=== PATIENT | female | born 1970 | race Two or more races ===

== ENCOUNTER 2016-08-30 02:12 | Emergency (ER) | payer OTHER ==
[2016-08-30 02:29] VITALS: BP 162/87; PULSE 104; TEMP 97.7; BMI 31.1
--- NOTE | 2016-08-30 03:00 | PDOC ---
*Physical Exam - Vital Signs Last Vital Signs Temp Pulse Resp BP Pulse Ox 97.7 F 104 H 18 162/87 98 08/30/16 02:23 08/30/16 02:23 08/30/16 02:23 08/30/16 02:23 08/30/16 02:23 Medical Decision Making - Medical Decision Making 08/30/16 03:00 agree with care from [facility] *DC/Admit/Observation/Transfer Diagnosis at time of Disposition: Heart palpitations - Discharge Dispostion Disposition: HOME Condition at time of disposition: Good - Prescriptions Prescriptions: Azithromycin [Zithromax -] 250 mg PO DAILY #4 tablet - Referrals Referrals: Jose Santos MD [Primary Care Provider] - - Patient Instructions Printed Discharge Instructions: DI for Palpitations Additional Instructions: TAKE MEDICATIONS PRESCRIBED. RETURN IF SYMPTOMS WORSEN OR ANY CONCERNS FOR FURTHER EVALUATION. FOLLOW UP WITH YOUR PRIMARY CARE PROVIDER NEEDED. Print Language: BRAZILIAN
[2016-08-30 03:30] LABS: PH,URINE 6.5 (5.0-8.0); URINE APPEARANCE CLOUDY; URINE BILIRUBIN 1+ (NEGATIVE); URINE GLUCOSE (UA) NEGATIVE (NEGATIVE); URINE KETONE TRACE (NEGATIVE); URINE LEUK ESTERASE NEGATIVE (NEGATIVE); URINE NITRITE NEGATIVE (NEGATIVE); URINE UROBILINOGEN 0.2 E.U/dl E.U./dl (0.2-1.0)
[2016-08-30 03:33] LABS: URINE BLOOD 3+ (NEGATIVE); URINE COLOR DK YELLOW; URINE PROTEIN 2+ (NEGATIVE)
[2016-08-30 03:35] LABS: URINE HYALINE CAST 3 /lpf; URINE MUCUS MODERATE; URINE RBC 1265 /hpf (0-3); URINE WBC 7 /hpf (3-5)
[2016-08-30] MEDS ORDERED: AZITHROMYCIN 250 MG TABLET (FP) PO ONE (04:47)
--- NOTE | 2016-08-30 04:50 | PDOC ---
History of Present Illness - General Chief Complaint: Respiratory Stated Complaint: RESPIRATORY Time Seen by Provider: 08/30/16 02:51 History Source: Patient Exam Limitations: No Limitations - History of Present Illness Initial Comments: 08/30/16 04:48 46yo Female patient presents to ED c/o chest discomfort when coughing. Patient states Sunday she experienced sore throat, fever, cough with chest pain. Sunday she saw her PCP and was given solumedrol and Rocephin IM. Patient states fever broke at 1pm, she then took a bath. At 330pm pain with breathing began, she called her PCP and was instructed to take a nebulizer tx. Patient states neb tx relieved symptoms, but at 9pm she began experiencing palpitations so she came to ER for evaluation because she was scared. Timing/Duration: getting worse Severity: mild Modifying Factors: improves with: medication Associated Symptoms: reports: other (Heart Palpitations) Aspirin Received prior to arrival: No: no aspirin today, unknown, 81 mg x 1, 81 mg x 2, 81 mg x 3, 81 mg x 4, 325 mg x 1, provided at home, provided by EMS, provided by ED [facility] Contraindications(Core Measure): No: Allergy, Other, Active Blding w/i 24 hrs., Plavix, Receiving Warfarin Beta Hernan Contraindications(Core Measure): No: Not Prescribed, Allergy, Bradycardia (HR <60bpm), Advanced Heart Block, Pacemaker, Other Past History - Travel Traveled outside of the country in the last 30 days: No Close contact w/someone who was outside of country & ill: No - Past Medical History Allergies/Adverse Reactions: Allergies Allergy/AdvReac Type Severity Reaction Status Date / Time No Known Allergies Allergy Verified 08/30/16 04:24 Home Medications: Ambulatory Orders Azithromycin [Zithromax -] 250 mg PO DAILY #4 tablet 08/30/16 Kidney Stones: Yes - Immunization History Immunization Up to Date: Yes - Psycho/Social/Smoking Cessation Hx Anxiety: No Suicidal Ideation: No Smoking History: Current every day smoker Have you smoked in the past 12 months: Yes Number of Cigarettes Smoked Daily: 4 Information on smoking cessation initiated: No 'Breaking Loose' booklet given: 08/30/16 Hx Alcohol Use: No Drug/Substance Use Hx: No Substance Use Type: None Review of Systems - Review of Systems Able to Perform ROS?: Yes Is the patient limited Japanese proficient: No Constitutional: No: Chills, Fever HEENTM: Yes: Other (Post Nasal Drip). No: Throat Pain, Difficulty Swallowing Respiratory: Yes: Cough. No: Shortness of Breath, Stridor, Wheezing Cardiac (ROS): Yes: Palpitations, Other (Chest Pain when breathing.). No: Chest Pain ABD/GI: No: Diarrhea, Nausea, Poor Appetite, Vomiting : No: Burning, Dysuria, Flank Pain Musculoskeletal: No: Back Pain, Muscle Pain, Muscle Weakness Integumentary: No: Bruising, Erythema, Rash Neurological: No: Headache, Numbness, Seizure, Tingling, Tremors, Ataxia, Dizziness Psychiatric: No: Anxiety, Depression, Stressors, Emotional Problems All Other Systems: Reviewed and Negative *Physical Exam - Vital Signs Last Vital Signs Temp Pulse Resp BP Pulse Ox 97.7 F 104 H 18 162/87 98 08/30/16 02:23 08/30/16 02:23 08/30/16 02:23 08/30/16 02:23 08/30/16 02:23 - Physical Exam General Appearance: Yes: Nourished, Appropriately Dressed. No: Apparent Distress, Mild Distress, Moderate Distress, Severe Distress HEENT: positive: EOMI, YENNI, Normal ENT Inspection, Normal Voice, Symmetrical, TMs Normal, Pharynx Normal, Other (Moderate amounts of thick yellowish mucus noted to posterior pharynx. ) Neck: positive: Trachea midline, Supple Respiratory/Chest: positive: Lungs Clear, Normal Breath Sounds Cardiovascular: positive: Regular Rhythm, Regular Rate Gastrointestinal/Abdominal: positive: Normal Bowel Sounds, Soft Lymphatic: negative: Adenopathy Musculoskeletal: positive: Normal Inspection. negative: CVA Tenderness Extremity: positive: Normal Capillary Refill, Normal Inspection, Normal Range of Motion Integumentary: positive: Normal Color, Dry, Warm, Swelling Neurologic: positive: Fully Oriented, Alert, Normal Mood/Affect, Normal Response , Motor Strength 5/5 ED Treatment Course - ADDITIONAL ORDERS Additional order review: Laboratory Results 08/30/16 03:10 Urine Color Dk yellow Urine Appearance Cloudy Urine pH 6.5 Ur Specific Majestic 1.025 Urine Protein 2+ H Urine Glucose (UA) Negative Urine Ketones Trace H Urine Blood 3+ H Urine Nitrite Negative Urine Bilirubin 1+ H Urine Urobilinogen 0.2 e.u/dl Ur Leukocyte Esterase Negative Urine RBC 1265 Urine WBC 7 Ur Epithelial Cells Rare Hyaline Casts 3 Urine Mucus Moderate Urine HCG, Qual Negative - RADIOLOGY Radiology Studies Ordered: Category Date Time Status CHEST PA & LAT [RAD] Stat Radiology 08/30/16 03:03 Taken *DC/Admit/Observation/Transfer Diagnosis at time of Disposition: Heart palpitations - Discharge Dispostion Disposition: HOME Condition at time of disposition: Good Admit: No - Prescriptions Prescriptions: Azithromycin [Zithromax -] 250 mg PO DAILY #4 tablet - Referrals Referrals: Jose Santos MD [Primary Care Provider] - - Patient Instructions Printed Discharge Instructions: DI for Palpitations Additional Instructions: TAKE MEDICATIONS PRESCRIBED. RETURN IF SYMPTOMS WORSEN OR ANY CONCERNS FOR FURTHER EVALUATION. FOLLOW UP WITH YOUR PRIMARY CARE PROVIDER NEEDED. Print Language: TURKISH
[2016-08-30] MEDS ORDERED: AZITHROMYCIN 250 MG TABLET (FP) ONE (05:07)
--- NOTE | 2016-08-30 23:46 | EKG ---
Test Reason : Blood Pressure : / mmHG Vent. Rate : 079 BPM Atrial Rate : 079 BPM P-R Int : 138 ms QRS Dur : 084 ms QT Int : 392 ms P-R-T Axes : 062 -08 020 degrees QTc Int : 449 ms NORMAL SINUS RHYTHM NORMAL ECG WHEN COMPARED WITH ECG OF 07-MAR-2010 16:34, NONSPECIFIC T WAVE ABNORMALITY NOW EVIDENT IN ANTERIOR LEADS Confirmed by GILMAR REBOLLAR MD ([id number]) on 08/30/2016 11:46:06 PM Referred By: Confirmed By:GILMAR REBOLLAR MD
== END 2016-08-30 05:39 | disposition home or self-care (01) ==
LOC: JER 02:12
DX: R00.2 Palpitations (principal); F17.210 Nicotine dependence, cigarettes, uncomplicated
CPT/HCPCS: 71020-TC; 81003; 81015; 84703; 93005; 93010; 99281-25

== ENCOUNTER 2017-02-02 07:04 | Emergency (ER) | payer OTHER ==
[2017-02-02 07:13] VITALS: TEMP 98.6; BMI 32.4
[2017-02-02] MEDS ORDERED: ONDANSETRON 4 MG/2 ML VIAL IVPUSH ONE (07:49)
[2017-02-02] MEDS ORDERED: morphine CARPU-JECT 4 MG/1 ML DISP.SYRIN IVPUSH ONE (07:49)
--- NOTE | 2017-02-02 07:55 | PDOC ---
History of Present Illness - General Chief Complaint: Pain, Acute Stated Complaint: SEVERE PELVIC PAIN Time Seen by Provider: 02/02/17 07:31 History Source: Patient Exam Limitations: No Limitations - History of Present Illness Travel History: No Initial Comments: 02/02/17 07:50 46 yr female with c/o abd pain on and off for 1 month. Pt states pain is now to lower abdomen, pelvic area with "cramping, contraction like pain". Pt has urgency and urinary frequency. Pt has nausea no fever or chills no vomiting. Pt c/o constipation with mucousy stool. Pt has apt today with at 915. Timing/Duration: reports: intermittent Quality: reports: fullness Abdominal Pain Onset Location: reports: generalized abdomen Pain Radiation: reports: other (lower pelvic area) Past History - Past Medical History Allergies/Adverse Reactions: Allergies Allergy/AdvReac Type Severity Reaction Status Date / Time No Known Allergies Allergy Verified 02/02/17 07:13 Home Medications: Ambulatory Orders Losartan Potassium [Cozaar] 100 mg PO DAILY 02/02/17 Oxycodone HCl/Acetaminophen [Percocet 5-325 mg Tablet] 1 tab PO Q6H PRN #12 tablet MDD 4 tabs 02/02/17 HTN: Yes Kidney Stones: Yes - Surgical History Abdominal Surgery: Yes (csection x1 ) - Immunization History Immunization Up to Date: Yes - Psycho/Social/Smoking Cessation Hx Anxiety: No Suicidal Ideation: No Smoking History: Current every day smoker Have you smoked in the past 12 months: Yes Number of Cigarettes Smoked Daily: 2 Information on smoking cessation initiated: No 'Breaking Loose' booklet given: 08/30/16 Hx Alcohol Use: Yes (OCCASIONALLY) Drug/Substance Use Hx: No Substance Use Type: None Abd/GI Specific PMHX - Complaint Specific PMHX Colitis: No Diverticulitis: Yes (possible) Gall Bladder Disease: No GERD: No Hepatitis: No Irritable Bowel Synd (IBS): No Pancreatitis: No GI Ulcer Disease: No Review of Systems - Review of Systems Able to Perform ROS?: Yes Is the patient limited Comoran proficient: No Constitutional: No: Symptoms Reported HEENTM: No: Symptoms Reported Respiratory: No: Symptoms reported Cardiac (ROS): No: Symptoms Reported ABD/GI: Yes: See HPI : Yes: See HPI *Physical Exam - Vital Signs Last Vital Signs Temp Pulse Resp BP Pulse Ox 98.6 F 88 18 156/94 97 02/02/17 07:08 02/02/17 07:08 02/02/17 07:08 02/02/17 07:08 02/02/17 07:08 - Physical Exam General Appearance: Yes: Nourished, Appropriately Dressed HEENT: positive: EOMI, YENNI, Normal ENT Inspection, TMs Normal, Pharynx Normal Neck: positive: Supple. negative: Tender Respiratory/Chest: positive: Lungs Clear, Normal Breath Sounds Cardiovascular: positive: Regular Rhythm, Regular Rate Female Pelvic Exam: positive: normal external exam, normal adnexa, other. negative: CMT, discharge, adnexal tenderness Gastrointestinal/Abdominal: positive: Normal Bowel Sounds, Distended. negative : Tender Musculoskeletal: positive: Normal Inspection Extremity: positive: Normal Capillary Refill, Normal Inspection, Normal Range of Motion Integumentary: positive: Normal Color, Dry, Warm Neurologic: positive: Fully Oriented, Alert, Normal Mood/Affect, Normal Response , Motor Strength 12/22 ED Treatment Course - LABORATORY CBC & Chemistry Diagram: 02/02/17 08:00 02/02/17 08:00 - RADIOLOGY Radiology Studies Ordered: Category Date Time Status PELVIC / BLADDER US [US] Stat Ultrasound 02/02/17 07:49 Ordered Medical Decision Making - Medical Decision Making 02/02/17 07:53 cc: abd pain for one month on and off, more recently to lower abd with urinary urgency and frequency, denies vaginal discharge, pt also with constipation and mucousy stools had abd ct 01/05/17 which was reviewed in EMR (negative, fatty liver) pt has no fever or chills will check labs, pelvic sono pain control 02/02/17 08:31 pt states pain is not improved after 4mg morphine. pt has 2+blood in urine will r/o renal colic 02/02/17 09:13 will give toradol 02/02/17 09:58 02/02/17 10:13 us reported. no significant findings. pt wants to leave and go to 's office. will send prescription for percocet for pain . dc inst discussed verbally with the patient and all questions asked and answered. pt feels better after toradol.. pt states the pain has improved. 02/02/17 10:26 02/02/17 12:37 *DC/Admit/Observation/Transfer Diagnosis at time of Disposition: Abdominal pain Qualifiers: Abdominal location: lower abdomen, unspecified Qualified Code(s): R10.30 - Lower abdominal pain, unspecified - Discharge Dispostion Disposition: HOME Condition at time of disposition: Improved - Prescriptions Prescriptions: Oxycodone HCl/Acetaminophen [Percocet 5-325 mg Tablet] 1 tab PO Q6H PRN #12 tablet MDD 4 tabs PRN Reason: Severe Pain - Referrals Referrals: Jose Santos MD [Primary Care Provider] - - Patient Instructions Additional Instructions: follow with as scheduled take the percocet for severe pain drink pleanty of fluids to stay hydrated high fiber diet to avoid constipation , bland diet
[2017-02-02 08:07] LABS: BASOPHIL 0.6 % (0-2.0); MCHC 33.6 g/dl (32.0-36.0); MEAN CELL VOLUME 83.2 fl (80-96); MEAN PLT VOLUME 9.4 fl (7.5-11.1); NEUTROPHILS 82.2 % (42.8-82.8); PLATELET COUNT 239 K/MM3 (134-434); RDW 14.6 % (11.6-15.6); WHITE BLOOD COUNT 14.1 K/mm3 (4.0-10.0)
[2017-02-02] MEDS ORDERED: morphine CARPU-JECT 2 MG/1 ML DISP.SYRIN ONE (08:10)
[2017-02-02] MEDS ORDERED: ONDANSETRON 4 MG/2 ML VIAL ONE (08:10)
[2017-02-02 08:24] LABS: URINE APPEARANCE CLEAR; URINE BILIRUBIN NEGATIVE (NEGATIVE); URINE COLOR YELLOW; URINE GLUCOSE (UA) NEGATIVE (NEGATIVE); URINE KETONE NEGATIVE (NEGATIVE); URINE LEUK ESTERASE NEGATIVE (NEGATIVE); URINE NITRITE NEGATIVE (NEGATIVE); URINE PROTEIN NEGATIVE (NEGATIVE); URINE UROBILINOGEN NEGATIVE E.U./dl (0.2-1.0)
[2017-02-02 08:26] LABS: URINE BLOOD 2+ (NEGATIVE)
[2017-02-02 08:27] LABS: URINE BACTERIA RARE /hpf (NONE SEEN); URINE MUCUS RARE; URINE RBC 9 /hpf (0-3); URINE WBC 4 /hpf (3-5)
[2017-02-02] MEDS ORDERED: KETOROLAC TROMETHAMINE 30 MG/1 ML VIAL IVPUSH ONE (08:28)
[2017-02-02 08:32] LABS: ALBUMIN 3.7 g/dl (3.4-5.0); AMYLASE 33 U/L (25-115); ANION GAP 8 (8-16); BILIRUBIN,TOTAL 0.6 mg/dL (0.2-1.0); CALCIUM 8.5 mg/dL (8.5-10.1); CO2 26 mmol/L (21-32); CREATININE 0.8 mg/dL (0.55-1.02); GLUCOSE,RANDOM 103 mg/dL (74-106); SGOT/AST 13 U/L (15-37); SGPT/ALT 23 U/L (12-78); TOT PROT 7.2 g/dl (6.4-8.2)
[2017-02-02 08:33] LABS: ALK PHOS 102 U/L (45-117)
[2017-02-02] MEDS ORDERED: KETOROLAC TROMETHAMINE 30 MG/1 ML VIAL ONE (10:01)
[2017-02-02 10:26] VITALS: BP 122/80; PULSE 85
== END 2017-02-02 10:26 | disposition home or self-care (01) ==
LOC: JER 07:04
PROC: 3E033NZ Introduction of Analgesics, Hypnotics, Sedatives into Peripheral Vein, Percutaneous Approach (ICD-10-PCS; principal; 2017-02-02)
PROC: 3E033GC Introduction of Other Therapeutic Substance into Peripheral Vein, Percutaneous Approach (ICD-10-PCS; 2017-02-02)
PROC: 3E0333Z Introduction of Anti-inflammatory into Peripheral Vein, Percutaneous Approach (ICD-10-PCS; 2017-02-02)
DX: R10.30 Lower abdominal pain, unspecified (principal)
CPT/HCPCS: 36415; 76775-TC; 76856-TC; 80053; 81003; 81015; 82150; 83690; 84703; 85025; 96374; 96375; 99283-25

== ENCOUNTER 2017-02-02 19:47 | Inpatient (IN) | payer OTHER ==
[2017-02-02 19:57] VITALS: BMI 32.4
[2017-02-02] MEDS ORDERED: ONDANSETRON 4 MG/2 ML VIAL IVPB ONE (20:29)
[2017-02-02] MEDS ORDERED: morphine CARPU-JECT 4 MG/1 ML DISP.SYRIN IVPUSH ONE ×2 (20:29→23:23)
[2017-02-02] MEDS ORDERED: ACETAMINOPHEN 325 MG TABLET (FP) PO ONE (20:29)
[2017-02-02] MEDS ORDERED: SODIUM CHLORIDE 1,000 ML IV STA (20:29)
[2017-02-02] MEDS ORDERED: ONDANSETRON 4 MG/2 ML VIAL ONE (20:46)
[2017-02-02] MEDS ORDERED: ACETAMINOPHEN 325 MG TABLET (FP) ONE (20:46)
[2017-02-02] MEDS ORDERED: morphine CARPU-JECT 4 MG/1 ML DISP.SYRIN ONE ×2 (20:46→23:37)
[2017-02-02 21:29] LABS: BASOPHIL 0.2 % (0-2.0); EOSINOPHIL 0.1 % (0-4.5); MCH 27.2 pg (25.7-33.7); MCHC 32.7 g/dl (32.0-36.0); MEAN CELL VOLUME 83.3 fl (80-96); MEAN PLT VOLUME 9.7 fl (7.5-11.1); NEUTROPHILS 88.8 % (42.8-82.8); PLATELET COUNT 234 K/MM3 (134-434); RDW 14.6 % (11.6-15.6); WHITE BLOOD COUNT 12.8 K/mm3 (4.0-10.0)
[2017-02-02 21:36] LABS: URINE APPEARANCE SLCLOUDY; URINE BILIRUBIN NEGATIVE (NEGATIVE); URINE COLOR DKYELLOW; URINE GLUCOSE (UA) NEGATIVE (NEGATIVE); URINE KETONE NEGATIVE (NEGATIVE); URINE NITRITE NEGATIVE (NEGATIVE); URINE UROBILINOGEN NEGATIVE E.U./dl (0.2-1.0)
[2017-02-02 22:02] LABS: ALBUMIN 3.8 g/dl (3.4-5.0); ANION GAP 11 (8-16); CALCIUM 8.7 mg/dL (8.5-10.1); CO2 26 mmol/L (21-32); CREATININE 0.9 mg/dL (0.55-1.02); GLUCOSE,RANDOM 106 mg/dL (74-106); SGOT/AST 12 U/L (15-37); SGPT/ALT 21 U/L (12-78)
[2017-02-02 22:05] LABS: ALK PHOS 102 U/L (45-117); BILIRUBIN,TOTAL 0.8 mg/dL (0.2-1.0); TOT PROT 7.5 g/dl (6.4-8.2)
[2017-02-02 22:11] LABS: URINE BLOOD 2+ (NEGATIVE); URINE LEUK ESTERASE 1+ (NEGATIVE); URINE PROTEIN 1+ (NEGATIVE)
--- NOTE | 2017-02-02 22:45 | PDOC ---
History of Present Illness - General History Source: Patient Exam Limitations: No Limitations - History of Present Illness Initial Comments: 02/02/17 23:04 The patient is a 46 year old female with a significant past medical history of hypertension and recent diagnosis of diverticulosis (3 weeks ago) who presents to the ED with complaints of fever and lightheadedness since earlier today. The patient was recently seen in the ED this morning for intermittent abdominal pain , nausea and urinary frequency and urgency for a month. She was discharged with percocets and followed-up with her Senior Instrumentation Engineer later in the day. Senior Instrumentation Engineer told the patient her symptoms are similar to that of diverticulitis but states she also has an infection. Gastroenterology prescribed the patient with Xifaxan. Patient reports taking Percocet and Xifaxan at 2 pm earlier today and has since developed a fever of 101 F, lightheadedness and generalized body aches. Patient was told to come into the ED by Senior Instrumentation Engineer. Patient has a history of kidney stones but states her present symptoms are not similar to stones. Denies dysuria. Denies chest pain or shortness of breath. Denies any other symptoms. <Cely Black - Last Filed: 02/03/17 01:03> - General History Source: Patient Exam Limitations: No Limitations <Pancho Cha - Last Filed: 02/03/17 01:06> - General Chief Complaint: Pain Stated Complaint: PELVIC PAIN Time Seen by Provider: 02/02/17 20:17 Past History <Cely Black - Last Filed: 02/03/17 01:03> - Past Medical History HTN: Yes Kidney Stones: Yes - Surgical History Abdominal Surgery: Yes (csection x1 ) - Immunization History Immunization Up to Date: Yes - Psycho/Social/Smoking Cessation Hx Anxiety: No Suicidal Ideation: No Smoking History: Current every day smoker Have you smoked in the past 12 months: Yes Number of Cigarettes Smoked Daily: 2 Information on smoking cessation initiated: No 'Breaking Loose' booklet given: 08/30/16 Hx Alcohol Use: Yes (OCCASIONALLY) Drug/Substance Use Hx: No Substance Use Type: None <Pancho Cha - Last Filed: 02/03/17 01:06> - Past Medical History Allergies/Adverse Reactions: Allergies Allergy/AdvReac Type Severity Reaction Status Date / Time No Known Allergies Allergy Verified 02/02/17 19:50 Home Medications: Ambulatory Orders Linaclotide [Linzess] 72 mcg PO DAILY 02/02/17 Lipase/Protease/Amylase [Lucia Lacey 24,000 Units Capsule] 1 each PO ASDIR Losartan Potassium [Cozaar] 100 mg PO DAILY 02/02/17 Oxycodone HCl/Acetaminophen [Percocet 5-325 mg Tablet] 1 tab PO Q6H PRN #12 tablet MDD 4 tabs 02/02/17 Rifaximin [Xifaxan] 550 mg PO TID 02/02/17 Review of Systems - Review of Systems Able to Perform ROS?: Yes Comments:: 02/02/17 23:05 GENERAL/CONSTITUTIONAL: + fever, chills, generalized body aches. HEAD, EYES, EARS, NOSE AND THROAT: No change in vision. No ear pain or discharge. No sore throat. CARDIOVASCULAR: No chest pain or shortness of breath. RESPIRATORY: No cough, wheezing, or hemoptysis. GASTROINTESTINAL: + abdominal pain, nausea. No n vomiting, diarrhea or constipation. GENITOURINARY: + frequency, urgency No dysuria, MUSCULOSKELETAL: No joint or muscle swelling or pain. No neck or back pain. SKIN: No rash NEUROLOGIC: + lightheadedness. No headache, vertigo, loss of consciousness, or change in strength/sensation. ENDOCRINE: No increased thirst. No abnormal weight change. HEMATOLOGIC/LYMPHATIC: No anemia, easy bleeding, or history of blood clots. ALLERGIC/IMMUNOLOGIC: No hives or skin allergy. All Other Systems: Reviewed and Negative <Cely Black - Last Filed: 02/03/17 01:03> *Physical Exam - Vital Signs Last Vital Signs Temp Pulse Resp BP Pulse Ox 102.3 F H 123 H 20 136/82 97 02/02/17 19:51 02/02/17 19:51 02/02/17 19:51 02/02/17 19:51 02/02/17 19:51 - Physical Exam Comments: 02/02/17 23:05 GENERAL: Awake, alert, and fully oriented, in no acute distress HEAD: No signs of trauma EYES: PERRLA, EOMI, sclera anicteric, conjunctiva clear ENT: Auricles normal inspection, hearing grossly normal, nares patent, oropharynx clear without exudates. Moist mucosa NECK: Normal ROM, supple, no lymphadenopathy, JVD, or masses LUNGS: Breath sounds equal, clear to auscultation bilaterally. No wheezes, and no crackles HEART: Regular rate and rhythm, normal S1 and S2, no murmurs, rubs or gallops ABDOMEN: + diffuse abdominal tenderness, right lower quadrant tenderness on palpation. Soft,, normoactive bowel sounds. No guarding, no rebound. No masses EXTREMITIES: Normal range of motion, no edema. No clubbing or cyanosis. No cords, erythema, or tenderness NEUROLOGICAL: Normal speech SKIN: Warm, Dry, normal turgor, no rashes or lesions noted. <Cely Black - Last Filed: 02/03/17 01:03> - Vital Signs Last Vital Signs Temp Pulse Resp BP Pulse Ox 102.3 F H 123 H 20 136/82 97 02/02/17 19:51 02/02/17 19:51 02/02/17 19:51 02/02/17 19:51 02/02/17 19:51 <Pancho Cha - Last Filed: 02/03/17 01:06> ED Treatment Course - LABORATORY CBC & Chemistry Diagram: 02/02/17 21:20 02/02/17 21:20 - ADDITIONAL ORDERS Additional order review: Laboratory Results 02/02/17 02/02/17 21:20 21:20 Sodium 137 Potassium 3.6 Chloride 100 Carbon Dioxide 26 Anion Gap 11 BUN 7 D Creatinine 0.9 Creat Clearance w eGFR > 60 Random Glucose 106 Calcium 8.7 Total Bilirubin 0.8 D AST 12 L ALT 21 Alkaline Phosphatase 102 Total Protein 7.5 Albumin 3.8 Lipase 63 L Urine Color Dkyellow Urine Appearance Slcloudy Urine pH 6.0 Urine Protein 1+ H Urine Glucose (UA) Negative Urine Ketones Negative Urine Blood 2+ H Urine Nitrite Negative Urine Bilirubin Negative Urine Urobilinogen Negative Ur Leukocyte Esterase 1+ H 02/02/17 21:20 RBC 4.45 MCV 83.3 MCHC 32.7 RDW 14.6 MPV 9.7 Neutrophils % 88.8 H Lymphocytes % 7.6 L D Monocytes % 3.3 L Eosinophils % 0.1 D Basophils % 0.2 - RADIOLOGY Radiograph Interpretation: 02/03/17 01:02 Exam: Noncontrast CT abdomen and pelvis Impression: Segmental thickening of the mid sigmoid colon with infiltration of the mesocolon consistent with mild acute or possibly subacute diverticulitis. Hepatic steatosis noted. Reported by: Imaging pipe fitter ammonia - Medications Given in the ED: ED Medications Discontinued Medications Generic Name Dose Route Start Last Admin Trade Name Lyssa PRN Reason Stop Dose Admin Acetaminophen 650 mg 02/02/17 20:29 02/02/17 21:00 Tylenol - PO 02/02/17 20:30 650 mg ONCE ONE Administration Sodium Chloride 1,000 mls @ 1,000 mls/hr 02/02/17 20:29 02/02/17 21:00 Normal Saline - IV 02/02/17 21:28 1,000 mls/hr ASDIR STA Administration Morphine Sulfate 4 mg 02/02/17 20:29 02/02/17 21:00 Morphine Injection - IVPUSH 02/02/17 20:30 4 mg ONCE ONE Administration Ondansetron HCl 4 mg 02/02/17 20:29 02/02/17 21:00 Zofran Injection IVPB 02/02/17 20:30 4 mg ONCE ONE Administration <Cely Black - Last Filed: 02/03/17 01:03> - LABORATORY CBC & Chemistry Diagram: 02/02/17 21:20 02/02/17 21:20 - ADDITIONAL ORDERS Additional order review: Laboratory Results 02/02/17 02/02/17 21:20 21:20 Sodium 137 Potassium 3.6 Chloride 100 Carbon Dioxide 26 Anion Gap 11 BUN 7 D Creatinine 0.9 Creat Clearance w eGFR > 60 Random Glucose 106 Calcium 8.7 Total Bilirubin 0.8 D AST 12 L ALT 21 Alkaline Phosphatase 102 Total Protein 7.5 Albumin 3.8 Lipase 63 L Urine Color Dkyellow Urine Appearance Slcloudy Urine pH 6.0 Urine Protein 1+ H Urine Glucose (UA) Negative Urine Ketones Negative Urine Blood 2+ H Urine Nitrite Negative Urine Bilirubin Negative Urine Urobilinogen Negative Ur Leukocyte Esterase 1+ H 02/02/17 21:20 RBC 4.45 MCV 83.3 MCHC 32.7 RDW 14.6 MPV 9.7 Neutrophils % 88.8 H Lymphocytes % 7.6 L D Monocytes % 3.3 L Eosinophils % 0.1 D Basophils % 0.2 - RADIOLOGY Radiology Studies Ordered: Category Date Time Status SPIRAL- RENAL-STONE CT [CT] Stat CT Scan 02/02/17 20:29 Ordered - Medications Given in the ED: ED Medications Discontinued Medications Generic Name Dose Route Start Last Admin Trade Name Lyssa PRN Reason Stop Dose Admin Acetaminophen 650 mg 02/02/17 20:29 02/02/17 21:00 Tylenol - PO 02/02/17 20:30 650 mg ONCE ONE Administration Sodium Chloride 1,000 mls @ 1,000 mls/hr 02/02/17 20:29 02/02/17 21:00 Normal Saline - IV 02/02/17 21:28 1,000 mls/hr ASDIR STA Administration Morphine Sulfate 4 mg 02/02/17 20:29 02/02/17 21:00 Morphine Injection - IVPUSH 02/02/17 20:30 4 mg ONCE ONE Administration Ondansetron HCl 4 mg 02/02/17 20:29 02/02/17 21:00 Zofran Injection IVPB 02/02/17 20:30 4 mg ONCE ONE Administration <Pancho Cha - Last Filed: 02/03/17 01:06> Medical Decision Making - Medical Decision Making 02/02/17 22:43 A portion of this note was documented by scribe services under my direction. I have reviewed the details of the note, within reason, and agree with the documentation with the following case summary and management plan written by me. Patient treated in the ED. Nursing notes are reviewed and incorporated into the medical decision-making. Vital signs reviewed. Peripheral IV access obtained by the nurse, laboratory studies are drawn and sent, reviewed and interpreted by myself. Vital Signs Temp Pulse Resp BP Pulse Ox 102.3 F H 123 H 20 136/82 97 02/02/17 19:51 02/02/17 19:51 02/02/17 19:51 02/02/17 19:51 02/02/17 19:51 46 old female with history of hypertension, diverticulosis presents with diffuse abdominal pain particularly in the right lower quadrant. Patient was here initially earlier today for lower abdominal pain which she's been having intermittently on and off for one month.. She noted that she had workup performed which did show white count of 14 and a normal renal pelvic ultrasound. However, the patient was trying to make an appointment with her GI doctor. She went to Dr. Hernandez's office who advised patient go to the ER again given that she is developing fevers. Patient had a fever 102.3 here. She has right lower quadrant pain. She is also going by urinary frequency. Differential includes urinary tract infection, pyelonephritis, obstructing kidney stone, appendicitis, diverticular' s. We'll obtain labs, urinalysis and a CAT scan abdomen pelvis and reassess. 02/03/17 01:05 CBC, BMP 02/02/17 21:20 02/02/17 21:20 CMP Sodium 137 mmol/L (136-145) 02/02/17 21:20 Potassium 3.6 mmol/L (3.5-5.1) 02/02/17 21:20 Chloride 100 mmol/L (98-107) 02/02/17 21:20 Carbon Dioxide 26 mmol/L (21-32) 02/02/17 21:20 Anion Gap 11 (8-16) 02/02/17 21:20 BUN 7 mg/dL (7-18) D 02/02/17 21:20 Creatinine 0.9 mg/dL (0.55-1.02) 02/02/17 21:20 Creat Clearance w eGFR > 60 (>60) 02/02/17 21:20 Random Glucose 106 mg/dL (74-106) 02/02/17 21:20 Calcium 8.7 mg/dL (8.5-10.1) 02/02/17 21:20 Total Bilirubin 0.8 mg/dL (0.2-1.0) D 02/02/17 21:20 AST 12 U/L (15-37) L 02/02/17 21:20 ALT 21 U/L (12-78) 02/02/17 21:20 Alkaline Phosphatase 102 U/L (45-117) 02/02/17 21:20 Total Protein 7.5 g/dl (6.4-8.2) 02/02/17 21:20 Albumin 3.8 g/dl (3.4-5.0) 02/02/17 21:20 Lipase 63 U/L (73-393) L 02/02/17 21:20 Serum , Qual Negative 02/02/17 21:20 Urine Test Results Urine Color Dkyellow 02/02/17 21:20 Urine Appearance Slcloudy 02/02/17 21:20 Urine pH 6.0 (5.0-8.0) 02/02/17 21:20 Ur Specific [place] 1.015 (1.005-1.025) 02/02/17 21:20 Urine Protein 1+ (NEGATIVE) H 02/02/17 21:20 Urine Glucose (UA) Negative (NEGATIVE) 02/02/17 21:20 Urine Ketones Negative (NEGATIVE) 02/02/17 21:20 Urine Blood 2+ (NEGATIVE) H 02/02/17 21:20 Urine Nitrite Negative (NEGATIVE) 02/02/17 21:20 Urine Bilirubin Negative (NEGATIVE) 02/02/17 21:20 Ur Leukocyte Esterase 1+ (NEGATIVE) H 02/02/17 21:20 Ceftriaxone initially given for concerns for UTI. However, CT results demonstrates acute diverticulitis. Case discussed with Dr. Jose Santos. He requests IV levaquin and flagyl. Will admit under Dr. Grady for admission. Case discussed in detail with admitting physician including history, physical exam and ancillary studies. Admitting physician has assumed care for the patient, will follow all pending diagnostics and will complete the evaluation and treatment. <Pancho Cha - Last Filed: 02/03/17 01:06> *DC/Admit/Observation/Transfer - Attestations Scribe Attestion: 02/02/17 23:05 Documentation prepared by Cely Black, acting as medical doctor nuclear medicine for Pancho Cha MD <Cely Black - Last Filed: 02/03/17 01:03> - Discharge Dispostion Admit: Yes <Pancho Cha - Last Filed: 02/03/17 01:06> Diagnosis at time of Disposition: Diverticulitis of intestine Qualifiers: Diverticulitis site: unspecified part of intestinal tract Diverticulitis bleeding: without bleeding Diverticulitis complication: unspecified complication status Qualified Code(s): K57.92 - Diverticulitis of intestine, part unspecified, without perforation or abscess without bleeding - Discharge Dispostion Condition at time of disposition: Stable - Referrals Referrals: Jose Santos MD [Primary Care Provider] -
[2017-02-03] MEDS ORDERED: CEFTRIAXONE 1 GM in DEXTROSE 5%-WATER - 50 ML IVPB ONE (00:14)
[2017-02-03] MEDS ORDERED: morphine CARPU-JECT 4 MG/1 ML DISP.SYRIN IVPUSH ONE (00:36)
[2017-02-03] MEDS ORDERED: morphine CARPU-JECT 4 MG/1 ML DISP.SYRIN ONE ×2 (00:47→09:15)
[2017-02-03] MEDS ORDERED: CEFTRIAXONE 50 ML ONE (00:47)
[2017-02-03] MEDS ORDERED: METRONIDAZOLE 500 MG PREMIXED 100 ML IVPB ONE ×3 (01:04→09:15)
[2017-02-03] MEDS ORDERED: LEVOFLOXACIN 500 MG IVPB 100 ML IVPB ONE (01:04)
[2017-02-03] MEDS ORDERED: METRONIDAZOLE 500 MG PREMIXED 100 ML IVPB SCH (02:00)
[2017-02-03] MEDS: DEXTROSE 5%-0.45% SALINE 1,000 ML IV SCH ×2 (02:27→14:47)
[2017-02-03] MEDS: PATIENT'S OWN MEDICATION (NON-FORMULARY) (Lipase/Protease/Amylase [Creon Dr 24,000 Units C PO SCH (02:45)
[2017-02-03] MEDS ORDERED: KETOROLAC TROMETHAMINE 30 MG/1 ML VIAL IVPUSH ONE (04:26)
[2017-02-03] MEDS ORDERED: KETOROLAC TROMETHAMINE 30 MG/1 ML VIAL ONE (04:27)
[2017-02-03 06:47] LABS: BASOPHIL 0.2 % (0-2.0); EOSINOPHIL 0.7 % (0-4.5); MCH 27.9 pg (25.7-33.7); MCHC 33.3 g/dl (32.0-36.0); MEAN CELL VOLUME 83.8 fl (80-96); NEUTROPHILS 84.5 % (42.8-82.8); PLATELET COUNT 205 K/MM3 (134-434); RDW 14.5 % (11.6-15.6); WHITE BLOOD COUNT 10.2 K/mm3 (4.0-10.0)
[2017-02-03 07:14] LABS: ALBUMIN 2.8 g/dl (3.4-5.0); ANION GAP 8 (8-16); CALCIUM 7.9 mg/dL (8.5-10.1); CO2 28 mmol/L (21-32); CREATININE 0.9 mg/dL (0.55-1.02); GLUCOSE,RANDOM 145 mg/dL (74-106); SGOT/AST 7 U/L (15-37); SGPT/ALT 16 U/L (12-78)
[2017-02-03 07:16] LABS: ALK PHOS 77 U/L (45-117); BILIRUBIN,TOTAL 0.7 mg/dL (0.2-1.0)
[2017-02-03] MEDS: METRONIDAZOLE 500 MG PREMIXED 100 ML IVPB SCH ×2 (09:13→17:19)
[2017-02-03] MEDS: morphine CARPU-JECT 4 MG/1 ML DISP.SYRIN IM PRN ×2 (09:13→14:52)
[2017-02-03] MEDS ORDERED: ONDANSETRON 4 MG/2 ML VIAL ONE (09:15)
[2017-02-03] MEDS ORDERED: PATIENT'S OWN MEDICATION (NON-FORMULARY) (Linaclotide [Linzess] 72 MCG) PO SCH (10:00)
[2017-02-03] MEDS: ONDANSETRON 4 MG/2 ML VIAL IVPUSH PRN (10:03)
[2017-02-03] MEDS: LOSARTAN POTASSIUM 50 MG TABLET (FP) PO SCH (10:03)
[2017-02-03] MEDS ORDERED: morphine CARPU-JECT 4 MG/1 ML DISP.SYRIN IVPB PRN (15:23)
--- NOTE | 2017-02-03 17:52 | CON.GI ---
Consult Consult Specialty:: GI Referred by:: Dr Grady Reason for Consultation:: Abdominal pain - History of Present Illness Chief Complaint: Abdominal pain History of Present Illness: 46 year old female with a significant past medical history of hypertension, s/p colonoscopy 3 weeks ago for evaluation of rectal bleeding. She was told she had diverticulosis. 3 weeks later she presents to ER with diffuse abdominal pain. CT revealed diverticulitis in the sigmoid. In this patient, the sigmoid was noted to be folded over and on the right. She was admitted and started on IV AbRx. She was also given a full liquid diet. On arrival at the bedside she is still in a good deal of pain. Her exam is notable for diffuse abdominal pain and rebound diffusely. She had a fever of 102.3 which is now 100.3. She also had leukocytosis. - History Source History Provided By: Patient Limitations to Obtaining History: No Limitations - Past Medical History Cardio/Vascular: Yes: HTN ...LMP: 01/18/17 ...: No - Alcohol/Substance Use Hx Alcohol Use: Yes (OCCASIONALLY) - Smoking History Smoking history: Current every day smoker Have you smoked in the past 12 months: Yes Aproximately how many cigarettes per day: 2 Home Medications - Allergies Allergies/Adverse Reactions: Allergies Allergy/AdvReac Type Severity Reaction Status Date / Time No Known Allergies Allergy Verified 02/02/17 19:50 - Home Medications Home Medications: Ambulatory Orders Linaclotide [Linzess] 72 mcg PO DAILY 02/02/17 Lipase/Protease/Amylase [Lucia Lacey 24,000 Units Capsule] 1 each PO ASDIR Losartan Potassium [Cozaar] 100 mg PO DAILY 02/02/17 Oxycodone HCl/Acetaminophen [Percocet 5-325 mg Tablet] 1 tab PO Q6H PRN #12 tablet MDD 4 tabs 02/02/17 Rifaximin [Xifaxan] 550 mg PO TID 02/02/17 Physical Exam-GI Vital Signs: Vital Signs Temperature 98.9 F 02/03/17 14:22 Pulse Rate 94 H 02/03/17 14:22 Respiratory Rate 18 02/03/17 14:22 Blood Pressure 138/77 02/03/17 14:22 O2 Sat by Pulse Oximetry (%) 96 02/03/17 14:36 Constitutional: Yes: Well Nourished HENT: Yes: Normocephalic Cardiovascular: Yes: Tachycardia Respiratory: Yes: Regular, CTA Bilaterally Gastrointestinal Inspection: Yes: Distention ...Auscultate: Yes: Normoactive Bowel Sounds ...Palpate: Yes: Firm/Rigid, Tenderness, Rebound (diffusely) ...Percussion: Yes: Tympanitic (pain with percussion) Labs: CBC, BMP 02/03/17 06:35 02/03/17 06:35 Hepatic Panel Total Bilirubin 0.7 mg/dL (0.2-1.0) 02/03/17 06:35 AST 7 U/L (15-37) L D 02/03/17 06:35 ALT 16 U/L (12-78) D 02/03/17 06:35 Alkaline Phosphatase 77 U/L (45-117) D 02/03/17 06:35 Albumin 2.8 g/dl (3.4-5.0) L D 02/03/17 06:35 Imaging - Results Cat Scan: Report Reviewed (sigmoid diverticulitis) Assessment/Plan 46 F with above history now with acute abdomen. Stat CT NPO IVF Surgical consult now ID evaluation Case d/w Dr Grady
[2017-02-03] MEDS ORDERED: DEXTROSE 5%-0.45% SALINE 1,000 ML IV SCH (18:15)
[2017-02-03] MEDS ORDERED: PIPERACILLIN/TAZOB 3.375 GM 50 ML IVPB ONE (18:47)
[2017-02-03] MEDS: PIPERACILLIN/TAZOB 4.5 GM 100 ML IVPB SCH (19:45)
[2017-02-03] MEDS ORDERED: LEVOFLOXACIN 500 MG IVPB 100 ML IVPB SCH (20:00)
[2017-02-03 21:40] LABS: MCHC 33.1 g/dl (32.0-36.0); MEAN CELL VOLUME 84.4 fl (80-96); MEAN PLT VOLUME 9.4 fl (7.5-11.1); PLATELET COUNT 210 K/MM3 (134-434); RDW 14.7 % (11.6-15.6); WHITE BLOOD COUNT 10.5 K/mm3 (4.0-10.0)
[2017-02-03] MEDS ORDERED: LACTATED RINGERS SOLUTION 1,000 ML IV SCH (21:45)
[2017-02-03] MEDS: LACTATED RINGERS SOLUTION 1,000 ML IV SCH (21:51)
--- NOTE | 2017-02-03 21:51 | CONSULT ---
Consult Consult Specialty:: Surgery Referred by:: Dr. Grady - History of Present Illness Chief Complaint: Abdominal pain History of Present Illness: The patient is a 46 year old female with a significant past medical history of hypertension and recent diagnosis of diverticulosis (3 weeks ago) who presents to the ED on 02/03/17 with complaints of suprapubic pain, fever and n & v. The patient was recently seen in the ED in the morning for intermittent abdominal pain, nausea and urinary frequency and urgency for a month. She was discharged with percocets and followed-up with her Assistant Press Operator later in the day. Assistant Press Operator told the patient her symptoms are similar to that of diverticulitis but states she also has an infection. Gastroenterology prescribed the patient with Xifaxan. Patient reports taking Percocet and Xifaxan at 2 pm earlier today and has since developed a fever of 101 F, lightheadedness and generalized body aches. Patient was told to come into the ED by Assistant Press Operator. Patient has a history of kidney stones but states her present symptoms are not similar to stones. Denies dysuria. Denies chest pain or shortness of breath. Denies any other symptoms. Patient currently c/o lower abdominal pain and was noted to have rebound tenderness by GI. Repeat CT scan ordered. Placed on Ceftriaxone, changed to LEVQUIN and Flagyl and eventually switched to Zosyn by ID. - History Source History Provided By: Patient Limitations to Obtaining History: No Limitations - Past Medical History Cardio/Vascular: Yes: HTN Gastrointestinal: Yes: Diverticulosis ...LMP: 01/18/17 ...: No - Alcohol/Substance Use Hx Alcohol Use: Yes (OCCASIONALLY) - Smoking History Smoking history: Current every day smoker Have you smoked in the past 12 months: Yes Aproximately how many cigarettes per day: 2 Home Medications - Allergies Allergies/Adverse Reactions: Allergies Allergy/AdvReac Type Severity Reaction Status Date / Time No Known Allergies Allergy Verified 02/02/17 19:50 - Home Medications Home Medications: Ambulatory Orders Linaclotide [Linzess] 72 mcg PO DAILY 02/02/17 Lipase/Protease/Amylase [Lucia Lacey 24,000 Units Capsule] 1 each PO ASDIR Losartan Potassium [Cozaar] 100 mg PO DAILY 02/02/17 Oxycodone HCl/Acetaminophen [Percocet 5-325 mg Tablet] 1 tab PO Q6H PRN #12 tablet MDD 4 tabs 02/02/17 Rifaximin [Xifaxan] 550 mg PO TID 02/02/17 Review of Systems - Review of Systems Constitutional: reports: Fever HENT: reports: No Symptoms Neck: reports: No Symptoms Cardiovascular: reports: No Symptoms Respiratory: reports: No Symptoms Gastrointestinal: reports: Abdominal Pain Genitourinary: reports: No Symptoms Pain Intensity: 8 Physical Exam Vital Signs: Vital Signs Temperature 98.6 F 02/03/17 18:37 Pulse Rate 74 02/03/17 18:37 Respiratory Rate 19 02/03/17 18:37 Blood Pressure 131/62 02/03/17 18:37 O2 Sat by Pulse Oximetry (%) 98 02/03/17 20:56 Constitutional: Yes: Obese Eyes: Yes: WNL HENT: Yes: Normocephalic Neck: Yes: Supple Cardiovascular: Yes: Regular Rate and Rhythm Respiratory: Yes: CTA Bilaterally Gastrointestinal: Yes: Abdomen, Obese, Distention, Tenderness, Rebound (lower quadrants) ...Rectal Exam: Yes: Deferred Labs: CBC, BMP 02/03/17 21:15 02/03/17 06:35 Imaging - Results Cat Scan: Report Reviewed (d/w Dr. [place] - slightly worse sigmoid diverticulitis with contained small perforation and possible involvement of the distal appendix with the inflammatory process. No free fluid or massive pneumoperitoneum), Image Reviewed Problem List - Problems (1) Diverticulitis Assessment/Plan: Possible [place] 1 perforated diverticulitis Trial of non-operative management with bowel rest, broad spectrum antibiotics, and IVF since the perforation is contained and the appendix is likely only passively involved. Initial non-operative management will also avoid laparotomy and colostomy, and multiple staged procedures. Will monitor closely over the next 12-24 hours. Code(s): K57.92 - DVTRCLI OF INTEST, PART UNSP, W/O PERF OR ABSCESS W/O BLEED Qualifiers: Diverticulitis site: large intestine Diverticulitis bleeding: without bleeding Diverticulitis complication: with perforation Qualified Code (s): K57.20 - Diverticulitis of large intestine with perforation and abscess without bleeding
--- NOTE | 2017-02-04 01:54 | HP ---
Admitting History and Physical - Admission History of Present Illness: Pt is a 46 y/o female with PMH significant for HTN s/p colonoscopy 3 weeks ago for evaluation of rectal bleeding. She was told she had diverticulosis. Pt now presented to the ER w/ diffuse abdominal pain and nausea. Pt was noted to have a temp of 102 and wbc was 12,[address] scan showed sigmoid diverticulitis. Pt was started on IV antibxs. - Past Medical History Cardiovascular: Yes: HTN Gastrointestinal: Yes: Diverticulosis ...LMP: 01/18/17 ...: No - Smoking History Smoking history: Current every day smoker Have you smoked in the past 12 months: Yes Aproximately how many cigarettes per day: 2 - Alcohol/Substance Use Hx Alcohol Use: Yes (OCCASIONALLY) Home Medications - Allergies Allergies/Adverse Reactions: Allergies Allergy/AdvReac Type Severity Reaction Status Date / Time No Known Allergies Allergy Verified 02/02/17 19:50 - Home Medications Home Medications: Ambulatory Orders Linaclotide [Linzess] 72 mcg PO DAILY 02/02/17 Lipase/Protease/Amylase [Creon Dr 24,000 Units Capsule] 1 each PO ASDIR Losartan Potassium [Cozaar] 100 mg PO DAILY 02/02/17 Oxycodone HCl/Acetaminophen [Percocet 5-325 mg Tablet] 1 tab PO Q6H PRN #12 tablet MDD 4 tabs 02/02/17 Rifaximin [Xifaxan] 550 mg PO TID 02/02/17 Family Disease History - Family Disease History Family History: Unremarkable Review of Systems - Review of Systems Constitutional: reports: Loss of Appetite Eyes: reports: No Symptoms HENT: reports: No Symptoms Neck: reports: No Symptoms Cardiovascular: reports: No Symptoms Respiratory: reports: No Symptoms Gastrointestinal: reports: Abdominal Pain, Nausea Genitourinary: reports: No Symptoms Physical Examination Vital Signs: Vital Signs Temperature 98.6 F 02/03/17 18:37 Pulse Rate 74 02/03/17 18:37 Respiratory Rate 19 02/03/17 18:37 Blood Pressure 131/62 02/03/17 18:37 O2 Sat by Pulse Oximetry (%) 98 02/03/17 20:56 Constitutional: Yes: No Distress Eyes: Yes: WNL HENT: Yes: WNL Neck: Yes: WNL, Supple Cardiovascular: Yes: WNL, Regular Rate and Rhythm Respiratory: Yes: WNL, Regular, CTA Bilaterally Gastrointestinal: Yes: Normal Bowel Sounds, Soft, Other (RLQ tenderness) Breast(s): Yes: WNL Musculoskeletal: Yes: WNL Extremities: Yes: WNL Neurological: Yes: WNL, Alert, Oriented ...Motor Strength: WNL Labs: CBC, BMP 02/03/17 21:15 02/03/17 06:35 Problem List - Problems (1) Diverticulitis Assessment/Plan: Cont IV antibxs Advance diet as tolerated Follow wbc GI consult Code(s): K57.92 - DVTRCLI OF INTEST, PART UNSP, W/O PERF OR ABSCESS W/O BLEED Qualifiers: Diverticulitis site: large intestine Diverticulitis bleeding: without bleeding Diverticulitis complication: with perforation Qualified Code (s): K57.20 - Diverticulitis of large intestine with perforation and abscess without bleeding (2) HTN (hypertension) Assessment/Plan: Cont losartan Code(s): I10 - ESSENTIAL (PRIMARY) HYPERTENSION
[2017-02-04] MEDS: morphine CARPU-JECT 4 MG/1 ML DISP.SYRIN IVPB PRN ×3 (02:33→13:20)
[2017-02-04] MEDS: PIPERACILLIN/TAZOB 4.5 GM 100 ML IVPB SCH ×3 (02:33→17:06)
[2017-02-04] MEDS: LACTATED RINGERS SOLUTION 1,000 ML IV SCH ×2 (06:20→17:04)
[2017-02-04 07:52] LABS: BASOPHIL 0.2 % (0-2.0); EOSINOPHIL 1.8 % (0-4.5); MCH 28.2 pg (25.7-33.7); MCHC 33.6 g/dl (32.0-36.0); MEAN PLT VOLUME 9.1 fl (7.5-11.1); NEUTROPHILS 76.9 % (42.8-82.8); PLATELET COUNT 179 K/MM3 (134-434); RDW 14.5 % (11.6-15.6); WHITE BLOOD COUNT 9.4 K/mm3 (4.0-10.0)
[2017-02-04 08:20] LABS: ANION GAP 8 (8-16); CO2 27 mmol/L (21-32); GLUCOSE,RANDOM 81 mg/dL (74-106); MAGNESIUM 1.9 mg/dL (1.8-2.4)
[2017-02-04 08:21] LABS: CREATININE 0.8 mg/dL (0.55-1.02); PHOSPHOROUS 3.3 mg/dL (2.5-4.9)
[2017-02-04] MEDS: LOSARTAN POTASSIUM 50 MG TABLET (FP) PO SCH (10:22)
--- NOTE | 2017-02-04 13:03 | CONSULT ---
Consult Consult Specialty:: infectious diseases Referred by:: Reason for Consultation:: pain abd,colitis - History of Present Illness Chief Complaint: abd pain History of Present Illness: 46 year old female with a past medical history of hypertension and was recently diagnosed with diverticulosis (3 weeks ago) came yesterday to ER with diffuse abd pain associated fever,n and vw,she also mentions thst she had suprapubic pain patient has had been seen in the er previously from abd pain.she has a known history of renal stones her main c/o is now sever abd pain rt side more than left side patient was worked up and ct scan was done which showed sigmoid diverticulitis with micro perf - History Source History Provided By: Patient Limitations to Obtaining History: No Limitations - Past Medical History Cardio/Vascular: Yes: HTN Gastrointestinal: Yes: Diverticulosis ...LMP: 01/18/17 ...: No - Alcohol/Substance Use Hx Alcohol Use: Yes (OCCASIONALLY) - Smoking History Smoking history: Current every day smoker Have you smoked in the past 12 months: Yes Aproximately how many cigarettes per day: 2 Home Medications - Allergies Allergies/Adverse Reactions: Allergies Allergy/AdvReac Type Severity Reaction Status Date / Time No Known Allergies Allergy Verified 02/02/17 19:50 - Home Medications Home Medications: Ambulatory Orders Linaclotide [Linzess] 72 mcg PO DAILY 02/02/17 Lipase/Protease/Amylase [Creon Dr 24,000 Units Capsule] 1 each PO ASDIR Losartan Potassium [Cozaar] 100 mg PO DAILY 02/02/17 Oxycodone HCl/Acetaminophen [Percocet 5-325 mg Tablet] 1 tab PO Q6H PRN #12 tablet MDD 4 tabs 02/02/17 Rifaximin [Xifaxan] 550 mg PO TID 02/02/17 Review of Systems - Review of Systems Constitutional: reports: Fever, Other Eyes: reports: No Symptoms HENT: reports: No Symptoms Neck: reports: No Symptoms Cardiovascular: reports: No Symptoms Respiratory: reports: No Symptoms Gastrointestinal: reports: Abdominal Pain, Other Genitourinary: reports: No Symptoms Musculoskeletal: reports: No Symptoms Integumentary: reports: No Symptoms Neurological: reports: No Symptoms Endocrine: reports: No Symptoms Hematology/Lymphatic: reports: No Symptoms Psychiatric: reports: No Symptoms Physical Exam Vital Signs: Vital Signs Temperature 98.4 F 02/04/17 08:00 Pulse Rate 87 02/04/17 08:00 Respiratory Rate 18 02/04/17 08:00 Blood Pressure 156/85 02/04/17 08:00 O2 Sat by Pulse Oximetry (%) 98 02/03/17 20:56 Constitutional: Yes: Well Nourished, Calm, Moderate Distress Eyes: Yes: Conjunctiva Clear HENT: Yes: Atraumatic Neck: Yes: Supple, Trachea Midline Cardiovascular: Yes: Regular Rate and Rhythm Respiratory: Yes: Regular, CTA Bilaterally Gastrointestinal: Yes: Tenderness, Other (absent bowel sounds). No: Tenderness , Rebound Musculoskeletal: Yes: WNL Extremities: Yes: WNL Neurological: Yes: Alert, Oriented Psychiatric: Yes: Alert, Oriented Labs: CBC, BMP 02/04/17 06:45 02/04/17 06:45 Imaging - Results Cat Scan: Report Reviewed, Image Reviewed Assessment/Plan i have looked at the patient and both the ct scan and there findings which slightly worrisome as the second one shows slight worsening patient also is mentioning that her pain which had improved last night has increased again which is a worrisome acute diverticulitis fever abd pain plan continue zosyn if patiens pain becomes worse or if the wbc starts going up please repeat a ct scan again npo iv fluids rest as per gi and surgery and primary team very close monitoring
--- NOTE | 2017-02-04 14:21 | PN ---
GI Progress Note Subjective: Patient with a lot of pain-8/10 after MSO4 - Objective Vital Signs: Vital Signs Temperature 98.4 F 02/04/17 08:00 Pulse Rate 87 02/04/17 08:00 Respiratory Rate 18 02/04/17 08:00 Blood Pressure 156/85 02/04/17 08:00 O2 Sat by Pulse Oximetry (%) 97 02/04/17 09:00 Constitutional: Well Nourished, Anxious, Moderate Distress HENT: Yes: Atraumatic Neck: Yes: Supple Cardiovascular: Yes: Regular Rate and Rhythm Respiratory: Yes: CTA Bilaterally Gastrointestinal Inspection: Yes: Distention ...Auscultate: Yes: Hypoactive Bowel Sounds ...Palpate: Yes: Soft, Tenderness, Tenderness, Rebound (mostly lower abdomen today.) Labs: CBC, BMP 02/04/17 06:45 02/04/17 06:45 Hepatic Panel Total Bilirubin 0.7 mg/dL (0.2-1.0) 02/03/17 06:35 AST 7 U/L (15-37) L D 02/03/17 06:35 ALT 16 U/L (12-78) D 02/03/17 06:35 Alkaline Phosphatase 77 U/L (45-117) D 02/03/17 06:35 Albumin 2.8 g/dl (3.4-5.0) L D 02/03/17 06:35 Assessment/Plan CT shows small perf which appears to be contained Dr Ferrer's note read and appreciated. Agree with observation for 24 hours barring complications. Should condition deteriorate, may need emergent surgery. Appreciate Dr Uribe's input Close observation advised.
[2017-02-04] MEDS ORDERED: FLUCONAZOLE PO ONE (15:15)
[2017-02-04] MEDS: HYDROmorphone HCL CARPU-JECT 2 MG/1 ML DISP.SYRIN IVPB PRN ×2 (15:24→19:09)
--- NOTE | 2017-02-04 17:09 | PN ---
Progress Note, Physician Chief Complaint: Hinchey 1 perforated diverticulitis History of Present Illness: c/o abdominal pain earlier today unrelieved by Morpine 4 mg. Switched to Dilaudid 2 mg with significant relief. Abdominal pain more at the RLQ Had 2 LBM's States she is hungry - Current Medication List Current Medications: Active Medications Acetaminophen (Tylenol -) 650 mg PO Q6H PRN PRN Reason: FEVER OR PAIN Hydromorphone HCl (Dilaudid Injection -) 2 mg IVPB Q4H PRN Last Admin: 02/04/17 15:24 Dose: 2 mg Piperacillin Sod/Tazobactam Sod (Zosyn 4.5gm Ivpb (Pre-Docked)) 100 mls @ 200 mls/hr IVPB Q8H-IV NONA PRN Reason: Protocol Last Admin: 02/04/17 10:22 Dose: 200 mls/hr Lactated Ringer's (Lactated Ringers Solution) 1,000 mls @ 100 mls/hr IV ASDIR NONA Losartan Potassium (Cozaar -) 100 mg PO DAILY NONA Last Admin: 02/04/17 10:22 Dose: 100 mg Morphine Sulfate (Morphine Injection -) 4 mg IVPB Q4H PRN PRN Reason: PAIN Last Admin: 02/04/17 13:20 Dose: 4 mg Non-Formulary Medication (Lipase/Protease/Amylase [Lucia Dr 24,000 Units Capsule ]) 1 each PO ASDIR NONA Last Admin: 02/03/17 02:45 Dose: Not Given Ondansetron HCl (Zofran Injection) 4 mg IVPUSH Q6H PRN PRN Reason: NAUSEA AND/OR VOMITING Last Admin: 02/03/17 10:03 Dose: 4 mg - Objective Vital Signs: Vital Signs Temperature 98.4 F 02/04/17 14:00 Pulse Rate 84 02/04/17 14:00 Respiratory Rate 20 02/04/17 14:00 Blood Pressure 142/89 02/04/17 14:00 O2 Sat by Pulse Oximetry (%) 97 02/04/17 09:00 Constitutional: Yes: Calm Cardiovascular: Yes: Regular Rate and Rhythm Respiratory: Yes: CTA Bilaterally Gastrointestinal: Yes: Soft, Tenderness, Rebound (at RLQ > LLQ, No tenderness at upper quadrants) Labs: CBC, BMP 02/04/17 06:45 02/04/17 06:45 Problem List - Problems (1) Diverticulitis Code(s): K57.92 - DVTRCLI OF INTEST, PART UNSP, W/O PERF OR ABSCESS W/O BLEED Qualifiers: Diverticulitis site: large intestine Diverticulitis bleeding: without bleeding Diverticulitis complication: with perforation Qualified Code (s): K57.20 - Diverticulitis of large intestine with perforation and abscess without bleeding Assessment/Plan Hinchey 1 perforated diverticulitis, questionable spread of peritonitis Patient is afebrile, no tachycardia, and leukocytosis normalized Will continue close monitoring, and if tenderness becomes diffuse, will do emergent laparoscopy, possible washout vs. resection and colostomy.
[2017-02-04 19:38] LABS: BASOPHIL 0.3 % (0-2.0); EOSINOPHIL 1.7 % (0-4.5); MCH 27.3 pg (25.7-33.7); MCHC 32.5 g/dl (32.0-36.0); MEAN CELL VOLUME 83.8 fl (80-96); MEAN PLT VOLUME 9.5 fl (7.5-11.1); NEUTROPHILS 81.5 % (42.8-82.8); PLATELET COUNT 204 K/MM3 (134-434); RDW 14.4 % (11.6-15.6); WHITE BLOOD COUNT 9.8 K/mm3 (4.0-10.0)
[2017-02-05] MEDS: PIPERACILLIN/TAZOB 4.5 GM 100 ML IVPB SCH ×2 (01:31→09:21)
[2017-02-05] MEDS: LACTATED RINGERS SOLUTION 1,000 ML IV SCH (05:28)
[2017-02-05] MEDS: HYDROmorphone HCL CARPU-JECT 2 MG/1 ML DISP.SYRIN IVPB PRN ×4 (05:28→22:35)
[2017-02-05 08:10] LABS: BASOPHIL 0.3 % (0-2.0); EOSINOPHIL 1.9 % (0-4.5); MCH 28.2 pg (25.7-33.7); MCHC 33.4 g/dl (32.0-36.0); MEAN CELL VOLUME 84.3 fl (80-96); MEAN PLT VOLUME 9.1 fl (7.5-11.1); NEUTROPHILS 78.2 % (42.8-82.8); PLATELET COUNT 242 K/MM3 (134-434); RDW 14.4 % (11.6-15.6); WHITE BLOOD COUNT 8.9 K/mm3 (4.0-10.0)
[2017-02-05 08:32] LABS: ANION GAP 10 (8-16); CALCIUM 8.2 mg/dL (8.5-10.1); CO2 27 mmol/L (21-32); GLUCOSE,RANDOM 72 mg/dL (74-106)
[2017-02-05 08:34] LABS: CREATININE 0.7 mg/dL (0.55-1.02)
[2017-02-05] MEDS: LOSARTAN POTASSIUM 50 MG TABLET (FP) PO SCH (09:21)
--- NOTE | 2017-02-05 14:10 | PN ---
Progress Note, Physician Chief Complaint: Hinchey 1 perforated diverticulitis History of Present Illness: Abdominal pain is decreased and more localized to the RLQ requiring less IV narcotics Had soft BM today Afebrile, VSS Abd: soft, minimal LLQ tenderness, RLQ tenderness slightly decreased WBC = 8.9 UC/S - ESBL E. Coli - Current Medication List Current Medications: Active Medications Acetaminophen (Tylenol -) 650 mg PO Q6H PRN PRN Reason: FEVER OR PAIN Hydromorphone HCl (Dilaudid Injection -) 2 mg IVPB Q4H PRN Last Admin: 02/05/17 11:38 Dose: 2 mg Piperacillin Sod/Tazobactam Sod (Zosyn 4.5gm Ivpb (Pre-Docked)) 100 mls @ 200 mls/hr IVPB Q8H-IV NONA PRN Reason: Protocol Last Admin: 02/05/17 09:21 Dose: 200 mls/hr Potassium Chloride/Dextrose/Sod Cl (D5-1/2ns+20 Meq Kcl -) 1,000 mls @ 100 mls/ hr IV ASDIR NONA Losartan Potassium (Cozaar -) 100 mg PO DAILY NONA Last Admin: 02/05/17 09:21 Dose: 100 mg Morphine Sulfate (Morphine Injection -) 4 mg IVPB Q4H PRN PRN Reason: PAIN Last Admin: 02/04/17 13:20 Dose: 4 mg Non-Formulary Medication (Lipase/Protease/Amylase [Creon Dr 24,000 Units Capsule ]) 1 each PO ASDIR NONA Last Admin: 02/03/17 02:45 Dose: Not Given Ondansetron HCl (Zofran Injection) 4 mg IVPUSH Q6H PRN PRN Reason: NAUSEA AND/OR VOMITING Last Admin: 02/03/17 10:03 Dose: 4 mg - Objective Vital Signs: Vital Signs Temperature 98.2 F 02/05/17 08:14 Pulse Rate 80 02/05/17 08:14 Respiratory Rate 20 02/05/17 08:14 Blood Pressure 136/86 02/05/17 08:14 O2 Sat by Pulse Oximetry (%) 97 02/05/17 09:00 Labs: CBC, BMP 02/05/17 07:20 02/05/17 07:20 Problem List - Problems (1) Diverticulitis Code(s): K57.92 - DVTRCLI OF INTEST, PART UNSP, W/O PERF OR ABSCESS W/O BLEED Qualifiers: Diverticulitis site: large intestine Diverticulitis bleeding: without bleeding Diverticulitis complication: with perforation Qualified Code (s): K57.20 - Diverticulitis of large intestine with perforation and abscess without bleeding Assessment/Plan A: resolving Hinchey 1 perforated diverticulitis, r/o evolving intra-abdominal abscess UTI -ESBL E. coli P: repeat CT Scan of abdomen and pelvis with oral and IV contrast to better delineate structures and r/o abscess formation may have ice chips OOB, DVT, GI prophylaxis ID f/[id number] for ESBL organism continue abx
[2017-02-05] MEDS: D5-1/2NS+20 MEQ KCL - 1,000 ML IV SCH (14:24)
--- NOTE | 2017-02-05 17:54 | PN ---
Progress Note, Physician History of Present Illness: patients abd pain slightly better still with lot of pain - Current Medication List Current Medications: Active Medications Acetaminophen (Tylenol -) 650 mg PO Q6H PRN PRN Reason: FEVER OR PAIN Hydromorphone HCl (Dilaudid Injection -) 2 mg IVPB Q4H PRN Last Admin: 02/05/17 11:38 Dose: 2 mg Potassium Chloride/Dextrose/Sod Cl (D5-1/2ns+20 Meq Kcl -) 1,000 mls @ 100 mls/ hr IV ASDIR NONA Last Admin: 02/05/17 14:24 Dose: 100 mls/hr Meropenem 1 gm/ Dextrose 100 mls @ 100 mls/hr IVPB Q8H-IV NONA PRN Reason: Protocol Losartan Potassium (Cozaar -) 100 mg PO DAILY NONA Last Admin: 02/05/17 09:21 Dose: 100 mg Morphine Sulfate (Morphine Injection -) 4 mg IVPB Q4H PRN PRN Reason: PAIN Last Admin: 02/04/17 13:20 Dose: 4 mg Non-Formulary Medication (Lipase/Protease/Amylase [Creon Dr 24,000 Units Capsule ]) 1 each PO ASDIR NONA Last Admin: 02/03/17 02:45 Dose: Not Given Ondansetron HCl (Zofran Injection) 4 mg IVPUSH Q6H PRN PRN Reason: NAUSEA AND/OR VOMITING Last Admin: 02/03/17 10:03 Dose: 4 mg - Objective Vital Signs: Vital Signs Temperature 98.3 F 02/05/17 14:48 Pulse Rate 78 02/05/17 14:48 Respiratory Rate 20 02/05/17 08:14 Blood Pressure 128/88 02/05/17 14:48 O2 Sat by Pulse Oximetry (%) 97 02/05/17 09:00 Constitutional: Yes: No Distress, Calm Eyes: Yes: Conjunctiva Clear Cardiovascular: Yes: Regular Rate and Rhythm Respiratory: Yes: Regular, CTA Bilaterally Gastrointestinal: Yes: Normal Bowel Sounds, Soft Musculoskeletal: Yes: WNL Extremities: Yes: WNL Neurological: Yes: Alert, Oriented Psychiatric: Yes: Alert, Oriented Labs: CBC, BMP 02/05/17 07:20 02/05/17 07:20 Assessment/Plan acute diverticulitis fever abd pain esbl uti plan changed abx to meropenam npo iv fluids rest as per primary ct scan to be repeated tomorrow
[2017-02-05] MEDS: MEROPENEM 1 GM in DEXTROSE 5%-WATER - 100 ML IVPB SCH (18:37)
--- NOTE | 2017-02-05 22:38 | PN ---
GI Progress Note Subjective: Feeling better. Less pain. - Objective Vital Signs: Vital Signs Temperature 98.3 F 02/05/17 14:48 Pulse Rate 78 02/05/17 14:48 Respiratory Rate 20 02/05/17 08:14 Blood Pressure 128/88 02/05/17 14:48 O2 Sat by Pulse Oximetry (%) 97 02/05/17 09:00 Constitutional: Well Nourished, No Distress HENT: Yes: Normocephalic Neck: Yes: Supple Cardiovascular: Yes: Regular Rate and Rhythm Respiratory: Yes: CTA Bilaterally Gastrointestinal Inspection: Yes: WNL ...Auscultate: Yes: Hypoactive Bowel Sounds ...Palpate: Yes: Soft, Tenderness (Much less tender than last night) Labs: CBC, BMP 02/05/17 07:20 02/05/17 07:20 Assessment/Plan Feeling better No rebound at this time and tenderness reduced Leukocytosis resolved and afebrile Continue present management po as per surgery
--- NOTE | 2017-02-06 00:02 | PN ---
Progress Note, Physician History of Present Illness: Pt still w/ pain - Current Medication List Current Medications: Active Medications Acetaminophen (Tylenol -) 650 mg PO Q6H PRN PRN Reason: FEVER OR PAIN Hydromorphone HCl (Dilaudid Injection -) 2 mg IVPB Q4H PRN Last Admin: 02/05/17 22:35 Dose: 2 mg Potassium Chloride/Dextrose/Sod Cl (D5-1/2ns+20 Meq Kcl -) 1,000 mls @ 100 mls/ hr IV ASDIR NONA Last Admin: 02/05/17 14:24 Dose: 100 mls/hr Meropenem 1 gm/ Dextrose 100 mls @ 100 mls/hr IVPB Q8H-IV NONA PRN Reason: Protocol Last Admin: 02/05/17 18:37 Dose: 100 mls/hr Losartan Potassium (Cozaar -) 100 mg PO DAILY NONA Last Admin: 02/05/17 09:21 Dose: 100 mg Morphine Sulfate (Morphine Injection -) 4 mg IVPB Q4H PRN PRN Reason: PAIN Last Admin: 02/04/17 13:20 Dose: 4 mg Non-Formulary Medication (Lipase/Protease/Amylase [[place] Dr 24,000 Units Capsule ]) 1 each PO ASDIR NONA Last Admin: 02/03/17 02:45 Dose: Not Given Ondansetron HCl (Zofran Injection) 4 mg IVPUSH Q6H PRN PRN Reason: NAUSEA AND/OR VOMITING Last Admin: 02/03/17 10:03 Dose: 4 mg - Objective Vital Signs: Vital Signs Temperature 98.4 F 02/05/17 23:31 Pulse Rate 76 02/05/17 23:31 Respiratory Rate 20 02/05/17 23:31 Blood Pressure 144/90 02/05/17 23:31 O2 Sat by Pulse Oximetry (%) 97 02/05/17 21:00 Constitutional: Yes: No Distress Eyes: Yes: WNL HENT: Yes: WNL Neck: Yes: Supple Cardiovascular: Yes: WNL, Regular Rate and Rhythm Respiratory: Yes: WNL, Regular, CTA Bilaterally Gastrointestinal: Yes: Normal Bowel Sounds, Other ((+) tenderness RLQ) Labs: CBC, BMP 02/05/17 07:20 02/05/17 07:20 Problem List - Problems (1) Diverticulitis Assessment/Plan: Cont IV antibxs Repeat ct scan in am Code(s): K57.92 - DVTRCLI OF INTEST, PART UNSP, W/O PERF OR ABSCESS W/O BLEED Qualifiers: Diverticulitis site: large intestine Diverticulitis bleeding: without bleeding Diverticulitis complication: with perforation Qualified Code (s): K57.20 - Diverticulitis of large intestine with perforation and abscess without bleeding (2) HTN (hypertension) Assessment/Plan: Cont losartan Code(s): I10 - ESSENTIAL (PRIMARY) HYPERTENSION (3) Elevated LFTs Assessment/Plan: LFT's returned to maikol; HIDA scan unremarkable Code(s): R79.89 - OTHER SPECIFIED ABNORMAL FINDINGS OF BLOOD CHEMISTRY
[2017-02-06] MEDS ORDERED: PT OWN MED DRAWER 7, Y5N ONE ×2 (00:55→10:51)
[2017-02-06] MEDS: MEROPENEM 1 GM in DEXTROSE 5%-WATER - 100 ML IVPB SCH ×3 (01:03→17:12)
[2017-02-06] MEDS: D5-1/2NS+20 MEQ KCL - 1,000 ML IV SCH ×2 (04:30→20:03)
[2017-02-06] MEDS: ONDANSETRON 4 MG/2 ML VIAL IVPUSH PRN (06:17)
[2017-02-06 07:13] LABS: BASOPHIL 0.4 % (0-2.0); EOSINOPHIL 2.8 % (0-4.5); MCH 27.9 pg (25.7-33.7); MCHC 33.5 g/dl (32.0-36.0); MEAN CELL VOLUME 83.3 fl (80-96); MEAN PLT VOLUME 8.2 fl (7.5-11.1); NEUTROPHILS 75.1 % (42.8-82.8); PLATELET COUNT 265 K/MM3 (134-434); RDW 14.2 % (11.6-15.6); WHITE BLOOD COUNT 5.5 K/mm3 (4.0-10.0)
[2017-02-06 07:37] LABS: ALBUMIN 2.8 g/dl (3.4-5.0); ANION GAP 8 (8-16); BILIRUBIN,TOTAL 0.3 mg/dL (0.2-1.0); CALCIUM 8.3 mg/dL (8.5-10.1); CO2 28 mmol/L (21-32); CREATININE 0.5 mg/dL (0.55-1.02); GLUCOSE,RANDOM 99 mg/dL (74-106); SGOT/AST 13 U/L (15-37); SGPT/ALT 16 U/L (12-78); TOT PROT 6.4 g/dl (6.4-8.2)
[2017-02-06 07:38] LABS: ALK PHOS 97 U/L (45-117)
[2017-02-06] MEDS: LOSARTAN POTASSIUM 50 MG TABLET (FP) PO SCH (12:14)
--- NOTE | 2017-02-06 16:37 | PN ---
Progress Note, Physician History of Present Illness: stable pain still present but better and improving - Current Medication List Current Medications: Active Medications Acetaminophen (Tylenol -) 650 mg PO Q6H PRN PRN Reason: FEVER OR PAIN Hydromorphone HCl (Dilaudid Injection -) 2 mg IVPB Q4H PRN Last Admin: 02/05/17 22:35 Dose: 2 mg Potassium Chloride/Dextrose/Sod Cl (D5-1/2ns+20 Meq Kcl -) 1,000 mls @ 100 mls/ hr IV ASDIR NONA Last Admin: 02/06/17 04:30 Dose: 100 mls/hr Meropenem 1 gm/ Dextrose 100 mls @ 100 mls/hr IVPB Q8H-IV NONA PRN Reason: Protocol Last Admin: 02/06/17 12:14 Dose: 100 mls/hr Losartan Potassium (Cozaar -) 100 mg PO DAILY NONA Last Admin: 02/06/17 12:14 Dose: 100 mg Morphine Sulfate (Morphine Injection -) 4 mg IVPB Q4H PRN PRN Reason: PAIN Last Admin: 02/04/17 13:20 Dose: 4 mg Non-Formulary Medication (Lipase/Protease/Amylase [Creon Dr 24,000 Units Capsule ]) 1 each PO ASDIR NONA Last Admin: 02/03/17 02:45 Dose: Not Given Ondansetron HCl (Zofran Injection) 4 mg IVPUSH Q6H PRN PRN Reason: NAUSEA AND/OR VOMITING Last Admin: 02/06/17 06:17 Dose: 4 mg - Objective Vital Signs: Vital Signs Temperature 99.2 F 02/06/17 14:08 Pulse Rate 90 02/06/17 14:08 Respiratory Rate 18 02/06/17 08:00 Blood Pressure 153/85 02/06/17 14:08 O2 Sat by Pulse Oximetry (%) 98 02/06/17 09:00 Constitutional: Yes: Calm, Mild Distress Neck: Yes: Supple, Trachea Midline Cardiovascular: Yes: Regular Rate and Rhythm Respiratory: Yes: Regular, CTA Bilaterally Gastrointestinal: Yes: Soft, Hypoactive Bowel Sounds, Tenderness (resolving) Musculoskeletal: Yes: WNL Extremities: Yes: WNL Neurological: Yes: Alert, Oriented Psychiatric: Yes: Alert Labs: CBC, BMP 02/06/17 06:35 02/06/17 06:35 - ....Imaging Cat Scan: Report Reviewed, Image Reviewed Assessment/Plan acute diverticulitis fever abd pain esbl uti plan continue abx npo iv fluids rest as per primary ct scan seen
--- NOTE | 2017-02-06 23:45 | PN ---
Progress Note, Physician History of Present Illness: No new complaints - Current Medication List Current Medications: Active Medications Acetaminophen (Tylenol -) 650 mg PO Q6H PRN PRN Reason: FEVER OR PAIN Hydromorphone HCl (Dilaudid Injection -) 2 mg IVPB Q4H PRN Last Admin: 02/05/17 22:35 Dose: 2 mg Potassium Chloride/Dextrose/Sod Cl (D5-1/2ns+20 Meq Kcl -) 1,000 mls @ 100 mls/ hr IV ASDIR NONA Last Admin: 02/06/17 20:03 Dose: 100 mls/hr Meropenem 1 gm/ Dextrose 100 mls @ 100 mls/hr IVPB Q8H-IV NONA PRN Reason: Protocol Last Admin: 02/06/17 17:12 Dose: 100 mls/hr Losartan Potassium (Cozaar -) 100 mg PO DAILY [facility] Last Admin: 02/06/17 12:14 Dose: 100 mg Non-Formulary Medication (Lipase/Protease/Amylase [Creon Dr 24,000 Units Capsule ]) 1 each PO ASDIR NONA Last Admin: 02/03/17 02:45 Dose: Not Given Ondansetron HCl (Zofran Injection) 4 mg IVPUSH Q6H PRN PRN Reason: NAUSEA AND/OR VOMITING Last Admin: 02/06/17 06:17 Dose: 4 mg - Objective Vital Signs: Vital Signs Temperature 99.2 F 02/06/17 14:08 Pulse Rate 90 02/06/17 14:08 Respiratory Rate 18 02/06/17 08:00 Blood Pressure 153/85 02/06/17 14:08 O2 Sat by Pulse Oximetry (%) 96 02/06/17 21:00 Eyes: Yes: WNL HENT: Yes: WNL Neck: Yes: WNL, Supple Cardiovascular: Yes: WNL, Regular Rate and Rhythm Respiratory: Yes: WNL, Regular, CTA Bilaterally Gastrointestinal: Yes: WNL, Normal Bowel Sounds, Soft Labs: CBC, BMP 02/06/17 06:35 02/06/17 06:35 Problem List - Problems (1) Diverticulitis Code(s): K57.92 - DVTRCLI OF INTEST, PART UNSP, W/O PERF OR ABSCESS W/O BLEED Qualifiers: Diverticulitis site: large intestine Diverticulitis bleeding: without bleeding Diverticulitis complication: with perforation Qualified Code (s): K57.20 - Diverticulitis of large intestine with perforation and abscess without bleeding (2) HTN (hypertension) Code(s): I10 - ESSENTIAL (PRIMARY) HYPERTENSION (3) Elevated LFTs Code(s): R79.89 - OTHER SPECIFIED ABNORMAL FINDINGS OF BLOOD CHEMISTRY
[2017-02-07] MEDS: MEROPENEM 1 GM in DEXTROSE 5%-WATER - 100 ML IVPB SCH ×3 (02:36→17:00)
[2017-02-07] MEDS ORDERED: PT OWN MED DRAWER 7, Y5N ONE ×2 (09:07→16:35)
[2017-02-07] MEDS: LOSARTAN POTASSIUM 50 MG TABLET (FP) PO SCH (09:09)
--- NOTE | 2017-02-07 10:25 | PN ---
Progress Note (short form) - Note Progress Note: No longer in pain and complains only of discomfort Afebrile, VSS Abd: soft, minimal RLQ tenderness f/u CT - extensive diverticulitis without abscess WBC = 5.5 A: MODERATE TO SEVERE FORM OF DIVERTICULITIS WITH CLINICAL IMPROVEMENT REC: RESUME CLEAR LIQUID DIET ADVISED PATIENT ELECTIVE PARTIAL COLECTOMY IF SHE CONTINUES TO IMPROVE Problem List - Problems (1) Diverticulitis Code(s): K57.92 - DVTRCLI OF INTEST, PART UNSP, W/O PERF OR ABSCESS W/O BLEED Qualifiers: Diverticulitis site: large intestine Diverticulitis bleeding: without bleeding Diverticulitis complication: with perforation Qualified Code (s): K57.20 - Diverticulitis of large intestine with perforation and abscess without bleeding
--- NOTE | 2017-02-07 15:14 | PN ---
Progress Note, Physician History of Present Illness: patient feels much better liquids started - Current Medication List Current Medications: Active Medications Acetaminophen (Tylenol -) 650 mg PO Q6H PRN PRN Reason: FEVER OR PAIN Hydromorphone HCl (Dilaudid Injection -) 2 mg IVPB Q4H PRN Last Admin: 02/05/17 22:35 Dose: 2 mg Potassium Chloride/Dextrose/Sod Cl (D5-1/2ns+20 Meq Kcl -) 1,000 mls @ 100 mls/ hr IV ASDIR NONA Last Admin: 02/06/17 20:03 Dose: 100 mls/hr Meropenem 1 gm/ Dextrose 100 mls @ 100 mls/hr IVPB Q8H-IV NONA PRN Reason: Protocol Last Admin: 02/07/17 09:10 Dose: 100 mls/hr Losartan Potassium (Cozaar -) 100 mg PO DAILY [facility] Last Admin: 02/07/17 09:09 Dose: 100 mg Pt's Own Med (Non- Form) (Lipase/Protease/Amylase [ Creon Dr 24,000 Units C 1 each PO TIDCM [facility] Ondansetron HCl (Zofran Injection) 4 mg IVPUSH Q6H PRN PRN Reason: NAUSEA AND/OR VOMITING Last Admin: 02/06/17 06:17 Dose: 4 mg - Objective Vital Signs: Vital Signs Temperature 98.7 F 02/07/17 14:31 Pulse Rate 72 02/07/17 14:31 Respiratory Rate 18 02/07/17 08:00 Blood Pressure 145/89 02/07/17 14:31 O2 Sat by Pulse Oximetry (%) 97 02/07/17 09:00 Constitutional: Yes: No Distress, Calm Cardiovascular: Yes: Regular Rate and Rhythm Respiratory: Yes: Regular, CTA Bilaterally Gastrointestinal: Yes: Normal Bowel Sounds, Soft Musculoskeletal: Yes: WNL Extremities: Yes: WNL Neurological: Yes: Alert, Oriented Psychiatric: Yes: Alert, Oriented Labs: CBC, BMP 02/06/17 06:35 02/06/17 06:35 Assessment/Plan acute diverticulitis fever abd pain esbl uti plan continue abx advancement as per surgery rest as per primary patient improving
[2017-02-07] MEDS: [UNRECOGNIZED DRUG - REMARK] PO SCH (16:31)
[2017-02-07] MEDS: D5-1/2NS+20 MEQ KCL - 1,000 ML IV SCH (22:55)
--- NOTE | 2017-02-07 23:21 | PN ---
Progress Note, Physician History of Present Illness: Pt tolerating clears Pt has not required any pain meds - Current Medication List Current Medications: Active Medications Acetaminophen (Tylenol -) 650 mg PO Q6H PRN PRN Reason: FEVER OR PAIN Meropenem 1 gm/ Dextrose 100 mls @ 100 mls/hr IVPB Q8H-IV NONA PRN Reason: Protocol Last Admin: 02/07/17 17:00 Dose: 100 mls/hr Potassium Chloride/Dextrose/Sod Cl (D5-1/2ns+20 Meq Kcl -) 1,000 mls @ 50 mls/ hr IV ASDIR NONA Losartan Potassium (Cozaar -) 100 mg PO DAILY NONA Last Admin: 02/07/17 09:09 Dose: 100 mg Pt's Own Med (Non- Form) (Lipase/Protease/Amylase [ Creon Dr 24,000 Units C 1 each PO TIDCM NONA Last Admin: 02/07/17 16:31 Dose: 1 each Ondansetron HCl (Zofran Injection) 4 mg IVPUSH Q6H PRN PRN Reason: NAUSEA AND/OR VOMITING Last Admin: 02/06/17 06:17 Dose: 4 mg - Objective Vital Signs: Vital Signs Temperature 98.7 F 02/07/17 21:31 Pulse Rate 68 02/07/17 21:31 Respiratory Rate 20 02/07/17 21:31 Blood Pressure 147/97 02/07/17 21:31 O2 Sat by Pulse Oximetry (%) 98 02/07/17 20:34 Constitutional: Yes: No Distress Eyes: Yes: WNL HENT: Yes: WNL Neck: Yes: WNL, Supple Cardiovascular: Yes: WNL, Regular Rate and Rhythm Respiratory: Yes: WNL, Regular, CTA Bilaterally Gastrointestinal: Yes: WNL, Normal Bowel Sounds, Soft Labs: CBC, BMP 02/06/17 06:35 02/06/17 06:35 Problem List - Problems (1) Diverticulitis Assessment/Plan: Cont IV antibxs Repeat ct scan showed diverticulitis but no abscess Advance diet to full liquids in am Decrease IVF rate Code(s): K57.92 - DVTRCLI OF INTEST, PART UNSP, W/O PERF OR ABSCESS W/O BLEED Qualifiers: Qualified Code(s): K57.20 - Diverticulitis of large intestine with perforation and abscess without bleeding (2) HTN (hypertension) Assessment/Plan: Cont losartan Code(s): I10 - ESSENTIAL (PRIMARY) HYPERTENSION (3) Elevated LFTs Assessment/Plan: LFT's returned to maikol; HIDA scan unremarkable Code(s): R79.89 - OTHER SPECIFIED ABNORMAL FINDINGS OF BLOOD CHEMISTRY
[2017-02-08] MEDS: MEROPENEM 1 GM in DEXTROSE 5%-WATER - 100 ML IVPB SCH ×3 (02:34→17:05)
[2017-02-08] MEDS: ACETAMINOPHEN 325 MG TABLET (FP) PO PRN (06:43)
[2017-02-08 08:16] LABS: BASOPHIL 0.6 % (0-2.0); EOSINOPHIL 2.2 % (0-4.5); MCHC 33.7 g/dl (32.0-36.0); MEAN PLT VOLUME 8.2 fl (7.5-11.1); NEUTROPHILS 57.8 % (42.8-82.8); PLATELET COUNT 391 K/MM3 (134-434); RDW 14.7 % (11.6-15.6); WHITE BLOOD COUNT 7.3 K/mm3 (4.0-10.0)
[2017-02-08] MEDS: [UNRECOGNIZED DRUG - REMARK] PO SCH ×3 (08:17→17:05)
[2017-02-08 08:44] LABS: ALBUMIN 3.1 g/dl (3.4-5.0); ALK PHOS 99 U/L (45-117); BILIRUBIN,TOTAL 0.4 mg/dL (0.2-1.0); CALCIUM 9.1 mg/dL (8.5-10.1); CO2 23 mmol/L (21-32); CREATININE 0.6 mg/dL (0.55-1.02); GLUCOSE,RANDOM 98 mg/dL (74-106); SGOT/AST 13 U/L (15-37); SGPT/ALT 20 U/L (12-78); TOT PROT 6.9 g/dl (6.4-8.2)
[2017-02-08] MEDS ORDERED: PT OWN MED DRAWER 7, Y5N ONE ×2 (09:30→17:29)
[2017-02-08] MEDS: LOSARTAN POTASSIUM 50 MG TABLET (FP) PO SCH (09:35)
--- NOTE | 2017-02-08 14:31 | PN ---
Progress Note, Physician History of Present Illness: patient continue to improve some pain while on toilet much better - Current Medication List Current Medications: Active Medications Acetaminophen (Tylenol -) 650 mg PO Q6H PRN PRN Reason: FEVER OR PAIN Last Admin: 02/08/17 06:43 Dose: 650 mg Meropenem 1 gm/ Dextrose 100 mls @ 100 mls/hr IVPB Q8H-IV NONA PRN Reason: Protocol Last Admin: 02/08/17 09:35 Dose: 100 mls/hr Potassium Chloride/Dextrose/Sod Cl (D5-1/2ns+20 Meq Kcl -) 1,000 mls @ 50 mls/ hr IV ASDIR NONA Last Admin: 02/07/17 22:55 Dose: 50 mls/hr Losartan Potassium (Cozaar -) 100 mg PO DAILY [facility] Last Admin: 02/08/17 09:35 Dose: 100 mg Pt's Own Med (Non- Form) (Lipase/Protease/Amylase [ Creon Dr 24,000 Units C 1 each PO TIDCM [facility] Last Admin: 02/08/17 12:00 Dose: 1 each Ondansetron HCl (Zofran Injection) 4 mg IVPUSH Q6H PRN PRN Reason: NAUSEA AND/OR VOMITING Last Admin: 02/06/17 06:17 Dose: 4 mg - Objective Vital Signs: Vital Signs Temperature 98.3 F 02/08/17 14:20 Pulse Rate 66 02/08/17 14:20 Respiratory Rate 14 02/08/17 14:20 Blood Pressure 126/86 02/08/17 14:20 O2 Sat by Pulse Oximetry (%) 99 02/08/17 09:00 Constitutional: Yes: No Distress, Calm Cardiovascular: Yes: Regular Rate and Rhythm Respiratory: Yes: Regular, CTA Bilaterally Gastrointestinal: Yes: Normal Bowel Sounds, Soft Musculoskeletal: Yes: WNL Extremities: Yes: WNL Neurological: Yes: Alert, Oriented Psychiatric: Yes: Alert, Oriented Labs: CBC, BMP 02/08/17 07:00 02/08/17 07:00 Assessment/Plan acute diverticulitis fever abd pain esbl uti plan continue abx advancement as per surgery rest as per primary patient improving
--- NOTE | 2017-02-09 00:34 | PN ---
Progress Note, Physician History of Present Illness: Pt tolerating full liquids Pt has not required any pain meds Pt seen and examined 02/08/17 however note is being entered now - Current Medication List Current Medications: Active Medications Acetaminophen (Tylenol -) 650 mg PO Q6H PRN PRN Reason: FEVER OR PAIN Last Admin: 02/08/17 06:43 Dose: 650 mg Meropenem 1 gm/ Dextrose 100 mls @ 100 mls/hr IVPB Q8H-IV NONA PRN Reason: Protocol Last Admin: 02/08/17 17:05 Dose: 100 mls/hr Potassium Chloride/Dextrose/Sod Cl (D5-1/2ns+20 Meq Kcl -) 1,000 mls @ 50 mls/ hr IV ASDIR NONA Last Admin: 02/07/17 22:55 Dose: 50 mls/hr Losartan Potassium (Cozaar -) 100 mg PO DAILY [facility] Last Admin: 02/08/17 09:35 Dose: 100 mg Pt's Own Med (Non- Form) (Lipase/Protease/Amylase [ Creon Dr 24,000 Units C 1 each PO TIDCM NONA Last Admin: 02/08/17 17:05 Dose: 1 each Ondansetron HCl (Zofran Injection) 4 mg IVPUSH Q6H PRN PRN Reason: NAUSEA AND/OR VOMITING Last Admin: 02/06/17 06:17 Dose: 4 mg - Objective Vital Signs: Vital Signs Temperature 98.2 F 02/08/17 23:15 Pulse Rate 74 02/08/17 23:15 Respiratory Rate 20 02/08/17 23:15 Blood Pressure 145/91 02/08/17 23:15 O2 Sat by Pulse Oximetry (%) 99 02/08/17 09:00 Constitutional: Yes: No Distress HENT: Yes: WNL Neck: Yes: WNL, Supple Cardiovascular: Yes: WNL, Regular Rate and Rhythm Respiratory: Yes: WNL, Regular, CTA Bilaterally Gastrointestinal: Yes: WNL, Normal Bowel Sounds, Soft Labs: CBC, BMP 02/08/17 07:00 02/08/17 07:00 Problem List - Problems (1) Diverticulitis Code(s): K57.92 - DVTRCLI OF INTEST, PART UNSP, W/O PERF OR ABSCESS W/O BLEED Qualifiers: Diverticulitis site: large intestine Diverticulitis bleeding: without bleeding Diverticulitis complication: with perforation Qualified Code (s): K57.20 - Diverticulitis of large intestine with perforation and abscess without bleeding (2) HTN (hypertension) Code(s): I10 - ESSENTIAL (PRIMARY) HYPERTENSION (3) Elevated LFTs Code(s): R79.89 - OTHER SPECIFIED ABNORMAL FINDINGS OF BLOOD CHEMISTRY
[2017-02-09] MEDS: MEROPENEM 1 GM in DEXTROSE 5%-WATER - 100 ML IVPB SCH ×3 (02:32→17:50)
[2017-02-09] MEDS: ACETAMINOPHEN 325 MG TABLET (FP) PO PRN (02:44)
[2017-02-09] MEDS: D5-1/2NS+20 MEQ KCL - 1,000 ML IV SCH ×2 (02:44→22:50)
[2017-02-09] MEDS ORDERED: PT OWN MED DRAWER 7, Y5N ONE ×2 (07:46→17:49)
[2017-02-09] MEDS: [UNRECOGNIZED DRUG - REMARK] PO SCH ×3 (08:00→17:51)
--- NOTE | 2017-02-09 09:19 | PN ---
Progress Note (short form) - Note Progress Note: Surgery Tolerated full liquids Denies abdominal pain Afebrile, VSS Abd: soft, no tenderness WBC = 7 A: resolving acute diverticulitis P: may advance diet to regular D/C planning if no pain recurrence on regular diet antibiotic Rx for ESBL E.coli per ID F/U at the office in 2 weeks Problem List - Problems (1) Diverticulitis Code(s): K57.92 - DVTRCLI OF INTEST, PART UNSP, W/O PERF OR ABSCESS W/O BLEED Qualifiers: Diverticulitis site: large intestine Diverticulitis bleeding: without bleeding Diverticulitis complication: with perforation Qualified Code (s): K57.20 - Diverticulitis of large intestine with perforation and abscess without bleeding
[2017-02-09] MEDS: LOSARTAN POTASSIUM 50 MG TABLET (FP) PO SCH (10:08)
--- NOTE | 2017-02-09 10:38 | EKG ---
Test Reason : Blood Pressure : / mmHG Vent. Rate : 106 BPM Atrial Rate : 106 BPM P-R Int : 126 ms QRS Dur : 088 ms QT Int : 346 ms P-R-T Axes : 046 -10 014 degrees QTc Int : 459 ms SINUS TACHYCARDIA WHEN COMPARED WITH ECG OF 30-AUG-2016 05:30, NO SIGNIFICANT CHANGE WAS FOUND Confirmed by JAYLEN WONG MD ([id number]) on 02/09/2017 10:38:29 AM Referred By: Confirmed By:JAYLEN WONG MD
--- NOTE | 2017-02-09 15:06 | PN ---
Progress Note, Physician History of Present Illness: patient stable abd pain resolved patient was able to take solid food no issues yet - Current Medication List Current Medications: Active Medications Acetaminophen (Tylenol -) 650 mg PO Q6H PRN PRN Reason: FEVER OR PAIN Last Admin: 02/09/17 02:44 Dose: 650 mg Meropenem 1 gm/ Dextrose 100 mls @ 100 mls/hr IVPB Q8H-IV NONA PRN Reason: Protocol Last Admin: 02/09/17 10:08 Dose: 100 mls/hr Potassium Chloride/Dextrose/Sod Cl (D5-1/2ns+20 Meq Kcl -) 1,000 mls @ 50 mls/ hr IV ASDIR NONA Last Admin: 02/09/17 02:44 Dose: 50 mls/hr Losartan Potassium (Cozaar -) 100 mg PO DAILY [facility] Last Admin: 02/09/17 10:08 Dose: 100 mg Pt's Own Med (Non- Form) (Lipase/Protease/Amylase [ Creon Dr 24,000 Units C 1 each PO TIDCM [facility] Last Admin: 02/09/17 11:51 Dose: 1 each Ondansetron HCl (Zofran Injection) 4 mg IVPUSH Q6H PRN PRN Reason: NAUSEA AND/OR VOMITING Last Admin: 02/06/17 06:17 Dose: 4 mg - Objective Vital Signs: Vital Signs Temperature 98.0 F 02/09/17 13:37 Pulse Rate 74 02/09/17 13:37 Respiratory Rate 20 02/09/17 13:37 Blood Pressure 114/88 02/09/17 13:37 O2 Sat by Pulse Oximetry (%) 98 02/09/17 09:00 Constitutional: Yes: No Distress, Calm Cardiovascular: Yes: Regular Rate and Rhythm Respiratory: Yes: Regular, CTA Bilaterally Gastrointestinal: Yes: Normal Bowel Sounds, Soft Musculoskeletal: Yes: WNL Extremities: Yes: WNL Neurological: Yes: Alert, Oriented Psychiatric: Yes: Alert, Oriented Labs: CBC, BMP 02/08/17 07:00 02/08/17 07:00 Assessment/Plan acute diverticulitis fever abd pain esbl uti plan continue abx patient will need abx for 14 days iv we can switch from meropenam to ertapenam tomorrow which she will need for one more week
--- NOTE | 2017-02-09 23:46 | PN ---
Progress Note, Physician History of Present Illness: No new complaints - Current Medication List Current Medications: Active Medications Acetaminophen (Tylenol -) 650 mg PO Q6H PRN PRN Reason: FEVER OR PAIN Last Admin: 02/09/17 02:44 Dose: 650 mg Meropenem 1 gm/ Dextrose 100 mls @ 100 mls/hr IVPB Q8H-IV NONA PRN Reason: Protocol Last Admin: 02/09/17 17:50 Dose: 100 mls/hr Potassium Chloride/Dextrose/Sod Cl (D5-1/2ns+20 Meq Kcl -) 1,000 mls @ 50 mls/ hr IV ASDIR NONA Last Admin: 02/09/17 02:44 Dose: 50 mls/hr Losartan Potassium (Cozaar -) 100 mg PO DAILY [facility] Last Admin: 02/09/17 10:08 Dose: 100 mg Pt's Own Med (Non- Form) (Lipase/Protease/Amylase [ Creon Dr 24,000 Units C 1 each PO TIDCM NONA Last Admin: 02/09/17 17:51 Dose: 1 each Ondansetron HCl (Zofran Injection) 4 mg IVPUSH Q6H PRN PRN Reason: NAUSEA AND/OR VOMITING Last Admin: 02/06/17 06:17 Dose: 4 mg - Objective Vital Signs: Vital Signs Temperature 98.0 F 02/09/17 19:36 Pulse Rate 83 02/09/17 19:36 Respiratory Rate 20 02/09/17 20:21 Blood Pressure 126/93 02/09/17 19:36 O2 Sat by Pulse Oximetry (%) 98 02/09/17 20:21 Constitutional: Yes: No Distress Eyes: Yes: WNL HENT: Yes: WNL Neck: Yes: WNL, Supple Cardiovascular: Yes: WNL, Regular Rate and Rhythm Respiratory: Yes: WNL, Regular, CTA Bilaterally Gastrointestinal: Yes: WNL, Normal Bowel Sounds, Soft Labs: CBC, BMP 02/08/17 07:00 02/08/17 07:00 Problem List - Problems (1) Diverticulitis Code(s): K57.92 - DVTRCLI OF INTEST, PART UNSP, W/O PERF OR ABSCESS W/O BLEED Qualifiers: Diverticulitis site: large intestine Diverticulitis bleeding: without bleeding Diverticulitis complication: with perforation Qualified Code (s): K57.20 - Diverticulitis of large intestine with perforation and abscess without bleeding (2) HTN (hypertension) Code(s): I10 - ESSENTIAL (PRIMARY) HYPERTENSION (3) Elevated LFTs Code(s): R79.89 - OTHER SPECIFIED ABNORMAL FINDINGS OF BLOOD CHEMISTRY
[2017-02-10] MEDS ORDERED: PT OWN MED DRAWER 7, Y5N ONE ×4 (00:48→17:57)
[2017-02-10] MEDS: MEROPENEM 1 GM in DEXTROSE 5%-WATER - 100 ML IVPB SCH ×3 (02:35→17:50)
[2017-02-10] MEDS: D5-1/2NS+20 MEQ KCL - 1,000 ML IV SCH (02:39)
[2017-02-10] MEDS: [UNRECOGNIZED DRUG - REMARK] PO SCH ×3 (08:00→17:51)
[2017-02-10] MEDS: LOSARTAN POTASSIUM 50 MG TABLET (FP) PO SCH (09:58)
--- NOTE | 2017-02-10 13:52 | PN ---
Progress Note, Physician History of Present Illness: patient stable abd pain resolved no new issues - Current Medication List Current Medications: Active Medications Acetaminophen (Tylenol -) 650 mg PO Q6H PRN PRN Reason: FEVER OR PAIN Last Admin: 02/09/17 02:44 Dose: 650 mg Meropenem 1 gm/ Dextrose 100 mls @ 100 mls/hr IVPB Q8H-IV NONA PRN Reason: Protocol Last Admin: 02/10/17 09:58 Dose: 100 mls/hr Potassium Chloride/Dextrose/Sod Cl (D5-1/2ns+20 Meq Kcl -) 1,000 mls @ 50 mls/ hr IV ASDIR [facility] Last Admin: 02/10/17 02:39 Dose: 50 mls/hr Losartan Potassium (Cozaar -) 100 mg PO DAILY [facility] Last Admin: 02/10/17 09:58 Dose: 100 mg Pt's Own Med (Non- Form) (Lipase/Protease/Amylase [ Creon Dr 24,000 Units C 1 each PO TIDCM [facility] Last Admin: 02/10/17 11:47 Dose: 1 each Ondansetron HCl (Zofran Injection) 4 mg IVPUSH Q6H PRN PRN Reason: NAUSEA AND/OR VOMITING Last Admin: 02/06/17 06:17 Dose: 4 mg - Objective Vital Signs: Vital Signs Temperature 98.5 F 02/10/17 13:45 Pulse Rate 68 02/10/17 13:45 Respiratory Rate 18 02/10/17 09:40 Blood Pressure 121/68 02/10/17 13:45 O2 Sat by Pulse Oximetry (%) 98 02/09/17 20:21 Constitutional: Yes: No Distress, Calm Cardiovascular: Yes: Regular Rate and Rhythm Respiratory: Yes: Regular, CTA Bilaterally Gastrointestinal: Yes: Normal Bowel Sounds, Soft Musculoskeletal: Yes: WNL Extremities: Yes: WNL Neurological: Yes: Alert, Oriented Psychiatric: Yes: Alert, Oriented Labs: CBC, BMP 02/08/17 07:00 02/08/17 07:00 Assessment/Plan acute diverticulitis fever abd pain esbl uti plan continue abx as planned rest as per primary
[2017-02-10] MEDS: PATIENT'S OWN MEDICATION (NON-FORMULARY) (Lipase/Protease/Amylase [Creon Dr 24,000 Units C PO SCH ×2 (19:58→19:59)
--- NOTE | 2017-02-11 01:35 | PN ---
Progress Note, Physician History of Present Illness: Pt seen and examined 02/10/17 however note is being entered late - Current Medication List Current Medications: Active Medications Acetaminophen (Tylenol -) 650 mg PO Q6H PRN PRN Reason: FEVER OR PAIN Last Admin: 02/09/17 02:44 Dose: 650 mg Meropenem 1 gm/ Dextrose 100 mls @ 100 mls/hr IVPB Q8H-IV NONA PRN Reason: Protocol Last Admin: 02/10/17 17:50 Dose: 100 mls/hr Losartan Potassium (Cozaar -) 100 mg PO DAILY [facility] Last Admin: 02/10/17 09:58 Dose: 100 mg Pt's Own Med (Non- Form) (Lipase/Protease/Amylase [ Creon Dr 24,000 Units C 1 each PO TIDCM [facility] Last Admin: 02/10/17 17:51 Dose: 1 each Ondansetron HCl (Zofran Injection) 4 mg IVPUSH Q6H PRN PRN Reason: NAUSEA AND/OR VOMITING Last Admin: 02/06/17 06:17 Dose: 4 mg - Objective Vital Signs: Vital Signs Temperature 98.3 F 02/10/17 18:58 Pulse Rate 88 02/10/17 18:58 Respiratory Rate 20 02/10/17 21:00 Blood Pressure 121/72 02/10/17 18:58 O2 Sat by Pulse Oximetry (%) 98 02/10/17 21:00 Constitutional: Yes: No Distress Eyes: Yes: WNL HENT: Yes: WNL Neck: Yes: WNL, Supple Cardiovascular: Yes: WNL, Regular Rate and Rhythm Respiratory: Yes: WNL, Regular, CTA Bilaterally Gastrointestinal: Yes: WNL, Normal Bowel Sounds, Soft Labs: CBC, BMP 02/08/17 07:00 02/08/17 07:00 Problem List - Problems (1) Diverticulitis Code(s): K57.92 - DVTRCLI OF INTEST, PART UNSP, W/O PERF OR ABSCESS W/O BLEED Qualifiers: Diverticulitis site: large intestine Diverticulitis bleeding: without bleeding Diverticulitis complication: with perforation Qualified Code (s): K57.20 - Diverticulitis of large intestine with perforation and abscess without bleeding (2) HTN (hypertension) Code(s): I10 - ESSENTIAL (PRIMARY) HYPERTENSION (3) Elevated LFTs Code(s): R79.89 - OTHER SPECIFIED ABNORMAL FINDINGS OF BLOOD CHEMISTRY
[2017-02-11] MEDS: MEROPENEM 1 GM in DEXTROSE 5%-WATER - 100 ML IVPB SCH ×3 (02:09→17:50)
[2017-02-11] MEDS: [UNRECOGNIZED DRUG - REMARK] PO SCH ×3 (08:00→16:43)
[2017-02-11] MEDS ORDERED: PT OWN MED DRAWER 7, Y5N ONE (09:34)
[2017-02-11] MEDS: LOSARTAN POTASSIUM 50 MG TABLET (FP) PO SCH (09:38)
--- NOTE | 2017-02-11 22:42 | PN ---
Progress Note, Physician - Current Medication List Current Medications: Active Medications Acetaminophen (Tylenol -) 650 mg PO Q6H PRN PRN Reason: FEVER OR PAIN Last Admin: 02/09/17 02:44 Dose: 650 mg Meropenem 1 gm/ Dextrose 100 mls @ 100 mls/hr IVPB Q8H-IV NONA PRN Reason: Protocol Last Admin: 02/11/17 17:50 Dose: 100 mls/hr Losartan Potassium (Cozaar -) 100 mg PO DAILY [facility] Last Admin: 02/11/17 09:38 Dose: 100 mg Pt's Own Med (Non- Form) (Lipase/Protease/Amylase [ Creon Dr 24,000 Units C 1 each PO TIDCM [facility] Last Admin: 02/11/17 16:43 Dose: 1 each Ondansetron HCl (Zofran Injection) 4 mg IVPUSH Q6H PRN PRN Reason: NAUSEA AND/OR VOMITING Last Admin: 02/06/17 06:17 Dose: 4 mg - Objective Vital Signs: Vital Signs Temperature 98.4 F 02/11/17 21:12 Pulse Rate 96 H 02/11/17 21:12 Respiratory Rate 20 02/11/17 21:12 Blood Pressure 126/76 02/11/17 21:12 O2 Sat by Pulse Oximetry (%) 99 02/11/17 09:00 Constitutional: Yes: No Distress Eyes: Yes: WNL HENT: Yes: WNL Neck: Yes: WNL, Supple Cardiovascular: Yes: WNL, Regular Rate and Rhythm, Bradycardia Respiratory: Yes: WNL, Regular, CTA Bilaterally Gastrointestinal: Yes: WNL, Normal Bowel Sounds, Soft Labs: CBC, BMP 02/08/17 07:00 02/08/17 07:00 Problem List - Problems (1) Diverticulitis Assessment/Plan: Cont IV antibxs Repeat ct scan showed diverticulitis but no abscess DC planning in am Will order PIC line placement for am Will need outpt IV antibxs Code(s): K57.92 - DVTRCLI OF INTEST, PART UNSP, W/O PERF OR ABSCESS W/O BLEED Qualifiers: Diverticulitis site: large intestine Diverticulitis bleeding: without bleeding Diverticulitis complication: with perforation Qualified Code (s): K57.20 - Diverticulitis of large intestine with perforation and abscess without bleeding (2) HTN (hypertension) Assessment/Plan: Cont losartan Code(s): I10 - ESSENTIAL (PRIMARY) HYPERTENSION (3) Elevated LFTs Assessment/Plan: LFT's returned to [facility]; HIDA scan unremarkable Code(s): R79.89 - OTHER SPECIFIED ABNORMAL FINDINGS OF BLOOD CHEMISTRY
[2017-02-11] MEDS ORDERED: PICC LINE 8 ML FLUSH PROTOCOL IVPUSH PRN (22:46)
[2017-02-12] MEDS: MEROPENEM 1 GM in DEXTROSE 5%-WATER - 100 ML IVPB SCH ×3 (01:32→17:46)
[2017-02-12] MEDS ORDERED: PT OWN MED DRAWER 7, Y5N ONE ×3 (08:00→16:59)
[2017-02-12] MEDS: [UNRECOGNIZED DRUG - REMARK] PO SCH ×3 (08:01→16:59)
[2017-02-12] MEDS: LOSARTAN POTASSIUM 50 MG TABLET (FP) PO SCH (09:54)
[2017-02-12] MEDS: HEPARIN NA (PORCINE) 5,000 UNITS/ML 1ML VIAL SQ SCH ×2 (11:01→21:39)
--- NOTE | 2017-02-12 13:07 | PN ---
Progress Note, Physician History of Present Illness: stable no new issues - Current Medication List Current Medications: Active Medications Acetaminophen (Tylenol -) 650 mg PO Q6H PRN PRN Reason: FEVER OR PAIN Last Admin: 02/09/17 02:44 Dose: 650 mg Heparin Sodium (Porcine) (Heparin -) 5,000 unit SQ BID NONA Last Admin: 02/12/17 11:01 Dose: Not Given IV Flush (Picc Line Flush) 8 ml IVPUSH PRN PRN PRN Reason: Protocol Meropenem 1 gm/ Dextrose 100 mls @ 100 mls/hr IVPB Q8H-IV NONA PRN Reason: Protocol Last Admin: 02/12/17 09:54 Dose: 100 mls/hr Losartan Potassium (Cozaar -) 100 mg PO DAILY [facility] Last Admin: 02/12/17 09:54 Dose: 100 mg Pt's Own Med (Non- Form) (Lipase/Protease/Amylase [ Creon Dr 24,000 Units C 1 each PO TIDCM [facility] Last Admin: 02/12/17 11:50 Dose: 1 each Ondansetron HCl (Zofran Injection) 4 mg IVPUSH Q6H PRN PRN Reason: NAUSEA AND/OR VOMITING Last Admin: 02/06/17 06:17 Dose: 4 mg - Objective Vital Signs: Vital Signs Temperature 98.9 F 02/12/17 10:00 Pulse Rate 99 H 02/12/17 10:00 Respiratory Rate 20 02/12/17 10:00 Blood Pressure 143/76 02/12/17 10:00 O2 Sat by Pulse Oximetry (%) 99 02/11/17 09:00 Constitutional: Yes: No Distress, Calm Cardiovascular: Yes: Regular Rate and Rhythm Respiratory: Yes: Regular, CTA Bilaterally Gastrointestinal: Yes: Normal Bowel Sounds, Soft Musculoskeletal: Yes: WNL Extremities: Yes: WNL Integumentary: Yes: WNL Neurological: Yes: Alert, Oriented Psychiatric: Yes: Alert, Oriented Labs: CBC, BMP 02/08/17 07:00 02/08/17 07:00 Assessment/Plan acute diverticulitis fever abd pain esbl uti plan continue abx as planned rest as per primary patient to completer abx till the 3rd
[2017-02-12] MEDS ORDERED: morphine CARPU-JECT 2 MG/1 ML DISP.SYRIN IVPUSH PRN (18:41)
--- NOTE | 2017-02-12 20:59 | PN ---
Progress Note, Physician History of Present Illness: Pt w/ increasing abdominal pain - Current Medication List Current Medications: Active Medications Acetaminophen (Tylenol -) 650 mg PO Q6H PRN PRN Reason: FEVER OR PAIN Last Admin: 02/09/17 02:44 Dose: 650 mg Heparin Sodium (Porcine) (Heparin -) 5,000 unit SQ BID [facility] Last Admin: 02/12/17 11:01 Dose: Not Given IV Flush (Picc Line Flush) 8 ml IVPUSH PRN PRN PRN Reason: Protocol Meropenem 1 gm/ Dextrose 100 mls @ 100 mls/hr IVPB Q8H-IV NONA PRN Reason: Protocol Last Admin: 02/12/17 17:46 Dose: 100 mls/hr Losartan Potassium (Cozaar -) 100 mg PO DAILY [facility] Last Admin: 02/12/17 09:54 Dose: 100 mg Morphine Sulfate (Morphine Injection -) 2 mg IVPUSH Q4H PRN PRN Reason: PAIN Last Admin: 02/12/17 19:37 Dose: 2 mg Pt's Own Med (Non- Form) (Lipase/Protease/Amylase [ Creon Dr 24,000 Units C 1 each PO TIDCM [facility] Last Admin: 02/12/17 16:59 Dose: 1 each Ondansetron HCl (Zofran Injection) 4 mg IVPUSH Q6H PRN PRN Reason: NAUSEA AND/OR VOMITING Last Admin: 02/06/17 06:17 Dose: 4 mg - Objective Vital Signs: Vital Signs Temperature 99.2 F 02/12/17 19:36 Pulse Rate 93 H 02/12/17 19:36 Respiratory Rate 20 02/12/17 19:36 Blood Pressure 102/75 02/12/17 19:36 O2 Sat by Pulse Oximetry (%) 99 02/11/17 09:00 Constitutional: Yes: No Distress Eyes: Yes: WNL HENT: Yes: WNL Neck: Yes: WNL, Supple Cardiovascular: Yes: WNL, Regular Rate and Rhythm Respiratory: Yes: WNL, Regular, CTA Bilaterally Gastrointestinal: Yes: WNL, Normal Bowel Sounds Labs: CBC, BMP 02/08/17 07:00 02/08/17 07:00 Problem List - Problems (1) Diverticulitis Assessment/Plan: Cont IV antibxs Pt got PIC line today However will keep pt NPO until we get repeat ct scan abd Cont IV antibxs Code(s): K57.92 - DVTRCLI OF INTEST, PART UNSP, W/O PERF OR ABSCESS W/O BLEED Qualifiers: Diverticulitis site: large intestine Diverticulitis bleeding: without bleeding Diverticulitis complication: with perforation Qualified Code (s): K57.20 - Diverticulitis of large intestine with perforation and abscess without bleeding (2) HTN (hypertension) Assessment/Plan: Cont losartan Code(s): I10 - ESSENTIAL (PRIMARY) HYPERTENSION (3) Elevated LFTs Assessment/Plan: LFT's returned to [facility]ik[facility]; HIDA scan unremarkable Code(s): R79.89 - OTHER SPECIFIED ABNORMAL FINDINGS OF BLOOD CHEMISTRY
[2017-02-12] MEDS: ACETAMINOPHEN 325 MG TABLET (FP) PO PRN (21:39)
[2017-02-12] MEDS ORDERED: morphine CARPU-JECT 4 MG/1 ML DISP.SYRIN IVPUSH PRN (21:47)
[2017-02-12] MEDS: HYDROmorphone HCL CARPU-JECT 1 MG/1 ML DISP.SYRIN IVPB PRN (23:20)
[2017-02-12] MEDS: DEXTROSE 5%-0.45% SALINE 1,000 ML IV SCH (23:21)
[2017-02-13] MEDS: MEROPENEM 1 GM in DEXTROSE 5%-WATER - 100 ML IVPB SCH ×3 (01:29→17:50)
[2017-02-13] MEDS: HYDROmorphone HCL CARPU-JECT 1 MG/1 ML DISP.SYRIN IVPB PRN ×2 (07:07→14:34)
[2017-02-13] MEDS ORDERED: PT OWN MED DRAWER 7, Y5N ONE ×3 (07:39→17:45)
[2017-02-13] MEDS: [UNRECOGNIZED DRUG - REMARK] PO SCH ×3 (07:59→17:19)
[2017-02-13 08:51] LABS: BASOPHIL 0.5 % (0-2.0); EOSINOPHIL 0.4 % (0-4.5); MCHC 32.6 g/dl (32.0-36.0); MEAN CELL VOLUME 82.6 fl (80-96); MEAN PLT VOLUME 8.4 fl (7.5-11.1); NEUTROPHILS 82.3 % (42.8-82.8); PLATELET COUNT 386 K/MM3 (134-434)
[2017-02-13 09:18] LABS: ALK PHOS 93 U/L (45-117); ANION GAP 11 (8-16); BILIRUBIN,TOTAL 0.5 mg/dL (0.2-1.0); CALCIUM 8.5 mg/dL (8.5-10.1); CO2 24 mmol/L (21-32); CREATININE 0.7 mg/dL (0.55-1.02); GLUCOSE,RANDOM 96 mg/dL (74-106); SGOT/AST 10 U/L (15-37); SGPT/ALT 17 U/L (12-78); TOT PROT 6.9 g/dl (6.4-8.2)
[2017-02-13] MEDS: LOSARTAN POTASSIUM 50 MG TABLET (FP) PO SCH ×2 (10:35→10:45)
[2017-02-13] MEDS: HEPARIN NA (PORCINE) 5,000 UNITS/ML 1ML VIAL SQ SCH ×2 (10:35→22:48)
[2017-02-13] MEDS: DEXTROSE 5%-0.45% SALINE 1,000 ML IV SCH ×2 (14:27→22:49)
[2017-02-13] MEDS: ONDANSETRON 4 MG/2 ML VIAL IVPUSH PRN (14:34)
--- NOTE | 2017-02-13 15:08 | PN ---
GI Progress Note Subjective: patient has been having recurrent llq pain, repeat ct revealed no microperforation and no abscess - Objective Vital Signs: Vital Signs Temperature 98.9 F 02/13/17 14:00 Pulse Rate 85 02/13/17 06:00 Respiratory Rate 20 02/13/17 06:00 Blood Pressure 111/67 02/13/17 06:00 O2 Sat by Pulse Oximetry (%) 99 02/12/17 21:00 Constitutional: Well Nourished Eyes: Yes: Conjunctiva Clear HENT: Yes: Atraumatic Neck: Yes: Supple Cardiovascular: Yes: Regular Rate and Rhythm Respiratory: Yes: CTA Bilaterally ...Palpate: Yes: Soft, Tenderness (--llq tenderness). No: Firm/Rigid, Guarding , Hepatomegaly, Mass, Pulsatile Mass, Splenomegaly Labs: CBC, BMP 02/13/17 07:20 02/13/17 07:20 Problem List - Problems (1) Diverticulitis Assessment/Plan: wbc elevated to 15,000 r. continue antibiotics as per id surgical ff-up Code(s): K57.92 - DVTRCLI OF INTEST, PART UNSP, W/O PERF OR ABSCESS W/O BLEED Qualifiers: Diverticulitis site: large intestine Diverticulitis bleeding: without bleeding Diverticulitis complication: with perforation Qualified Code (s): K57.20 - Diverticulitis of large intestine with perforation and abscess without bleeding
--- NOTE | 2017-02-13 15:08 | PN ---
Progress Note, Physician History of Present Illness: patient continues to have abd pain wbc has increased pain continues to be issue inspite of abx repeat scan being done - Current Medication List Current Medications: Active Medications Acetaminophen (Tylenol -) 650 mg PO Q6H PRN PRN Reason: FEVER OR PAIN Last Admin: 02/12/17 21:39 Dose: 650 mg Heparin Sodium (Porcine) (Heparin -) 5,000 unit SQ BID NONA Last Admin: 02/13/17 10:35 Dose: Not Given Hydromorphone HCl (Dilaudid Injection -) 1 mg IVPB Q6H PRN PRN Reason: PAIN Last Admin: 02/13/17 14:34 Dose: 1 mg IV Flush (Picc Line Flush) 8 ml IVPUSH PRN PRN PRN Reason: Protocol Meropenem 1 gm/ Dextrose 100 mls @ 100 mls/hr IVPB Q8H-IV NONA PRN Reason: Protocol Last Admin: 02/13/17 10:35 Dose: 100 mls/hr Dextrose/Sodium Chloride (D5-1/2ns -) 1,000 mls @ 75 mls/hr IV ASDIR NONA Last Admin: 02/13/17 14:27 Dose: 75 mls/hr Losartan Potassium (Cozaar -) 100 mg PO DAILY [facility] Last Admin: 02/13/17 10:45 Dose: 100 mg Pt's Own Med (Non- Form) (Lipase/Protease/Amylase [ Creon Dr 24,000 Units C 1 each PO TIDCM [facility] Last Admin: 02/13/17 12:08 Dose: Not Given Ondansetron HCl (Zofran Injection) 4 mg IVPUSH Q6H PRN PRN Reason: NAUSEA AND/OR VOMITING Last Admin: 02/13/17 14:34 Dose: 4 mg - Objective Vital Signs: Vital Signs Temperature 98.9 F 02/13/17 14:00 Pulse Rate 85 02/13/17 06:00 Respiratory Rate 20 02/13/17 06:00 Blood Pressure 111/67 02/13/17 06:00 O2 Sat by Pulse Oximetry (%) 99 02/12/17 21:00 Constitutional: Yes: No Distress, Calm HENT: Yes: Atraumatic Neck: Yes: Supple Cardiovascular: Yes: Regular Rate and Rhythm Respiratory: Yes: Regular, CTA Bilaterally Gastrointestinal: Yes: Hypoactive Bowel Sounds, Tenderness Musculoskeletal: Yes: WNL Extremities: Yes: WNL Neurological: Yes: Alert, Oriented Psychiatric: Yes: Alert, Oriented Labs: CBC, BMP 02/13/17 07:20 02/13/17 07:20 Assessment/Plan acute diverticulitis fever abd pain esbl uti plan continue abx as planned await for repeat ct scan of abd surgery to reevaluate the patient
--- NOTE | 2017-02-13 22:23 | PN ---
GI Progress Note Subjective: Comfortable at this time. Had episode of severe pain earlier today. Repeat CT done and looks improved with no evidence of free air or abscess - Objective Vital Signs: Vital Signs Temperature 98.9 F 02/13/17 14:00 Pulse Rate 85 02/13/17 06:00 Respiratory Rate 20 02/13/17 06:00 Blood Pressure 111/67 02/13/17 06:00 O2 Sat by Pulse Oximetry (%) 99 02/12/17 21:00 Constitutional: Well Nourished HENT: Yes: Normocephalic Cardiovascular: Yes: Regular Rate and Rhythm Respiratory: Yes: CTA Bilaterally Gastrointestinal Inspection: Yes: WNL ...Auscultate: Yes: Normoactive Bowel Sounds ...Palpate: Yes: Soft, Tenderness (RLQ) Labs: CBC, BMP 02/13/17 07:20 02/13/17 07:20 - ....Imaging Cat Scan: Report Reviewed (as noted) Assessment/Plan Patient with complicated course of diverticulitis. WBC bumped today along with recurrence of pain. CT with no alarming findings but clinical picture still dayna with low-grade fever as well Has PICC line but would hold for another day and have surgery re-evaluate. Will notify Dr Ferrer in AM
--- NOTE | 2017-02-13 23:24 | PN ---
Progress Note, Physician History of Present Illness: Pt w/ abdominal pain - Current Medication List Current Medications: Active Medications Acetaminophen (Tylenol -) 650 mg PO Q6H PRN PRN Reason: FEVER OR PAIN Last Admin: 02/12/17 21:39 Dose: 650 mg Heparin Sodium (Porcine) (Heparin -) 5,000 unit SQ BID NONA Last Admin: 02/13/17 22:48 Dose: 5,000 unit Hydromorphone HCl (Dilaudid Injection -) 1 mg IVPB Q6H PRN PRN Reason: PAIN Last Admin: 02/13/17 14:34 Dose: 1 mg IV Flush (Picc Line Flush) 8 ml IVPUSH PRN PRN PRN Reason: Protocol Meropenem 1 gm/ Dextrose 100 mls @ 100 mls/hr IVPB Q8H-IV NONA PRN Reason: Protocol Last Admin: 02/13/17 17:50 Dose: 100 mls/hr Dextrose/Sodium Chloride (D5-1/2ns -) 1,000 mls @ 75 mls/hr IV ASDIR [facility] Last Admin: 02/13/17 22:49 Dose: Not Given Losartan Potassium (Cozaar -) 100 mg PO DAILY [facility] Last Admin: 02/13/17 10:45 Dose: 100 mg Pt's Own Med (Non- Form) (Lipase/Protease/Amylase [ Creon Dr 24,000 Units C 1 each PO TIDCM [facility] Last Admin: 02/13/17 17:19 Dose: Not Given Ondansetron HCl (Zofran Injection) 4 mg IVPUSH Q6H PRN PRN Reason: NAUSEA AND/OR VOMITING Last Admin: 02/13/17 14:34 Dose: 4 mg - Objective Vital Signs: Vital Signs Temperature 98.9 F 02/13/17 14:00 Pulse Rate 85 02/13/17 06:00 Respiratory Rate 20 02/13/17 06:00 Blood Pressure 111/67 02/13/17 06:00 O2 Sat by Pulse Oximetry (%) 99 02/12/17 21:00 Constitutional: Yes: No Distress Eyes: Yes: WNL HENT: Yes: WNL Neck: Yes: WNL, Supple Cardiovascular: Yes: WNL, Regular Rate and Rhythm Respiratory: Yes: WNL, Regular, CTA Bilaterally Gastrointestinal: Yes: WNL, Normal Bowel Sounds, Soft Labs: CBC, BMP 02/13/17 07:20 02/13/17 07:20 Problem List - Problems (1) Diverticulitis Assessment/Plan: WBC was elevated today Cont IV antibxs Repeat ct scan showed acute diverticulitis Cont IVF/NPO Await surgical recommendations Code(s): K57.92 - DVTRCLI OF INTEST, PART UNSP, W/O PERF OR ABSCESS W/O BLEED Qualifiers: Diverticulitis site: large intestine Diverticulitis bleeding: without bleeding Diverticulitis complication: with perforation Qualified Code (s): K57.20 - Diverticulitis of large intestine with perforation and abscess without bleeding (2) HTN (hypertension) Assessment/Plan: Cont losartan Code(s): I10 - ESSENTIAL (PRIMARY) HYPERTENSION (3) Elevated LFTs Assessment/Plan: LFT's returned to maikol; HIDA scan unremarkable Code(s): R79.89 - OTHER SPECIFIED ABNORMAL FINDINGS OF BLOOD CHEMISTRY
[2017-02-14] MEDS: HYDROmorphone HCL CARPU-JECT 1 MG/1 ML DISP.SYRIN IVPB PRN ×2 (01:04→09:38)
[2017-02-14] MEDS ORDERED: PT OWN MED DRAWER 7, Y5N ONE ×3 (02:49→18:37)
[2017-02-14] MEDS: MEROPENEM 1 GM in DEXTROSE 5%-WATER - 100 ML IVPB SCH ×2 (02:53→09:42)
[2017-02-14] MEDS: DEXTROSE 5%-0.45% SALINE 1,000 ML IV SCH (06:38)
--- NOTE | 2017-02-14 07:36 | SPA.PREOP ---
- PRE-OP NOTE Dx: Recurrent acute sigmoid diverticulitis Planned Procedure: Robotic/laparoscopic assisted sigmoid colon resection, possible colostomy Surgeon: Robert Palacios Consent: To be obtained by surgeon after risks, benefits and alternatives explained to patient. Last Vital Signs Temp Pulse Resp BP Pulse Ox 98.1 F 81 20 101/62 99 02/14/17 05:47 02/14/17 05:47 02/14/17 05:47 02/14/17 05:47 02/13/17 21:00 Lab Results WBC 15.0 K/mm3 (4.0-10.0) H D 02/13/17 07:20 RBC 4.25 M/mm3 (3.60-5.2) 02/13/17 07:20 Hgb 11.5 GM/dL (10.7-15.3) 02/13/17 07:20 Hct 35.1 % (32.4-45.2) 02/13/17 07:20 MCV 82.6 fl (80-96) 02/13/17 07:20 MCHC 32.6 g/dl (32.0-36.0) 02/13/17 07:20 RDW 15.0 % (11.6-15.6) 02/13/17 07:20 Plt Count 386 K/MM3 (134-434) 02/13/17 07:20 Sodium 138 mmol/L (136-145) 02/13/17 07:20 Potassium 4.0 mmol/L (3.5-5.1) 02/13/17 07:20 Chloride 103 mmol/L (98-107) 02/13/17 07:20 Carbon Dioxide 24 mmol/L (21-32) 02/13/17 07:20 Anion Gap 11 (8-16) 02/13/17 07:20 BUN 11 mg/dL (7-18) D 02/13/17 07:20 Creatinine 0.7 mg/dL (0.55-1.02) 02/13/17 07:20 Random Glucose 96 mg/dL (74-106) 02/13/17 07:20 Calcium 8.5 mg/dL (8.5-10.1) 02/13/17 07:20 - ASSESSMENT/PLAN 1. Make NPO except po meds 2. GI/DVT PPX 3. Medical optimization / clearance 4. Type and screen (ordered) 5. 2 units PRBC on hold for OR (ordered) 6. f/u HCG 7. f/u coags Visit type - Case Type Case Type: ED Admission - Emergency Emergency Visit: Yes ED Registration Date: 02/03/17 Care time: The patient presented to the Emergency Department on the above date and was hospitalized for further evaluation of their emergent condition. - New patient This patient is new to me today: Yes Date on this admission: 02/14/17
[2017-02-14 08:06] LABS: BASOPHIL 0.3 % (0-2.0); EOSINOPHIL 1.3 % (0-4.5); MCH 27.6 pg (25.7-33.7); MCHC 33.1 g/dl (32.0-36.0); MEAN CELL VOLUME 83.3 fl (80-96); MEAN PLT VOLUME 8.6 fl (7.5-11.1); PLATELET COUNT 379 K/MM3 (134-434); RDW 14.6 % (11.6-15.6); WHITE BLOOD COUNT 10.6 K/mm3 (4.0-10.0)
[2017-02-14] MEDS: [UNRECOGNIZED DRUG - REMARK] PO SCH ×2 (08:23→12:06)
[2017-02-14 09:13] LABS: ALK PHOS 98 U/L (45-117); ANION GAP 9 (8-16); BILIRUBIN,TOTAL 0.4 mg/dL (0.2-1.0); CALCIUM 8.8 mg/dL (8.5-10.1); CO2 27 mmol/L (21-32); CREATININE 0.8 mg/dL (0.55-1.02); GLUCOSE,RANDOM 80 mg/dL (74-106); SGOT/AST 15 U/L (15-37); SGPT/ALT 17 U/L (12-78); TOT PROT 7.2 g/dl (6.4-8.2)
[2017-02-14 09:28] LABS: INR 1.32 (0.82-1.09); PROTHROMBIN TIME (PATIENT) 14.6 SEC (9.98-11.88)
[2017-02-14] MEDS: LOSARTAN POTASSIUM 50 MG TABLET (FP) PO SCH (09:40)
[2017-02-14] MEDS: HEPARIN NA (PORCINE) 5,000 UNITS/ML 1ML VIAL SQ SCH (09:44)
[2017-02-14] MEDS ORDERED: MIDAZOLAM HCL 2 MG/2 ML SINGLE DOSE VIAL ONE (14:27)
--- NOTE | 2017-02-14 14:30 | PN ---
Progress Note, Physician History of Present Illness: plan is for patient to go to surgery which she is going to go today pain still present - Current Medication List Current Medications: Active Medications Acetaminophen (Tylenol -) 650 mg PO Q6H PRN PRN Reason: FEVER OR PAIN Last Admin: 02/12/17 21:39 Dose: 650 mg Heparin Sodium (Porcine) (Heparin -) 5,000 unit SQ BID NONA Last Admin: 02/14/17 09:44 Dose: Not Given Hydromorphone HCl (Dilaudid Injection -) 1 mg IVPB Q6H PRN PRN Reason: PAIN Last Admin: 02/14/17 09:38 Dose: 1 mg IV Flush (Picc Line Flush) 8 ml IVPUSH PRN PRN PRN Reason: Protocol Meropenem 1 gm/ Dextrose 100 mls @ 100 mls/hr IVPB Q8H-IV NONA PRN Reason: Protocol Last Admin: 02/14/17 09:42 Dose: 100 mls/hr Dextrose/Sodium Chloride (D5-1/2ns -) 1,000 mls @ 75 mls/hr IV ASDIR [facility] Last Admin: 02/14/17 06:38 Dose: 75 mls/hr Losartan Potassium (Cozaar -) 100 mg PO DAILY [facility] Last Admin: 02/14/17 09:40 Dose: 100 mg Pt's Own Med (Non- Form) (Lipase/Protease/Amylase [ Creon Dr 24,000 Units C 1 each PO TIDCM [facility] Last Admin: 02/14/17 12:06 Dose: Not Given Ondansetron HCl (Zofran Injection) 4 mg IVPUSH Q6H PRN PRN Reason: NAUSEA AND/OR VOMITING Last Admin: 02/13/17 14:34 Dose: 4 mg - Objective Vital Signs: Vital Signs Temperature 98.6 F 02/14/17 09:48 Pulse Rate 75 02/14/17 09:48 Respiratory Rate 20 02/14/17 09:48 Blood Pressure 100/60 02/14/17 09:48 O2 Sat by Pulse Oximetry (%) 99 02/13/17 21:00 Constitutional: Yes: Calm, Mild Distress Cardiovascular: Yes: Regular Rate and Rhythm Respiratory: Yes: Regular, CTA Bilaterally Gastrointestinal: Yes: Normal Bowel Sounds, Soft Musculoskeletal: Yes: WNL Extremities: Yes: WNL Neurological: Yes: Alert, Oriented Psychiatric: Yes: Alert Labs: CBC, BMP 02/14/17 05:35 02/14/17 05:35 INR, PTT INR 1.32 (0.82-1.09) H 02/14/17 08:35 - ....Imaging Cat Scan: Report Reviewed, Image Reviewed Assessment/Plan acute diverticulitis fever abd pain esbl uti plan continue abx as planned ct seen and result noted patient going for surgery will continue abx
[2017-02-14] MEDS ORDERED: BUPIVACAINE HCL/PF 0.5% (5MG/ML) 10 ML VIAL ONE (15:22)
[2017-02-14] MEDS ORDERED: ROCURONIUM BROMIDE 50 MG/5 ML VIAL ONE (15:33)
[2017-02-14] MEDS ORDERED: PROPOFOL 20 ML ONE (15:33)
[2017-02-14] MEDS ORDERED: AMPICILLIN NA/SULBACTAM NA 1.5 GM VIAL ONE (15:50)
[2017-02-14] MEDS ORDERED: AMPICILLIN NA/SULBACTAM NA 3 GM/100 ML PRE-DOCKED IVPB ONE (16:00)
[2017-02-14] MEDS ORDERED: INDOCYANINE GREEN 25 MG/10 ML VIAL IVPUSH ONE ×2 (16:01→17:00)
--- NOTE | 2017-02-14 16:13 | OP ---
Operative Note - Note: Operative Date: 02/14/17 Pre-Operative Diagnosis: pelvic abbcsess Operation: cysto with geovanny. URETERAL STENTS Post-Operative Diagnosis: Same as Pre-op Senior Director Of [employer]: Arianna Santos Anesthesia: General Drains & Tubes with Location: [id number] URETERAL STENTS Drains, Volume Out (mls): 0 Operative Report Dictated: Yes
[2017-02-14] MEDS ORDERED: DEXAMETHASONE SOD PHOSPHATE 4 MG/1 ML VIAL ONE (16:19)
[2017-02-14] MEDS ORDERED: HYDROmorphone HCL/PF 1 MG/ML VIAL (FOR PYXIS CHARGING ONLY) ONE (16:25)
--- NOTE | 2017-02-14 16:33 | OP ---
DATE OF OPERATION: DATE OF DICTATION: 02/14/2017 INDICATION: Patient is a 46-year-old female with right pelvic diverticular abscess and possible ureteral involvement. PREOPERATIVE DIAGNOSIS: Pelvic abscess. POSTOPERATIVE DIAGNOSIS: Pelvic abscess. OPERATIVE PROCEDURE: Cystourethroscopy, bilateral external stent insertion. ANESTHESIA: General. DESCRIPTION OF PROCEDURE: Under above-stated anesthesia, patient is prepped and draped in the usual sterile manner. She is placed in the dorsal lithotomy position. Cystoscopy under direct vision revealed a normal bladder neck. Bladder was entered. No lesions were noted. No calculi were seen. Ureteral orifices were within normal limits. The reflux of clear urine. Dome and lateral millan were clear. Bilateral external ureteral stents were placed to approximately 22 cm and brought out the meatus. The scope was removed, and a Zheng was inserted. All 3 were connected to respective drainage systems. The patient tolerated the procedure well. She was repositioned for her formal surgical procedure. Ian [id number]
[2017-02-14] MEDS ORDERED: GLYCOPYRROLATE 0.2 MG/1 ML VIAL ONE (18:45)
[2017-02-14] MEDS ORDERED: NEOSTIGMINE METHYLSULFATE 0.5 MG/ML - 10 ML MDV ONE (18:50)
[2017-02-14] MEDS ORDERED: BENZOIN/ALOE VERA/STORAX/TOLU 58 ML BOTTLE ONE (19:23)
--- NOTE | 2017-02-14 19:51 | OP ---
Operative Note - Note: Operative Date: 02/14/17 Pre-Operative Diagnosis: perforated diverticulitis Operation: robotic assisted sigmoid resection with primary anastomosis drainage of pelvic abcess and diverting loop ileostomy Findings: perforated diverticulitis with abcess Post-Operative Diagnosis: Same as Pre-op Surgeon: Robert Palacios Supervisor Dental Laboratory: Bety Leal Anesthesia: General Specimens Removed: sigmoid colon and cultures Estimated Blood Loss (mls): 100 Drains, Volume Out (mls): 1
[2017-02-14] MEDS ORDERED: ONDANSETRON 4 MG/2 ML VIAL IVPUSH PRN ×2 (19:56→19:59)
[2017-02-14] MEDS ORDERED: PROMETHAZINE HCL 25 MG/1 ML VIAL IVPUSH PRN (19:56)
[2017-02-14] MEDS ORDERED: PROMETHAZINE HCL 25 MG/1 ML VIAL IVPB PRN (19:57)
[2017-02-14] MEDS ORDERED: ACETAMINOPHEN 1000 MG/100 ML VIAL (NON FORMULARY) IVPB PRN (19:58)
[2017-02-14] MEDS ORDERED: ACETAMINOPHEN 325 MG TABLET (FP) PO PRN (19:59)
[2017-02-14] MEDS ORDERED: PICC LINE 8 ML FLUSH PROTOCOL IVPUSH PRN (19:59)
[2017-02-14] MEDS: HYDROmorphone *PCA* 10MG/50ML DISP.SYRIN PCA SCH (20:35)
--- NOTE | 2017-02-14 21:34 | OP ---
DATE OF OPERATION: 02/14/2017 PREOPERATIVE DIAGNOSIS: Perforated diverticulitis. POSTOPERATIVE DIAGNOSIS: Perforated diverticulitis. PROCEDURE: Laparoscopic robotic assisted sigmoid resection, drainage of pelvic abscess and diverting loop ileostomy. SURGEON: Robert Palacios MD SLIDE FORMING MACHINE OPERATOR: MARIA DE JESUS Krueger COMPLICATIONS: None. INTRAOPERATIVE CONSULTATION: Arianna Santos MD for ureteral stent. ESTIMATED BLOOD LOSS: Approximately 100 mL. SPECIMENS: Sigmoid colon. PATIENT CONDITION: The patient tolerated the procedure well. INDICATIONS: This is a 47-year-old female who presents with a history of 10 days of abdominal pain, which she was placed on p.o. antibiotics without improvement. She was admitted to the hospital and CT scans confirmed diagnosis of perforated localized sigmoid diverticulitis. She underwent a trial of conservative therapy with IV antibiotics for approximately 11 days. The patient continued to show evidence of clinical deterioration with increased abdominal pain and distention and increasing white count. Based upon these facts, decision was made to take the patient to the operating room for definitive surgical therapy. The risks and benefits were discussed with this patient, particularly the findings of the CAT scan which suggests an involvement of the right ureter and phlegmon collection. Also the potential for ureteral injury and vascular injury were discussed with the patient. The potential for anastomotic leaks as well as the need for a diverting loop ileostomy or colostomy. She agreed to proceed as planned. DESCRIPTION OF PROCEDURE: In the operating room, she was placed in supine position and after induction of general anesthesia, was prepped and draped in the usual sterile fashion. Dr. Santos from Urology took time out to perform a cystoscopy and insertion of bilateral stents without any complications. With the patient and draped in the usual sterile fashion, a timeout was observed and the operation was begun with insufflation through a Veress needle in the left subcostal margin to a pressure of 15 mmHg. Next, a total of 5 ports were placed using direct access along an arc in the upper abdomen. With the patient in deep Trendelenburg position, the Da Christina robot is docked into place. The initial evaluation revealed some adhesions to the anterior abdominal wall at the level of the umbilicus, which were taken down with the use of sharp dissection with the robotic scissors with cautery. Evaluation of the pelvis revealed a complex mass involving most of the pelvis. It appears to be somewhat frozen, particularly extending toward the right pelvic region with a collection being sealed by the uterus, fallopian tubes, ovaries and the lateral pelvic wall. The dissection was performed using some blunt dissection to begin to mobilize the sigmoid colon off the pelvic wall. Care was taken to avoid any extensive force to avoid any vascular injuries. While this did appear to be somewhat technically difficult, attention was then directed toward the lateral pelvic wall and the white line of Toldt. This was mobilized using a hook dissector and began to mobilize the colon off the anterior and lateral pelvic wall. Next, medial dissection was made lateral of the inferior mesenteric artery and this was then mobilized and circumferentially dissected with the use of the vessel sealer. The ureter was injected with ICG and it was able to be visualized within the pelvic rim. Care was taken to clearly expose the ureter and separate it from the mesentery of the sigmoid colon. With the ureter on the right visualization, the inferior mesenteric artery was then doubly ligated with 0 silk ties and also a large clip was applied and then it was divided using LigaSure. At this point, the colon was further mobilized distally toward the left pelvic wall, all the way down toward the rectum. Further mobilization was done bluntly on the right side to slowly enter the abscess cavity, which revealed approximately about 30 mL of pus, which was drained and the cultures were obtained. Blunt dissection was continued until completely freed the abscess wall and then, at this point, the mesenteric dissection was taken down toward the pelvis until the anterior peritoneal reflection was reached. At this point then, the sigmoid colon was divided proximally. At this point then, the descending colon was mobilized proximally toward the splenic flexure. The sigmoid colon was mobilized toward the splenic flexure. The phrenicocolic ligament was liberated via the LigaSure to allow enough flexibility to be able to perform the anastomosis. At this point, the EEA was advanced transanally in position where it could clearly be visualized intraperitoneally. A colotomy was performed with hook cautery and the anvil was then delivered intraperitoneally. The anvil was then placed against the pelvic gutter and the Da Christina stapler was then used to transect the rectum. Blue cartridge was used at this point. A colotomy was also made in the proximal colon and the anvil was introduced into the colotomy in the proximal colon and a pursestring was created with 2-0 PDS suture circumferentially around the anvil and secured in place with the stump. At this point then, the EEA apparatus was then activated to deliver the pin through the staple line in the rectal stump and it was then connected to the anvil and closed and activated to create the circular stapled anastomosis. The apparatus was then removed and the donuts were inspected and appeared to be intact. The anastomosis was then tested for water seal with air insufflation into the rectum and appears to be intact with no evidence of a leak. At this point in time, the specimen was placed in an EndoCatch bag and extracted through an incision also to be used for ileostomy was performed in circular fashion at the level of approximately McBurney point. A cruciate incision was made in the fascia and the specimen was brought through an EndoCatch bag through the incision. A Remigio-Bob drain was placed in the pelvis and the ports were removed under direct vision. The loop of ileostomy was previously identified and marked with a suture was brought out through this incision. An ileostomy bar was placed through the mesentery and secured to the skin with 3-0 nylon sutures. Ostomy appliance was placed. The incisions were all closed with 0 Vicryl and 4-0 Monocryl. Dermabond was applied. Sterile dressing was applied to the drain and then the ostomy was then matured with cautery to allow it proper drainage and ostomy appliance was secured in place. The patient was then awoken and returned to the recovery room awake and alert in stable condition. The patient tolerated the procedure well. Ian [id number]
[2017-02-14] MEDS ORDERED: ACETAMINOPHEN INJECTION 100 ML IVPB ONE (21:39)
[2017-02-15] MEDS: HEPARIN NA (PORCINE) 5,000 UNITS/ML 1ML VIAL SQ SCH ×3 (00:06→23:00)
[2017-02-15] MEDS: MEROPENEM 1 GM in DEXTROSE 5%-WATER - 100 ML IVPB SCH ×3 (01:54→17:42)
[2017-02-15] MEDS: LACTATED RINGERS SOLUTION 1,000 ML IV SCH ×4 (03:00→20:00)
[2017-02-15 07:40] LABS: ANION GAP 9 (8-16); CALCIUM 8.8 mg/dL (8.5-10.1); CO2 28 mmol/L (21-32); CREATININE 0.6 mg/dL (0.55-1.02); GLUCOSE,RANDOM 103 mg/dL (74-106)
[2017-02-15 07:59] LABS: BASOPHIL 0.1 % (0-2.0); MCH 27.7 pg (25.7-33.7); MCHC 33.7 g/dl (32.0-36.0); MEAN CELL VOLUME 82.1 fl (80-96); MEAN PLT VOLUME 8.7 fl (7.5-11.1); NEUTROPHILS 87.7 % (42.8-82.8); PLATELET COUNT 393 K/MM3 (134-434); RDW 14.4 % (11.6-15.6); WHITE BLOOD COUNT 13.3 K/mm3 (4.0-10.0)
[2017-02-15] MEDS ORDERED: PT OWN MED DRAWER 7, Y5N ONE ×2 (09:34→17:35)
[2017-02-15] MEDS: LOSARTAN POTASSIUM 50 MG TABLET (FP) PO SCH (09:44)
--- NOTE | 2017-02-15 12:07 | SURG ---
Surgery Level Vial Sealer Note Level Vial Sealer: Bety Leal PA-C Date of Service: 02/15/17 Diagnosis: perforated diverticulitis Procedure: robotic assisted sigmoid resection with primary anastomosis drainage of pelvic abcess and diverting loop ileostomy I was present for the entirety of the operative procedure. For further detail, please refer to operative report. Visit type - Case Type Case Type: ED Admission - Emergency Emergency Visit: Yes ED Registration Date: 02/03/17 Care time: The patient presented to the Emergency Department on the above date and was hospitalized for further evaluation of their emergent condition. - New patient This patient is new to me today: Yes Date on this admission: 02/15/17 - Critical Care Critical Care patient: No
--- NOTE | 2017-02-15 12:47 | PN ---
Progress Note (short form) - Note Progress Note: Surgery- Dr. Palacios Patient seen and examined. Patient is doing ok, having some pain, worse with movement and coughing, but controlled. Patient is npo, ambulating, urinating without issue, using incentive spirometry. Denies fever, chills, nausea, vomiting. Last Vital Signs Temp Pulse Resp BP Pulse Ox 99.3 F 86 20 132/80 96 02/15/17 06:00 02/15/17 06:00 02/15/17 06:00 02/15/17 06:00 02/14/17 22:05 CBC, BMP 02/15/17 06:20 02/15/17 06:20 Exam: Gen: NAD, pleasant and cooperative Abd: soft, tender right side, ileostomy viable, incisions c/d/i, [place] with serosanguineous drainage LE: calves soft, nontender Problem List - Problems (1) Diverticulitis Assessment/Plan: pod#1 S/P robotic assisted sigmoid resection with primary anastomosis, drainage of pelvic abscess, and diverting loop ileostomy for perforated diverticulitis Continue NPO with sips, IV fluids Pain control, COMPO CASTER MOnitor ostomy and output OOB, ambulate Continue abx per ID Code(s): K57.92 - DVTRCLI OF INTEST, PART UNSP, W/O PERF OR ABSCESS W/O BLEED Qualifiers: Diverticulitis site: large intestine Diverticulitis bleeding: without bleeding Diverticulitis complication: with perforation Qualified Code (s): K57.20 - Diverticulitis of large intestine with perforation and abscess without bleeding
--- NOTE | 2017-02-15 14:10 | PN ---
Progress Note (short form) - Note Progress Note: Anesthesia postop note 47 y/o F s/p GA for robotic sigmoid colectomy, ileostomy, dilaudid head setter for postop pain POD#1, vss, aaox3, pain fairly well controlled, will continue head setter No anesthesia complications.
[2017-02-15] MEDS ORDERED: HYDROmorphone *PCA* 10MG/50ML DISP.SYRIN PCA ONE (16:29)
--- NOTE | 2017-02-15 16:45 | PN ---
Progress Note, Physician History of Present Illness: patient post op with ileostomy abd pain operative note noted operative findings noted - Current Medication List Current Medications: Active Medications Acetaminophen (Tylenol -) 650 mg PO Q6H PRN PRN Reason: FEVER OR PAIN Diphenhydramine HCl (Benadryl Injection -) 12.5 mg IVPUSH ONCE PRN PRN Reason: FOR ITCHING Heparin Sodium (Porcine) (Heparin -) 5,000 unit SQ BID [facility] Last Admin: 02/15/17 09:47 Dose: 5,000 unit Hydromorphone HCl (Dilaudid Passenger [employer] Inspector -) 0 mg TEASEL SETTER TEASEL SETTER NONA PRN Reason: Protocol Stop: 02/21/17 19:57 Last Admin: 02/14/17 20:35 Dose: 10 mg Hydromorphone HCl (Dilaudid Injection -) 1 mg IVPB Q6H PRN PRN Reason: PAIN IV Flush (Picc Line Flush) 8 ml IVPUSH PRN PRN PRN Reason: Protocol Lactated Ringer's (Lactated Ringers Solution) 1,000 mls @ 125 mls/hr IV ASDIR [facility] Last Admin: 02/15/17 03:00 Dose: 125 mls/hr Lactated Ringer's (Lactated Ringers Solution) 1,000 mls @ 125 mls/hr IV ASDIR [facility] Last Admin: 02/15/17 06:17 Dose: Not Given Meropenem 1 gm/ Dextrose 100 mls @ 100 mls/hr IVPB Q8H-IV NONA PRN Reason: Protocol Last Admin: 02/15/17 09:49 Dose: 100 mls/hr Losartan Potassium (Cozaar -) 100 mg PO DAILY [facility] Last Admin: 02/15/17 09:44 Dose: 100 mg Ondansetron HCl (Zofran Injection) 4 mg IVPUSH Q6H PRN PRN Reason: NAUSEA AND/OR VOMITING Promethazine HCl (Phenergan Injection -) 12.5 mg IVPB Q6H PRN PRN Reason: NAUSEA AND/OR VOMITING - Objective Vital Signs: Vital Signs Temperature 98.6 F 02/15/17 14:24 Pulse Rate 80 02/15/17 14:24 Respiratory Rate 18 02/15/17 14:24 Blood Pressure 122/79 02/15/17 14:24 O2 Sat by Pulse Oximetry (%) 96 02/14/17 22:05 Constitutional: Yes: Calm, Mild Distress Cardiovascular: Yes: Regular Rate and Rhythm Respiratory: Yes: Regular, CTA Bilaterally Gastrointestinal: Yes: Soft, Hypoactive Bowel Sounds, Tenderness Musculoskeletal: Yes: WNL Extremities: Yes: WNL Neurological: Yes: Alert, Oriented Psychiatric: Yes: Alert, Oriented Labs: CBC, BMP 02/15/17 06:20 02/15/17 06:20 INR, PTT INR 1.32 (0.82-1.09) H 02/14/17 08:35 Assessment/Plan acute diverticulitis fever abd pain esbl uti plan continue abx as planned post op result noted continue current mgmt hydration
[2017-02-15] MEDS: HYDROmorphone *PCA* 10MG/50ML DISP.SYRIN PCA SCH (17:06)
--- NOTE | 2017-02-15 19:28 | PN ---
GI Progress Note Subjective: feels better, abdominal pain less, s/p sigmoid resection with primary anatomosis and drainage of abscess, s/p diverting ileostomy, passing flatus - Objective Vital Signs: Vital Signs Temperature 98.6 F 02/15/17 14:24 Pulse Rate 61 02/15/17 18:06 Respiratory Rate 18 02/15/17 18:06 Blood Pressure 126/72 02/15/17 18:06 O2 Sat by Pulse Oximetry (%) 96 02/14/17 22:05 Constitutional: Well Nourished, Poor Hygeine HENT: Yes: Atraumatic Neck: Yes: Supple Cardiovascular: Yes: Regular Rate and Rhythm Respiratory: Yes: CTA Bilaterally ...Palpate: Yes: Soft, Tenderness (--mild diffuse). No: Firm/Rigid, Guarding, Hepatomegaly, Mass, Pulsatile Mass, Splenomegaly Labs: CBC, BMP 02/15/17 06:20 02/15/17 06:20 INR, PTT INR 1.32 (0.82-1.09) H 02/14/17 08:35 Problem List - Problems (1) Diverticulitis Assessment/Plan: s/p sigmoid resection R> advance diet as per surgery made aware to follow-up please recall as necessary Code(s): K57.92 - DVTRCLI OF INTEST, PART UNSP, W/O PERF OR ABSCESS W/O BLEED Qualifiers: Diverticulitis site: large intestine Diverticulitis bleeding: without bleeding Diverticulitis complication: with perforation Qualified Code (s): K57.20 - Diverticulitis of large intestine with perforation and abscess without bleeding
--- NOTE | 2017-02-15 20:43 | PN ---
Progress Note, Physician History of Present Illness: s/p robotic assisted sigmoid resection with diverting ileostomy Feeling better today - Current Medication List Current Medications: Active Medications Acetaminophen (Tylenol -) 650 mg PO Q6H PRN PRN Reason: FEVER OR PAIN Diphenhydramine HCl (Benadryl Injection -) 12.5 mg IVPUSH ONCE PRN PRN Reason: FOR ITCHING Heparin Sodium (Porcine) (Heparin -) 5,000 unit SQ BID [facility] Last Admin: 02/15/17 09:47 Dose: 5,000 unit Hydromorphone HCl (Dilaudid Data Conversion Developer -) 0 mg GUEST LAUNDRY ATTENDANT GUEST LAUNDRY ATTENDANT NONA PRN Reason: Protocol Stop: 02/21/17 19:57 Last Admin: 02/15/17 17:06 Dose: 10 mg Hydromorphone HCl (Dilaudid Injection -) 1 mg IVPB Q6H PRN PRN Reason: PAIN IV Flush (Picc Line Flush) 8 ml IVPUSH PRN PRN PRN Reason: Protocol Lactated Ringer's (Lactated Ringers Solution) 1,000 mls @ 125 mls/hr IV ASDIR [facility] Last Admin: 02/15/17 18:46 Dose: 125 mls/hr Lactated Ringer's (Lactated Ringers Solution) 1,000 mls @ 125 mls/hr IV ASDIR [facility] Last Admin: 02/15/17 06:17 Dose: Not Given Meropenem 1 gm/ Dextrose 100 mls @ 100 mls/hr IVPB Q8H-IV NONA PRN Reason: Protocol Last Admin: 02/15/17 17:42 Dose: 100 mls/hr Losartan Potassium (Cozaar -) 100 mg PO DAILY [facility] Last Admin: 02/15/17 09:44 Dose: 100 mg Ondansetron HCl (Zofran Injection) 4 mg IVPUSH Q6H PRN PRN Reason: NAUSEA AND/OR VOMITING Promethazine HCl (Phenergan Injection -) 12.5 mg IVPB Q6H PRN PRN Reason: NAUSEA AND/OR VOMITING - Objective Vital Signs: Vital Signs Temperature 98.6 F 02/15/17 14:24 Pulse Rate 61 02/15/17 18:06 Respiratory Rate 18 02/15/17 18:06 Blood Pressure 126/72 02/15/17 18:06 O2 Sat by Pulse Oximetry (%) 96 02/14/17 22:05 Labs: CBC, BMP 02/15/17 06:20 02/15/17 06:20 INR, PTT INR 1.32 (0.82-1.09) H 02/14/17 08:35 Assessment/Plan doing well ileostomy with bowel function Still somewhat distended Continue NPO Consider clear liquids in am
--- NOTE | 2017-02-15 23:29 | PN ---
Progress Note, Physician History of Present Illness: No new complaints - Current Medication List Current Medications: Active Medications Acetaminophen (Tylenol -) 650 mg PO Q6H PRN PRN Reason: FEVER OR PAIN Diphenhydramine HCl (Benadryl Injection -) 12.5 mg IVPUSH ONCE PRN PRN Reason: FOR ITCHING Heparin Sodium (Porcine) (Heparin -) 5,000 unit SQ BID [facility] Last Admin: 02/15/17 09:47 Dose: 5,000 unit Hydromorphone HCl (Dilaudid Industrial Accountant -) 0 mg DOCTOR OF OSTEOPATHY DOCTOR OF OSTEOPATHY NONA PRN Reason: Protocol Stop: 02/21/17 19:57 Last Admin: 02/15/17 17:06 Dose: 10 mg Hydromorphone HCl (Dilaudid Injection -) 1 mg IVPB Q6H PRN PRN Reason: PAIN IV Flush (Picc Line Flush) 8 ml IVPUSH PRN PRN PRN Reason: Protocol Lactated Ringer's (Lactated Ringers Solution) 1,000 mls @ 125 mls/hr IV ASDIR [facility] Last Admin: 02/15/17 18:46 Dose: 125 mls/hr Lactated Ringer's (Lactated Ringers Solution) 1,000 mls @ 125 mls/hr IV ASDIR [facility] Last Admin: 02/15/17 06:17 Dose: Not Given Meropenem 1 gm/ Dextrose 100 mls @ 100 mls/hr IVPB Q8H-IV NONA PRN Reason: Protocol Last Admin: 02/15/17 17:42 Dose: 100 mls/hr Losartan Potassium (Cozaar -) 100 mg PO DAILY [facility] Last Admin: 02/15/17 09:44 Dose: 100 mg Ondansetron HCl (Zofran Injection) 4 mg IVPUSH Q6H PRN PRN Reason: NAUSEA AND/OR VOMITING Promethazine HCl (Phenergan Injection -) 12.5 mg IVPB Q6H PRN PRN Reason: NAUSEA AND/OR VOMITING - Objective Vital Signs: Vital Signs Temperature 98.6 F 02/15/17 14:24 Pulse Rate 61 02/15/17 18:06 Respiratory Rate 18 02/15/17 18:06 Blood Pressure 126/72 02/15/17 18:06 O2 Sat by Pulse Oximetry (%) 96 02/14/17 22:05 Constitutional: Yes: No Distress Neck: Yes: WNL, Supple Cardiovascular: Yes: WNL, Regular Rate and Rhythm Respiratory: Yes: WNL, Regular, CTA Bilaterally Gastrointestinal: Yes: Other ((+) ileostomy) Labs: CBC, BMP 02/15/17 06:20 02/15/17 06:20 INR, PTT INR 1.32 (0.82-1.09) H 02/14/17 08:35 Problem List - Problems (1) Diverticulitis Code(s): K57.92 - DVTRCLI OF INTEST, PART UNSP, W/O PERF OR ABSCESS W/O BLEED Qualifiers: Diverticulitis site: large intestine Diverticulitis bleeding: without bleeding Diverticulitis complication: with perforation Qualified Code (s): K57.20 - Diverticulitis of large intestine with perforation and abscess without bleeding (2) HTN (hypertension) Code(s): I10 - ESSENTIAL (PRIMARY) HYPERTENSION (3) Elevated LFTs Code(s): R79.89 - OTHER SPECIFIED ABNORMAL FINDINGS OF BLOOD CHEMISTRY
[2017-02-16] MEDS ORDERED: PT OWN MED DRAWER 7, Y5N ONE ×3 (01:23→17:17)
[2017-02-16] MEDS: MEROPENEM 1 GM in DEXTROSE 5%-WATER - 100 ML IVPB SCH ×3 (01:25→18:12)
[2017-02-16] MEDS: LACTATED RINGERS SOLUTION 1,000 ML IV SCH ×3 (01:57→22:00)
[2017-02-16 08:31] LABS: ALBUMIN 2.6 g/dl (3.4-5.0); SGOT/AST 9 U/L (15-37); SGPT/ALT 15 U/L (12-78)
[2017-02-16 08:34] LABS: ALK PHOS 77 U/L (45-117); BILIRUBIN,TOTAL 0.6 mg/dL (0.2-1.0); TOT PROT 6.4 g/dl (6.4-8.2)
[2017-02-16 08:53] LABS: BASOPHIL 0.3 % (0-2.0); EOSINOPHIL 0.5 % (0-4.5); MCH 27.5 pg (25.7-33.7); MCHC 33.3 g/dl (32.0-36.0); MEAN CELL VOLUME 82.5 fl (80-96); MEAN PLT VOLUME 8.4 fl (7.5-11.1); NEUTROPHILS 80.9 % (42.8-82.8); PLATELET COUNT 397 K/MM3 (134-434); RDW 14.6 % (11.6-15.6)
[2017-02-16] MEDS: LOSARTAN POTASSIUM 50 MG TABLET (FP) PO SCH (09:28)
[2017-02-16] MEDS: HEPARIN NA (PORCINE) 5,000 UNITS/ML 1ML VIAL SQ SCH ×2 (09:29→21:38)
[2017-02-16] MEDS ORDERED: KETOROLAC TROMETHAMINE 30 MG/1 ML VIAL IVPUSH PRN (11:32)
--- NOTE | 2017-02-16 11:32 | PN ---
Progress Note, Physician History of Present Illness: feeling well ileostomy working - Current Medication List Current Medications: Active Medications Acetaminophen (Tylenol -) 650 mg PO Q6H PRN PRN Reason: FEVER OR PAIN Diphenhydramine HCl (Benadryl Injection -) 12.5 mg IVPUSH ONCE PRN PRN Reason: FOR ITCHING Heparin Sodium (Porcine) (Heparin -) 5,000 unit SQ BID [facility] Last Admin: 02/16/17 09:29 Dose: 5,000 unit Hydromorphone HCl (Dilaudid Testing Machine Operator -) 0 mg FIELD SALES REPRESENTATIVE FIELD SALES REPRESENTATIVE NONA PRN Reason: Protocol Stop: 02/21/17 19:57 Last Admin: 02/15/17 17:06 Dose: 10 mg Hydromorphone HCl (Dilaudid Injection -) 1 mg IVPB Q6H PRN PRN Reason: PAIN IV Flush (Picc Line Flush) 8 ml IVPUSH PRN PRN PRN Reason: Protocol Last Admin: 02/15/17 06:50 Dose: 8 ml Lactated Ringer's (Lactated Ringers Solution) 1,000 mls @ 125 mls/hr IV ASDIR [facility] Last Admin: 02/16/17 01:57 Dose: 125 mls/hr Lactated Ringer's (Lactated Ringers Solution) 1,000 mls @ 125 mls/hr IV ASDIR [facility] Last Admin: 02/15/17 20:00 Dose: Not Given Meropenem 1 gm/ Dextrose 100 mls @ 100 mls/hr IVPB Q8H-IV NONA PRN Reason: Protocol Last Admin: 02/16/17 09:28 Dose: 100 mls/hr Losartan Potassium (Cozaar -) 100 mg PO DAILY [facility] Last Admin: 02/16/17 09:28 Dose: 100 mg Ondansetron HCl (Zofran Injection) 4 mg IVPUSH Q6H PRN PRN Reason: NAUSEA AND/OR VOMITING Promethazine HCl (Phenergan Injection -) 12.5 mg IVPB Q6H PRN PRN Reason: NAUSEA AND/OR VOMITING - Objective Vital Signs: Vital Signs Temperature 99.9 F H 02/16/17 05:35 Pulse Rate 94 H 02/16/17 05:35 Respiratory Rate 18 02/16/17 05:35 Blood Pressure 121/76 02/16/17 05:35 O2 Sat by Pulse Oximetry (%) 96 02/15/17 21:00 Labs: CBC, BMP 02/16/17 06:40 INR, PTT INR 1.32 (0.82-1.09) H 02/14/17 08:35 Problem List - Problems (1) Diverticulitis Code(s): K57.92 - DVTRCLI OF INTEST, PART UNSP, W/O PERF OR ABSCESS W/O BLEED Qualifiers: Diverticulitis site: large intestine Diverticulitis bleeding: without bleeding Diverticulitis complication: with perforation Qualified Code (s): K57.20 - Diverticulitis of large intestine with perforation and abscess without bleeding Assessment/Plan s/p sigmoid resection with diverting ileostomy doing well clear liquids DC FIELD SALES REPRESENTATIVE toradol DC planning with [place]
--- NOTE | 2017-02-16 11:57 | PN ---
Progress Note (short form) - Note Progress Note: Anesthesiology Postop Note Patient is a 47yo F POD2 Cystoscopy and stent, Robotic assisted sigmoid colectomy and ileostomy. Patient is doing well, VSS. With her Dilaudid HEATER OPERATOR HELPER, she had 5 demands and received 1mg Dilaudid during the cork tipper. Patient is walking and comfortable, with some coughing and expectoration of small amounts of sputum. Discussed with Dr. Nielsen and Dilaudid HEATER OPERATOR HELPER to be discontinued today. Patient can continue to receive Dilaudid IVPB PRN per PA's orders. Harleen Andujar MD Anesthesiology
[2017-02-16 13:04] LABS: CREATININE 0.6 mg/dL (0.55-1.02); GLUCOSE,RANDOM 93 mg/dL (74-106)
[2017-02-16 13:05] LABS: ANION GAP 11 (8-16); CALCIUM 8.5 mg/dL (8.5-10.1); CO2 29 mmol/L (21-32)
--- NOTE | 2017-02-16 13:31 | PATH ---
Surgical Pathology Report Patient Name: JOHAN COLE [facility]. Rec. #: [id number] /Age/Gender: 1970 (Age: 47) / F Account: [id number] Location: [address] [place] [address]/[facility] Taken: 02/15/2017 Received: 02/15/2017 Reported: 02/16/2017 Physicians: Robert Palacios M.D. Specimen(s) Received A: DISTAL AND PROXIMAL ANASTOMOSIS B: SIGMOID COLON Clinical History Diverticulitis Final Diagnosis A. COLON, DISTAL AND PROXIMAL ANASTOMOSIS: PORTIONS OF BENIGN COLON WITH MILD VASCULAR CONGESTION. B. COLON, SIGMOID, RESECTION: PORTION OF COLON WITH EXTENSIVE DIVERTICULOSIS AND DIVERTICULITIS WITH MARKED ACUTE AND CHRONIC INFLAMMATION WITH ABSCESS FORMATION AND ASSOCIATED PERFORATION WITH MARKED ACUTE SEROSITIS. NO MALIGNANCY IDENTIFIED. SURGICAL RESECTION MARGINS APPEAR VIABLE. Electronically Signed Seth Baker M.D. Gross Description A. Received in formalin labeled "distal and proximal anastomosis" are 2 bianchi, annular, undesignated portions of bowel measuring 1.5 and 1.8 cm in diameter. Both portions display a staple line. No discrete lesions are identified. Plant Engineer sections are submitted in 2 cassettes. B. Received in formalin labeled "sigmoid colon" is a 15.5 cm in length portion of colon with 2 stapled mucosal margins and moderate attached pericolonic adipose tissue. There is a focal defect in the specimen, consistent with a perforation site. The serosa is bianchi-lackey with focal attached exudate. The mucosa is focally hyperemic with preserved folds. No mucosal masses are identified. Sectioning reveals a possible abscess cavity in the area of the hyperemic mucosa. There are multiple additional uncomplicated diverticula present. Plant Engineer sections are submitted in 11 cassettes as follows: 1-8-ogwxuxprdyor stapled mucosal margins; 9-7-xwscuopy from defect; 8-1-smbwssmck mucosa with surrounding abscess cavity; 5-57-dvnickrlpg sales representative livestock diverticula. /02/15/201702/15/2017
[2017-02-16 14:05] LABS: CREATININE 0.6 mg/dL (0.55-1.02); GLUCOSE,RANDOM 93 mg/dL (74-106)
[2017-02-16 14:06] LABS: ANION GAP 8 (8-16); CALCIUM 8.5 mg/dL (8.5-10.1); CO2 29 mmol/L (21-32)
--- NOTE | 2017-02-16 14:20 | PN ---
Progress Note, Physician History of Present Illness: patient doing well still pain,but improving - Current Medication List Current Medications: Active Medications Acetaminophen (Tylenol -) 650 mg PO Q6H PRN PRN Reason: FEVER OR PAIN Diphenhydramine HCl (Benadryl Injection -) 12.5 mg IVPUSH ONCE PRN PRN Reason: FOR ITCHING Heparin Sodium (Porcine) (Heparin -) 5,000 unit SQ BID [facility] Last Admin: 02/16/17 09:29 Dose: 5,000 unit Hydromorphone HCl (Dilaudid Injection -) 1 mg IVPB Q6H PRN PRN Reason: PAIN IV Flush (Picc Line Flush) 8 ml IVPUSH PRN PRN PRN Reason: Protocol Last Admin: 02/15/17 06:50 Dose: 8 ml Lactated Ringer's (Lactated Ringers Solution) 1,000 mls @ 125 mls/hr IV ASDIR [facility] Last Admin: 02/16/17 01:57 Dose: 125 mls/hr Lactated Ringer's (Lactated Ringers Solution) 1,000 mls @ 125 mls/hr IV ASDIR [facility] Last Admin: 02/15/17 20:00 Dose: Not Given Meropenem 1 gm/ Dextrose 100 mls @ 100 mls/hr IVPB Q8H-IV NONA PRN Reason: Protocol Last Admin: 02/16/17 09:28 Dose: 100 mls/hr Ketorolac Tromethamine (Toradol Injection -) 30 mg IVPUSH Q6H PRN PRN Reason: PAIN Stop: 02/21/17 11:31 Losartan Potassium (Cozaar -) 100 mg PO DAILY [facility] Last Admin: 02/16/17 09:28 Dose: 100 mg Ondansetron HCl (Zofran Injection) 4 mg IVPUSH Q6H PRN PRN Reason: NAUSEA AND/OR VOMITING Promethazine HCl (Phenergan Injection -) 12.5 mg IVPB Q6H PRN PRN Reason: NAUSEA AND/OR VOMITING - Objective Vital Signs: Vital Signs Temperature 99.9 F H 02/16/17 05:35 Pulse Rate 94 H 02/16/17 05:35 Respiratory Rate 18 02/16/17 05:35 Blood Pressure 121/76 02/16/17 05:35 O2 Sat by Pulse Oximetry (%) 96 02/15/17 21:00 Constitutional: Yes: No Distress, Calm Cardiovascular: Yes: Regular Rate and Rhythm Respiratory: Yes: Regular, CTA Bilaterally Gastrointestinal: Yes: Soft, Other (ileostomy working) Musculoskeletal: Yes: WNL Extremities: Yes: WNL Neurological: Yes: Alert, Oriented Psychiatric: Yes: Alert, Oriented Labs: CBC, BMP 02/16/17 06:40 02/16/17 10:00 INR, PTT INR 1.32 (0.82-1.09) H 02/14/17 08:35 Assessment/Plan acute diverticulitis fever abd pain esbl uti plan continue abx as planned will check wbc tomorrow await for patient to start orally pierre switch to oral abx once patient starts eating
[2017-02-16] MEDS: HYDROmorphone HCL CARPU-JECT 1 MG/1 ML DISP.SYRIN IVPB PRN (18:00)
--- NOTE | 2017-02-16 19:18 | PN ---
GI Progress Note Subjective: Comfortable S/P surgery with 1 stage resection with ileostomy. - Objective Vital Signs: Vital Signs Temperature 98.4 F 02/16/17 15:25 Pulse Rate 84 02/16/17 15:25 Respiratory Rate 18 02/16/17 05:35 Blood Pressure 122/78 02/16/17 15:25 O2 Sat by Pulse Oximetry (%) 96 02/15/17 21:00 Constitutional: No Distress Cardiovascular: Yes: Regular Rate and Rhythm Respiratory: Yes: CTA Bilaterally Gastrointestinal Inspection: Yes: WNL ...Auscultate: Yes: Normoactive Bowel Sounds ...Palpate: Yes: Hepatomegaly Labs: CBC, BMP 02/16/17 06:40 02/16/17 10:00 INR, PTT INR 1.32 (0.82-1.09) H 02/14/17 08:35 Hepatic Panel Total Bilirubin 0.6 mg/dL (0.2-1.0) D 02/16/17 06:40 AST 9 U/L (15-37) L D 02/16/17 06:40 ALT 15 U/L (12-78) 02/16/17 06:40 Alkaline Phosphatase 77 U/L (45-117) D 02/16/17 06:40 Albumin 2.6 g/dl (3.4-5.0) L 02/16/17 06:40 Assessment/Plan Doing well post-op Diet per surgery d/w Dr Nielsen
--- NOTE | 2017-02-16 19:57 | PN ---
Progress Note, Physician History of Present Illness: No new complaints - Current Medication List Current Medications: Active Medications Acetaminophen (Tylenol -) 650 mg PO Q6H PRN PRN Reason: FEVER OR PAIN Diphenhydramine HCl (Benadryl Injection -) 12.5 mg IVPUSH ONCE PRN PRN Reason: FOR ITCHING Heparin Sodium (Porcine) (Heparin -) 5,000 unit SQ BID [facility] Last Admin: 02/16/17 09:29 Dose: 5,000 unit Hydromorphone HCl (Dilaudid Injection -) 1 mg IVPB Q6H PRN PRN Reason: PAIN Last Admin: 02/16/17 18:00 Dose: 1 mg IV Flush (Picc Line Flush) 8 ml IVPUSH PRN PRN PRN Reason: Protocol Last Admin: 02/15/17 06:50 Dose: 8 ml Lactated Ringer's (Lactated Ringers Solution) 1,000 mls @ 125 mls/hr IV ASDIR [facility] Last Admin: 02/16/17 01:57 Dose: 125 mls/hr Lactated Ringer's (Lactated Ringers Solution) 1,000 mls @ 125 mls/hr IV ASDIR [facility] Last Admin: 02/15/17 20:00 Dose: Not Given Meropenem 1 gm/ Dextrose 100 mls @ 100 mls/hr IVPB Q8H-IV NONA PRN Reason: Protocol Last Admin: 02/16/17 18:12 Dose: 100 mls/hr Ketorolac Tromethamine (Toradol Injection -) 30 mg IVPUSH Q6H PRN PRN Reason: PAIN Stop: 02/21/17 11:31 Losartan Potassium (Cozaar -) 100 mg PO DAILY [facility] Last Admin: 02/16/17 09:28 Dose: 100 mg Ondansetron HCl (Zofran Injection) 4 mg IVPUSH Q6H PRN PRN Reason: NAUSEA AND/OR VOMITING Promethazine HCl (Phenergan Injection -) 12.5 mg IVPB Q6H PRN PRN Reason: NAUSEA AND/OR VOMITING - Objective Vital Signs: Vital Signs Temperature 98.8 F 02/16/17 18:00 Pulse Rate 80 02/16/17 18:00 Respiratory Rate 18 02/16/17 18:00 Blood Pressure 118/78 02/16/17 18:00 O2 Sat by Pulse Oximetry (%) 96 02/15/17 21:00 Neck: Yes: WNL Cardiovascular: Yes: WNL, Regular Rate and Rhythm Respiratory: Yes: WNL, Regular, CTA Bilaterally Gastrointestinal: Yes: WNL, Normal Bowel Sounds, Soft Extremities: Yes: WNL Edema: No Labs: CBC, BMP 02/16/17 06:40 02/16/17 10:00 INR, PTT INR 1.32 (0.82-1.09) H 02/14/17 08:35 Problem List - Problems (1) Diverticulitis Code(s): K57.92 - DVTRCLI OF INTEST, PART UNSP, W/O PERF OR ABSCESS W/O BLEED Qualifiers: Diverticulitis site: large intestine Diverticulitis bleeding: without bleeding Diverticulitis complication: with perforation Qualified Code (s): K57.20 - Diverticulitis of large intestine with perforation and abscess without bleeding (2) HTN (hypertension) Code(s): I10 - ESSENTIAL (PRIMARY) HYPERTENSION (3) Elevated LFTs Code(s): R79.89 - OTHER SPECIFIED ABNORMAL FINDINGS OF BLOOD CHEMISTRY
[2017-02-17] MEDS ORDERED: PT OWN MED DRAWER 7, Y5N ONE ×2 (01:22→09:29)
[2017-02-17] MEDS: MEROPENEM 1 GM in DEXTROSE 5%-WATER - 100 ML IVPB SCH ×2 (01:43→09:34)
[2017-02-17] MEDS: HYDROmorphone HCL CARPU-JECT 1 MG/1 ML DISP.SYRIN IVPB PRN (04:42)
[2017-02-17] MEDS: HEPARIN NA (PORCINE) 5,000 UNITS/ML 1ML VIAL SQ SCH ×2 (09:34→22:34)
[2017-02-17] MEDS: LOSARTAN POTASSIUM 50 MG TABLET (FP) PO SCH (09:34)
--- NOTE | 2017-02-17 11:47 | PN ---
Progress Note (short form) - Note Progress Note: G.U POD 2 Pt w/ hx rt pelvic diverticular abscess. S/p placement b/l ureteral stents. Underwent the first stage diverting ileostomy. Stents removed immediatley post- op, pt voiding well, abdomen soft, no cva tenderness, no g.u complications.
[2017-02-17] MEDS: oxyCODONE HCL 5 MG TABLET PO PRN ×2 (11:50→17:49)
--- NOTE | 2017-02-17 17:10 | PN ---
Progress Note, Physician History of Present Illness: patient feeling much better no complaints feels some fullness - Current Medication List Current Medications: Active Medications Acetaminophen (Tylenol -) 650 mg PO Q6H PRN PRN Reason: FEVER OR PAIN Last Admin: 02/17/17 11:51 Dose: 650 mg Acetaminophen (Tylenol -) 650 mg PO Q6H PRN PRN Reason: PAIN Diphenhydramine HCl (Benadryl Injection -) 12.5 mg IVPUSH ONCE PRN PRN Reason: FOR ITCHING Heparin Sodium (Porcine) (Heparin -) 5,000 unit SQ BID [facility] Last Admin: 02/17/17 09:34 Dose: 5,000 unit IV Flush (Picc Line Flush) 8 ml IVPUSH PRN PRN PRN Reason: Protocol Last Admin: 02/15/17 06:50 Dose: 8 ml Lactated Ringer's (Lactated Ringers Solution) 1,000 mls @ 125 mls/hr IV ASDIR [facility] Last Admin: 02/16/17 22:00 Dose: 125 mls/hr Lactated Ringer's (Lactated Ringers Solution) 1,000 mls @ 125 mls/hr IV ASDIR [facility] Last Admin: 02/15/17 20:00 Dose: Not Given Meropenem 1 gm/ Dextrose 100 mls @ 100 mls/hr IVPB Q8H-IV NONA PRN Reason: Protocol Last Admin: 02/17/17 09:34 Dose: 100 mls/hr Ketorolac Tromethamine (Toradol Injection -) 30 mg IVPUSH Q6H PRN PRN Reason: PAIN Stop: 02/21/17 11:31 Last Admin: 02/16/17 21:39 Dose: 30 mg Losartan Potassium (Cozaar -) 100 mg PO DAILY [facility] Last Admin: 02/17/17 09:34 Dose: 100 mg Ondansetron HCl (Zofran Injection) 4 mg IVPUSH Q6H PRN PRN Reason: NAUSEA AND/OR VOMITING Oxycodone HCl (Roxicodone -) 10 mg PO Q6H PRN PRN Reason: PAIN Last Admin: 02/17/17 11:50 Dose: 10 mg Promethazine HCl (Phenergan Injection -) 12.5 mg IVPB Q6H PRN PRN Reason: NAUSEA AND/OR VOMITING - Objective Vital Signs: Vital Signs Temperature 98.5 F 02/17/17 15:43 Pulse Rate 86 02/17/17 15:43 Respiratory Rate 18 02/17/17 15:43 Blood Pressure 122/68 02/17/17 15:43 O2 Sat by Pulse Oximetry (%) 96 02/15/17 21:00 Constitutional: Yes: No Distress, Calm Cardiovascular: Yes: Regular Rate and Rhythm Respiratory: Yes: Regular, CTA Bilaterally Gastrointestinal: Yes: Normal Bowel Sounds, Soft, Other (ileostomy in place) Musculoskeletal: Yes: WNL Extremities: Yes: WNL Neurological: Yes: Alert, Oriented Psychiatric: Yes: Alert, Oriented Labs: CBC, BMP 02/16/17 06:40 02/16/17 10:00 INR, PTT INR 1.32 (0.82-1.09) H 02/14/17 08:35 Assessment/Plan acute diverticulitis fever abd pain esbl uti plan changed abx to oral to give it for 7 more days both of them rest as per primary
[2017-02-17] MEDS: ACETAMINOPHEN 325 MG TABLET (FP) PO PRN (17:46)
[2017-02-17] MEDS: LEVOFLOXACIN 750 MG TABLET PO SCH (17:53)
--- NOTE | 2017-02-17 19:45 | PN ---
Progress Note, Physician History of Present Illness: No new complaints - Current Medication List Current Medications: Active Medications Acetaminophen (Tylenol -) 650 mg PO Q6H PRN PRN Reason: PAIN Last Admin: 02/17/17 17:46 Dose: 650 mg Diphenhydramine HCl (Benadryl Injection -) 12.5 mg IVPUSH ONCE PRN PRN Reason: FOR ITCHING Heparin Sodium (Porcine) (Heparin -) 5,000 unit SQ BID [facility] Last Admin: 02/17/17 09:34 Dose: 5,000 unit IV Flush (Picc Line Flush) 8 ml IVPUSH PRN PRN PRN Reason: Protocol Last Admin: 02/15/17 06:50 Dose: 8 ml Lactated Ringer's (Lactated Ringers Solution) 1,000 mls @ 125 mls/hr IV ASDIR [facility] Last Admin: 02/15/17 20:00 Dose: Not Given Ketorolac Tromethamine (Toradol Injection -) 30 mg IVPUSH Q6H PRN PRN Reason: PAIN Stop: 02/21/17 11:31 Last Admin: 02/16/17 21:39 Dose: 30 mg Levofloxacin (Levaquin) 750 mg PO DAILY [facility] Last Admin: 02/17/17 17:53 Dose: 750 mg Losartan Potassium (Cozaar -) 100 mg PO DAILY [facility] Last Admin: 02/17/17 09:34 Dose: 100 mg Metronidazole (Flagyl -) 500 mg PO TID [facility] Ondansetron HCl (Zofran Injection) 4 mg IVPUSH Q6H PRN PRN Reason: NAUSEA AND/OR VOMITING Oxycodone HCl (Roxicodone -) 10 mg PO Q6H PRN PRN Reason: PAIN Last Admin: 02/17/17 17:49 Dose: 10 mg Promethazine HCl (Phenergan Injection -) 12.5 mg IVPB Q6H PRN PRN Reason: NAUSEA AND/OR VOMITING - Objective Vital Signs: Vital Signs Temperature 98.5 F 02/17/17 15:43 Pulse Rate 86 02/17/17 15:43 Respiratory Rate 18 02/17/17 15:43 Blood Pressure 122/68 02/17/17 15:43 O2 Sat by Pulse Oximetry (%) 96 02/15/17 21:00 HENT: Yes: WNL Neck: Yes: WNL, Supple Cardiovascular: Yes: WNL, Regular Rate and Rhythm Respiratory: Yes: WNL, Regular, CTA Bilaterally Gastrointestinal: Yes: WNL, Normal Bowel Sounds, Soft, Other ((+) ileostomy) Labs: CBC, BMP 02/16/17 06:40 02/16/17 10:00 INR, PTT INR 1.32 (0.82-1.09) H 02/14/17 08:35 Problem List - Problems (1) Diverticulitis Code(s): K57.92 - DVTRCLI OF INTEST, PART UNSP, W/O PERF OR ABSCESS W/O BLEED Qualifiers: Diverticulitis site: large intestine Diverticulitis bleeding: without bleeding Diverticulitis complication: with perforation Qualified Code (s): K57.20 - Diverticulitis of large intestine with perforation and abscess without bleeding (2) HTN (hypertension) Code(s): I10 - ESSENTIAL (PRIMARY) HYPERTENSION (3) Elevated LFTs Code(s): R79.89 - OTHER SPECIFIED ABNORMAL FINDINGS OF BLOOD CHEMISTRY
[2017-02-17] MEDS: metroNIDAZOLE 250 MG TABLET PO SCH (22:34)
[2017-02-18] MEDS: ACETAMINOPHEN 325 MG TABLET (FP) PO PRN ×3 (01:16→22:02)
[2017-02-18] MEDS: oxyCODONE HCL 5 MG TABLET PO PRN ×3 (01:17→22:10)
[2017-02-18] MEDS: metroNIDAZOLE 250 MG TABLET PO SCH ×3 (06:39→22:01)
[2017-02-18] MEDS: MEROPENEM 1 GM in DEXTROSE 5%-WATER - 100 ML IVPB SCH (07:31)
[2017-02-18] MEDS: [UNRECOGNIZED DRUG - REMARK] PO SCH (07:31)
[2017-02-18] MEDS ORDERED: PT OWN MED DRAWER 7, Y5N ONE ×2 (10:54→17:59)
[2017-02-18] MEDS: LEVOFLOXACIN 750 MG TABLET PO SCH (10:56)
[2017-02-18] MEDS: LOSARTAN POTASSIUM 50 MG TABLET (FP) PO SCH (10:56)
[2017-02-18] MEDS: HEPARIN NA (PORCINE) 5,000 UNITS/ML 1ML VIAL SQ SCH (10:56)
--- NOTE | 2017-02-18 16:19 | PN ---
Progress Note, Physician History of Present Illness: patient stable doing well - Current Medication List Current Medications: Active Medications Acetaminophen (Tylenol -) 650 mg PO Q6H PRN PRN Reason: PAIN Last Admin: 02/18/17 11:34 Dose: 650 mg Diphenhydramine HCl (Benadryl Injection -) 12.5 mg IVPUSH ONCE PRN PRN Reason: FOR ITCHING Ketorolac Tromethamine (Toradol Injection -) 30 mg IVPUSH Q6H PRN PRN Reason: PAIN Stop: 02/21/17 11:31 Last Admin: 02/16/17 21:39 Dose: 30 mg Levofloxacin (Levaquin) 750 mg PO DAILY [facility] Last Admin: 02/18/17 10:56 Dose: 750 mg Losartan Potassium (Cozaar -) 100 mg PO DAILY [facility] Last Admin: 02/18/17 10:56 Dose: 100 mg Metronidazole (Flagyl -) 500 mg PO TID [facility] Last Admin: 02/18/17 15:08 Dose: 500 mg Ondansetron HCl (Zofran Injection) 4 mg IVPUSH Q6H PRN PRN Reason: NAUSEA AND/OR VOMITING Oxycodone HCl (Roxicodone -) 10 mg PO Q6H PRN PRN Reason: PAIN Last Admin: 02/18/17 11:33 Dose: 10 mg Promethazine HCl (Phenergan Injection -) 12.5 mg IVPB Q6H PRN PRN Reason: NAUSEA AND/OR VOMITING - Objective Vital Signs: Vital Signs Temperature 98.5 F 02/18/17 14:52 Pulse Rate 85 02/18/17 14:52 Respiratory Rate 20 02/18/17 14:52 Blood Pressure 115/85 02/18/17 14:52 O2 Sat by Pulse Oximetry (%) 96 02/15/17 21:00 Constitutional: Yes: No Distress, Calm Cardiovascular: Yes: Regular Rate and Rhythm Respiratory: Yes: Regular, CTA Bilaterally Gastrointestinal: Yes: Normal Bowel Sounds, Soft, Other (ileostomy in place) Musculoskeletal: Yes: WNL Extremities: Yes: WNL Neurological: Yes: Alert, Oriented Psychiatric: Yes: Alert, Oriented Labs: CBC, BMP 02/16/17 06:40 02/16/17 10:00 INR, PTT INR 1.32 (0.82-1.09) H 02/14/17 08:35 Assessment/Plan acute diverticulitis fever abd pain esbl uti plan continue abx rest as per primary
--- NOTE | 2017-02-18 20:47 | PN ---
Progress Note, Physician Chief Complaint: No drainage from drainage tube History of Present Illness: Pt w/ abdominal pain - Current Medication List Current Medications: Active Medications Acetaminophen (Tylenol -) 650 mg PO Q6H PRN PRN Reason: PAIN Last Admin: 02/18/17 11:34 Dose: 650 mg Diphenhydramine HCl (Benadryl Injection -) 12.5 mg IVPUSH ONCE PRN PRN Reason: FOR ITCHING Ketorolac Tromethamine (Toradol Injection -) 30 mg IVPUSH Q6H PRN PRN Reason: PAIN Stop: 02/21/17 11:31 Last Admin: 02/16/17 21:39 Dose: 30 mg Levofloxacin (Levaquin) 750 mg PO DAILY [facility] Last Admin: 02/18/17 10:56 Dose: 750 mg Losartan Potassium (Cozaar -) 100 mg PO DAILY [facility] Last Admin: 02/18/17 10:56 Dose: 100 mg Metronidazole (Flagyl -) 500 mg PO TID [facility] Last Admin: 02/18/17 15:08 Dose: 500 mg Ondansetron HCl (Zofran Injection) 4 mg IVPUSH Q6H PRN PRN Reason: NAUSEA AND/OR VOMITING Oxycodone HCl (Roxicodone -) 10 mg PO Q6H PRN PRN Reason: PAIN Last Admin: 02/18/17 11:33 Dose: 10 mg Promethazine HCl (Phenergan Injection -) 12.5 mg IVPB Q6H PRN PRN Reason: NAUSEA AND/OR VOMITING - Objective Vital Signs: Vital Signs Temperature 98.5 F 02/18/17 19:48 Pulse Rate 85 02/18/17 19:48 Respiratory Rate 20 02/18/17 19:48 Blood Pressure 115/85 02/18/17 19:48 O2 Sat by Pulse Oximetry (%) 97 02/18/17 09:00 Constitutional: Yes: No Distress Eyes: Yes: WNL HENT: Yes: WNL Neck: Yes: WNL, Supple Cardiovascular: Yes: WNL, Regular Rate and Rhythm Respiratory: Yes: WNL, Regular, CTA Bilaterally Gastrointestinal: Yes: Normal Bowel Sounds, Soft, Other ((+) colostomy) Labs: CBC, BMP 02/16/17 06:40 02/16/17 10:00 INR, PTT INR 1.32 (0.82-1.09) H 02/14/17 08:35 Problem List - Problems (1) Diverticulitis Assessment/Plan: Pt tolerating diet Cont PO antibxs WBC is normal Code(s): K57.92 - DVTRCLI OF INTEST, PART UNSP, W/O PERF OR ABSCESS W/O BLEED Qualifiers: Diverticulitis site: large intestine Diverticulitis bleeding: without bleeding Diverticulitis complication: with perforation Qualified Code (s): K57.20 - Diverticulitis of large intestine with perforation and abscess without bleeding (2) Pelvic abscess Assessment/Plan: S/P [place] stent placement Now w/ decrease draiange Will reconsult w/ uro if it needs to be removed prior to dc Code(s): [id number] - (3) HTN (hypertension) Assessment/Plan: Cont losartan Code(s): I10 - ESSENTIAL (PRIMARY) HYPERTENSION (4) Elevated LFTs Code(s): R79.89 - OTHER SPECIFIED ABNORMAL FINDINGS OF BLOOD CHEMISTRY
[2017-02-19 06:02] VITALS: TEMP 98.5
[2017-02-19] MEDS: metroNIDAZOLE 250 MG TABLET PO SCH ×2 (06:06→12:59)
[2017-02-19 08:24] LABS: BASOPHIL 0.8 % (0-2.0); EOSINOPHIL 2.6 % (0-4.5); MCH 27.7 pg (25.7-33.7); MCHC 33.4 g/dl (32.0-36.0); MEAN CELL VOLUME 82.9 fl (80-96); MEAN PLT VOLUME 7.9 fl (7.5-11.1); NEUTROPHILS 68.1 % (42.8-82.8); PLATELET COUNT 459 K/MM3 (134-434); RDW 14.4 % (11.6-15.6); WHITE BLOOD COUNT 7.8 K/mm3 (4.0-10.0)
[2017-02-19 08:37] LABS: ALBUMIN 3.1 g/dl (3.4-5.0); ANION GAP 10 (8-16); CALCIUM 9.7 mg/dL (8.5-10.1); CO2 28 mmol/L (21-32); CREATININE 0.8 mg/dL (0.55-1.02); GLUCOSE,RANDOM 94 mg/dL (74-106); SGOT/AST 13 U/L (15-37); SGPT/ALT 14 U/L (12-78)
[2017-02-19 08:39] LABS: ALK PHOS 90 U/L (45-117); BILIRUBIN,TOTAL 0.3 mg/dL (0.2-1.0); TOT PROT 7.7 g/dl (6.4-8.2)
[2017-02-19] MEDS: LEVOFLOXACIN 750 MG TABLET PO SCH (10:04)
[2017-02-19] MEDS: LOSARTAN POTASSIUM 50 MG TABLET (FP) PO SCH (10:04)
[2017-02-19] MEDS ORDERED: LEVOFLOXACIN 750 MG TABLET PO SCH ×2 (10:05→10:15)
[2017-02-19] MEDS: ACETAMINOPHEN 325 MG TABLET (FP) PO PRN (10:08)
[2017-02-19] MEDS: oxyCODONE HCL 5 MG TABLET PO PRN (10:09)
--- NOTE | 2017-02-19 10:09 | PN ---
Progress Note (short form) - Note Progress Note: Surgery- Dr. Palacios Patient seen and examined. Patient doing well, states she has some pain, but states she also has her period now and believes this is causing her discomfort. She is tolerating a regular diet. She is ambulating and urinating without issue. She denies fever, chills, nausea, vomiting. CBC, BMP 02/19/17 07:20 02/19/17 07:20 [place] output: 10 ml overnight Ostomy output: 750 ml yesterday, 200 ml overnight Exam: Gen: NAD, resting comfortably Abd: soft, less distended, mild tenderness near ileostomy, incisions c/d/i, A[place] drain in place left abdomen with minimal serosanguineous drainage, ostomy pink, viable with brown liquid/particulate stool in bag. [place] drain removed intact without issue. Ext: LE soft, calves nontender Problem List - Problems (1) Diverticulitis Assessment/Plan: POD#5 s/p robotic assisted sigmoid resection with primary anastomosis, drainage of pelvic abscess, and diverting loop ileostomy Patient discussed with Dr. Palacios Patient tolerating regular diet Continue PO abx per ID [place] drain pulled prior to DC Patient to be discharged home today with VNS per medicine, Follow-up with Dr. Palacios Code(s): K57.92 - DVTRCLI OF INTEST, PART UNSP, W/O PERF OR ABSCESS W/O BLEED Qualifiers: Diverticulitis site: large intestine Diverticulitis bleeding: without bleeding Diverticulitis complication: with perforation Qualified Code (s): K57.20 - Diverticulitis of large intestine with perforation and abscess without bleeding
[2017-02-19 12:26] VITALS: BP 150/90; PULSE 96
[2017-02-19] MEDS ORDERED: IBUPROFEN 600 MG TABLET (FP) PO ONE (12:37)
--- NOTE | 2017-03-26 18:30 | DS ---
Physical Examination Vital Signs: Vital Signs Temperature 98.5 F 02/19/17 06:01 Pulse Rate 96 H 02/19/17 10:00 Respiratory Rate 18 02/19/17 10:00 Blood Pressure 150/90 02/19/17 10:00 O2 Sat by Pulse Oximetry (%) 98 02/18/17 21:00 Labs: CBC, BMP 02/19/17 07:20 02/19/17 07:20 Discharge Summary Reason For Visit: DIVERTICULITIS (1) Diverticulitis (2) Pelvic abscess Assessment/Plan: (3) HTN (hypertension) (4) Elevated LFTs Hospital Course: Pt is a 46 y/o female with PMH significant for HTN s/p colonoscopy 3 weeks ago for evaluation of rectal bleeding. She was told she had diverticulosis. Pt now presented to the ER w/ diffuse abdominal pain and nausea. Pt was noted to have a temp of 102 and wbc was 12,[address] scan showed sigmoid diverticulitis. Pt was started on IV antibxs. Pt was seen by ID/surgery and GI consults. Pt had PIC line insertion for the IV atnibxs. Pt also found to have pelvic abscess nd subsequently underewent sigmoid resectio w/ ileostomy and stent placement. Pt dc'ed on po antibxs Condition: Good - Instructions Referrals: Jose Santos MD [Primary Care Provider] - Robert Palacios [Staff Physician] - Disposition: HOME - Home Medications Comprehensive Discharge Medication List: Ambulatory Orders Pantoprazole Sodium [Protonix -] 40 mg PO DAILY #30 tab 03/22/17
== END 2017-02-19 14:01 | disposition home or self-care (01) | DRG 221 ==
LOC: JER 19:47 → JERBED 02-03 01:06 → J6S 02-03 13:49
PROVIDERS: ADMIT Internal Medicine; ATTEND Internal Medicine
PROC: 02HV33Z Insertion of Infusion Device into Superior Vena Cava, Percutaneous Approach (ICD-10-PCS; 2017-02-12)
PROC: B548ZZA Ultrasonography of Superior Vena Cava, Guidance (ICD-10-PCS; 2017-02-12)
PROC: 0W9J4ZX Drainage of Pelvic Cavity, Percutaneous Endoscopic Approach, Diagnostic (ICD-10-PCS; 2017-02-14)
PROC: 8E0W4CZ Robotic Assisted Procedure of Trunk Region, Percutaneous Endoscopic Approach (ICD-10-PCS; 2017-02-14)
PROC: 0T788DZ Dilation of Bilateral Ureters with Intraluminal Device, Via Natural or Artificial Opening Endoscopic (ICD-10-PCS; 2017-02-14)
PROC: 0DTN4ZZ Resection of Sigmoid Colon, Percutaneous Endoscopic Approach (ICD-10-PCS; principal; 2017-02-14 12:00)
PROC: 0D1B4Z4 Bypass Ileum to Cutaneous, Percutaneous Endoscopic Approach (ICD-10-PCS; 2017-02-14 12:00)
DX: K57.20 Diverticulitis of large intestine with perforation and abscess without bleeding (principal); N39.0 Urinary tract infection, site not specified; E66.9 Obesity, unspecified; Z68.32 Body mass index [BMI] 32.0-32.9, adult; I10 Essential (primary) hypertension; F17.210 Nicotine dependence, cigarettes, uncomplicated; R79.89 Other specified abnormal findings of blood chemistry
CPT/HCPCS: 36415; 36569; 74176; 74176-TC; 74177-TC; 77001-TC; 80048; 80053; 81003; 81015; 83605; 83690; 83735; 84100; 84703; 85025; 85027; 85610; 86850; 86900; 86901; 86922; 87040; 87070; 87075; 87086; 87186; 87205; 88305-TC; 88307-TC; 93005; 93010; 94010; 94760; 97116-GP; 97161-GP; 99283-25; C1751; J1644; Q9967

== ENCOUNTER 2017-02-24 15:01 | Inpatient (IN) | payer OTHER ==
--- NOTE | 2017-02-24 15:46 | PDOC ---
History of Present Illness - History of Present Illness Initial Comments: 02/24/17 16:00 Patient is a 47 year old female with significant medical hx of HTN, nephrolithiasis, and diverticulitis s/p temporary ileostomy who is presenting to the ED with right flank pain since last night. Patient reports she had her surgery ten days ago for diverticulitis (02/15/17) and since has been on oxycodone, flagyl and levaquin. Last night the patient developed mild right flank pain which she took oxycodone for that helped her symptoms. She also notes that last night her colostomy bag kept filling with dark brown watery stool. This morning her pain returned with recurrent waves of nausea and two episodes of vomiting. Patient denies any abdominal pain or blood in stool. Her flank pain is non-radiating, sharp in quality, and rated 9/10 in severity. The patient also endorses chills and dark urine since today but denies any dysuria or fever. Her last dose of oxycodone was taken last night. PCP: Jose Santos MD Surgeon: Robert Palacios MD <Delia Buchanan - Last Filed: 02/24/17 18:29> <Cece Alexis - Last Filed: 02/24/17 18:43> - General Chief Complaint: Pain Stated Complaint: post op VOMITING PAIN Time Seen by Provider: 02/24/17 15:29 Past History <Delia Buchanan - Last Filed: 02/24/17 18:29> - Past Medical History GI Disorders: Yes (diverticulitis) HTN: Yes Kidney Stones: Yes - Surgical History Abdominal Surgery: Yes (csection x1 , temp ileostomy) - Immunization History Immunization Up to Date: Yes - Psycho/Social/Smoking Cessation Hx Anxiety: No Suicidal Ideation: No Smoking History: Never smoked Have you smoked in the past 12 months: Yes Number of Cigarettes Smoked Daily: 2 Information on smoking cessation initiated: Yes 'Breaking Loose' booklet given: 02/24/17 Hx Alcohol Use: No Drug/Substance Use Hx: No Substance Use Type: None <Cece Alexis - Last Filed: 02/24/17 18:43> - Past Medical History Allergies/Adverse Reactions: Allergies Allergy/AdvReac Type Severity Reaction Status Date / Time No Known Allergies Allergy Verified 02/24/17 15:03 Home Medications: Ambulatory Orders Losartan Potassium [Cozaar] 100 mg PO DAILY 02/02/17 Levofloxacin [Levaquin] 750 mg PO DAILY #10 tab 02/19/17 Metronidazole [Flagyl -] 500 mg PO TID #30 tablet 02/19/17 Review of Systems - Review of Systems Comments:: 02/24/17 16:00 CONSTITUTIONAL: Chills. No fever, no fatigue EYES: No visual changes ENT: No ear pain, no sore throat CARDIOVASCULAR: No chest pain, no palpitations RESPIRATORY: No cough, no SOB GI: Nausea, vomiting. No abdominal pain, no constipation, no diarrhea GENITOURINARY: Dark urine. No dysuria, no frequency MUSKULOSKELETAL: Right flank pain. No joint pain, no myalgias SKIN: No rash NEURO: No headache <Delia Buchanan - Last Filed: 02/24/17 18:29> *Physical Exam - Vital Signs Last Vital Signs Temp Pulse Resp BP Pulse Ox 98.3 F 114 H 18 100/81 100 02/24/17 15:04 02/24/17 15:04 02/24/17 15:04 02/24/17 15:04 02/24/17 15:04 - Physical Exam Comments: 02/24/17 16:01 CONSTITUTIONAL: Well-appearing; well-nourished; mild distress HEAD: Normocephalic; atraumatic EYES: PERRL; EOM intact ENMT: External appears normal; normal oropharynx NECK: Supple; non-tender; no cervical lymphadenopathy CARD: Normal S1, S2; no murmurs, rubs, or gallops RESP: Normal chest excursion with respiration; breath sounds clear and equal bilaterally; no wheezes, rhonchi, or rales ABD: Stoma pink with yellow stool in bag. Soft, non-distended; non-tender; no palpable organomegaly, no palpable hernias BACK: Right CVA tenderness EXT: Normal ROM in all four extremities; non-tender to palpation; distal pulses intact SKIN: Three trochanteric sites that were healing well. Warm, dry, no rash NEURO: No focal neurological deficiencies. <Delia Buchanan - Last Filed: 02/24/17 18:29> - Vital Signs Last Vital Signs Temp Pulse Resp BP Pulse Ox 98.3 F 114 H 18 100/81 100 07/08/17 15:04 02/24/17 15:04 02/24/17 15:04 02/24/17 15:04 02/24/17 15:04 <Cece Alexis - Last Filed: 02/24/17 18:43> ED Treatment Course - LABORATORY CBC & Chemistry Diagram: 02/24/17 16:00 02/24/17 16:00 - RADIOLOGY Radiograph Interpretation: 02/24/17 18:29 Front Office Associate: ([email or web address]) Report Date: 02/24/2017 17:06:00 Report Status: Preliminary Begin of Report Content Referring Physician: Cece Alexis Patient Name: Carmine Truong THIS IS A PRELIMINARY REPORT FROM IMAGING SPREADER OPERATOR EXAM: CT abdomen/pelvis with contrast IMAGES: 402 DATE OF SERVICE: 2017-02-24 17:06:21.0 REASON FOR EXAM: Right flank pain COMPARISON: 02/12/17 FINDINGS: There is no hydronephrosis. There is no ureteral dilatation. There are no renal or ureteral calculi seen. There are no obvious gallstones. There is a right lower quadrant ileostomy noted. There are mildly prominent fluid and debris filled small bowel loops noted proximal to the ileostomy possibly mild ileus or partial obstruction. Followup advised. The colon is decompressed. Mild bowel wall thickening throughout the colon possibly related to decompression versus mild colitis. Urinary bladder is partially decompressed. There are no bladder calculi. THIS DOCUMENT HAS BEEN ELECTRONICALLY SIGNED Bakari Davis MD 02/24/2017 18:25 ANTONINO oSsa Please call Imaging Watcher [employer] [phone] ([phone]) with questions. End of Report Content <Delia Buchanan - Last Filed: 02/24/17 18:29> - LABORATORY CBC & Chemistry Diagram: 02/24/17 16:00 02/24/17 16:00 <Cece Alexis - Last Filed: 02/24/17 18:43> Medical Decision Making - Critical Care Time Total Critical Care Time (minutes): 30 Critical Care Statement: The care of this patient involved high complexity decision making to prevent further life threatening deterioration of the patient 's condition and/or to evalute & treat vital organ system(s) failure or risk of failure. - Medical Decision Making 02/24/17 16:18 I, Dr. Alexis, attest that the scribes documentation that appears above has been prepared under my direction and personally reviewed by me. I confirmed that the note above accurately reflects all work, treatment, procedures, and medical decision-making performed by me. 02/24/17 16:23 Pt with symptoms suggestive of kidney stone, will give pain meds, for 9/10 pain iv fluids, check labs, renal ct and reevaluate 02/24/17 17:14 Pt pain free after morphine sulfate,labs noted pt off to cat scan will speak with pcp after ct results. 02/24/17 18:[address] Uribe of [place] recommneds [facility] now with admission ct reslts pending, Dr. Dana Santos of urology is aware of pt being in ED with rt flank pain wants pt admitted if ct shows stone or hydronephroisis will call and update him when ct results available. Call DR layo Grady placed for admission , will order blood cx now and discuss probale admission with Patient, pt now requezsting dilaudid says mso4 helped the pain but it is still present, Pt is non toxic appearing at this time chatting with family at bedside, she says mso4 makes her talkative and dulls pain but does not really eliminate her pain 02/24/17 18:33 Dilaudid ordered for her pain, ct results noted, no hydronephrosis no renal calculi noted, pt may have mild ileus, vs partial bowel obstruction vs mild colitis.Case discussed with Dr. Grady will admit to medsurg unit, npo, continue IV fluid and pt agrees to admission <Cece Alexis - Last Filed: 02/24/17 18:43> *DC/Admit/Observation/Transfer - Attestations Scribe Attestion: 02/24/17 16:03 Documentation prepared by Delia Buchanan, acting as medical aides teacher for Cece Alexis MD. <Delia Buchanan - Last Filed: 02/24/17 18:29> - Discharge Dispostion Admit: Yes <Cece Alexis - Last Filed: 02/24/17 18:43> Diagnosis at time of Disposition: Abdominal pain with vomiting - Discharge Dispostion Condition at time of disposition: Stable - Referrals Referrals: Jose Santos MD [Primary Care Provider] - Addendum entered and electronically signed by Cece Alexis MD 02/24/17 19:16 : Progress Note - Progress Note Progress Note: pt;s ekg is nsr at 100 nl axis
[2017-02-24] MEDS ORDERED: morphine CARPU-JECT 4 MG/1 ML DISP.SYRIN IVPUSH ONE (15:50)
[2017-02-24] MEDS ORDERED: ONDANSETRON 4 MG/2 ML VIAL IVPUSH ONE (15:50)
[2017-02-24] MEDS ORDERED: ONDANSETRON 4 MG/2 ML VIAL ONE (16:04)
[2017-02-24] MEDS ORDERED: morphine CARPU-JECT 4 MG/1 ML DISP.SYRIN ONE (16:04)
[2017-02-24 16:11] LABS: BASOPHIL 0.8 % (0-2.0); EOSINOPHIL 0.7 % (0-4.5); MCH 26.6 pg (25.7-33.7); MCHC 32.2 g/dl (32.0-36.0); MEAN CELL VOLUME 82.7 fl (80-96); MEAN PLT VOLUME 9.1 fl (7.5-11.1); NEUTROPHILS 78.3 % (42.8-82.8); PLATELET COUNT 491 K/MM3 (134-434); RDW 15.2 % (11.6-15.6); WHITE BLOOD COUNT 12.2 K/mm3 (4.0-10.0)
[2017-02-24] MEDS: SODIUM CHLORIDE 1,000 ML IV SCH (16:14)
[2017-02-24 16:17] LABS: URINE APPEARANCE CLEAR; URINE BILIRUBIN NEGATIVE (NEGATIVE); URINE COLOR AMBER; URINE GLUCOSE (UA) NEGATIVE (NEGATIVE); URINE KETONE TRACE (NEGATIVE); URINE NITRITE NEGATIVE (NEGATIVE); URINE UROBILINOGEN 2.0 E.U/dl E.U./dl (0.2-1.0)
[2017-02-24 16:19] LABS: URINE BLOOD 2+ (NEGATIVE); URINE LEUK ESTERASE 1+ (NEGATIVE); URINE PROTEIN 2+ (NEGATIVE)
[2017-02-24 16:20] LABS: URINE HYALINE CAST 4 /lpf; URINE MUCUS MANY; URINE RBC 12 /hpf (0-3); URINE WBC 5 /hpf (3-5)
[2017-02-24 16:35] LABS: ALK PHOS 96 U/L (45-117); ANION GAP 13 (8-16); BILIRUBIN,TOTAL 0.5 mg/dL (0.2-1.0); CALCIUM 10.1 mg/dL (8.5-10.1); CO2 22 mmol/L (21-32); CREATININE 1.1 mg/dL (0.55-1.02); GLUCOSE,RANDOM 119 mg/dL (74-106); SGOT/AST 17 U/L (15-37); SGPT/ALT 20 U/L (12-78); TOT PROT 8.6 g/dl (6.4-8.2)
[2017-02-24] MEDS ORDERED: MEROPENEM 1,000 MG in DEXTROSE 5%-WATER - 100 ML IVPB ONE (18:14)
[2017-02-24] MEDS ORDERED: HYDROmorphone HCL CARPU-JECT 1 MG/1 ML DISP.SYRIN IVPUSH ONE (18:30)
[2017-02-24] MEDS ORDERED: HYDROmorphone HCL CARPU-JECT 1 MG/1 ML DISP.SYRIN ONE (18:39)
[2017-02-24 23:05] VITALS: BMI 28.1
[2017-02-25] MEDS: SODIUM CHLORIDE 1,000 ML IV SCH (00:44)
[2017-02-25] MEDS ORDERED: morphine CARPU-JECT 4 MG/1 ML DISP.SYRIN IVPUSH ONE (01:30)
[2017-02-25] MEDS: MEROPENEM 1 GM in DEXTROSE 5%-WATER - 100 ML IVPB SCH ×3 (01:44→17:56)
[2017-02-25] MEDS: HYDROmorphone HCL CARPU-JECT 1 MG/1 ML DISP.SYRIN IVPB PRN (02:25)
[2017-02-25] MEDS: DEXTROSE 5%-0.45% SALINE 1,000 ML IV SCH ×2 (03:32→22:18)
[2017-02-25 08:42] LABS: BASOPHIL 0.7 % (0-2.0); EOSINOPHIL 2.6 % (0-4.5); MCH 27.3 pg (25.7-33.7); MCHC 33.1 g/dl (32.0-36.0); MEAN CELL VOLUME 82.7 fl (80-96); MEAN PLT VOLUME 8.3 fl (7.5-11.1); NEUTROPHILS 67.9 % (42.8-82.8); PLATELET COUNT 356 K/MM3 (134-434); RDW 14.8 % (11.6-15.6); WHITE BLOOD COUNT 7.9 K/mm3 (4.0-10.0)
[2017-02-25 09:21] LABS: ALBUMIN 3.2 g/dl (3.4-5.0); ALK PHOS 75 U/L (45-117); ANION GAP 9 (8-16); BILIRUBIN,TOTAL 0.5 mg/dL (0.2-1.0); CALCIUM 8.9 mg/dL (8.5-10.1); CO2 26 mmol/L (21-32); CREATININE 0.8 mg/dL (0.55-1.02); GLUCOSE,RANDOM 105 mg/dL (74-106); SGOT/AST 18 U/L (15-37); SGPT/ALT 16 U/L (12-78); TOT PROT 6.9 g/dl (6.4-8.2)
[2017-02-25] MEDS ORDERED: LOSARTAN POTASSIUM 50 MG TABLET (FP) PO SCH (10:00)
[2017-02-25] MEDS ORDERED: PT OWN MED DRAWER 7, Y5N ONE ×4 (10:14→21:04)
--- NOTE | 2017-02-25 14:23 | CONSULT ---
Consult Consult Specialty:: infectious diseases Reason for Consultation:: abd flank pain rt side - History of Present Illness Chief Complaint: sever rt sided flank pain ,nausea and vomiting History of Present Illness: this lady well known to me from last admission who had a fulminat course of diverticulitis and had to undergo surgery and was d/darren home on cipro and flagyl patient started having increasing rt sided flank pain since last 3 days which became unbearable and which was associated with nausea and vomiting patient came to the hospital and was admitted currently patient still has rt flank pain but she is feeling much better - History Source History Provided By: Patient Limitations to Obtaining History: No Limitations - Past Medical History Cardio/Vascular: Yes: HTN Gastrointestinal: Yes: Diverticulosis ...LMP: 02/15/17 - Alcohol/Substance Use Hx Alcohol Use: No - Smoking History Smoking history: Never smoked Have you smoked in the past 12 months: Yes Aproximately how many cigarettes per day: 2 Home Medications - Allergies Allergies/Adverse Reactions: Allergies Allergy/AdvReac Type Severity Reaction Status Date / Time No Known Allergies Allergy Verified 02/24/17 15:03 - Home Medications Home Medications: Ambulatory Orders Losartan Potassium [Cozaar] 100 mg PO DAILY 02/02/17 Levofloxacin [Levaquin] 750 mg PO DAILY #10 tab 02/19/17 Metronidazole [Flagyl -] 500 mg PO TID #30 tablet 02/19/17 Review of Systems - Review of Systems Constitutional: reports: No Symptoms Eyes: reports: No Symptoms HENT: reports: No Symptoms Neck: reports: No Symptoms Cardiovascular: reports: No Symptoms Respiratory: reports: No Symptoms Gastrointestinal: reports: Nausea, Vomiting Genitourinary: reports: Flank Pain (right) Musculoskeletal: reports: No Symptoms Neurological: reports: No Symptoms Endocrine: reports: No Symptoms Hematology/Lymphatic: reports: No Symptoms Psychiatric: reports: No Symptoms Physical Exam Vital Signs: Vital Signs Temperature 98.1 F 02/25/17 10:16 Pulse Rate 72 02/25/17 13:07 Respiratory Rate 20 02/25/17 13:07 Blood Pressure 103/77 02/25/17 13:07 O2 Sat by Pulse Oximetry (%) 98 02/24/17 21:00 Constitutional: Yes: Calm, Mild Distress Eyes: Yes: Conjunctiva Clear Cardiovascular: Yes: Regular Rate and Rhythm Respiratory: Yes: Regular, CTA Bilaterally Gastrointestinal: Yes: Normal Bowel Sounds, Soft, Other (ileostomy) Musculoskeletal: Yes: WNL Extremities: Yes: WNL Neurological: Yes: Alert, Oriented Psychiatric: Yes: Alert, Oriented Labs: CBC, BMP 02/25/17 08:12 02/25/17 08:12 Imaging - Results Cat Scan: Report Reviewed, Image Reviewed Assessment/Plan r/o pyelo abd pain nausea vomiting diverticulitis plan continue hydration continue abx no gross finding on ct scan--patient was already on abx await cx report once we have all cx report will down grade abx
--- NOTE | 2017-02-25 14:25 | HP ---
Admitting History and Physical - Admission History of Present Illness: Patient is a 47 year old female with significant medical hx of HTN, nephrolithiasis, and diverticulitis s/p temporary ileostomy who is presenting to the ED with right flank pain since last night. Patient reports she had her surgery ten days ago for diverticulitis (02/15/17) and since has been on oxycodone, flagyl and levaquin. Last night the patient developed mild right flank pain which she took oxycodone for that helped her symptoms. She also notes that last night her colostomy bag kept filling with dark brown watery stool. This morning her pain returned with recurrent waves of nausea and two episodes of vomiting. Patient denies any abdominal pain or blood in stool. Her flank pain is non-radiating, sharp in quality, and rated 9/10 in severity. The patient also endorses chills and dark urine since today but denies any dysuria or fever. Her last dose of oxycodone was taken last night. - Past Medical History Cardiovascular: Yes: HTN Gastrointestinal: Yes: Diverticulosis ...LMP: 02/15/17 - Past Surgical History Past Surgical History: Yes: Colostomy - Smoking History Smoking history: Never smoked Have you smoked in the past 12 months: Yes Aproximately how many cigarettes per day: 2 - Alcohol/Substance Use Hx Alcohol Use: No Home Medications - Allergies Allergies/Adverse Reactions: Allergies Allergy/AdvReac Type Severity Reaction Status Date / Time No Known Allergies Allergy Verified 02/24/17 15:03 - Home Medications Home Medications: Ambulatory Orders Losartan Potassium [Cozaar] 100 mg PO DAILY 02/02/17 Levofloxacin [Levaquin] 750 mg PO DAILY #10 tab 02/19/17 Metronidazole [Flagyl -] 500 mg PO TID #30 tablet 02/19/17 Family Disease History - Family Disease History Family History: Unremarkable Review of Systems - Review of Systems Constitutional: reports: Weakness HENT: reports: No Symptoms Neck: reports: No Symptoms Cardiovascular: reports: No Symptoms Respiratory: reports: No Symptoms Gastrointestinal: reports: Abdominal Pain, Nausea, Vomiting Physical Examination Vital Signs: Vital Signs Temperature 98.1 F 02/25/17 10:16 Pulse Rate 72 02/25/17 13:07 Respiratory Rate 20 02/25/17 13:07 Blood Pressure 103/77 02/25/17 13:07 O2 Sat by Pulse Oximetry (%) 98 02/24/17 21:00 Constitutional: Yes: No Distress Eyes: Yes: WNL HENT: Yes: WNL, Atraumatic Neck: Yes: WNL, Supple Cardiovascular: Yes: WNL, Regular Rate and Rhythm Respiratory: Yes: WNL, Regular, CTA Bilaterally Gastrointestinal: Yes: Other ((+) colostomy) Musculoskeletal: Yes: WNL Extremities: Yes: WNL Edema: No Neurological: Yes: WNL, Alert, Oriented ...Motor Strength: WNL Labs: CBC, BMP 02/25/17 08:12 02/25/17 08:12 Problem List - Problems (1) Abdominal pain with vomiting Assessment/Plan: CT scan abd was unremarkable Cont IV antibxs/IVF Surgical/GI consults called Advance diet as tolerated Cont full liquids ?Ileus Code(s): R10.9 - UNSPECIFIED ABDOMINAL PAIN R11.10 - VOMITING, UNSPECIFIED (2) HTN (hypertension) Assessment/Plan: Hold antihypertensive for now due to hypotension Code(s): I10 - ESSENTIAL (PRIMARY) HYPERTENSION
[2017-02-25] MEDS ORDERED: INSULIN (NOVOLOG) ASPART 100 UNITS/ML 10ML VIAL ONE (18:56)
[2017-02-25] MEDS ORDERED: INSULIN (NOVOLOG MIX 70/30) 100 UNITS/ML MDV SQ ONE (18:57)
[2017-02-26] MEDS: MEROPENEM 1 GM in DEXTROSE 5%-WATER - 100 ML IVPB SCH ×3 (02:05→17:44)
[2017-02-26] MEDS: ONDANSETRON 4 MG/2 ML VIAL IVPUSH PRN ×2 (02:09→09:07)
[2017-02-26] MEDS: DEXTROSE 5%-0.45% SALINE 1,000 ML IV SCH ×2 (05:58→12:21)
[2017-02-26] MEDS ORDERED: MAG HYDROX/AL HYDROX/SIMETH 30 ML UNIT-DOSE CUP PO ONE (07:15)
[2017-02-26 08:05] LABS: ALBUMIN 3.3 g/dl (3.4-5.0); ANION GAP 9 (8-16); CALCIUM 9.1 mg/dL (8.5-10.1); CO2 26 mmol/L (21-32); CREATININE 0.7 mg/dL (0.55-1.02); GLUCOSE,RANDOM 119 mg/dL (74-106); SGOT/AST 14 U/L (15-37); SGPT/ALT 18 U/L (12-78); TOT PROT 7.2 g/dl (6.4-8.2)
[2017-02-26 08:07] LABS: ALK PHOS 81 U/L (45-117); BILIRUBIN,TOTAL 0.7 mg/dL (0.2-1.0)
[2017-02-26 08:25] LABS: BASOPHIL 0.5 % (0-2.0); MCH 27.4 pg (25.7-33.7); MCHC 33.6 g/dl (32.0-36.0); MEAN CELL VOLUME 81.4 fl (80-96); MEAN PLT VOLUME 8.8 fl (7.5-11.1); NEUTROPHILS 77.7 % (42.8-82.8); PLATELET COUNT 383 K/MM3 (134-434); WHITE BLOOD COUNT 8.3 K/mm3 (4.0-10.0)
[2017-02-26] MEDS ORDERED: PT OWN MED DRAWER 7, Y5N ONE ×2 (09:05→16:21)
--- NOTE | 2017-02-26 13:51 | EKG ---
Test Reason : Blood Pressure : / mmHG Vent. Rate : 100 BPM Atrial Rate : 100 BPM P-R Int : 124 ms QRS Dur : 080 ms QT Int : 360 ms P-R-T Axes : 062 -27 046 degrees QTc Int : 464 ms NORMAL SINUS RHYTHM NORMAL ECG WHEN COMPARED WITH ECG OF 02-FEB-2017 21:22, NO SIGNIFICANT CHANGE WAS FOUND Confirmed by JOSEMANUEL FUNES MD ([id number]) on 02/26/2017 1:51:15 PM Referred By: Confirmed By:JOSEMANUEL FUNES MD
[2017-02-26] MEDS: ONDANSETRON 4 MG/2 ML VIAL IVPB PRN ×2 (16:43→22:48)
--- NOTE | 2017-02-26 18:43 | PN ---
Progress Note, Physician History of Present Illness: pateint is c/o of dry heaving and vomiting says she is very miserable yesterday she tolerated oral,today she feels that the stomach is tightening and she is not able to keep anything in - Current Medication List Current Medications: Active Medications Hydromorphone HCl (Dilaudid Injection -) 0.5 mg IVPB Q6H PRN PRN Reason: PAIN Last Admin: 02/25/17 02:25 Dose: 0.5 mg Meropenem 1 gm/ Dextrose 100 mls @ 200 mls/hr IVPB Q8H-IV NONA PRN Reason: Protocol Last Admin: 02/26/17 17:44 Dose: 200 mls/hr Dextrose/Sodium Chloride (D5-1/2ns -) 1,000 mls @ 75 mls/hr IV ASDIR NONA Last Admin: 02/26/17 12:21 Dose: 75 mls/hr Ondansetron HCl (Zofran Injection) 4 mg IVPB Q4H PRN PRN Reason: NAUSEA AND/OR VOMITING Last Admin: 02/26/17 16:43 Dose: 4 mg - Objective Vital Signs: Vital Signs Temperature 98.5 F 02/26/17 14:53 Pulse Rate 87 02/26/17 14:53 Respiratory Rate 18 02/26/17 14:53 Blood Pressure 113/93 02/26/17 14:53 O2 Sat by Pulse Oximetry (%) 95 02/25/17 21:00 Constitutional: Yes: No Distress, Calm Neck: Yes: Supple Cardiovascular: Yes: Regular Rate and Rhythm Respiratory: Yes: Regular, CTA Bilaterally Gastrointestinal: Yes: Normal Bowel Sounds, Soft Musculoskeletal: Yes: WNL Extremities: Yes: WNL Neurological: Yes: Alert, Oriented Psychiatric: Yes: Alert, Oriented Labs: CBC, BMP 02/26/17 05:35 02/26/17 05:35 Assessment/Plan r/o pyelo abd pain nausea vomiting diverticulitis plan continue hydration will stop abx and watch no gross finding on ct scan monitor vomiting
--- NOTE | 2017-02-26 19:32 | CON.GI ---
Consult Consult Specialty:: gastroenterology Referred by:: Dr Grady - History of Present Illness History of Present Illness: 47 y/o female s/p ileostomy was doing well until 2 days ago when she developed right flank pain . In the ER she was noted to have pyuria. Today has llq pain associated with nausea.. patient timos has menstel period since yesterday. - History Source History Provided By: Patient - Past Medical History Cardio/Vascular: Yes: HTN Gastrointestinal: Yes: Diverticulosis ...LMP: 02/15/17 - Past Surgical History Past Surgical History: Yes: Colostomy - Alcohol/Substance Use Hx Alcohol Use: No - Smoking History Smoking history: Never smoked Have you smoked in the past 12 months: Yes Aproximately how many cigarettes per day: 2 Home Medications - Allergies Allergies/Adverse Reactions: Allergies Allergy/AdvReac Type Severity Reaction Status Date / Time No Known Allergies Allergy Verified 02/24/17 15:03 - Home Medications Home Medications: Ambulatory Orders Losartan Potassium [Cozaar] 100 mg PO DAILY 02/02/17 Levofloxacin [Levaquin] 750 mg PO DAILY #10 tab 02/19/17 Metronidazole [Flagyl -] 500 mg PO TID #30 tablet 02/19/17 Physical Exam-GI Vital Signs: Vital Signs Temperature 98.5 F 02/26/17 14:53 Pulse Rate 87 02/26/17 14:53 Respiratory Rate 18 02/26/17 14:53 Blood Pressure 113/93 02/26/17 14:53 O2 Sat by Pulse Oximetry (%) 95 02/25/17 21:00 Constitutional: Yes: Well Nourished Eyes: Yes: Conjunctiva Clear HENT: Yes: Atraumatic Neck: Yes: Trachea Midline Cardiovascular: Yes: Regular Rate and Rhythm Respiratory: Yes: CTA Bilaterally ...Auscultate: Yes: Normoactive Bowel Sounds ...Palpate: Yes: Soft, Tenderness (--llq). No: Firm/Rigid, Guarding, Hepatomegaly, Mass, Splenomegaly Labs: CBC, BMP 02/26/17 05:35 02/26/17 05:35 Problem List - Problems (1) Diverticulitis Assessment/Plan: R> keep NPO IV hydration surgical follow-up Code(s): K57.92 - DVTRCLI OF INTEST, PART UNSP, W/O PERF OR ABSCESS W/O BLEED Qualifiers: Diverticulitis site: large intestine Diverticulitis bleeding: without bleeding Diverticulitis complication: with perforation Qualified Code (s): K57.20 - Diverticulitis of large intestine with perforation and abscess without bleeding (2) LLQ pain Assessment/Plan: r>consider gynecology consult Code(s): R10.32 - LEFT LOWER QUADRANT PAIN
[2017-02-26] MEDS: HYDROmorphone HCL CARPU-JECT 1 MG/1 ML DISP.SYRIN IVPB PRN (19:56)
--- NOTE | 2017-02-26 20:02 | PN ---
Progress Note, Physician History of Present Illness: had vomitting - Current Medication List Current Medications: Active Medications Hydromorphone HCl (Dilaudid Injection -) 0.5 mg IVPB Q6H PRN PRN Reason: PAIN Last Admin: 02/25/17 02:25 Dose: 0.5 mg Dextrose/Sodium Chloride (D5-1/2ns -) 1,000 mls @ 75 mls/hr IV ASDIR NONA Last Admin: 02/26/17 12:21 Dose: 75 mls/hr Ondansetron HCl (Zofran Injection) 4 mg IVPB Q4H PRN PRN Reason: NAUSEA AND/OR VOMITING Last Admin: 02/26/17 16:43 Dose: 4 mg - Objective Vital Signs: Vital Signs Temperature 98.5 F 02/26/17 14:53 Pulse Rate 87 02/26/17 14:53 Respiratory Rate 18 02/26/17 14:53 Blood Pressure 113/93 02/26/17 14:53 O2 Sat by Pulse Oximetry (%) 95 02/25/17 21:00 Constitutional: Yes: Calm HENT: Yes: Atraumatic Neck: Yes: Supple Cardiovascular: Yes: Regular Rate and Rhythm Respiratory: Yes: CTA Bilaterally Gastrointestinal: Yes: Other (ileostomy site clean) Extremities: Yes: WNL Neurological: Yes: Alert, Oriented Labs: CBC, BMP 02/26/17 05:35 02/26/17 05:35 Problem List - Problems (1) Abdominal pain with vomiting Assessment/Plan: npo, ivf iv zofran prn gi consult noted Code(s): R10.9 - UNSPECIFIED ABDOMINAL PAIN R11.10 - VOMITING, UNSPECIFIED (2) LLQ pain Assessment/Plan: prn pain meds Code(s): R10.32 - LEFT LOWER QUADRANT PAIN (3) HTN (hypertension) Assessment/Plan: meds on hold stable Code(s): I10 - ESSENTIAL (PRIMARY) HYPERTENSION (4) Diverticulitis Assessment/Plan: pt readmitted for LLQ pain 2 weeks after robotic sigmoid resection and diverting ileostomy. Pain is desbribed as cramping and intermittent associated with nausea and vomitting Code(s): K57.92 - DVTRCLI OF INTEST, PART UNSP, W/O PERF OR ABSCESS W/O BLEED Qualifiers: Diverticulitis site: large intestine Diverticulitis bleeding: without bleeding Diverticulitis complication: with perforation Qualified Code (s): K57.20 - Diverticulitis of large intestine with perforation and abscess without bleeding Assessment/Plan covering dr dash...day 1
--- NOTE | 2017-02-26 23:28 | CONSULT ---
Consult Consult Specialty:: Surgery Reason for Consultation:: abdominal pain - History of Present Illness Chief Complaint: abdominal pain History of Present Illness: Covering for Dr. Arreola 47 y.o. female readmitted for LLQ pain 2 weeks after robotic sigmoid resection and diverting ileostomy. Pain is desbribed as cramping and intermittent associated with n & v. Denies fever. - Past Medical History Cardio/Vascular: Yes: HTN Gastrointestinal: Yes: Diverticulosis ...LMP: 02/15/17 - Past Surgical History Past Surgical History: Yes: Colectomy, Colostomy - Alcohol/Substance Use Hx Alcohol Use: No - Smoking History Smoking history: Never smoked Have you smoked in the past 12 months: Yes Aproximately how many cigarettes per day: 2 Home Medications - Allergies Allergies/Adverse Reactions: Allergies Allergy/AdvReac Type Severity Reaction Status Date / Time No Known Allergies Allergy Verified 02/24/17 15:03 - Home Medications Home Medications: Ambulatory Orders Losartan Potassium [Cozaar] 100 mg PO DAILY 02/02/17 Levofloxacin [Levaquin] 750 mg PO DAILY #10 tab 02/19/17 Metronidazole [Flagyl -] 500 mg PO TID #30 tablet 02/19/17 Physical Exam Vital Signs: Vital Signs Temperature 98.3 F 02/26/17 19:00 Pulse Rate 86 02/26/17 19:00 Respiratory Rate 16 02/26/17 19:00 Blood Pressure 133/76 02/26/17 19:00 O2 Sat by Pulse Oximetry (%) 95 02/25/17 21:00 Constitutional: Yes: Well Nourished, No Distress HENT: Yes: Normocephalic Neck: Yes: Supple Cardiovascular: Yes: Regular Rate and Rhythm Respiratory: Yes: CTA Bilaterally Gastrointestinal: Yes: Soft, Tenderness (mild deep LLQ tenderness but no rebound tenderness) ...Rectal Exam: Yes: Deferred Labs: CBC, BMP 02/26/17 05:35 02/26/17 05:35 Imaging - Results Cat Scan: Report Reviewed, Image Reviewed Problem List - Problems (1) Abdominal pain with vomiting Assessment/Plan: No evidence of post-op abscess or anastomotic dehiscence Continue hydration and analgesics Code(s): R10.9 - UNSPECIFIED ABDOMINAL PAIN R11.10 - VOMITING, UNSPECIFIED (2) Diverticulitis Assessment/Plan: s/p robotic partial colectomy no intervention necessary at this time Code(s): K57.92 - DVTRCLI OF INTEST, PART UNSP, W/O PERF OR ABSCESS W/O BLEED Qualifiers: Diverticulitis site: large intestine Diverticulitis bleeding: without bleeding Diverticulitis complication: with perforation Qualified Code (s): K57.20 - Diverticulitis of large intestine with perforation and abscess without bleeding
[2017-02-27] MEDS: DEXTROSE 5%-0.45% SALINE 1,000 ML IV SCH (06:34)
[2017-02-27] MEDS: HYDROmorphone HCL CARPU-JECT 1 MG/1 ML DISP.SYRIN IVPB PRN ×3 (06:35→20:17)
--- NOTE | 2017-02-27 13:13 | PN ---
Progress Note (short form) - Note Progress Note: Surgery- Dr. Palacios (Dr. Ferrer covering) Patient seen and examined. Patient states she continues to have abdominal pain, mostly in the form of cramping that comes in waves. She feels she has a lot of gas, her ileostomy is producing gas and stool. She does not currently feel nauseous, but states she did vomit this morning. Denies fever/chills. Last Vital Signs Temp Pulse Resp BP Pulse Ox 98.2 F 88 20 98/65 98 02/27/17 07:35 02/27/17 07:35 02/27/17 07:35 02/27/17 07:35 02/26/17 21:00 CBC, BMP 02/26/17 05:35 02/26/17 05:35 Exam: Gen: NAD, resting in bed Abd: soft, tenderness with palp lower abdomen, worse left side, no guarding or rebound, ostomy pink, protruding with gas and stool in bag, incisions healing well LE: soft, nontender Problem List - Problems (1) Abdominal pain with vomiting Assessment/Plan: s/p robotic assisted sigmoid resection with primary anastomosis, drainage of pelvic abscess, and diverting loop ileostomy 02/14/17 for perforated diverticulitis readmitted with abdominal pain, nausea, and vomiting Continue NPO, IV fluids, pain control, antiemetics PRN Discussed with Dr. Ferrer Code(s): R10.9 - UNSPECIFIED ABDOMINAL PAIN R11.10 - VOMITING, UNSPECIFIED
--- NOTE | 2017-02-27 18:31 | PN ---
Progress Note, Physician History of Present Illness: feeling better - Current Medication List Current Medications: Active Medications Hydromorphone HCl (Dilaudid Injection -) 0.5 mg IVPB Q6H PRN PRN Reason: PAIN Last Admin: 02/27/17 11:23 Dose: 0.5 mg Dextrose/Sodium Chloride (D5-1/2ns -) 1,000 mls @ 75 mls/hr IV ASDIR NONA Last Admin: 02/27/17 06:34 Dose: 75 mls/hr Ondansetron HCl (Zofran Injection) 4 mg IVPB Q4H PRN PRN Reason: NAUSEA AND/OR VOMITING Last Admin: 02/26/17 22:48 Dose: 4 mg - Objective Vital Signs: Vital Signs Temperature 98.0 F 02/27/17 14:46 Pulse Rate 93 H 02/27/17 14:46 Respiratory Rate 20 02/27/17 14:46 Blood Pressure 111/70 02/27/17 14:46 O2 Sat by Pulse Oximetry (%) 96 02/27/17 10:00 Constitutional: Yes: Calm HENT: Yes: Atraumatic Neck: Yes: Supple Cardiovascular: Yes: Regular Rate and Rhythm Respiratory: Yes: CTA Bilaterally Gastrointestinal: Yes: Normal Bowel Sounds, Other (ileostomy in place) Extremities: Yes: WNL Neurological: Yes: Alert, Oriented Labs: CBC, BMP 02/26/17 05:35 02/26/17 05:35 Problem List - Problems (1) Abdominal pain with vomiting Assessment/Plan: npo, ivf iv zofran prn gi consult noted Code(s): R10.9 - UNSPECIFIED ABDOMINAL PAIN R11.10 - VOMITING, UNSPECIFIED (2) LLQ pain Assessment/Plan: prn pain meds NPO Code(s): R10.32 - LEFT LOWER QUADRANT PAIN (3) HTN (hypertension) Assessment/Plan: meds on hold stable Code(s): I10 - ESSENTIAL (PRIMARY) HYPERTENSION (4) Diverticulitis Assessment/Plan: pt readmitted for LLQ pain 2 weeks after robotic sigmoid resection and diverting ileostomy. Pain is desbribed as cramping and intermittent associated with nausea and vomitting Code(s): K57.92 - DVTRCLI OF INTEST, PART UNSP, W/O PERF OR ABSCESS W/O BLEED Qualifiers: Diverticulitis site: large intestine Diverticulitis bleeding: without bleeding Diverticulitis complication: with perforation Qualified Code (s): K57.20 - Diverticulitis of large intestine with perforation and abscess without bleeding Assessment/Plan covering dr dash...day 2
--- NOTE | 2017-02-27 19:46 | PN ---
GI Progress Note Subjective: Patient c/o N/V/abd pain which brought he back to hospital after recent bowel resection. She is having lower abd crampy pain. - Objective Vital Signs: Vital Signs Temperature 98.0 F 02/27/17 14:46 Pulse Rate 93 H 02/27/17 14:46 Respiratory Rate 20 02/27/17 14:46 Blood Pressure 111/70 02/27/17 14:46 O2 Sat by Pulse Oximetry (%) 96 02/27/17 10:00 Constitutional: Well Nourished, Anxious, Moderate Distress HENT: Yes: Normocephalic Neck: Yes: Supple, Tenderness Respiratory: Yes: CTA Bilaterally Gastrointestinal Inspection: Yes: WNL ...Auscultate: Yes: Normoactive Bowel Sounds ...Palpate: Yes: Soft, Tenderness (mild LLQ) Labs: CBC, BMP 02/26/17 05:35 02/26/17 05:35 Hepatic Panel Total Bilirubin 0.7 mg/dL (0.2-1.0) D 02/26/17 05:35 AST 14 U/L (15-37) L D 02/26/17 05:35 ALT 18 U/L (12-78) 02/26/17 05:35 Alkaline Phosphatase 81 U/L (45-117) 02/26/17 05:35 Albumin 3.3 g/dl (3.4-5.0) L 02/26/17 05:35 Assessment/Plan Patient remains afebrile No leukocytosis Clinically improved C/O GERD symptoms-start PPI Repeat non-contrast CT tomorrow to re-evaluate No need for AbRx at this time
[2017-02-27] MEDS: PANTOPRAZOLE SODIUM 100 ML IVPB SCH (21:39)
[2017-02-28] MEDS: HYDROmorphone HCL CARPU-JECT 1 MG/1 ML DISP.SYRIN IVPB PRN (04:58)
[2017-02-28] MEDS: DEXTROSE 5%-0.45% SALINE 1,000 ML IV SCH ×3 (04:59→23:40)
[2017-02-28] MEDS: PANTOPRAZOLE SODIUM 100 ML IVPB SCH ×2 (11:08→23:40)
--- NOTE | 2017-02-28 14:17 | PN ---
Progress Note, Physician History of Present Illness: patient still having nausea and abd cramps has been off of abx - Current Medication List Current Medications: Active Medications Hydromorphone HCl (Dilaudid Injection -) 0.5 mg IVPB Q6H PRN Last Admin: 02/28/17 04:58 Dose: 0.5 mg Dextrose/Sodium Chloride (D5-1/2ns -) 1,000 mls @ 75 mls/hr IV ASDIR NONA Last Admin: 02/28/17 04:59 Dose: 75 mls/hr Pantoprazole Sodium (Protonix 40mg Ivpb (Pre-Docked)) 100 mls @ 200 mls/hr IVPB BID NONA Last Admin: 02/28/17 11:08 Dose: 200 mls/hr Ondansetron HCl (Zofran Injection) 4 mg IVPB Q4H PRN PRN Reason: NAUSEA AND/OR VOMITING Last Admin: 02/26/17 22:48 Dose: 4 mg - Objective Vital Signs: Vital Signs Temperature 98.0 F 02/28/17 07:31 Pulse Rate 82 02/28/17 07:31 Respiratory Rate 20 02/28/17 07:31 Blood Pressure 111/87 02/28/17 07:31 O2 Sat by Pulse Oximetry (%) 98 02/27/17 21:00 Constitutional: Yes: Calm, Mild Distress Cardiovascular: Yes: Regular Rate and Rhythm Respiratory: Yes: Regular, CTA Bilaterally Gastrointestinal: Yes: Normal Bowel Sounds, Soft Musculoskeletal: Yes: WNL Extremities: Yes: WNL Neurological: Yes: Alert, Oriented Psychiatric: Yes: Alert, Oriented Labs: CBC, BMP 02/26/17 05:35 02/26/17 05:35 - ....Imaging Cat Scan: Report Reviewed, Image Reviewed Assessment/Plan r/o pyelo abd pain nausea vomiting diverticulitis plan continue hydration stable off of abx ct scan result noted surgery to evaluate
--- NOTE | 2017-02-28 17:27 | PN ---
Progress Note, Physician History of Present Illness: NPO - Current Medication List Current Medications: Active Medications Hydromorphone HCl (Dilaudid Injection -) 0.5 mg IVPB Q6H PRN Last Admin: 02/28/17 04:58 Dose: 0.5 mg Dextrose/Sodium Chloride (D5-1/2ns -) 1,000 mls @ 75 mls/hr IV ASDIR NONA Last Admin: 02/28/17 16:45 Dose: 75 mls/hr Pantoprazole Sodium (Protonix 40mg Ivpb (Pre-Docked)) 100 mls @ 200 mls/hr IVPB BID NONA Last Admin: 02/28/17 11:08 Dose: 200 mls/hr Ondansetron HCl (Zofran Injection) 4 mg IVPB Q4H PRN PRN Reason: NAUSEA AND/OR VOMITING Last Admin: 02/26/17 22:48 Dose: 4 mg - Objective Vital Signs: Vital Signs Temperature 98.2 F 02/28/17 15:04 Pulse Rate 90 02/28/17 15:04 Respiratory Rate 20 02/28/17 07:31 Blood Pressure 118/64 02/28/17 15:04 O2 Sat by Pulse Oximetry (%) 98 02/27/17 21:00 Constitutional: Yes: No Distress HENT: Yes: Atraumatic Neck: Yes: Supple Cardiovascular: Yes: Regular Rate and Rhythm Respiratory: Yes: CTA Bilaterally Gastrointestinal: Yes: Tenderness, Other (ILEOSTOMY INTACT) Extremities: Yes: WNL Neurological: Yes: Alert, Oriented Labs: CBC, BMP 02/26/17 05:35 02/26/17 05:35 Problem List - Problems (1) Abdominal pain with vomiting Assessment/Plan: npo, ivf iv zofran prn VOMITTING LESS FREQUENT ct scan done and reviewed...sbo Code(s): R10.9 - UNSPECIFIED ABDOMINAL PAIN R11.10 - VOMITING, UNSPECIFIED (2) LLQ pain Assessment/Plan: prn pain meds NPO Code(s): R10.32 - LEFT LOWER QUADRANT PAIN (3) HTN (hypertension) Assessment/Plan: meds on hold stable Code(s): I10 - ESSENTIAL (PRIMARY) HYPERTENSION (4) Diverticulitis Assessment/Plan: pt readmitted for LLQ pain 2 weeks after robotic sigmoid resection and diverting ileostomy. Pain is desbribed as cramping and intermittent associated with nausea and vomitting Code(s): K57.92 - DVTRCLI OF INTEST, PART UNSP, W/O PERF OR ABSCESS W/O BLEED Qualifiers: Diverticulitis site: large intestine Diverticulitis bleeding: without bleeding Diverticulitis complication: with perforation Qualified Code (s): K57.20 - Diverticulitis of large intestine with perforation and abscess without bleeding Assessment/Plan covering dr dash...day 3 SHE WILL RESUME CARE FROM TOMORROW
--- NOTE | 2017-02-28 21:18 | PN ---
GI Progress Note Subjective: Patient seen. She states large output from ostomy. Nurse corroborates. She is thirsty. NPO with IVF at 75. - Objective Vital Signs: Vital Signs Temperature 97.8 F 02/28/17 19:00 Pulse Rate 101 H 02/28/17 19:00 Respiratory Rate 20 02/28/17 19:00 Blood Pressure 118/85 02/28/17 19:00 O2 Sat by Pulse Oximetry (%) 98 02/28/17 09:00 Constitutional: Well Nourished, Anxious Neck: Yes: Supple Cardiovascular: Yes: Regular Rate and Rhythm Respiratory: Yes: CTA Bilaterally Gastrointestinal Inspection: Yes: Other (ileostomy in place. greenish bilious fluid in bag.) ...Auscultate: Yes: Hypoactive Bowel Sounds ...Palpate: Yes: Soft, Tenderness (mild diffuse) Labs: CBC, BMP 02/26/17 05:35 02/26/17 05:35 Assessment/Plan CT suggests obstruction at level of ileostomy. No obstruction with significant output. Change IVF to 125/hr Follow ostomy output FUA tomorrow She is c/o rectal pain and feeling of fullness Will give anusol suppository
--- NOTE | 2017-02-28 21:47 | PN ---
Progress Note (short form) - Note Progress Note: Surgery- Dr. Palacios/Dr. Ferrer covering Patient seen and examined this morning. Stated she is still experiencing cramping abdominal pain and nausea as she was drinking CT contrast. Denies fever or chills. She states she continues to have a lot of output from her ostomy. Last Vital Signs Temp Pulse Resp BP Pulse Ox 97.8 F 101 H 20 118/85 98 02/28/17 19:00 02/28/17 19:00 02/28/17 19:00 02/28/17 19:00 02/28/17 09:00 CBC, BMP 02/26/17 05:35 02/26/17 05:35 Exam: Gen: NAD Abd: soft, mild distension, mild tender to palp in lower abdomen, worse right side, ostomy pink with stool and air in bag Problem List - Problems (1) Abdominal pain with vomiting Assessment/Plan: s/p robotic assisted sigmoid resection with primary anastomosis, drainage of pelvic abscess, and diverting loop ileostomy 02/14/[address] scan discussed with Dr. Ferrer, patient is having output from ostomy, continue NPO and IVF Code(s): R10.9 - UNSPECIFIED ABDOMINAL PAIN R11.10 - VOMITING, UNSPECIFIED
--- NOTE | 2017-02-28 21:59 | PN ---
Progress Note (short form) - Note Progress Note: Patient continues to have abdominal pain and vomited 4x today - bilious Iliostomy with greenish liquid effluent Repeat CT scan of abdomen and pelvis showed possible SBO at ostomy site Abd: mildly distended A: possible post-op partial SBO P: repeat FUA, NGT decompression if significant for SBO Problem List - Problems (1) Abdominal pain with vomiting Code(s): R10.9 - UNSPECIFIED ABDOMINAL PAIN R11.10 - VOMITING, UNSPECIFIED (2) Diverticulitis Code(s): K57.92 - DVTRCLI OF INTEST, PART UNSP, W/O PERF OR ABSCESS W/O BLEED Qualifiers: Diverticulitis site: large intestine Diverticulitis bleeding: without bleeding Diverticulitis complication: with perforation Qualified Code (s): K57.20 - Diverticulitis of large intestine with perforation and abscess without bleeding
[2017-02-28] MEDS: HYDROCORTISONE ACETATE 25 MG/SUPP.RECT RC SCH (23:40)
[2017-03-01] MEDS: PANTOPRAZOLE SODIUM 100 ML IVPB SCH ×2 (10:31→21:43)
[2017-03-01] MEDS: DEXTROSE 5%-0.45% SALINE 1,000 ML IV SCH ×2 (13:08→21:43)
--- NOTE | 2017-03-01 16:12 | PN ---
Progress Note (short form) - Note Progress Note: Pt complains of nausea, no further vomiting. Her abd pain remains crampy. Vital Signs Period Temp Pulse Resp BP Sys/Taylor Pulse Ox Last 24 Hr 97.7 F-98.4 F 86-107 18-20 115-143/78-98 96-97 GEN: A&0x3. NAD ABD: soft, slight distended, tender to RLQ. Incisions site c d/i. Ostomy leaking. Cleaned and reapplied appliance with Karya paste. Ostomy viable. AXR: SBO 03/01 CBC, BMP 02/26/17 05:35 02/26/17 05:35 NGT inserted: secured at 55cm. air auscultated over stomach but with minimal gastric return. CXR completed to confirm placement. Tip of NGT visualized under the diaphram in stomach. A/P: 47 yo female s/p sigmoid resection with anastamosis and loop ileostomy on Now with SBO Continue npo/iv hydration NGT decompression D/w Dr. LOPEZ and he agrees with trial of NPO/ngt decompression Surgery to follow the patient.
--- NOTE | 2017-03-01 16:55 | PN ---
Progress Note, Physician History of Present Illness: abd pain still present patient calm though - Current Medication List Current Medications: Active Medications Hydrocortisone Acetate (Anusol Hc Suppository -) 25 mg RC HS [facility] Last Admin: 02/28/17 23:40 Dose: Not Given Hydromorphone HCl (Dilaudid Injection -) 0.5 mg IVPB Q6H PRN Last Admin: 02/28/17 04:58 Dose: 0.5 mg Pantoprazole Sodium (Protonix 40mg Ivpb (Pre-Docked)) 100 mls @ 200 mls/hr IVPB BID [facility] Last Admin: 03/01/17 10:31 Dose: 200 mls/hr Dextrose/Sodium Chloride (D5-1/2ns -) 1,000 mls @ 125 mls/hr IV ASDIR [facility] Last Admin: 03/01/17 13:08 Dose: 125 mls/hr Ondansetron HCl (Zofran Injection) 4 mg IVPB Q4H PRN PRN Reason: NAUSEA AND/OR VOMITING Last Admin: 02/26/17 22:48 Dose: 4 mg - Objective Vital Signs: Vital Signs Temperature 98.4 F 03/01/17 14:37 Pulse Rate 107 H 03/01/17 14:37 Respiratory Rate 18 03/01/17 14:37 Blood Pressure 137/98 03/01/17 14:37 O2 Sat by Pulse Oximetry (%) 96 03/01/17 09:00 Constitutional: Yes: Calm, Mild Distress Cardiovascular: Yes: Regular Rate and Rhythm Respiratory: Yes: Regular, CTA Bilaterally Gastrointestinal: Yes: Normal Bowel Sounds, Soft Musculoskeletal: Yes: WNL Extremities: Yes: WNL Neurological: Yes: Alert, Oriented Psychiatric: Yes: Alert, Oriented Labs: CBC, BMP 02/26/17 05:35 02/26/17 05:35 - ....Imaging X-ray: Report Reviewed, Image Reviewed Assessment/Plan r/o pyelo abd pain nausea vomiting diverticulitis plan continue hydration stable off of abx rest ct current mgmt i think ileostomy needs to be looked at
[2017-03-01 18:34] LABS: ANION GAP 11 (8-16); CALCIUM 9.4 mg/dL (8.5-10.1); CO2 25 mmol/L (21-32); CREATININE 0.7 mg/dL (0.55-1.02); GLUCOSE,RANDOM 108 mg/dL (74-106)
--- NOTE | 2017-03-01 20:12 | PN ---
GI Progress Note Subjective: She continued to have abdominal pain. The abdomial pain is moderate.NGT was inserted with minimal drainage.Th e tube was adjusted. - Objective Vital Signs: Vital Signs Temperature 98.4 F 03/01/17 14:37 Pulse Rate 107 H 03/01/17 14:37 Respiratory Rate 18 03/01/17 14:37 Blood Pressure 137/98 03/01/17 14:37 O2 Sat by Pulse Oximetry (%) 96 03/01/17 09:00 Constitutional: Well Nourished Eyes: Yes: Conjunctiva Clear HENT: Yes: Atraumatic Neck: Yes: Supple Cardiovascular: Yes: Regular Rate and Rhythm Respiratory: Yes: CTA Bilaterally ...Palpate: Yes: Soft, Tenderness (-ddifuse). No: Firm/Rigid, Guarding, Hepatomegaly, Mass, Pulsatile Mass, Splenomegaly Labs: CBC, BMP 02/26/17 05:35 03/01/17 17:00 Problem List - Problems (1) Dilation of intestine Assessment/Plan: etiology unclear as patient has drainage to the ileostomy bag , possibly patient has partial SBO vs ileus R> NGT drainage IV hydration Code(s): [id number] - (2) LLQ pain Code(s): R10.32 - LEFT LOWER QUADRANT PAIN
[2017-03-01] MEDS ORDERED: PT OWN MED DRAWER 7, Y5N ONE (21:29)
[2017-03-01] MEDS: HYDROCORTISONE ACETATE 25 MG/SUPP.RECT RC SCH (21:50)
--- NOTE | 2017-03-02 01:16 | PN ---
Progress Note, Physician - Current Medication List Current Medications: Active Medications Hydrocortisone Acetate (Anusol Hc Suppository -) 25 mg RC HS [facility] Last Admin: 03/01/17 21:50 Dose: Not Given Hydromorphone HCl (Dilaudid Injection -) 0.5 mg IVPB Q6H PRN Last Admin: 02/28/17 04:58 Dose: 0.5 mg Pantoprazole Sodium (Protonix 40mg Ivpb (Pre-Docked)) 100 mls @ 200 mls/hr IVPB BID [facility] Last Admin: 03/01/17 21:43 Dose: 200 mls/hr Dextrose/Sodium Chloride (D5-1/2ns -) 1,000 mls @ 125 mls/hr IV ASDIR NONA Last Admin: 03/01/17 21:43 Dose: 125 mls/hr Ondansetron HCl (Zofran Injection) 4 mg IVPB Q4H PRN PRN Reason: NAUSEA AND/OR VOMITING Last Admin: 02/26/17 22:48 Dose: 4 mg - Objective Vital Signs: Vital Signs Temperature 98.9 F 03/01/17 21:51 Pulse Rate 90 03/01/17 21:51 Respiratory Rate 18 03/01/17 21:51 Blood Pressure 121/74 03/01/17 21:51 O2 Sat by Pulse Oximetry (%) 96 03/01/17 09:00 Labs: CBC, BMP 02/26/17 05:35 03/01/17 17:00 Problem List - Problems (1) Abdominal pain with vomiting Code(s): R10.9 - UNSPECIFIED ABDOMINAL PAIN R11.10 - VOMITING, UNSPECIFIED (2) HTN (hypertension) Code(s): I10 - ESSENTIAL (PRIMARY) HYPERTENSION
[2017-03-02 07:02] LABS: BASOPHIL 0.4 % (0-2.0); EOSINOPHIL 4.6 % (0-4.5); MCH 27.3 pg (25.7-33.7); MCHC 33.4 g/dl (32.0-36.0); MEAN CELL VOLUME 81.8 fl (80-96); MEAN PLT VOLUME 9.4 fl (7.5-11.1); PLATELET COUNT 344 K/MM3 (134-434); WHITE BLOOD COUNT 5.4 K/mm3 (4.0-10.0)
[2017-03-02] MEDS: DEXTROSE 5%-0.45% SALINE 1,000 ML IV SCH ×2 (07:09→18:02)
--- NOTE | 2017-03-02 08:31 | PN ---
Progress Note (short form) - Note Progress Note: Surgery- Dr. Palacios/Dr. Ferrer Patient seen and examined. Patient states her cramping abdominal pain and nausea have improved. She denies current pain. Her biggest complaint now is a constant sensation to urinate. Patient feels she has to urinate and then has a small amount of urine. She is NPO with an NGT in place, she denies vomiting. She denies fever, chills. Last Vital Signs Temp Pulse Resp BP Pulse Ox 98.0 F 76 20 108/76 97 03/02/17 06:56 03/02/17 06:56 03/02/17 06:56 03/02/17 06:56 03/01/17 21:00 CBC, BMP 03/02/17 05:40 03/01/17 17:00 NGT output 200ml recorded in chart overnight Exam: Gen: NAD, pleasant and cooperative ENT: NGT in place with very small amount of light greenish brown drainage Abd: soft, mild distension, no pain with palpation, ostomy pink with brown/ green stool in bag, incisions c/d/i Ext: soft, calves nontender Problem List - Problems (1) Abdominal pain with vomiting Assessment/Plan: s/p robotic assisted sigmoid resection with primary anastomosis, drainage of pelvic abscess, and diverting loop ileostomy 02/14/17 for perforated diverticulitis Patient now with SBO Continue NPO/NGT, pain and nausea resolving continue IV fluids follow-up abdominal XR Repeat urine culture GI/ DVT prophylaxis Code(s): R10.9 - UNSPECIFIED ABDOMINAL PAIN R11.10 - VOMITING, UNSPECIFIED
[2017-03-02] MEDS: PANTOPRAZOLE SODIUM 100 ML IVPB SCH ×2 (10:01→21:32)
--- NOTE | 2017-03-02 15:32 | PN ---
Progress Note, Physician History of Present Illness: patient still having nausea abd cramps surgery planning to evaluate xray seen still shows area of obstruction - Current Medication List Current Medications: Active Medications Hydrocortisone Acetate (Anusol Hc Suppository -) 25 mg RC [facility] Last Admin: 03/01/17 21:50 Dose: Not Given Hydromorphone HCl (Dilaudid Injection -) 0.5 mg IVPB Q6H PRN Last Admin: 02/28/17 04:58 Dose: 0.5 mg Pantoprazole Sodium (Protonix 40mg Ivpb (Pre-Docked)) 100 mls @ 200 mls/hr IVPB BID [facility] Last Admin: 03/02/17 10:01 Dose: 200 mls/hr Dextrose/Sodium Chloride (D5-1/2ns -) 1,000 mls @ 125 mls/hr IV ASDIR [facility] Last Admin: 03/02/17 07:09 Dose: 125 mls/hr Ondansetron HCl (Zofran Injection) 4 mg IVPB Q4H PRN PRN Reason: NAUSEA AND/OR VOMITING Last Admin: 02/26/17 22:48 Dose: 4 mg - Objective Vital Signs: Vital Signs Temperature 98.2 F 03/02/17 14:31 Pulse Rate 88 03/02/17 14:31 Respiratory Rate 17 03/02/17 14:31 Blood Pressure 140/83 03/02/17 14:31 O2 Sat by Pulse Oximetry (%) 97 03/02/17 09:00 Constitutional: Yes: Calm, Mild Distress Cardiovascular: Yes: Regular Rate and Rhythm Respiratory: Yes: Regular, CTA Bilaterally Gastrointestinal: Yes: Soft, Hypoactive Bowel Sounds Musculoskeletal: Yes: WNL Extremities: Yes: WNL Neurological: Yes: Alert, Oriented Psychiatric: Yes: Alert, Oriented Labs: CBC, BMP 03/02/17 05:40 03/01/17 17:00 - ....Imaging X-ray: Report Reviewed, Image Reviewed Assessment/Plan r/o pyelo abd pain nausea vomiting diverticulitis plan continue hydration stable off of abx xray seen and result noted continue current [facility] surgery to see the patient
--- NOTE | 2017-03-02 21:30 | HOSP ---
Subjective - Review of Symptoms Events since last encounter: called by nursing after primary was unable to be reached. Pt was complaining of chest pain for 1 hour. nonradiating, substernal, dull, nonpositional, continuous. denies nausea, vomiting, difficulty breathing, cough. HEENT: No: Head Aches, Visual Changes, Eye Pain, Ear Pain, Dysphasia, Sinus Congestion, Post Nasal Drip, Sore Throat, Other Cardiovascular: Yes: Chest Pain. No: Palpitations, Edema, Light Headedness Gastrointestinal: Yes: Abdominal Pain Musculoskeletal: Yes: No Symptoms Neurological: No: Weakness, Change in speech, Confusion Physical Examination Vital Signs: Vital Signs Temperature 98.8 F 03/02/17 21:15 Pulse Rate 83 03/02/17 21:15 Respiratory Rate 18 03/02/17 21:15 Blood Pressure 129/91 03/02/17 21:15 O2 Sat by Pulse Oximetry (%) 97 03/02/17 09:00 Constitutional: Yes: Anxious Eyes: Yes: Conjunctiva Clear, EOM Intact HENT: Yes: Atraumatic, Normocephalic Neck: Yes: Supple, Trachea Midline. No: Lymphadenopathy Cardiovascular: Yes: Regular Rate and Rhythm, Other (chest nontender). No: Tachycardia, Murmur Respiratory: Yes: Regular, CTA Bilaterally Gastrointestinal: Yes: Soft, Tenderness, Tenderness, Epigastrium (ileostomy in RLQ, bag with output from this morning has not been emptied.), Other (absent bowel sounds) Musculoskeletal: No: Back Pain Extremities: Yes: WNL. No: Calf Tenderness, Erythema Edema: No Peripheral Pulses WNL: Yes Integumentary: Yes: WNL Wound/Incision: Yes: Clean/Dry Neurological: Yes: WNL, Alert, Oriented ...Motor Strength: WNL Psychiatric: Yes: Alert, Oriented Labs: CBC, BMP 03/02/17 05:40 03/01/17 17:00 Laboratory Last Values WBC 5.4 K/mm3 (4.0-10.0) D 03/02/17 05:40 RBC 4.13 M/mm3 (3.60-5.2) 03/02/17 05:40 Hgb 11.3 GM/dL (10.7-15.3) 03/02/17 05:40 Hct 33.8 % (32.4-45.2) 03/02/17 05:40 MCV 81.8 fl (80-96) 03/02/17 05:40 MCH 27.3 pg (25.7-33.7) 03/02/17 05:40 MCHC 33.4 g/dl (32.0-36.0) 03/02/17 05:40 RDW 15.0 % (11.6-15.6) 03/02/17 05:40 Plt Count 344 K/MM3 (134-434) 03/02/17 05:40 MPV 9.4 fl (7.5-11.1) 03/02/17 05:40 Neutrophils % 53.0 % (42.8-82.8) D 03/02/17 05:40 Lymphocytes % 30.0 % (8-40) D 03/02/17 05:40 Monocytes % 12.0 % (3.8-10.2) H D 03/02/17 05:40 Eosinophils % 4.6 % (0-4.5) H D 03/02/17 05:40 Basophils % 0.4 % (0-2.0) 03/02/17 05:40 Sodium 137 mmol/L (136-145) 03/02/17 21:30 Potassium 3.4 mmol/L (3.5-5.1) L 03/02/17 21:30 Chloride 105 mmol/L (98-107) 03/02/17 21:30 Carbon Dioxide 24 mmol/L (21-32) 03/02/17 21:30 Anion Gap 8 (8-16) 03/02/17 21:30 BUN 7 mg/dL (7-18) D 03/02/17 21:30 Creatinine 0.5 mg/dL (0.55-1.02) L D 03/02/17 21:30 Creat Clearance w eGFR > 60 (>60) 02/26/17 05:35 Random Glucose 94 mg/dL (74-106) 03/02/17 21:30 Calcium 8.7 mg/dL (8.5-10.1) 03/02/17 21:30 Total Bilirubin 0.7 mg/dL (0.2-1.0) D 02/26/17 05:35 AST 14 U/L (15-37) L D 02/26/17 05:35 ALT 18 U/L (12-78) 02/26/17 05:35 Alkaline Phosphatase 81 U/L (45-117) 02/26/17 05:35 Troponin I < 0.02 ng/ml (0.00-0.05) 03/02/17 21:30 Total Protein 7.2 g/dl (6.4-8.2) 02/26/17 05:35 Albumin 3.3 g/dl (3.4-5.0) L 02/26/17 05:35 Total Amylase 77 U/L (25-115) D 02/24/17 16:00 Lipase 369 U/L (73-393) 02/24/17 16:00 Urine Color Aimee 02/24/17 16:00 Urine Appearance Clear 02/24/17 16:00 Urine pH 5.0 (5.0-8.0) 02/24/17 16:00 Ur Specific [place] >= 1.030 (1.005-1.025) H 02/24/17 16:00 Urine Protein 2+ (NEGATIVE) H 02/24/17 16:00 Urine Glucose (UA) Negative (NEGATIVE) 02/24/17 16:00 Urine Ketones Trace (NEGATIVE) H 02/24/17 16:00 Urine Blood 2+ (NEGATIVE) H 02/24/17 16:00 Urine Nitrite Negative (NEGATIVE) 02/24/17 16:00 Urine Bilirubin Negative (NEGATIVE) 02/24/17 16:00 Urine Urobilinogen 2.0 e.u/dl E.U./dl (0.2-1.0) H 02/24/17 16:00 Ur Leukocyte Esterase 1+ (NEGATIVE) H 02/24/17 16:00 Urine RBC 12 /hpf (0-3) 02/24/17 16:00 Urine WBC 5 /hpf (3-5) 02/24/17 16:00 Ur Epithelial Cells Moderate /hpf (FEW) 02/24/17 16:00 Hyaline Casts 4 /lpf 02/24/17 16:00 Urine Mucus Many 02/24/17 16:00 Hospitalist Encounter Assessment: stat ekg and trop ordered to r/o VT. EKG with nsr, no acute ischemic changes, trop negative. low suspicion for VT. with vitals stable, low suspicion of PE, will defer further PE work-up unless patient has further/worsening symptoms. Hypokalemia on stat bmp. patient had declined pain medications earlier stating that dilauded made her feel bloated. She was not on DVT prophylaxis, will add SCD's for DVT prophylaxis. Tylenol suppository ordered, as pt is npo. vitals otherwise stable. Primary Physician Notified: Mehnaz Grady Time PMD Notified: 21:00 Recommendations/Interventions: Kdur ordered to replete potassium. Patient accepted dilauded injection and appears less anxious, pain improved. recommend to maintain SCD's for DVT prophylaxis. further evaluation by primary team in the morning. Visit type - Emergency Visit Emergency Visit: No - New Patient This patient is new to me today: Yes Date on this admission: 03/03/17 - Critical Care Critical Care patient: No
[2017-03-02] MEDS ORDERED: ACETAMINOPHEN 650 MG SUPP.RECT PR ONE (21:31)
--- NOTE | 2017-03-02 22:04 | PN ---
Progress Note (short form) - Note Progress Note: Patient continues to have abdominal pain Ngt inserted yesterday with abaout 300 cc bilious fluid ileostomy output minimal today, stoma is edematous FUA - unchanged dilated small bowel loops A: partial SBO P: rectal tube insertion through ileostomy opening to possibly open stenotic stoma secondary to edema - done. f/u FUA in am Problem List - Problems (1) Abdominal pain with vomiting Code(s): R10.9 - UNSPECIFIED ABDOMINAL PAIN R11.10 - VOMITING, UNSPECIFIED (2) Diverticulitis Code(s): K57.92 - DVTRCLI OF INTEST, PART UNSP, W/O PERF OR ABSCESS W/O BLEED Qualifiers: Diverticulitis site: large intestine Diverticulitis bleeding: without bleeding Diverticulitis complication: with perforation Qualified Code (s): K57.20 - Diverticulitis of large intestine with perforation and abscess without bleeding
[2017-03-02] MEDS: HYDROmorphone HCL CARPU-JECT 1 MG/1 ML DISP.SYRIN IVPB PRN (22:16)
[2017-03-02 22:22] LABS: ANION GAP 8 (8-16); CALCIUM 8.7 mg/dL (8.5-10.1); CO2 24 mmol/L (21-32); CREATININE 0.5 mg/dL (0.55-1.02); GLUCOSE,RANDOM 94 mg/dL (74-106)
[2017-03-02 22:23] LABS: TROPONIN I < 0.02 ng/ml (0.00-0.05)
[2017-03-02] MEDS: HYDROCORTISONE ACETATE 25 MG/SUPP.RECT RC SCH (22:31)
[2017-03-02] MEDS ORDERED: KCL 10 MEQ IVPB 100 ML IVPB SCH (22:45)
--- NOTE | 2017-03-02 23:50 | PN ---
Progress Note, Physician - Current Medication List Current Medications: Active Medications Hydrocortisone Acetate (Anusol Hc Suppository -) 25 mg RC HS [facility] Last Admin: 03/02/17 22:31 Dose: Not Given Hydromorphone HCl (Dilaudid Injection -) 0.5 mg IVPB Q6H PRN Last Admin: 03/02/17 22:16 Dose: 0.5 mg Pantoprazole Sodium (Protonix 40mg Ivpb (Pre-Docked)) 100 mls @ 200 mls/hr IVPB BID [facility] Last Admin: 03/02/17 21:32 Dose: 200 mls/hr Dextrose/Sodium Chloride (D5-1/2ns -) 1,000 mls @ 125 mls/hr IV ASDIR [facility] Last Admin: 03/02/17 18:02 Dose: 125 mls/hr Ondansetron HCl (Zofran Injection) 4 mg IVPB Q4H PRN PRN Reason: NAUSEA AND/OR VOMITING Last Admin: 02/26/17 22:48 Dose: 4 mg - Objective Vital Signs: Vital Signs Temperature 98.8 F 03/02/17 21:15 Pulse Rate 83 03/02/17 21:15 Respiratory Rate 18 03/02/17 21:15 Blood Pressure 129/91 03/02/17 21:15 O2 Sat by Pulse Oximetry (%) 97 03/02/17 09:00 Labs: CBC, BMP 03/02/17 05:40 03/02/17 21:30 Problem List - Problems (1) Abdominal pain with vomiting Code(s): R10.9 - UNSPECIFIED ABDOMINAL PAIN R11.10 - VOMITING, UNSPECIFIED (2) HTN (hypertension) Code(s): I10 - ESSENTIAL (PRIMARY) HYPERTENSION
[2017-03-03] MEDS: HEPARIN NA (PORCINE) 5,000 UNITS/ML 1ML VIAL SQ SCH ×3 (01:52→21:55)
[2017-03-03] MEDS: DEXTROSE 5%-0.45% SALINE 1,000 ML IV SCH ×2 (04:30→21:57)
[2017-03-03 07:23] LABS: BASOPHIL 0.6 % (0-2.0); EOSINOPHIL 3.7 % (0-4.5); MCH 27.4 pg (25.7-33.7); MCHC 33.5 g/dl (32.0-36.0); MEAN CELL VOLUME 81.9 fl (80-96); MEAN PLT VOLUME 9.2 fl (7.5-11.1); NEUTROPHILS 60.4 % (42.8-82.8); PLATELET COUNT 313 K/MM3 (134-434); RDW 14.8 % (11.6-15.6); WHITE BLOOD COUNT 6.3 K/mm3 (4.0-10.0)
[2017-03-03 07:49] LABS: ALBUMIN 2.8 g/dl (3.4-5.0); ALK PHOS 101 U/L (45-117); ANION GAP 9 (8-16); BILIRUBIN,TOTAL 0.6 mg/dL (0.2-1.0); CALCIUM 8.7 mg/dL (8.5-10.1); CO2 26 mmol/L (21-32); CREATININE 0.5 mg/dL (0.55-1.02); GLUCOSE,RANDOM 92 mg/dL (74-106); SGOT/AST 12 U/L (15-37); SGPT/ALT 19 U/L (12-78); TOT PROT 6.2 g/dl (6.4-8.2)
[2017-03-03] MEDS: PANTOPRAZOLE SODIUM 100 ML IVPB SCH ×2 (11:03→21:53)
--- NOTE | 2017-03-03 13:12 | PN ---
Progress Note, Physician History of Present Illness: feeling much better after catheter placed in ileostomy site ng tube minimal - Current Medication List Current Medications: Active Medications Heparin Sodium (Porcine) (Heparin -) 5,000 unit SQ BID [facility] Last Admin: 03/03/17 11:03 Dose: 5,000 unit Hydrocortisone Acetate (Anusol Hc Suppository -) 25 mg RC HS [facility] Last Admin: 03/02/17 22:31 Dose: Not Given Hydromorphone HCl (Dilaudid Injection -) 0.5 mg IVPB Q6H PRN PRN Reason: PAIN Pantoprazole Sodium (Protonix 40mg Ivpb (Pre-Docked)) 100 mls @ 200 mls/hr IVPB BID [facility] Last Admin: 03/03/17 11:03 Dose: 200 mls/hr Dextrose/Sodium Chloride (D5-1/2ns -) 1,000 mls @ 125 mls/hr IV ASDIR [facility] Last Admin: 03/03/17 04:30 Dose: 125 mls/hr Ondansetron HCl (Zofran Injection) 4 mg IVPB Q4H PRN PRN Reason: NAUSEA AND/OR VOMITING Last Admin: 02/26/17 22:48 Dose: 4 mg - Objective Vital Signs: Vital Signs Temperature 98.0 F 03/03/17 09:00 Pulse Rate 73 03/03/17 09:00 Respiratory Rate 18 03/03/17 09:00 Blood Pressure 128/82 03/03/17 09:00 O2 Sat by Pulse Oximetry (%) 95 03/02/17 21:00 Constitutional: Yes: Calm Cardiovascular: Yes: Regular Rate and Rhythm Respiratory: Yes: Regular, CTA Bilaterally Gastrointestinal: Yes: Normal Bowel Sounds, Soft, Other (ng tube in place ilestomy catheter in place ileostomy working well) Musculoskeletal: Yes: WNL Extremities: Yes: WNL Wound/Incision: Yes: Clean/Dry Neurological: Yes: Alert, Oriented Psychiatric: Yes: Alert, Oriented Labs: CBC, BMP 03/03/17 06:00 03/03/17 06:00 Assessment/Plan r/o pyelo abd pain nausea vomiting diverticulitis plan continue hydration stable off of abx rest ct current mgmt diet as per surgery
[2017-03-03] MEDS: HYDROmorphone HCL CARPU-JECT 1 MG/1 ML DISP.SYRIN IVPB PRN (13:53)
--- NOTE | 2017-03-03 18:37 | PN ---
Progress Note (short form) - Note Progress Note: patient feels better and no longer has abdominal pain after ileostomy intubation Afebrle, VSS Abd: soft, no tenderness, rectal tube in place NGT - 50 cc A: resolving partial SBO P: F/U FUA in am continue ilesotmy tube, and NGT(possible D/C in am) Problem List - Problems (1) Abdominal pain with vomiting Code(s): R10.9 - UNSPECIFIED ABDOMINAL PAIN R11.10 - VOMITING, UNSPECIFIED (2) Diverticulitis Code(s): K57.92 - DVTRCLI OF INTEST, PART UNSP, W/O PERF OR ABSCESS W/O BLEED Qualifiers: Diverticulitis site: large intestine Diverticulitis bleeding: without bleeding Diverticulitis complication: with perforation Qualified Code (s): K57.20 - Diverticulitis of large intestine with perforation and abscess without bleeding
[2017-03-03] MEDS ORDERED: PT OWN MED DRAWER 7, Y5N ONE (20:09)
[2017-03-03] MEDS ORDERED: POTASSIUM CHLORIDE 20 MEQ PREMIX IVPB 100 ML IVPB ONE (21:17)
[2017-03-03] MEDS: KCL 10 MEQ IVPB 100 ML IVPB SCH (21:54)
[2017-03-03] MEDS: HYDROCORTISONE ACETATE 25 MG/SUPP.RECT RC SCH (21:56)
--- NOTE | 2017-03-03 23:45 | PN ---
Progress Note, Physician - Current Medication List Current Medications: Active Medications Heparin Sodium (Porcine) (Heparin -) 5,000 unit SQ BID [facility] Last Admin: 03/03/17 21:55 Dose: 5,000 unit Hydrocortisone Acetate (Anusol Hc Suppository -) 25 mg RC HS [facility] Last Admin: 03/03/17 21:56 Dose: Not Given Hydromorphone HCl (Dilaudid Injection -) 0.5 mg IVPB Q6H PRN PRN Reason: PAIN Last Admin: 03/03/17 13:53 Dose: 0.5 mg Pantoprazole Sodium (Protonix 40mg Ivpb (Pre-Docked)) 100 mls @ 200 mls/hr IVPB BID [facility] Last Admin: 03/03/17 21:53 Dose: 200 mls/hr Dextrose/Sodium Chloride (D5-1/2ns -) 1,000 mls @ 125 mls/hr IV ASDIR [facility] Last Admin: 03/03/17 21:57 Dose: 125 mls/hr Ondansetron HCl (Zofran Injection) 4 mg IVPB Q4H PRN PRN Reason: NAUSEA AND/OR VOMITING Last Admin: 02/26/17 22:48 Dose: 4 mg - Objective Vital Signs: Vital Signs Temperature 98.2 F 03/03/17 23:11 Pulse Rate 83 03/03/17 23:11 Respiratory Rate 18 03/03/17 23:11 Blood Pressure 132/96 03/03/17 23:11 O2 Sat by Pulse Oximetry (%) 97 03/03/17 09:00 Labs: CBC, BMP 03/03/17 06:00 03/03/17 06:00 Problem List - Problems (1) Abdominal pain with vomiting Code(s): R10.9 - UNSPECIFIED ABDOMINAL PAIN R11.10 - VOMITING, UNSPECIFIED (2) HTN (hypertension) Code(s): I10 - ESSENTIAL (PRIMARY) HYPERTENSION
[2017-03-04] MEDS: KCL 10 MEQ IVPB 100 ML IVPB SCH (00:01)
[2017-03-04] MEDS: HYDROmorphone HCL CARPU-JECT 1 MG/1 ML DISP.SYRIN IVPB PRN (02:27)
[2017-03-04 08:26] LABS: BASOPHIL 0.5 % (0-2.0); EOSINOPHIL 3.7 % (0-4.5); MCH 27.5 pg (25.7-33.7); MCHC 33.6 g/dl (32.0-36.0); MEAN CELL VOLUME 81.7 fl (80-96); MEAN PLT VOLUME 8.8 fl (7.5-11.1); NEUTROPHILS 64.4 % (42.8-82.8); PLATELET COUNT 307 K/MM3 (134-434); RDW 14.7 % (11.6-15.6); WHITE BLOOD COUNT 7.4 K/mm3 (4.0-10.0)
[2017-03-04 08:44] LABS: ALBUMIN 2.8 g/dl (3.4-5.0); ANION GAP 8 (8-16); CALCIUM 8.8 mg/dL (8.5-10.1); CO2 26 mmol/L (21-32); GLUCOSE,RANDOM 94 mg/dL (74-106)
[2017-03-04 08:47] LABS: ALK PHOS 122 U/L (45-117); BILIRUBIN,TOTAL 0.4 mg/dL (0.2-1.0); CREATININE 0.6 mg/dL (0.55-1.02); SGOT/AST 13 U/L (15-37); SGPT/ALT 17 U/L (12-78); TOT PROT 6.4 g/dl (6.4-8.2)
[2017-03-04] MEDS: HEPARIN NA (PORCINE) 5,000 UNITS/ML 1ML VIAL SQ SCH ×2 (09:39→21:52)
[2017-03-04] MEDS: PANTOPRAZOLE SODIUM 100 ML IVPB SCH ×2 (09:39→21:52)
--- NOTE | 2017-03-04 13:37 | EKG ---
Test Reason : Blood Pressure : / mmHG Vent. Rate : 079 BPM Atrial Rate : 079 BPM P-R Int : 154 ms QRS Dur : 092 ms QT Int : 404 ms P-R-T Axes : 071 -20 045 degrees QTc Int : 463 ms NORMAL SINUS RHYTHM NORMAL ECG WHEN COMPARED WITH ECG OF 24-FEB-2017 16:24, NO SIGNIFICANT CHANGE WAS FOUND Confirmed by ZAC DIEGO MD ([id number]) on 03/04/2017 1:37:25 PM Referred By: Confirmed By:ZAC DIEGO MD
--- NOTE | 2017-03-04 14:15 | PN ---
Progress Note, Physician History of Present Illness: patient stable no new issues patient doing well - Current Medication List Current Medications: Active Medications Heparin Sodium (Porcine) (Heparin -) 5,000 unit SQ BID [facility] Last Admin: 03/04/17 09:39 Dose: 5,000 unit Hydrocortisone Acetate (Anusol Hc Suppository -) 25 mg RC HS [facility] Last Admin: 03/03/17 21:56 Dose: Not Given Hydromorphone HCl (Dilaudid Injection -) 0.5 mg IVPB Q6H PRN PRN Reason: PAIN Last Admin: 03/04/17 02:27 Dose: 0.5 mg Pantoprazole Sodium (Protonix 40mg Ivpb (Pre-Docked)) 100 mls @ 200 mls/hr IVPB BID [facility] Last Admin: 03/04/17 09:39 Dose: 200 mls/hr Dextrose/Sodium Chloride (D5-1/2ns -) 1,000 mls @ 125 mls/hr IV ASDIR [facility] Last Admin: 03/03/17 21:57 Dose: 125 mls/hr Ondansetron HCl (Zofran Injection) 4 mg IVPB Q4H PRN PRN Reason: NAUSEA AND/OR VOMITING Last Admin: 02/26/17 22:48 Dose: 4 mg - Objective Vital Signs: Vital Signs Temperature 98.1 F 03/04/17 09:00 Pulse Rate 80 03/04/17 09:00 Respiratory Rate 18 03/04/17 09:00 Blood Pressure 116/71 03/04/17 09:00 O2 Sat by Pulse Oximetry (%) 97 03/04/17 09:00 Constitutional: Yes: No Distress, Calm Cardiovascular: Yes: Regular Rate and Rhythm Respiratory: Yes: Regular, CTA Bilaterally Gastrointestinal: Yes: Normal Bowel Sounds, Soft, Other (ileostomy tube draiange tube in place) Musculoskeletal: Yes: WNL Extremities: Yes: WNL Neurological: Yes: Alert, Oriented Psychiatric: Yes: Alert, Oriented Labs: CBC, BMP 03/04/17 07:30 03/04/17 07:30 Assessment/Plan r/o pyelo abd pain nausea vomiting diverticulitis plan continue hydration stable off of abx ct as per surgery rest as per primary
[2017-03-04] MEDS: DEXTROSE 5%-0.45% SALINE 1,000 ML IV SCH (17:54)
--- NOTE | 2017-03-04 17:55 | PN ---
GI Progress Note Subjective: Patient feeling better Ostomy functioning well with rectal tube in place Good return in bag - Objective Vital Signs: Vital Signs Temperature 98.9 F 03/04/17 15:09 Pulse Rate 72 03/04/17 15:09 Respiratory Rate 18 03/04/17 15:09 Blood Pressure 118/67 03/04/17 15:09 O2 Sat by Pulse Oximetry (%) 97 03/04/17 09:00 Constitutional: Well Nourished Eyes: Yes: WNL HENT: Yes: WNL Neck: Yes: WNL Cardiovascular: Yes: Regular Rate and Rhythm Respiratory: Yes: CTA Bilaterally Gastrointestinal Inspection: Yes: WNL ...Auscultate: Yes: Normoactive Bowel Sounds ...Palpate: Yes: Soft. No: Tenderness Labs: CBC, BMP 03/04/17 07:30 03/04/17 07:30 Hepatic Panel Total Bilirubin 0.4 mg/dL (0.2-1.0) D 03/04/17 07:30 AST 13 U/L (15-37) L 03/04/17 07:30 ALT 17 U/L (12-78) 03/04/17 07:30 Alkaline Phosphatase 122 U/L (45-117) H D 03/04/17 07:30 Albumin 2.8 g/dl (3.4-5.0) L 03/04/17 07:30 - ....Imaging X-ray: Report Reviewed (Normal FUA earlier with no evidence of SBO) Assessment/Plan Doing well Ileostomy draining well with rectal tube in place No pain at this time Can d/c from GI POV at this time, with outpatient f/u
--- NOTE | 2017-03-04 19:34 | PN ---
Progress Note (short form) - Note Progress Note: Tolerating clear liquids Afebrile, VSS Abd: soft, ileostomy driaining bilious fluid via rectal tube FUA: resolved SBO A/P: advance JENNIFER, keep rectal tube until bowel edema subsides D/C planning Problem List - Problems (1) Abdominal pain with vomiting Code(s): R10.9 - UNSPECIFIED ABDOMINAL PAIN R11.10 - VOMITING, UNSPECIFIED (2) Diverticulitis Code(s): K57.92 - DVTRCLI OF INTEST, PART UNSP, W/O PERF OR ABSCESS W/O BLEED Qualifiers: Diverticulitis site: large intestine Diverticulitis bleeding: without bleeding Diverticulitis complication: with perforation Qualified Code (s): K57.20 - Diverticulitis of large intestine with perforation and abscess without bleeding
[2017-03-04] MEDS: HYDROCORTISONE ACETATE 25 MG/SUPP.RECT RC SCH (22:05)
--- NOTE | 2017-03-04 22:31 | PN ---
Progress Note, Physician History of Present Illness: NGT removed - Current Medication List Current Medications: Active Medications Heparin Sodium (Porcine) (Heparin -) 5,000 unit SQ BID [facility] Last Admin: 03/04/17 21:52 Dose: 5,000 unit Hydrocortisone Acetate (Anusol Hc Suppository -) 25 mg RC HS [facility] Last Admin: 03/04/17 22:05 Dose: Not Given Hydromorphone HCl (Dilaudid Injection -) 0.5 mg IVPB Q6H PRN PRN Reason: PAIN Last Admin: 03/04/17 02:27 Dose: 0.5 mg Pantoprazole Sodium (Protonix 40mg Ivpb (Pre-Docked)) 100 mls @ 200 mls/hr IVPB BID [facility] Last Admin: 03/04/17 21:52 Dose: 200 mls/hr Dextrose/Sodium Chloride (D5-1/2ns -) 1,000 mls @ 125 mls/hr IV ASDIR [facility] Last Admin: 03/04/17 17:54 Dose: 125 mls/hr Ondansetron HCl (Zofran Injection) 4 mg IVPB Q4H PRN PRN Reason: NAUSEA AND/OR VOMITING Last Admin: 02/26/17 22:48 Dose: 4 mg - Objective Vital Signs: Vital Signs Temperature 98.8 F 03/04/17 17:56 Pulse Rate 77 03/04/17 22:05 Respiratory Rate 18 03/04/17 22:05 Blood Pressure 122/76 03/04/17 22:05 O2 Sat by Pulse Oximetry (%) 97 03/04/17 09:00 Constitutional: Yes: No Distress Neck: Yes: WNL, Supple Cardiovascular: Yes: WNL, Regular Rate and Rhythm Respiratory: Yes: WNL, Regular, CTA Bilaterally Gastrointestinal: Yes: Normal Bowel Sounds, Soft, Other ((+) ileostomy) Labs: CBC, BMP 03/04/17 07:30 03/04/17 07:30 Problem List - Problems (1) Abdominal pain with vomiting Assessment/Plan: NGT removed Will advance diet Code(s): R10.9 - UNSPECIFIED ABDOMINAL PAIN R11.10 - VOMITING, UNSPECIFIED (2) HTN (hypertension) Assessment/Plan: BP remains stable off antihypertensives Code(s): I10 - ESSENTIAL (PRIMARY) HYPERTENSION
[2017-03-05] MEDS: DEXTROSE 5%-0.45% SALINE 1,000 ML IV SCH ×3 (03:12→21:30)
[2017-03-05] MEDS ORDERED: FLUCONAZOLE 50 MG TABLET PO ONE (09:00)
[2017-03-05] MEDS ORDERED: PT OWN MED DRAWER 7, Y5N ONE (10:01)
[2017-03-05] MEDS: PANTOPRAZOLE SODIUM 100 ML IVPB SCH ×2 (10:07→21:29)
[2017-03-05] MEDS: HEPARIN NA (PORCINE) 5,000 UNITS/ML 1ML VIAL SQ SCH ×2 (10:07→21:30)
[2017-03-05] MEDS: HYDROCORTISONE ACETATE 25 MG/SUPP.RECT RC SCH (21:30)
--- NOTE | 2017-03-05 21:55 | PN ---
Progress Note, Physician - Current Medication List Current Medications: Active Medications Heparin Sodium (Porcine) (Heparin -) 5,000 unit SQ BID [facility] Last Admin: 03/05/17 21:30 Dose: 5,000 unit Hydrocortisone Acetate (Anusol Hc Suppository -) 25 mg RC HS [facility] Last Admin: 03/05/17 21:30 Dose: Not Given Hydromorphone HCl (Dilaudid Injection -) 0.5 mg IVPB Q6H PRN PRN Reason: PAIN Last Admin: 03/04/17 02:27 Dose: 0.5 mg Pantoprazole Sodium (Protonix 40mg Ivpb (Pre-Docked)) 100 mls @ 200 mls/hr IVPB BID [facility] Last Admin: 03/05/17 21:29 Dose: 200 mls/hr Dextrose/Sodium Chloride (D5-1/2ns -) 1,000 mls @ 125 mls/hr IV ASDIR [facility] Last Admin: 03/05/17 21:30 Dose: 125 mls/hr Ondansetron HCl (Zofran Injection) 4 mg IVPB Q4H PRN PRN Reason: NAUSEA AND/OR VOMITING Last Admin: 02/26/17 22:48 Dose: 4 mg - Objective Vital Signs: Vital Signs Temperature 99.1 F 03/05/17 21:43 Pulse Rate 96 H 03/05/17 21:43 Respiratory Rate 18 03/05/17 21:43 Blood Pressure 130/82 03/05/17 21:43 O2 Sat by Pulse Oximetry (%) 94 L 03/05/17 10:00 Labs: CBC, BMP 03/04/17 07:30 03/04/17 07:30 Problem List - Problems (1) Abdominal pain with vomiting Code(s): R10.9 - UNSPECIFIED ABDOMINAL PAIN R11.10 - VOMITING, UNSPECIFIED (2) HTN (hypertension) Code(s): I10 - ESSENTIAL (PRIMARY) HYPERTENSION
[2017-03-06] MEDS: PANTOPRAZOLE SODIUM 100 ML IVPB SCH (09:22)
[2017-03-06] MEDS: HEPARIN NA (PORCINE) 5,000 UNITS/ML 1ML VIAL SQ SCH (09:23)
[2017-03-06] MEDS ORDERED: MAG HYDROX/AL HYDROX/SIMETH 30 ML UNIT-DOSE CUP PO ONE (11:00)
--- NOTE | 2017-03-06 12:42 | PN ---
Progress Note (short form) - Note Progress Note: Tolerating diet Abdomen soft, no tenderness, ileostomy less edematous, rectal tube in place A/P: clinically improved Advance to regular diet Man d/c home today with rectal tube in place. Problem List - Problems (1) Abdominal pain with vomiting Code(s): R10.9 - UNSPECIFIED ABDOMINAL PAIN R11.10 - VOMITING, UNSPECIFIED (2) Diverticulitis Code(s): K57.92 - DVTRCLI OF INTEST, PART UNSP, W/O PERF OR ABSCESS W/O BLEED Qualifiers: Diverticulitis site: large intestine Diverticulitis bleeding: without bleeding Diverticulitis complication: with perforation Qualified Code (s): K57.20 - Diverticulitis of large intestine with perforation and abscess without bleeding
--- NOTE | 2017-03-06 15:21 | PN ---
Progress Note, Physician History of Present Illness: patient stable no new issues patient doing well - Current Medication List Current Medications: Active Medications Heparin Sodium (Porcine) (Heparin -) 5,000 unit SQ BID [facility] Last Admin: 03/06/17 09:23 Dose: 5,000 unit Hydrocortisone Acetate (Anusol Hc Suppository -) 25 mg RC HS [facility] Last Admin: 03/05/17 21:30 Dose: Not Given Pantoprazole Sodium (Protonix 40mg Ivpb (Pre-Docked)) 100 mls @ 200 mls/hr IVPB BID [facility] Last Admin: 03/06/17 09:22 Dose: 200 mls/hr Dextrose/Sodium Chloride (D5-1/2ns -) 1,000 mls @ 125 mls/hr IV ASDIR [facility] Last Admin: 03/05/17 21:30 Dose: 125 mls/hr Ondansetron HCl (Zofran Injection) 4 mg IVPB Q4H PRN PRN Reason: NAUSEA AND/OR VOMITING Last Admin: 02/26/17 22:48 Dose: 4 mg - Objective Vital Signs: Vital Signs Temperature 98.0 F 03/06/17 10:05 Pulse Rate 72 03/06/17 10:05 Respiratory Rate 20 03/06/17 10:05 Blood Pressure 116/72 03/06/17 10:05 O2 Sat by Pulse Oximetry (%) 98 03/06/17 09:00 Constitutional: Yes: No Distress, Calm Eyes: Yes: Conjunctiva Clear HENT: Yes: Atraumatic Cardiovascular: Yes: Regular Rate and Rhythm Respiratory: Yes: Regular, CTA Bilaterally Gastrointestinal: Yes: Normal Bowel Sounds, Soft, Other (ilestomy bag with draiange tube) Musculoskeletal: Yes: WNL Extremities: Yes: WNL Neurological: Yes: Alert, Oriented Psychiatric: Yes: Alert Labs: CBC, BMP 03/04/17 07:30 03/04/17 07:30 Assessment/Plan r/o pyelo abd pain nausea vomiting diverticulitis plan continue current mgmt surgery monitoring rest as per primary team
[2017-03-06 15:59] VITALS: BP 139/81; PULSE 79; TEMP 98.5
== END 2017-03-06 16:34 | disposition home or self-care (01) | DRG 244 ==
LOC: JER 15:01 → JERBED 18:42 → UNDOADMIN 18:51 → J5S 20:40
PROVIDERS: ADMIT Internal Medicine; ATTEND Internal Medicine
PROC: 0D9670Z Drainage of Stomach with Drainage Device, Via Natural or Artificial Opening (ICD-10-PCS; principal; 2017-03-01)
PROC: 0D9 Gastrointestinal System, Drainage (ICD-10-PCS; 2017-03-01)
DX: K57.92 Diverticulitis of intestine, part unspecified, without perforation or abscess without bleeding (principal); K56.60 Unspecified intestinal obstruction; K56.7 Ileus, unspecified; E87.6 Hypokalemia; I10 Essential (primary) hypertension; Z93.2 Ileostomy status; K21.9 Gastro-esophageal reflux disease without esophagitis; K91.0 Vomiting following gastrointestinal surgery; R10.9 Unspecified abdominal pain
CPT/HCPCS: 36415; 71010-TC; 74020-TC; 74176; 74176-TC; 80048; 80053; 81003; 81015; 82150; 83690; 84484; 85025; 87040; 87086; 93005; 93010; 99283-25; 99284-25; J1644; Q9967

== ENCOUNTER 2017-03-12 13:51 | Inpatient (IN) | payer OTHER ==
[2017-03-12 14:01] VITALS: BMI 26.2
--- NOTE | 2017-03-12 14:33 | PDOC ---
Attending Attestation - HPI HPI: 03/12/17 15:24 The patient is a 47 year old female with a PMHx of diverticulitis. Patient needed surgery, which was complicated and was in the hopsital from [facility]03/10 for post op infection. The ostomy outputs have changed. She recently had a bladder infection. She reports abdominal pain and nausea. - Physicial Exam PE: 03/12/17 15:25 I agree with the residents physical exam. <Donna Holloway - Last Filed: 03/12/17 15:29> - Resident Resident Name: Shyam Schwarz - ED Attending Attestation I have performed the following: I have examined & evaluated the patient, The case was reviewed & discussed with the resident, I agree w/resident's findings & plan, Exceptions are as noted - Medical Decision Making 03/15/17 10:19 I agree with the residents assessment and plan <Ras Maria - Last Filed: 03/15/17 10:23>
[2017-03-12] MEDS ORDERED: HYDROmorphone HCL CARPU-JECT 1 MG/1 ML DISP.SYRIN IVPUSH ONE ×3 (14:35→23:39)
[2017-03-12] MEDS ORDERED: ONDANSETRON 4 MG/2 ML VIAL IVPB ONE (14:35)
[2017-03-12] MEDS ORDERED: HYDROmorphone HCL CARPU-JECT 1 MG/1 ML DISP.SYRIN ONE ×3 (14:41→23:40)
[2017-03-12] MEDS ORDERED: ONDANSETRON 4 MG/2 ML VIAL ONE (14:41)
[2017-03-12 14:45] LABS: BASOPHIL 0.4 % (0-2.0); EOSINOPHIL 1.5 % (0-4.5); MCH 27.1 pg (25.7-33.7); MCHC 32.9 g/dl (32.0-36.0); MEAN CELL VOLUME 82.3 fl (80-96); NEUTROPHILS 81.4 % (42.8-82.8); PLATELET COUNT 306 K/MM3 (134-434); RDW 15.2 % (11.6-15.6)
[2017-03-12] MEDS ORDERED: PIPERACILLIN/TAZOB 3.375 GM/50 ML PRE-DOCKED IV ONE (14:45)
[2017-03-12 15:15] LABS: ALBUMIN 3.7 g/dl (3.4-5.0); ALK PHOS 125 U/L (45-117); ANION GAP 13 (8-16); BILIRUBIN,TOTAL 0.5 mg/dL (0.2-1.0); CALCIUM 10.1 mg/dL (8.5-10.1); CO2 23 mmol/L (21-32); CREATININE 0.8 mg/dL (0.55-1.02); GLUCOSE,RANDOM 97 mg/dL (74-106); SGOT/AST 13 U/L (15-37); SGPT/ALT 21 U/L (12-78); TOT PROT 8.1 g/dl (6.4-8.2)
[2017-03-12 15:33] LABS: INR 1.2 (0.82-1.09); PROTHROMBIN TIME (PATIENT) 13.2 SEC (9.98-11.88)
[2017-03-12 15:35] LABS: ACTIVATED PTT 29.7 SECONDS (26.9-34.4)
--- NOTE | 2017-03-12 15:38 | PDOC ---
History of Present Illness - General Chief Complaint: Pain, Acute Stated Complaint: ABD PAIN Time Seen by Provider: 03/12/17 14:25 History Source: Patient Exam Limitations: No Limitations - History of Present Illness Initial Comments: 03/12/17 15:32 Patient is a 47F with history of diverticulitis s/p ostomy complicated by infection and blockage here today complaining of abdominal pain. She states that her abdominal pain started yesterday and has been gradually working since then. Her operation was on 02/14 and release date was on 03/10, per patient. She states that her nurse came by today and told her she thought her ostomy was darkening. She endorses nausea and vomiting. She states that every bump on the car ride hurt badly. She denies fevers, chills, chest pain, and shortness of breath. She states that her doctor diagnosed her with an asymptomatic UTI last week for which she was prescribed 3 days of cipro, which she completed. She's had no urinary symptoms since. Past History - Past Medical History Allergies/Adverse Reactions: Allergies Allergy/AdvReac Type Severity Reaction Status Date / Time No Known Allergies Allergy Verified 03/12/17 13:58 Home Medications: Ambulatory Orders NK [No Known Home Medication] 03/12/17 GI Disorders: Yes (diverticulitis) HTN: Yes Kidney Stones: Yes - Surgical History Abdominal Surgery: Yes (csection x1 , temp ileostomy) - Immunization History Immunization Up to Date: Yes - Psycho/Social/Smoking Cessation Hx Anxiety: No Suicidal Ideation: No Smoking History: Former smoker Have you smoked in the past 12 months: Yes Number of Cigarettes Smoked Daily: 2 Information on smoking cessation initiated: No 'Breaking Loose' booklet given: 02/24/17 Hx Alcohol Use: No Drug/Substance Use Hx: No Substance Use Type: None Review of Systems - Review of Systems Constitutional: Yes: Malaise, Weakness. No: Chills, Fever HEENTM: No: Blurred Vision, Recent change in vision Respiratory: No: Cough, Shortness of Breath Cardiac (ROS): No: Chest Pain, Edema ABD/GI: Yes: Nausea, Vomiting. No: Constipated, Diarrhea : No: Burning, Dysuria Neurological: No: Headache, Numbness *Physical Exam - Vital Signs Last Vital Signs Temp Pulse Resp BP Pulse Ox 98 F 120 H 19 133/79 99 07/24/17 13:58 03/12/17 13:58 03/12/17 13:58 03/12/17 13:58 03/12/17 13:58 - Physical Exam Comments: 03/12/17 15:40 Gen: In moderate distress, holding still on bed Abd: Ostomy in right lower side of abdomen, darkened mucusoa, bandaged. Tender to palpation with voluntary guarding. Normal bowel sounds. Soft. CV: Regular rate and rhythm, no murmurs rubs gallops Lung: Clear to auscultation bilaterally, normal work of breathing Ext: 2+ pulses bilaterally in lower extremities, no edema Neuro: Alert, oriented, no focal neuro deficits HEENT: Atraumatic, normocephalic ED Treatment Course - LABORATORY CBC & Chemistry Diagram: 03/12/17 14:35 03/12/17 14:35 - ADDITIONAL ORDERS Additional order review: Laboratory Results 03/12/17 14:35 Sodium 139 Potassium 4.4 Chloride 103 Carbon Dioxide 23 Anion Gap 13 BUN 15 D Creatinine 0.8 D Creat Clearance w eGFR > 60 Random Glucose 97 Calcium 10.1 Total Bilirubin 0.5 D AST 13 L ALT 21 D Alkaline Phosphatase 125 H Total Protein 8.1 D Albumin 3.7 D Lipase 241 03/12/17 14:35 RBC 4.54 MCV 82.3 MCHC 32.9 RDW 15.2 MPV 9.0 Neutrophils % 81.4 D Lymphocytes % 13.0 D Monocytes % 3.7 L Eosinophils % 1.5 Basophils % 0.4 - Medications Given in the ED: ED Medications Discontinued Medications Generic Name Dose Route Start Last Admin Trade Name Lyssa PRN Reason Stop Dose Admin Hydromorphone HCl 1 mg 03/12/17 14:35 03/12/17 14:47 Dilaudid Injection - IVPUSH 03/12/17 14:36 1 mg ONCE ONE Administration Ondansetron HCl 4 mg 03/12/17 14:35 03/12/17 14:47 Zofran Injection IVPB 03/12/17 14:36 4 mg ONCE ONE Administration Medical Decision Making - Medical Decision Making 03/12/17 15:43 47F with history of diverticulitis s/p ostomy, complicated by infection and blockage here today complaining of abdominal pain. Vital signs stable and normal. Differential includes, but is not limited to: bowel obstruction, wound infection, and wound abscess. Will do CBC, CMP, coags, UA and abdominal CT. 03/12/17 15:50 CBC shows elevated white count. *DC/Admit/Observation/Transfer Diagnosis at time of Disposition: Abdominal pain Qualifiers: Abdominal location: lower abdomen, unspecified Qualified Code(s): R10.30 - Lower abdominal pain, unspecified - Attestations Physician Attestion: 03/12/17 19:35 I, Dr. Shyam Schwarz, attest that this document has been prepared under my direction and personally reviewed by me in its entirety. I further attest, that it accurately reflects all work, treatment, procedures and medical decision -making performed by me.
--- NOTE | 2017-03-12 18:42 | CONSULT ---
Consult Consult Specialty:: infectious diseases Reason for Consultation:: abd pain - History of Present Illness Chief Complaint: abd pain stomal pain History of Present Illness: this patient who is well known to me from previous admission who had acute diverticulitis and underwent surgery with escape ileostomy was readmitted wiht obstructive symptoms with releif after catheter was placed in thro the stoms Now patinet comes back with severe pain in the abd and also at the ileostomy patient deines any other symptoms and denies fever and nausea and vomiting pain is bad and severe - History Source History Provided By: Patient Limitations to Obtaining History: No Limitations - Past Medical History Cardio/Vascular: Yes: HTN Gastrointestinal: Yes: Diverticulosis ...LMP: 02/15/17 - Past Surgical History Past Surgical History: Yes: Colectomy, Colostomy - Alcohol/Substance Use Hx Alcohol Use: No - Smoking History Smoking history: Former smoker Have you smoked in the past 12 months: Yes Aproximately how many cigarettes per day: 2 Home Medications - Allergies Allergies/Adverse Reactions: Allergies Allergy/AdvReac Type Severity Reaction Status Date / Time No Known Allergies Allergy Verified 03/12/17 13:58 - Home Medications Home Medications: Ambulatory Orders NK [No Known Home Medication] 03/12/17 Review of Systems - Review of Systems Constitutional: reports: No Symptoms Eyes: reports: No Symptoms HENT: reports: No Symptoms Neck: reports: No Symptoms Cardiovascular: reports: No Symptoms Respiratory: reports: No Symptoms Gastrointestinal: reports: Abdominal Pain, Other (ileostomy pain) Genitourinary: reports: No Symptoms Musculoskeletal: reports: No Symptoms Integumentary: reports: No Symptoms Neurological: reports: No Symptoms Endocrine: reports: No Symptoms Hematology/Lymphatic: reports: No Symptoms Physical Exam Vital Signs: Vital Signs Temperature 98 F 03/12/17 13:58 Pulse Rate 120 H 03/12/17 13:58 Respiratory Rate 19 03/12/17 13:58 Blood Pressure 133/79 03/12/17 13:58 O2 Sat by Pulse Oximetry (%) 99 03/12/17 13:58 Constitutional: Yes: Well Nourished, Moderate Distress Eyes: Yes: Conjunctiva Clear HENT: Yes: Atraumatic, Normocephalic Neck: Yes: Supple, Trachea Midline Cardiovascular: Yes: Regular Rate and Rhythm Respiratory: Yes: Regular, CTA Bilaterally Gastrointestinal: Yes: Other (absent breath sounds ileostomy in place color changes of the stoma site pain of the stoma) Musculoskeletal: Yes: WNL Extremities: Yes: WNL Wound/Incision: Yes: Clean/Dry, Well Approximated Neurological: Yes: Alert, Oriented Psychiatric: Yes: Alert, Oriented Labs: CBC, BMP 03/12/17 14:35 03/12/17 14:35 Imaging - Results Cat Scan: Report Reviewed, Image Reviewed Assessment/Plan patient evaluated s/p sigmoid resection and diverting ileostomy after loking at the stoms i think the stoma is threatened and it is prolapsin prolapse of the stoma 'abd pain diverticulitis post op plan will start patient on abx surgery needs to see the patient she will probably need revising the stoma npo hydration
--- NOTE | 2017-03-12 19:49 | PDOC ---
*Physical Exam - Vital Signs Last Vital Signs Temp Pulse Resp BP Pulse Ox 98 F 120 H 19 133/79 99 03/12/17 13:58 03/12/17 13:58 03/12/17 13:58 03/12/17 13:58 03/12/17 13:58 ED Treatment Course - LABORATORY CBC & Chemistry Diagram: 03/12/17 14:35 03/12/17 14:35 - ADDITIONAL ORDERS Additional order review: Laboratory Results 03/12/17 03/12/17 03/12/17 15:09 14:41 14:35 INR 1.20 H PTT (Actin FS) 29.7 Sodium 139 Potassium 4.4 Chloride 103 Carbon Dioxide 23 Anion Gap 13 BUN 15 D Creatinine 0.8 D Creat Clearance w eGFR > 60 Random Glucose 97 Calcium 10.1 Total Bilirubin 0.5 D AST 13 L ALT 21 D Alkaline Phosphatase 125 H Total Protein 8.1 D Albumin 3.7 D Lipase 241 Serum , Qual Negative 03/12/17 14:35 RBC 4.54 MCV 82.3 MCHC 32.9 RDW 15.2 MPV 9.0 Neutrophils % 81.4 D Lymphocytes % 13.0 D Monocytes % 3.7 L Eosinophils % 1.5 Basophils % 0.4 - Medications Given in the ED: ED Medications Discontinued Medications Generic Name Dose Route Start Last Admin Trade Name Lyssa PRN Reason Stop Dose Admin Hydromorphone HCl 1 mg 03/12/17 14:35 03/12/17 14:47 Dilaudid Injection - IVPUSH 03/12/17 14:36 1 mg ONCE ONE Administration Ondansetron HCl 4 mg 03/12/17 14:35 03/12/17 14:47 Zofran Injection IVPB 03/12/17 14:36 4 mg ONCE ONE Administration Piperacillin Sod/Tazobactam Sod 3.375 gm 03/12/17 14:45 03/12/17 15:43 Zosyn 3.375gm Ivpb (Pre-Docked) IV 03/12/17 14:46 3.375 gm ONCE ONE Administration Protocol Medical Decision Making - Medical Decision Making 03/12/17 19:40 The patient was signed out to me from the day team (Dr. Schwarz). The patient is laying comfortably in bed. We are awaiting abd CT to contact her surgeon Dr. Arreola. She will be admitted to medicine operational meteorologist. 03/12/17 22:39 Phone call was made to Dr. Velez around 9pm. Per the day team, Dr. Velez, the patient's surgeon, was called and was going to come see the patient after he left the OR. He has not seen the patient. Phone call was made to Dr. Velez around 9pm with no call back. 03/13/17 00:53 My attending spoke with Dr. Velez and he would like her admitted to Dr. Grady for a barium study tomorrow. I will put these orders in. *DC/Admit/Observation/Transfer Diagnosis at time of Disposition: Abdominal pain Qualifiers: Abdominal location: lower abdomen, unspecified Qualified Code(s): R10.30 - Lower abdominal pain, unspecified - Discharge Dispostion Admit: Yes - Referrals Referrals: Jose Santos MD [Primary Care Provider] - - Patient Instructions - Post Discharge Activity - Attestations Physician Attestion: 03/13/17 00:54 I, Dr. Braeden Payne, attest that this document has been prepared under my direction and personally reviewed by me in its entirety. I further attest, that it accurately reflects all work, treatment, procedures and medical decision -making performed by me.
[2017-03-13] MEDS ORDERED: HYDROmorphone HCL CARPU-JECT 1 MG/1 ML DISP.SYRIN IVPB PRN (00:01)
--- NOTE | 2017-03-13 00:10 | CONSULT ---
Consult - text type - Consultation Consultation Note: 47 yr old female s/p sigmoid resection and diverting ileostomy presenting with pain in the ostomy site Physical exam consistent with stomal prolapse plan for gastrograffin enema tomorrow and possible closure of ileostomy later this week
[2017-03-13] MEDS: D5-1/2NS+20 MEQ KCL - 1,000 ML IV SCH (00:31)
[2017-03-13] MEDS ORDERED: PIPERACILLIN/TAZOB 3.375 GM 50 ML IVPB ONE ×2 (04:49→09:27)
[2017-03-13] MEDS: PIPERACILLIN/TAZOB 3.375 GM 50 ML IVPB SCH ×3 (04:55→19:46)
[2017-03-13 06:42] LABS: BASOPHIL 0.3 % (0-2.0); EOSINOPHIL 3.2 % (0-4.5); MCH 27.5 pg (25.7-33.7); MCHC 33.4 g/dl (32.0-36.0); MEAN CELL VOLUME 82.3 fl (80-96); MEAN PLT VOLUME 9.2 fl (7.5-11.1); NEUTROPHILS 70.2 % (42.8-82.8); PLATELET COUNT 283 K/MM3 (134-434); RDW 15.1 % (11.6-15.6); WHITE BLOOD COUNT 9.2 K/mm3 (4.0-10.0)
[2017-03-13 07:04] LABS: ALBUMIN 3.2 g/dl (3.4-5.0); ALK PHOS 111 U/L (45-117); ANION GAP 9 (8-16); BILIRUBIN,TOTAL 0.6 mg/dL (0.2-1.0); CALCIUM 9.1 mg/dL (8.5-10.1); CO2 25 mmol/L (21-32); CREATININE 0.8 mg/dL (0.55-1.02); GLUCOSE,RANDOM 96 mg/dL (74-106); SGOT/AST 9 U/L (15-37); SGPT/ALT 17 U/L (12-78)
[2017-03-13] MEDS ORDERED: HYDROmorphone HCL CARPU-JECT 1 MG/1 ML DISP.SYRIN ONE (07:36)
--- NOTE | 2017-03-13 14:07 | PN ---
Progress Note, Physician History of Present Illness: patient wiht pain but stable surgery has evaluated the patient - Current Medication List Current Medications: Active Medications Hydromorphone HCl (Dilaudid Injection -) 1 mg IVPB Q4H PRN PRN Reason: PAIN Piperacillin Sod/Tazobactam Sod (Zosyn 3.375gm Ivpb (Pre-Docked)) 50 mls @ 100 mls/hr IVPB Q8H-IV NONA PRN Reason: Protocol Last Admin: 03/13/17 10:03 Dose: 100 mls/hr Potassium Chloride/Dextrose/Sod Cl (D5-1/2ns+20 Meq Kcl -) 1,000 mls @ 100 mls/ hr IV ASDIR NONA Last Admin: 03/13/17 00:31 Dose: 100 mls/hr - Objective Vital Signs: Vital Signs Temperature 98.4 F 03/13/17 12:40 Pulse Rate 75 03/13/17 12:40 Respiratory Rate 16 03/13/17 12:40 Blood Pressure 104/66 03/13/17 12:40 O2 Sat by Pulse Oximetry (%) 96 03/13/17 12:45 Constitutional: Yes: Calm, Mild Distress Cardiovascular: Yes: Regular Rate and Rhythm Respiratory: Yes: Regular, CTA Bilaterally Gastrointestinal: Yes: Hypoactive Bowel Sounds Musculoskeletal: Yes: WNL Extremities: Yes: WNL Neurological: Yes: Alert, Oriented Psychiatric: Yes: Alert, Oriented Labs: CBC, BMP 03/13/17 06:10 03/13/17 06:10 INR, PTT INR 1.20 (0.82-1.09) H 03/12/17 15:09 Assessment/Plan prolapse of the stoma 'abd pain diverticulitis post op plan continue abx plan as per surgery hydration rest as per primary
[2017-03-13] MEDS ORDERED: ONDANSETRON 4 MG/2 ML VIAL IVPB PRN (15:28)
--- NOTE | 2017-03-13 16:20 | SPA.PREOP ---
- PRE-OP NOTE Dx: Diverticulitis Planned Procedure: Closure of ileostomy Surgeon: Robert Palacios Consent: Obtained after surgeon explained all risks, benefits and alternatives. Opportunity for questions. Patient had none. Understood and signed without reservation. Last Vital Signs Temp Pulse Resp BP Pulse Ox 98.4 F 75 16 104/66 96 03/13/17 12:40 03/13/17 12:40 03/13/17 12:40 03/13/17 12:40 03/13/17 12:45 Lab Results WBC 9.2 K/mm3 (4.0-10.0) 03/13/17 06:10 RBC 3.92 M/mm3 (3.60-5.2) 03/13/17 06:10 Hgb 10.8 GM/dL (10.7-15.3) D 03/13/17 06:10 Hct 32.2 % (32.4-45.2) L 03/13/17 06:10 MCV 82.3 fl (80-96) 03/13/17 06:10 MCHC 33.4 g/dl (32.0-36.0) 03/13/17 06:10 RDW 15.1 % (11.6-15.6) 03/13/17 06:10 Plt Count 283 K/MM3 (134-434) 03/13/17 06:10 Sodium 140 mmol/L (136-145) 03/13/17 06:10 Potassium 4.0 mmol/L (3.5-5.1) 03/13/17 06:10 Chloride 106 mmol/L (98-107) 03/13/17 06:10 Carbon Dioxide 25 mmol/L (21-32) 03/13/17 06:10 Anion Gap 9 (8-16) 03/13/17 06:10 BUN 16 mg/dL (7-18) 03/13/17 06:10 Creatinine 0.8 mg/dL (0.55-1.02) 03/13/17 06:10 Random Glucose 96 mg/dL (74-106) 03/13/17 06:10 Calcium 9.1 mg/dL (8.5-10.1) 03/13/17 06:10 INR 1.20 (0.82-1.09) H 03/12/17 15:09 - ASSESSMENT/PLAN 1. Make NPO after midnight except PO meds 2. GI/DVT PPX 3. Medical optimization / clearance Visit type - Case Type Case Type: ED Admission - New patient This patient is new to me today: Yes Date on this admission: 03/13/17
--- NOTE | 2017-03-13 16:55 | HP ---
Admitting History and Physical - Past Medical History Cardiovascular: Yes: HTN Gastrointestinal: Yes: Diverticulosis ...LMP: 02/15/17 - Past Surgical History Past Surgical History: Yes: Colectomy, Colostomy - Smoking History Smoking history: Former smoker Have you smoked in the past 12 months: Yes Aproximately how many cigarettes per day: 2 - Alcohol/Substance Use Hx Alcohol Use: No Home Medications - Allergies Allergies/Adverse Reactions: Allergies Allergy/AdvReac Type Severity Reaction Status Date / Time No Known Allergies Allergy Verified 03/12/17 13:58 - Home Medications Home Medications: Ambulatory Orders NK [No Known Home Medication] 03/12/17 Physical Examination Vital Signs: Vital Signs Temperature 98.4 F 03/13/17 12:40 Pulse Rate 75 03/13/17 12:40 Respiratory Rate 16 03/13/17 12:40 Blood Pressure 104/66 03/13/17 12:40 O2 Sat by Pulse Oximetry (%) 96 03/13/17 12:45 Labs: CBC, BMP 03/13/17 06:10 03/13/17 06:10
[2017-03-13] MEDS ORDERED: PIPERACILLIN/TAZOBACTAM 3.375 GM VIAL IVPB ONE ×2 (19:18→21:38)
[2017-03-13] MEDS ORDERED: DEXTROSE 5%-WATER - 50 ML IVPB ONE ×2 (19:19→21:38)
[2017-03-13] MEDS: PIPERACILLIN/TAZOB 3.375 GM 3.375 GM in DEXTROSE 5%-WATER - 50 ML IVPB SCH (19:21)
--- NOTE | 2017-03-13 20:49 | EKG ---
Test Reason : Blood Pressure : / mmHG Vent. Rate : 091 BPM Atrial Rate : 091 BPM P-R Int : 126 ms QRS Dur : 080 ms QT Int : 376 ms P-R-T Axes : 064 -16 042 degrees QTc Int : 462 ms NORMAL SINUS RHYTHM NORMAL ECG WHEN COMPARED WITH ECG OF 02-MAR-2017 22:20, NO SIGNIFICANT CHANGE WAS FOUND NO CLINICAL INFORMATION IS AVAILABLE Confirmed by ELVIN DAVE MD ([id number]) on 03/13/2017 8:49:25 PM Referred By: Confirmed By:ELVIN DAVE MD
[2017-03-13] MEDS: HEPARIN NA (PORCINE) 5,000 UNITS/ML 1ML VIAL SQ SCH (21:47)
[2017-03-14] MEDS: D5-1/2NS+20 MEQ KCL - 1,000 ML IV SCH ×2 (01:34→21:35)
[2017-03-14] MEDS: PIPERACILLIN/TAZOB 3.375 GM 3.375 GM in DEXTROSE 5%-WATER - 50 ML IVPB SCH ×3 (01:34→18:53)
[2017-03-14 07:15] LABS: BASOPHIL 0.7 % (0-2.0); EOSINOPHIL 4.8 % (0-4.5); MCH 29.9 pg (25.7-33.7); MCHC 33.3 g/dl (32.0-36.0); MEAN CELL VOLUME 89.8 fl (80-96); MEAN PLT VOLUME 7.5 fl (7.5-11.1); NEUTROPHILS 74.4 % (42.8-82.8); PLATELET COUNT 467 K/MM3 (134-434); RDW 15.3 % (11.6-15.6); WHITE BLOOD COUNT 13.1 K/mm3 (4.0-10.0)
[2017-03-14 07:51] LABS: ALBUMIN 3.1 g/dl (3.4-5.0); ALK PHOS 136 U/L (45-117); ANION GAP 10 (8-16); BILIRUBIN,TOTAL 0.6 mg/dL (0.2-1.0); CALCIUM 8.7 mg/dL (8.5-10.1); CO2 24 mmol/L (21-32); CREATININE 0.7 mg/dL (0.55-1.02); GLUCOSE,RANDOM 91 mg/dL (74-106); SGOT/AST 23 U/L (15-37); SGPT/ALT 24 U/L (12-78); TOT PROT 6.6 g/dl (6.4-8.2)
[2017-03-14] MEDS ORDERED: DEXTROSE 5%-WATER - 50 ML IVPB ONE ×3 (09:17→20:11)
[2017-03-14] MEDS ORDERED: PIPERACILLIN/TAZOBACTAM 3.375 GM VIAL IVPB ONE ×3 (09:17→20:11)
[2017-03-14] MEDS: HEPARIN NA (PORCINE) 5,000 UNITS/ML 1ML VIAL SQ SCH ×2 (09:21→21:34)
[2017-03-14] MEDS ORDERED: CITRIC ACID/SODIUM CITRATE 30 ML UNIT-DOSE CUP PO ONE (13:20)
--- NOTE | 2017-03-14 13:27 | PN ---
Progress Note, Physician History of Present Illness: stable for surgery - Current Medication List Current Medications: Active Medications Heparin Sodium (Porcine) (Heparin -) 5,000 unit SQ BID NONA Last Admin: 03/14/17 09:21 Dose: Not Given Hydromorphone HCl (Dilaudid Injection -) 1 mg IVPB Q4H PRN PRN Reason: PAIN Last Admin: 03/13/17 14:28 Dose: 1 mg Potassium Chloride/Dextrose/Sod Cl (D5-1/2ns+20 Meq Kcl -) 1,000 mls @ 100 mls/ hr IV ASDIR NONA Last Admin: 03/14/17 01:34 Dose: Not Given Piperacillin Sod/Tazobactam (Sod 3.375 gm/ Dextrose) 50 mls @ 100 mls/hr IVPB Q8H-IV NONA Last Admin: 03/14/17 09:22 Dose: 100 mls/hr Ondansetron HCl (Zofran Injection) 4 mg IVPB Q6H PRN PRN Reason: NAUSEA AND/OR VOMITING Last Admin: 03/14/17 11:10 Dose: 4 mg - Objective Vital Signs: Vital Signs Temperature 98.4 F 03/14/17 06:00 Pulse Rate 83 03/14/17 06:00 Respiratory Rate 20 03/14/17 06:00 Blood Pressure 119/74 03/14/17 06:00 O2 Sat by Pulse Oximetry (%) 96 03/13/17 21:00 Constitutional: Yes: No Distress, Calm Cardiovascular: Yes: Regular Rate and Rhythm Respiratory: Yes: Regular, CTA Bilaterally Gastrointestinal: Yes: Normal Bowel Sounds, Hypoactive Bowel Sounds Musculoskeletal: Yes: WNL Extremities: Yes: WNL Neurological: Yes: Alert, Oriented Psychiatric: Yes: Alert, Oriented Labs: CBC, BMP 03/14/17 06:00 03/14/17 06:00 INR, PTT INR 1.20 (0.82-1.09) H 03/12/17 15:09 Assessment/Plan prolapse of the stoma 'abd pain diverticulitis post op plan continue abx will decide about abx after surgery
[2017-03-14] MEDS ORDERED: PROPOFOL 20 ML ONE ×2 (13:36→15:05)
[2017-03-14] MEDS ORDERED: SUCCINYLCHOLINE CHLORIDE 200 MG/10 ML VIAL ONE (13:37)
[2017-03-14] MEDS ORDERED: MIDAZOLAM HCL 2 MG/2 ML SINGLE DOSE VIAL ONE (13:37)
[2017-03-14] MEDS ORDERED: ESMOLOL HCL 10 ML ONE (14:31)
[2017-03-14] MEDS ORDERED: NEOSTIGMINE METHYLSULFATE 0.5 MG/ML - 10 ML MDV ONE (15:12)
[2017-03-14] MEDS ORDERED: GLYCOPYRROLATE 0.2 MG/1 ML VIAL ONE (15:12)
[2017-03-14] MEDS ORDERED: ACETAMINOPHEN 325 MG TABLET (FP) PO PRN (15:36)
[2017-03-14] MEDS ORDERED: ONDANSETRON 4 MG/2 ML VIAL IVPUSH PRN (15:40)
--- NOTE | 2017-03-14 15:40 | OP ---
Operative Note - Note: Operative Date: 03/14/17 Pre-Operative Diagnosis: s/p sigmoid resection with diverting ileostomy Operation: closure of ileostomy Post-Operative Diagnosis: Same as Pre-op Surgeon: Robert Palacios Assistant Fitness Manager: Bety Leal Anesthesia: General Specimens Removed: ileostomy Estimated Blood Loss (mls): 50 Operative Report Dictated: Yes
[2017-03-14] MEDS ORDERED: HYDROmorphone HCL CARPU-JECT 2 MG/1 ML DISP.SYRIN IVPUSH ONE ×2 (15:45→15:55)
[2017-03-14] MEDS ORDERED: HYDROmorphone HCL CARPU-JECT 2 MG/1 ML DISP.SYRIN ONE (15:53)
[2017-03-14] MEDS ORDERED: ONDANSETRON 4 MG/2 ML VIAL IVPB PRN (16:09)
[2017-03-14] MEDS: HYDROmorphone HCL CARPU-JECT 1 MG/1 ML DISP.SYRIN IVPB PRN ×2 (18:32→22:25)
[2017-03-14] MEDS: KETOROLAC TROMETHAMINE 30 MG/1 ML VIAL IVPB PRN (19:16)
[2017-03-15] MEDS: PIPERACILLIN/TAZOB 3.375 GM 3.375 GM in DEXTROSE 5%-WATER - 50 ML IVPB SCH ×2 (02:00→09:31)
[2017-03-15] MEDS: D5-1/2NS+20 MEQ KCL - 1,000 ML IV SCH ×3 (05:50→20:20)
[2017-03-15] MEDS: HYDROmorphone HCL CARPU-JECT 1 MG/1 ML DISP.SYRIN IVPB PRN (05:56)
--- NOTE | 2017-03-15 06:20 | PN ---
Progress Note, Physician Chief Complaint: pain History of Present Illness: s/p closure of ileostomy - Current Medication List Current Medications: Active Medications Acetaminophen (Tylenol -) 650 mg PO Q6H PRN PRN Reason: FEVER OR PAIN Fentanyl (Sublimaze Injection -) 50 mcg IVPUSH [id number] PRN PRN Reason: PAIN Stop: 03/17/17 15:41 Heparin Sodium (Porcine) (Heparin -) 5,000 unit SQ BID NONA Last Admin: 03/14/17 21:34 Dose: 5,000 unit Hydromorphone HCl (Dilaudid Injection -) 1 mg IVPB Q4H PRN PRN Reason: PAIN Last Admin: 03/15/17 05:56 Dose: 1 mg Lactated Ringer's (Lactated Ringers Solution) 1,000 mls @ 125 mls/hr IV ASDIR NONA Potassium Chloride/Dextrose/Sod Cl (D5-1/2ns+20 Meq Kcl -) 1,000 mls @ 100 mls/ hr IV ASDIR NONA Last Admin: 03/15/17 05:50 Dose: 100 mls/hr Piperacillin Sod/Tazobactam (Sod 3.375 gm/ Dextrose) 50 mls @ 100 mls/hr IVPB Q8H-IV NONA Last Admin: 03/15/17 02:00 Dose: 100 mls/hr Ketorolac Tromethamine (Toradol Injection -) 30 mg IVPB Q6H PRN PRN Reason: PAIN Stop: 03/19/17 19:07 Last Admin: 03/14/17 19:16 Dose: 30 mg Ondansetron HCl (Zofran Injection) 4 mg IVPB Q6H PRN PRN Reason: NAUSEA AND/OR VOMITING - Objective Vital Signs: Vital Signs Temperature 98.5 F 03/15/17 02:33 Pulse Rate 66 03/15/17 02:33 Respiratory Rate 20 03/15/17 02:33 Blood Pressure 101/66 03/15/17 02:33 O2 Sat by Pulse Oximetry (%) 99 03/14/17 21:00 Labs: CBC, BMP 03/14/17 06:00 03/14/17 06:00 INR, PTT INR 1.20 (0.82-1.09) H 03/12/17 15:09 Problem List - Problems (1) Abdominal pain Code(s): R10.9 - UNSPECIFIED ABDOMINAL PAIN Qualifiers: Abdominal location: lower abdomen, unspecified Qualified Code(s): R10.30 - Lower abdominal pain, unspecified Assessment/Plan s/p closure of ileostomy continue NPO labs pain managment
--- NOTE | 2017-03-15 08:15 | SURG ---
Surgery Avionics Installer Note Avionics Installer: Bety Leal PA-C Date of Service: 03/14/17 Diagnosis: s/p sigmoid resection with diverting ileostomy Procedure: closure of ileostomy I was present for the entirety of the operative procedure. For further detail, please refer to operative report. Visit type - Case Type Case Type: ED Admission - Emergency Emergency Visit: Yes ED Registration Date: 03/13/17 Care time: The patient presented to the Emergency Department on the above date and was hospitalized for further evaluation of their emergent condition. - New patient This patient is new to me today: No - Critical Care Critical Care patient: No
[2017-03-15 08:20] LABS: BASOPHIL 0.2 % (0-2.0); MCH 27.5 pg (25.7-33.7); MCHC 33.4 g/dl (32.0-36.0); MEAN CELL VOLUME 82.3 fl (80-96); MEAN PLT VOLUME 9.4 fl (7.5-11.1); NEUTROPHILS 79.4 % (42.8-82.8); PLATELET COUNT 243 K/MM3 (134-434); WHITE BLOOD COUNT 7.5 K/mm3 (4.0-10.0)
[2017-03-15 09:10] LABS: ANION GAP 7 (8-16); CALCIUM 8.2 mg/dL (8.5-10.1); CO2 25 mmol/L (21-32); CREATININE 0.6 mg/dL (0.55-1.02); GLUCOSE,RANDOM 92 mg/dL (74-106)
[2017-03-15] MEDS ORDERED: PT OWN MED DRAWER 7, Y5N ONE (09:22)
[2017-03-15] MEDS ORDERED: DEXTROSE 5%-WATER - 50 ML IVPB ONE (09:23)
[2017-03-15] MEDS ORDERED: PIPERACILLIN/TAZOBACTAM 3.375 GM VIAL IVPB ONE (09:23)
[2017-03-15] MEDS: KETOROLAC TROMETHAMINE 30 MG/1 ML VIAL IVPB PRN ×2 (09:27→16:38)
[2017-03-15] MEDS: HEPARIN NA (PORCINE) 5,000 UNITS/ML 1ML VIAL SQ SCH ×2 (09:32→21:35)
--- NOTE | 2017-03-15 14:11 | PN ---
Progress Note, Physician History of Present Illness: stable reversal of ileostomy no complaints - Current Medication List Current Medications: Active Medications Acetaminophen (Tylenol -) 650 mg PO Q6H PRN PRN Reason: FEVER OR PAIN Fentanyl (Sublimaze Injection -) 50 mcg IVPUSH [id number] PRN PRN Reason: PAIN Stop: 03/17/17 15:41 Heparin Sodium (Porcine) (Heparin -) 5,000 unit SQ BID NONA Last Admin: 03/15/17 09:32 Dose: 5,000 unit Hydromorphone HCl (Dilaudid Injection -) 1 mg IVPB Q4H PRN PRN Reason: PAIN Last Admin: 03/15/17 05:56 Dose: 1 mg Lactated Ringer's (Lactated Ringers Solution) 1,000 mls @ 125 mls/hr IV ASDIR NONA Potassium Chloride/Dextrose/Sod Cl (D5-1/2ns+20 Meq Kcl -) 1,000 mls @ 100 mls/ hr IV ASDIR NONA Last Admin: 03/15/17 05:50 Dose: 100 mls/hr Piperacillin Sod/Tazobactam (Sod 3.375 gm/ Dextrose) 50 mls @ 100 mls/hr IVPB Q8H-IV NONA Last Admin: 03/15/17 09:31 Dose: 100 mls/hr Pantoprazole Sodium 40 mg/ (Sodium Chloride) 100 mls @ 200 mls/hr IVPB DAILY NONA Ketorolac Tromethamine (Toradol Injection -) 30 mg IVPB Q6H PRN PRN Reason: PAIN Stop: 03/19/17 19:07 Last Admin: 03/15/17 09:27 Dose: 30 mg Ondansetron HCl (Zofran Injection) 4 mg IVPB Q6H PRN PRN Reason: NAUSEA AND/OR VOMITING - Objective Vital Signs: Vital Signs Temperature 98.4 F 03/15/17 09:00 Pulse Rate 75 03/15/17 09:00 Respiratory Rate 18 03/15/17 09:00 Blood Pressure 140/90 03/15/17 09:00 O2 Sat by Pulse Oximetry (%) 99 03/14/17 21:00 Constitutional: Yes: No Distress, Calm Cardiovascular: Yes: Regular Rate and Rhythm Respiratory: Yes: Regular, CTA Bilaterally Gastrointestinal: Yes: Normal Bowel Sounds, Soft, Other (abd dressing wet) Musculoskeletal: Yes: WNL Extremities: Yes: WNL Labs: CBC, BMP 03/15/17 06:00 03/15/17 06:00 INR, PTT INR 1.20 (0.82-1.09) H 03/12/17 15:09 Assessment/Plan prolapse of the stoma 'abd pain diverticulitis post op plan will stop abx will give protonix
[2017-03-15] MEDS ORDERED: PANTOPRAZOLE SODIUM 100 ML IVPB SCH (14:15)
--- NOTE | 2017-03-15 14:24 | PN ---
Progress Note (short form) - Note Progress Note: POD #1 - s/p closure of ileostomy under general anesthesia. Pt. doing well, currently walking about room. VSS. No apparent anesthetic complications noted. Continue current care.
[2017-03-15] MEDS ORDERED: PANTOPRAZOLE SODIUM 40 MG VIAL ONE (15:11)
[2017-03-15] MEDS ORDERED: SODIUM CHLORIDE 100 ML IVPB ONE (15:12)
[2017-03-15] MEDS: PANTOPRAZOLE SODIUM 40 MG in SODIUM CHLORIDE 100 ML IVPB SCH (15:16)
[2017-03-15] MEDS: LACTATED RINGERS SOLUTION 1,000 ML IV SCH (19:53)
--- NOTE | 2017-03-15 22:29 | PN ---
Progress Note, Physician - Current Medication List Current Medications: Active Medications Acetaminophen (Tylenol -) 650 mg PO Q6H PRN PRN Reason: FEVER OR PAIN Fentanyl (Sublimaze Injection -) 50 mcg IVPUSH [id number] PRN PRN Reason: PAIN Stop: 03/17/17 15:41 Heparin Sodium (Porcine) (Heparin -) 5,000 unit SQ BID NONA Last Admin: 03/15/17 21:35 Dose: 5,000 unit Hydromorphone HCl (Dilaudid Injection -) 1 mg IVPB Q4H PRN PRN Reason: PAIN Last Admin: 03/15/17 05:56 Dose: 1 mg Lactated Ringer's (Lactated Ringers Solution) 1,000 mls @ 125 mls/hr IV ASDIR [facility] Last Admin: 03/15/17 19:53 Dose: Not Given Potassium Chloride/Dextrose/Sod Cl (D5-1/2ns+20 Meq Kcl -) 1,000 mls @ 100 mls/ hr IV ASDIR [facility] Last Admin: 03/15/17 20:20 Dose: 100 mls/hr Pantoprazole Sodium 40 mg/ (Sodium Chloride) 100 mls @ 200 mls/hr IVPB DAILY [facility] Last Admin: 03/15/17 15:16 Dose: 200 mls/hr Ketorolac Tromethamine (Toradol Injection -) 30 mg IVPB Q6H PRN PRN Reason: PAIN Stop: 03/19/17 19:07 Last Admin: 03/15/17 16:38 Dose: 30 mg Ondansetron HCl (Zofran Injection) 4 mg IVPB Q6H PRN PRN Reason: NAUSEA AND/OR VOMITING Last Admin: 03/15/17 16:04 Dose: 4 mg - Objective Vital Signs: Vital Signs Temperature 98.2 F 03/15/17 15:36 Pulse Rate 78 03/15/17 15:36 Respiratory Rate 16 03/15/17 21:00 Blood Pressure 121/81 03/15/17 15:36 O2 Sat by Pulse Oximetry (%) 99 03/15/17 21:00 Labs: CBC, BMP 03/15/17 06:00 03/15/17 06:00 INR, PTT INR 1.20 (0.82-1.09) H 03/12/17 15:09
[2017-03-16] MEDS: KETOROLAC TROMETHAMINE 30 MG/1 ML VIAL IVPB PRN ×3 (02:19→22:32)
[2017-03-16] MEDS: D5-1/2NS+20 MEQ KCL - 1,000 ML IV SCH ×2 (07:08→18:01)
[2017-03-16] MEDS: LACTATED RINGERS SOLUTION 1,000 ML IV SCH ×2 (07:56→16:01)
[2017-03-16 09:31] LABS: BASOPHIL 0.3 % (0-2.0); EOSINOPHIL 5.1 % (0-4.5); MCH 27.1 pg (25.7-33.7); MCHC 33.1 g/dl (32.0-36.0); MEAN CELL VOLUME 81.9 fl (80-96); MEAN PLT VOLUME 9.6 fl (7.5-11.1); NEUTROPHILS 65.8 % (42.8-82.8); PLATELET COUNT 264 K/MM3 (134-434); WHITE BLOOD COUNT 5.4 K/mm3 (4.0-10.0)
--- NOTE | 2017-03-16 10:51 | PN ---
Progress Note, Physician History of Present Illness: s/p closure of ileostomy feeling better, BMs several over the last 4 hrs denies fever - Current Medication List Current Medications: Active Medications Acetaminophen (Tylenol -) 650 mg PO Q6H PRN PRN Reason: FEVER OR PAIN Fentanyl (Sublimaze Injection -) 50 mcg IVPUSH [id number] PRN PRN Reason: PAIN Stop: 03/17/17 15:41 Heparin Sodium (Porcine) (Heparin -) 5,000 unit SQ BID [facility] Last Admin: 03/15/17 21:35 Dose: 5,000 unit Hydromorphone HCl (Dilaudid Injection -) 1 mg IVPB Q4H PRN PRN Reason: PAIN Last Admin: 03/15/17 05:56 Dose: 1 mg Lactated Ringer's (Lactated Ringers Solution) 1,000 mls @ 125 mls/hr IV ASDIR [facility] Last Admin: 03/16/17 07:56 Dose: Not Given Potassium Chloride/Dextrose/Sod Cl (D5-1/2ns+20 Meq Kcl -) 1,000 mls @ 100 mls/ hr IV ASDIR [facility] Last Admin: 03/16/17 07:08 Dose: 100 mls/hr Pantoprazole Sodium 40 mg/ (Sodium Chloride) 100 mls @ 200 mls/hr IVPB DAILY [facility] Last Admin: 03/15/17 15:16 Dose: 200 mls/hr Ketorolac Tromethamine (Toradol Injection -) 30 mg IVPB Q6H PRN PRN Reason: PAIN Stop: 03/19/17 19:07 Last Admin: 03/16/17 02:19 Dose: 30 mg Ondansetron HCl (Zofran Injection) 4 mg IVPB Q6H PRN PRN Reason: NAUSEA AND/OR VOMITING Last Admin: 03/15/17 16:04 Dose: 4 mg - Objective Vital Signs: Vital Signs Temperature 98.9 F 03/16/17 09:00 Pulse Rate 70 03/16/17 09:00 Respiratory Rate 22 03/16/17 09:00 Blood Pressure 132/75 03/16/17 09:00 O2 Sat by Pulse Oximetry (%) 99 03/15/17 21:00 Labs: CBC, BMP 03/16/17 08:00 INR, PTT INR 1.20 (0.82-1.09) H 03/12/17 15:09 Problem List - Problems (1) Abdominal pain Code(s): R10.9 - UNSPECIFIED ABDOMINAL PAIN Qualifiers: Abdominal location: lower abdomen, unspecified Qualified Code(s): R10.30 - Lower abdominal pain, unspecified Assessment/Plan doing well advance diet
[2017-03-16] MEDS ORDERED: SODIUM CHLORIDE 100 ML IVPB ONE (11:08)
[2017-03-16] MEDS ORDERED: PANTOPRAZOLE SODIUM 40 MG VIAL ONE (11:08)
[2017-03-16] MEDS: HEPARIN NA (PORCINE) 5,000 UNITS/ML 1ML VIAL SQ SCH ×2 (11:14→22:34)
[2017-03-16] MEDS: PANTOPRAZOLE SODIUM 40 MG in SODIUM CHLORIDE 100 ML IVPB SCH (11:14)
--- NOTE | 2017-03-16 12:39 | PN ---
Progress Note, Physician History of Present Illness: feeling good no complaints plan is to start liquids orally - Current Medication List Current Medications: Active Medications Acetaminophen (Tylenol -) 650 mg PO Q6H PRN PRN Reason: FEVER OR PAIN Fentanyl (Sublimaze Injection -) 50 mcg IVPUSH [id number] PRN PRN Reason: PAIN Stop: 03/17/17 15:41 Heparin Sodium (Porcine) (Heparin -) 5,000 unit SQ BID [facility] Last Admin: 03/16/17 11:14 Dose: 5,000 unit Hydromorphone HCl (Dilaudid Injection -) 1 mg IVPB Q4H PRN PRN Reason: PAIN Last Admin: 03/15/17 05:56 Dose: 1 mg Lactated Ringer's (Lactated Ringers Solution) 1,000 mls @ 125 mls/hr IV ASDIR [facility] Last Admin: 03/16/17 07:56 Dose: Not Given Potassium Chloride/Dextrose/Sod Cl (D5-1/2ns+20 Meq Kcl -) 1,000 mls @ 100 mls/ hr IV ASDIR [facility] Last Admin: 03/16/17 07:08 Dose: 100 mls/hr Pantoprazole Sodium 40 mg/ (Sodium Chloride) 100 mls @ 200 mls/hr IVPB DAILY [facility] Last Admin: 03/16/17 11:14 Dose: 200 mls/hr Ketorolac Tromethamine (Toradol Injection -) 30 mg IVPB Q6H PRN PRN Reason: PAIN Stop: 03/19/17 19:07 Last Admin: 03/16/17 02:19 Dose: 30 mg Ondansetron HCl (Zofran Injection) 4 mg IVPB Q6H PRN PRN Reason: NAUSEA AND/OR VOMITING Last Admin: 03/15/17 16:04 Dose: 4 mg - Objective Vital Signs: Vital Signs Temperature 98.9 F 03/16/17 09:00 Pulse Rate 70 03/16/17 09:00 Respiratory Rate 22 03/16/17 09:00 Blood Pressure 132/75 03/16/17 09:00 O2 Sat by Pulse Oximetry (%) 99 03/15/17 21:00 Constitutional: Yes: No Distress, Calm Cardiovascular: Yes: Regular Rate and Rhythm Respiratory: Yes: Regular, CTA Bilaterally Gastrointestinal: Yes: Normal Bowel Sounds, Soft Musculoskeletal: Yes: WNL Extremities: Yes: WNL Wound/Incision: Yes: Dressing Dry and Intact Neurological: Yes: Alert, Oriented Psychiatric: Yes: Alert, Oriented Labs: CBC, BMP 03/16/17 08:00 INR, PTT INR 1.20 (0.82-1.09) H 03/12/17 15:09 Assessment/Plan prolapse of the stoma 'abd pain diverticulitis post op plan continue to monitor patient doing well
[2017-03-16 12:58] LABS: ANION GAP 9 (8-16); CALCIUM 8.7 mg/dL (8.5-10.1); CO2 24 mmol/L (21-32); CREATININE 0.6 mg/dL (0.55-1.02); GLUCOSE,RANDOM 97 mg/dL (74-106)
--- NOTE | 2017-03-16 23:33 | PN ---
Progress Note, Physician - Current Medication List Current Medications: Active Medications Acetaminophen (Tylenol -) 650 mg PO Q6H PRN PRN Reason: FEVER OR PAIN Fentanyl (Sublimaze Injection -) 50 mcg IVPUSH [id number] PRN PRN Reason: PAIN Stop: 03/17/17 15:41 Heparin Sodium (Porcine) (Heparin -) 5,000 unit SQ BID [facility] Last Admin: 03/16/17 22:34 Dose: 5,000 unit Hydromorphone HCl (Dilaudid Injection -) 1 mg IVPB Q4H PRN PRN Reason: PAIN Last Admin: 03/15/17 05:56 Dose: 1 mg Potassium Chloride/Dextrose/Sod Cl (D5-1/2ns+20 Meq Kcl -) 1,000 mls @ 100 mls/ hr IV ASDIR [facility] Last Admin: 03/16/17 18:01 Dose: 100 mls/hr Pantoprazole Sodium 40 mg/ (Sodium Chloride) 100 mls @ 200 mls/hr IVPB DAILY [facility] Last Admin: 03/16/17 11:14 Dose: 200 mls/hr Ketorolac Tromethamine (Toradol Injection -) 30 mg IVPB Q6H PRN PRN Reason: PAIN Stop: 03/19/17 19:07 Last Admin: 03/16/17 22:32 Dose: 30 mg Ondansetron HCl (Zofran Injection) 4 mg IVPB Q6H PRN PRN Reason: NAUSEA AND/OR VOMITING Last Admin: 03/15/17 16:04 Dose: 4 mg - Objective Vital Signs: Vital Signs Temperature 98.2 F 03/16/17 15:34 Pulse Rate 80 03/16/17 15:34 Respiratory Rate 18 03/16/17 15:34 Blood Pressure 121/82 03/16/17 15:34 O2 Sat by Pulse Oximetry (%) 97 03/16/17 09:00 Labs: CBC, BMP 03/16/17 08:00 03/16/17 08:00 INR, PTT INR 1.20 (0.82-1.09) H 03/12/17 15:09
[2017-03-17] MEDS: D5-1/2NS+20 MEQ KCL - 1,000 ML IV SCH ×3 (01:57→17:17)
[2017-03-17] MEDS: KETOROLAC TROMETHAMINE 30 MG/1 ML VIAL IVPB PRN ×3 (06:50→23:11)
--- NOTE | 2017-03-17 09:49 | PN ---
Progress Note, Physician History of Present Illness: patient starting to complain about abd pain again started since last night - Current Medication List Current Medications: Active Medications Acetaminophen (Tylenol -) 650 mg PO Q6H PRN PRN Reason: FEVER OR PAIN Fentanyl (Sublimaze Injection -) 50 mcg IVPUSH [id number] PRN PRN Reason: PAIN Stop: 03/17/17 15:41 Heparin Sodium (Porcine) (Heparin -) 5,000 unit SQ BID [facility] Last Admin: 03/16/17 22:34 Dose: 5,000 unit Hydromorphone HCl (Dilaudid Injection -) 1 mg IVPB Q4H PRN PRN Reason: PAIN Last Admin: 03/15/17 05:56 Dose: 1 mg Potassium Chloride/Dextrose/Sod Cl (D5-1/2ns+20 Meq Kcl -) 1,000 mls @ 100 mls/ hr IV ASDIR [facility] Last Admin: 03/17/17 01:57 Dose: 100 mls/hr Pantoprazole Sodium 40 mg/ (Sodium Chloride) 100 mls @ 200 mls/hr IVPB DAILY [facility] Last Admin: 03/16/17 11:14 Dose: 200 mls/hr Ketorolac Tromethamine (Toradol Injection -) 30 mg IVPB Q6H PRN PRN Reason: PAIN Stop: 03/19/17 19:07 Last Admin: 03/17/17 06:50 Dose: 30 mg Ondansetron HCl (Zofran Injection) 4 mg IVPB Q6H PRN PRN Reason: NAUSEA AND/OR VOMITING Last Admin: 03/15/17 16:04 Dose: 4 mg - Objective Vital Signs: Vital Signs Temperature 98.3 F 03/17/17 06:00 Pulse Rate 73 03/17/17 06:00 Respiratory Rate 20 03/17/17 06:00 Blood Pressure 105/70 03/17/17 06:00 O2 Sat by Pulse Oximetry (%) 97 03/16/17 21:00 Constitutional: Yes: No Distress, Calm Cardiovascular: Yes: Regular Rate and Rhythm Respiratory: Yes: Regular, CTA Bilaterally Gastrointestinal: Yes: Soft, Hypoactive Bowel Sounds Musculoskeletal: Yes: WNL Extremities: Yes: WNL Neurological: Yes: Alert, Oriented Psychiatric: Yes: Alert, Oriented Labs: CBC, BMP 03/16/17 08:00 03/16/17 08:00 INR, PTT INR 1.20 (0.82-1.09) H 03/12/17 15:09 Assessment/Plan prolapse of the stoma 'abd pain diverticulitis post op plan continue to monitor patient doing well close watch on abd signs
[2017-03-17] MEDS ORDERED: SODIUM CHLORIDE 100 ML IVPB ONE (10:31)
[2017-03-17] MEDS ORDERED: PANTOPRAZOLE SODIUM 40 MG VIAL ONE (10:31)
[2017-03-17] MEDS ORDERED: PT OWN MED DRAWER 7, Y5N ONE (10:32)
[2017-03-17] MEDS: PANTOPRAZOLE SODIUM 40 MG in SODIUM CHLORIDE 100 ML IVPB SCH (10:37)
[2017-03-17] MEDS: HEPARIN NA (PORCINE) 5,000 UNITS/ML 1ML VIAL SQ SCH ×2 (10:38→23:08)
--- NOTE | 2017-03-17 13:43 | PN ---
Progress Note, Physician History of Present Illness: new onset pf abdominal pain deneis fever or chills - Current Medication List Current Medications: Active Medications Acetaminophen (Tylenol -) 650 mg PO Q6H PRN PRN Reason: FEVER OR PAIN Fentanyl (Sublimaze Injection -) 50 mcg IVPUSH [id number] PRN PRN Reason: PAIN Stop: 03/17/17 15:41 Heparin Sodium (Porcine) (Heparin -) 5,000 unit SQ BID [facility] Last Admin: 03/17/17 10:38 Dose: 5,000 unit Hydromorphone HCl (Dilaudid Injection -) 1 mg IVPB Q4H PRN PRN Reason: PAIN Last Admin: 03/15/17 05:56 Dose: 1 mg Potassium Chloride/Dextrose/Sod Cl (D5-1/2ns+20 Meq Kcl -) 1,000 mls @ 100 mls/ hr IV ASDIR [facility] Last Admin: 03/17/17 01:57 Dose: 100 mls/hr Pantoprazole Sodium 40 mg/ (Sodium Chloride) 100 mls @ 200 mls/hr IVPB DAILY [facility] Last Admin: 03/17/17 10:37 Dose: 200 mls/hr Ketorolac Tromethamine (Toradol Injection -) 30 mg IVPB Q6H PRN PRN Reason: PAIN Stop: 03/19/17 19:07 Last Admin: 03/17/17 06:50 Dose: 30 mg Ondansetron HCl (Zofran Injection) 4 mg IVPB Q6H PRN PRN Reason: NAUSEA AND/OR VOMITING Last Admin: 03/15/17 16:04 Dose: 4 mg - Objective Vital Signs: Vital Signs Temperature 99 F 03/17/17 09:40 Pulse Rate 76 03/17/17 09:40 Respiratory Rate 18 03/17/17 09:40 Blood Pressure 110/70 03/17/17 09:40 O2 Sat by Pulse Oximetry (%) 97 03/16/17 21:00 Labs: CBC, BMP 03/16/17 08:00 03/16/17 08:00 INR, PTT INR 1.20 (0.82-1.09) H 03/12/17 15:09 Problem List - Problems (1) Abdominal pain Code(s): R10.9 - UNSPECIFIED ABDOMINAL PAIN Qualifiers: Abdominal location: lower abdomen, unspecified Qualified Code(s): R10.30 - Lower abdominal pain, unspecified Assessment/Plan s/p closure of ileostomy new onset of pain will change diet to NPO until symptoms resolve
--- NOTE | 2017-03-17 16:52 | PN ---
Progress Note, Physician - Current Medication List Current Medications: Active Medications Acetaminophen (Tylenol -) 650 mg PO Q6H PRN PRN Reason: FEVER OR PAIN Heparin Sodium (Porcine) (Heparin -) 5,000 unit SQ BID [facility] Last Admin: 03/17/17 10:38 Dose: 5,000 unit Potassium Chloride/Dextrose/Sod Cl (D5-1/2ns+20 Meq Kcl -) 1,000 mls @ 100 mls/ hr IV ASDIR [facility] Last Admin: 03/17/17 14:41 Dose: 100 mls/hr Pantoprazole Sodium 40 mg/ (Sodium Chloride) 100 mls @ 200 mls/hr IVPB DAILY [facility] Last Admin: 03/17/17 10:37 Dose: 200 mls/hr Ketorolac Tromethamine (Toradol Injection -) 30 mg IVPB Q6H PRN PRN Reason: PAIN Stop: 03/19/17 19:07 Last Admin: 03/17/17 16:02 Dose: 30 mg Ondansetron HCl (Zofran Injection) 4 mg IVPB Q6H PRN PRN Reason: NAUSEA AND/OR VOMITING Last Admin: 03/15/17 16:04 Dose: 4 mg - Objective Vital Signs: Vital Signs Temperature 99 F 03/17/17 09:40 Pulse Rate 76 03/17/17 09:40 Respiratory Rate 18 03/17/17 09:40 Blood Pressure 110/70 03/17/17 09:40 O2 Sat by Pulse Oximetry (%) 97 03/16/17 21:00 Labs: CBC, BMP 03/16/17 08:00 03/16/17 08:00 INR, PTT INR 1.20 (0.82-1.09) H 03/12/17 15:09
[2017-03-18] MEDS ORDERED: SODIUM CHLORIDE 100 ML IVPB ONE (10:07)
[2017-03-18] MEDS ORDERED: PANTOPRAZOLE SODIUM 40 MG VIAL ONE (10:07)
[2017-03-18] MEDS: PANTOPRAZOLE SODIUM 40 MG in SODIUM CHLORIDE 100 ML IVPB SCH (10:12)
[2017-03-18] MEDS: HEPARIN NA (PORCINE) 5,000 UNITS/ML 1ML VIAL SQ SCH ×2 (10:15→22:19)
--- NOTE | 2017-03-18 10:35 | PN ---
Progress Note, Physician History of Present Illness: patient now npo still with abd pain but better complaining increased frequency of urine - Current Medication List Current Medications: Active Medications Acetaminophen (Tylenol -) 650 mg PO Q6H PRN PRN Reason: FEVER OR PAIN Heparin Sodium (Porcine) (Heparin -) 5,000 unit SQ BID [facility] Last Admin: 03/18/17 10:15 Dose: 5,000 unit Potassium Chloride/Dextrose/Sod Cl (D5-1/2ns+20 Meq Kcl -) 1,000 mls @ 100 mls/ hr IV ASDIR [facility] Last Admin: 03/17/17 17:17 Dose: Not Given Pantoprazole Sodium 40 mg/ (Sodium Chloride) 100 mls @ 200 mls/hr IVPB DAILY [facility] Last Admin: 03/18/17 10:12 Dose: 200 mls/hr Ketorolac Tromethamine (Toradol Injection -) 30 mg IVPB Q6H PRN PRN Reason: PAIN Stop: 03/19/17 19:07 Last Admin: 03/17/17 23:11 Dose: 30 mg Ondansetron HCl (Zofran Injection) 4 mg IVPB Q6H PRN PRN Reason: NAUSEA AND/OR VOMITING Last Admin: 03/15/17 16:04 Dose: 4 mg - Objective Vital Signs: Vital Signs Temperature 99.8 F H 03/18/17 08:50 Pulse Rate 76 03/18/17 08:50 Respiratory Rate 24 03/18/17 08:50 Blood Pressure 110/80 03/18/17 08:50 O2 Sat by Pulse Oximetry (%) 97 03/17/17 21:00 Constitutional: Yes: Calm, Mild Distress Cardiovascular: Yes: Regular Rate and Rhythm Respiratory: Yes: Regular, CTA Bilaterally Gastrointestinal: Yes: Normal Bowel Sounds, Soft Musculoskeletal: Yes: WNL Extremities: Yes: WNL Wound/Incision: Yes: Dressing Dry and Intact Neurological: Yes: Alert, Oriented Psychiatric: Yes: Alert, Oriented Labs: CBC, BMP 03/16/17 08:00 03/16/17 08:00 INR, PTT INR 1.20 (0.82-1.09) H 03/12/17 15:09 Assessment/Plan prolapse of the stoma 'abd pain diverticulitis post op r/o uti plan will not start abx at this time urine culture ordered pierre see what it shows rest continue current mgmt
[2017-03-18] MEDS: D5-1/2NS+20 MEQ KCL - 1,000 ML IV SCH ×2 (11:51→22:21)
--- NOTE | 2017-03-18 12:24 | PN ---
Progress Note (short form) - Note Progress Note: feeling better reports bms afeb Exam completely benign will keep npo until pain is resolved Problem List - Problems (1) Abdominal pain Code(s): R10.9 - UNSPECIFIED ABDOMINAL PAIN Qualifiers: Abdominal location: lower abdomen, unspecified Qualified Code(s): R10.30 - Lower abdominal pain, unspecified
[2017-03-18] MEDS: KETOROLAC TROMETHAMINE 30 MG/1 ML VIAL IVPB PRN (17:50)
[2017-03-19] MEDS ORDERED: PANTOPRAZOLE SODIUM 40 MG VIAL ONE (09:41)
[2017-03-19] MEDS ORDERED: PT OWN MED DRAWER 7, Y5N ONE (09:41)
[2017-03-19] MEDS ORDERED: SODIUM CHLORIDE 100 ML IVPB ONE (09:41)
[2017-03-19] MEDS: HEPARIN NA (PORCINE) 5,000 UNITS/ML 1ML VIAL SQ SCH ×2 (09:46→21:43)
[2017-03-19] MEDS: PANTOPRAZOLE SODIUM 40 MG in SODIUM CHLORIDE 100 ML IVPB SCH (09:46)
[2017-03-19] MEDS: D5-1/2NS+20 MEQ KCL - 1,000 ML IV SCH ×2 (09:47→21:52)
--- NOTE | 2017-03-19 13:01 | PN ---
Progress Note, Physician History of Present Illness: abd pain resolved patient tolerating diet - Current Medication List Current Medications: Active Medications Acetaminophen (Tylenol -) 650 mg PO Q6H PRN PRN Reason: FEVER OR PAIN Heparin Sodium (Porcine) (Heparin -) 5,000 unit SQ BID [facility] Last Admin: 03/19/17 09:46 Dose: 5,000 unit Potassium Chloride/Dextrose/Sod Cl (D5-1/2ns+20 Meq Kcl -) 1,000 mls @ 100 mls/ hr IV ASDIR [facility] Last Admin: 03/19/17 09:47 Dose: 100 mls/hr Pantoprazole Sodium 40 mg/ (Sodium Chloride) 100 mls @ 200 mls/hr IVPB DAILY [facility] Last Admin: 03/19/17 09:46 Dose: 200 mls/hr Ketorolac Tromethamine (Toradol Injection -) 30 mg IVPB Q6H PRN PRN Reason: PAIN Stop: 03/19/17 19:07 Last Admin: 03/18/17 17:50 Dose: 30 mg Ondansetron HCl (Zofran Injection) 4 mg IVPB Q6H PRN PRN Reason: NAUSEA AND/OR VOMITING Last Admin: 03/15/17 16:04 Dose: 4 mg - Objective Vital Signs: Vital Signs Temperature 98.6 F 03/19/17 10:00 Pulse Rate 91 H 03/19/17 10:00 Respiratory Rate 18 03/19/17 10:00 Blood Pressure 112/77 03/19/17 10:00 O2 Sat by Pulse Oximetry (%) 97 03/19/17 09:00 Constitutional: Yes: No Distress, Calm HENT: Yes: Atraumatic Cardiovascular: Yes: Regular Rate and Rhythm Respiratory: Yes: Regular, CTA Bilaterally Gastrointestinal: Yes: Normal Bowel Sounds, Soft Musculoskeletal: Yes: WNL Extremities: Yes: WNL Wound/Incision: Yes: Dressing Dry and Intact Neurological: Yes: Alert, Oriented Psychiatric: Yes: Alert, Oriented Labs: CBC, BMP 03/16/17 08:00 03/16/17 08:00 INR, PTT INR 1.20 (0.82-1.09) H 03/12/17 15:09 Assessment/Plan prolapse of the stoma 'abd pain diverticulitis post op r/o uti plan urine cx noted continue current mgmt rest as per primary and surgery
--- NOTE | 2017-03-19 13:29 | PATH ---
Surgical Pathology Report Patient Name: JOHAN COLE Med. Rec. #: [id number] /Age/Gender: 1970 (Age: 47) / F Account: [id number] Location: [facility] MED/SURG Taken: 03/14/2017 Received: 03/15/2017 Reported: 03/19/2017 Physicians: Ian Meade M.D. Specimen(s) Received ILEOSTOMY Clinical History Abdominal pain, closure of ileostomy Final Diagnosis ILEOSTOMY, CLOSURE: ULCERATED ENTEROCUTANEOUS JUNCTION WITH ASSOCIATED MARKED ACUTE AND CHRONIC INFLAMMATION, INFLAMED GRANULATION TISSUE, FOREIGN TYPE MATERIAL AND FOREIGN BODY MULTINUCLEATED GIANT CELL REACTION. Electronically Signed Seth Baker M.D. Gross Description Received in formalin labelled "ileostomy" is portions of small intestine which measures 8 cm in length x 2.5 cm in diameter and contains an area of possible ileostomy site. There is an additional 5 centimeter long x 2.5 centimeter in diameter portion of small bowel present. No distinct masses are identified. Airconditioning Engineer sections are submitted in 2 cassettes. [facility]/03/15/2017 [facility]/03/15/2017
[2017-03-19] MEDS: KETOROLAC TROMETHAMINE 30 MG/1 ML VIAL IVPB PRN (18:33)
--- NOTE | 2017-03-19 22:19 | PN ---
Progress Note, Physician - Current Medication List Current Medications: Active Medications Acetaminophen (Tylenol -) 650 mg PO Q6H PRN PRN Reason: FEVER OR PAIN Heparin Sodium (Porcine) (Heparin -) 5,000 unit SQ BID [facility] Last Admin: 03/19/17 21:43 Dose: 5,000 unit Potassium Chloride/Dextrose/Sod Cl (D5-1/2ns+20 Meq Kcl -) 1,000 mls @ 100 mls/ hr IV ASDIR [facility] Last Admin: 03/19/17 21:52 Dose: 100 mls/hr Pantoprazole Sodium 40 mg/ (Sodium Chloride) 100 mls @ 200 mls/hr IVPB DAILY [facility] Last Admin: 03/19/17 09:46 Dose: 200 mls/hr Ondansetron HCl (Zofran Injection) 4 mg IVPB Q6H PRN PRN Reason: NAUSEA AND/OR VOMITING Last Admin: 03/15/17 16:04 Dose: 4 mg - Objective Vital Signs: Vital Signs Temperature 99.0 F 03/19/17 18:00 Pulse Rate 84 03/19/17 18:00 Respiratory Rate 20 03/19/17 18:00 Blood Pressure 132/95 03/19/17 18:00 O2 Sat by Pulse Oximetry (%) 97 03/19/17 09:00 Labs: CBC, BMP 03/16/17 08:00 03/16/17 08:00 INR, PTT INR 1.20 (0.82-1.09) H 03/12/17 15:09
--- NOTE | 2017-03-20 08:14 | PN ---
Progress Note, Physician History of Present Illness: Episode of bloating yesterday reports passing a lot of flatus denies any pain - Current Medication List Current Medications: Active Medications Acetaminophen (Tylenol -) 650 mg PO Q6H PRN PRN Reason: FEVER OR PAIN Last Admin: 03/20/17 06:25 Dose: 650 mg Heparin Sodium (Porcine) (Heparin -) 5,000 unit SQ BID [facility] Last Admin: 03/19/17 21:43 Dose: 5,000 unit Potassium Chloride/Dextrose/Sod Cl (D5-1/2ns+20 Meq Kcl -) 1,000 mls @ 100 mls/ hr IV ASDIR [facility] Last Admin: 03/19/17 21:52 Dose: 100 mls/hr Pantoprazole Sodium 40 mg/ (Sodium Chloride) 100 mls @ 200 mls/hr IVPB DAILY [facility] Last Admin: 03/19/17 09:46 Dose: 200 mls/hr Ondansetron HCl (Zofran Injection) 4 mg IVPB Q6H PRN PRN Reason: NAUSEA AND/OR VOMITING Last Admin: 03/15/17 16:04 Dose: 4 mg - Objective Vital Signs: Vital Signs Temperature 98.3 F 03/20/17 07:16 Pulse Rate 72 03/20/17 07:16 Respiratory Rate 20 03/20/17 07:16 Blood Pressure 108/77 03/20/17 07:16 O2 Sat by Pulse Oximetry (%) 97 03/19/17 21:00 Labs: CBC, BMP 03/16/17 08:00 03/16/17 08:00 INR, PTT INR 1.20 (0.82-1.09) H 03/12/17 15:09 Problem List - Problems (1) Abdominal pain Code(s): R10.9 - UNSPECIFIED ABDOMINAL PAIN Qualifiers: Abdominal location: lower abdomen, unspecified Qualified Code(s): R10.30 - Lower abdominal pain, unspecified Assessment/Plan s/p closure of ileostomy feeling well Advance diet DC planning
[2017-03-20] MEDS: D5-1/2NS+20 MEQ KCL - 1,000 ML IV SCH ×2 (08:27→09:59)
[2017-03-20] MEDS ORDERED: PANTOPRAZOLE SODIUM 40 MG VIAL ONE (09:53)
[2017-03-20] MEDS ORDERED: SODIUM CHLORIDE 100 ML IVPB ONE (09:53)
[2017-03-20] MEDS: PANTOPRAZOLE SODIUM 40 MG in SODIUM CHLORIDE 100 ML IVPB SCH (09:59)
[2017-03-20] MEDS: HEPARIN NA (PORCINE) 5,000 UNITS/ML 1ML VIAL SQ SCH ×2 (09:59→21:57)
--- NOTE | 2017-03-20 12:37 | PN ---
Progress Note, Physician History of Present Illness: stable no issues bloating but passing flatus - Current Medication List Current Medications: Active Medications Acetaminophen (Tylenol -) 650 mg PO Q6H PRN PRN Reason: FEVER OR PAIN Last Admin: 03/20/17 06:25 Dose: 650 mg Heparin Sodium (Porcine) (Heparin -) 5,000 unit SQ BID [facility] Last Admin: 03/20/17 09:59 Dose: 5,000 unit Potassium Chloride/Dextrose/Sod Cl (D5-1/2ns+20 Meq Kcl -) 1,000 mls @ 100 mls/ hr IV ASDIR [facility] Last Admin: 03/20/17 09:59 Dose: 100 mls/hr Pantoprazole Sodium 40 mg/ (Sodium Chloride) 100 mls @ 200 mls/hr IVPB DAILY [facility] Last Admin: 03/20/17 09:59 Dose: 200 mls/hr Ondansetron HCl (Zofran Injection) 4 mg IVPB Q6H PRN PRN Reason: NAUSEA AND/OR VOMITING Last Admin: 03/15/17 16:04 Dose: 4 mg - Objective Vital Signs: Vital Signs Temperature 98.8 F 03/20/17 10:00 Pulse Rate 73 03/20/17 10:00 Respiratory Rate 18 03/20/17 10:00 Blood Pressure 120/76 03/20/17 10:00 O2 Sat by Pulse Oximetry (%) 97 03/19/17 21:00 Constitutional: Yes: No Distress, Calm Cardiovascular: Yes: Regular Rate and Rhythm Respiratory: Yes: Regular, CTA Bilaterally Gastrointestinal: Yes: Normal Bowel Sounds, Soft Musculoskeletal: Yes: WNL Extremities: Yes: WNL Wound/Incision: Yes: Dressing Dry and Intact Neurological: Yes: Alert, Oriented Psychiatric: Yes: Alert, Oriented Labs: CBC, BMP 03/16/17 08:00 03/16/17 08:00 INR, PTT INR 1.20 (0.82-1.09) H 03/12/17 15:09 Assessment/Plan prolapse of the stoma 'abd pain diverticulitis post op r/o uti plan continue current mgmt rest as per primary
[2017-03-20] MEDS ORDERED: KETOROLAC TROMETHAMINE 30 MG/1 ML VIAL IVPB ONE (15:00)
--- NOTE | 2017-03-20 19:48 | PN ---
Progress Note, Physician History of Present Illness: Pt eating regular diet in small amounts and tolerating - Current Medication List Current Medications: Active Medications Acetaminophen (Tylenol -) 650 mg PO Q6H PRN PRN Reason: FEVER OR PAIN Last Admin: 03/20/17 06:25 Dose: 650 mg Heparin Sodium (Porcine) (Heparin -) 5,000 unit SQ BID [facility] Last Admin: 03/20/17 09:59 Dose: 5,000 unit Pantoprazole Sodium 40 mg/ (Sodium Chloride) 100 mls @ 200 mls/hr IVPB DAILY [facility] Last Admin: 03/20/17 09:59 Dose: 200 mls/hr Ondansetron HCl (Zofran Injection) 4 mg IVPB Q6H PRN PRN Reason: NAUSEA AND/OR VOMITING Last Admin: 03/15/17 16:04 Dose: 4 mg - Objective Vital Signs: Vital Signs Temperature 98.8 F 03/20/17 15:26 Pulse Rate 77 03/20/17 15:26 Respiratory Rate 18 03/20/17 15:41 Blood Pressure 113/56 03/20/17 15:26 O2 Sat by Pulse Oximetry (%) 97 03/20/17 15:41 Constitutional: Yes: No Distress Neck: Yes: WNL, Supple Cardiovascular: Yes: WNL, Regular Rate and Rhythm Respiratory: Yes: WNL, Regular, CTA Bilaterally Gastrointestinal: Yes: Normal Bowel Sounds, Soft, Other (Incisional tenderness) Labs: CBC, BMP 03/16/17 08:00 03/16/17 08:00 INR, PTT INR 1.20 (0.82-1.09) H 03/12/17 15:09 Problem List - Problems (1) Abdominal pain Assessment/Plan: S/P closure of ileostomy Ileus Will dc IVF Toradol prn for pain Pt is off antibxs Code(s): R10.9 - UNSPECIFIED ABDOMINAL PAIN Qualifiers: Abdominal location: lower abdomen, unspecified Qualified Code(s): R10.30 - Lower abdominal pain, unspecified (2) HTN (hypertension) Assessment/Plan: BP stable Pt has been off antihypertensives and BP remains stable Cont to monitor Code(s): I10 - ESSENTIAL (PRIMARY) HYPERTENSION
[2017-03-20] MEDS ORDERED: KETOROLAC TROMETHAMINE 30 MG/1 ML VIAL IVPUSH SCH (20:00)
[2017-03-20] MEDS ORDERED: PT OWN MED DRAWER 7, Y5N ONE (21:21)
[2017-03-20] MEDS: KETOROLAC TROMETHAMINE 30 MG/1 ML VIAL IVPUSH SCH (21:56)
[2017-03-21] MEDS: KETOROLAC TROMETHAMINE 30 MG/1 ML VIAL IVPUSH SCH ×3 (06:31→22:00)
[2017-03-21] MEDS: PANTOPRAZOLE 40 MG TABLET (FP) PO SCH (10:24)
[2017-03-21] MEDS: HEPARIN NA (PORCINE) 5,000 UNITS/ML 1ML VIAL SQ SCH ×2 (10:24→22:01)
--- NOTE | 2017-03-21 11:50 | PN ---
Progress Note, Physician History of Present Illness: tolerating diet still with some abd discomfort seems ahd loose bm last night for couple of hours no distress now - Current Medication List Current Medications: Active Medications Acetaminophen (Tylenol -) 650 mg PO Q6H PRN PRN Reason: FEVER OR PAIN Last Admin: 03/20/17 06:25 Dose: 650 mg Heparin Sodium (Porcine) (Heparin -) 5,000 unit SQ BID [facility] Last Admin: 03/21/17 10:24 Dose: 5,000 unit Ketorolac Tromethamine (Toradol Injection -) 30 mg IVPUSH Q8H [facility] Stop: 03/25/17 21:59 Last Admin: 03/21/17 06:31 Dose: 30 mg Ondansetron HCl (Zofran Injection) 4 mg IVPB Q6H PRN PRN Reason: NAUSEA AND/OR VOMITING Last Admin: 03/15/17 16:04 Dose: 4 mg Pantoprazole Sodium (Protonix -) 40 mg PO DAILY [facility] Last Admin: 03/21/17 10:24 Dose: 40 mg - Objective Vital Signs: Vital Signs Temperature 99.4 F 03/21/17 08:41 Pulse Rate 98 H 03/21/17 08:41 Respiratory Rate 18 03/21/17 08:41 Blood Pressure 122/78 03/21/17 08:41 O2 Sat by Pulse Oximetry (%) 99 03/21/17 09:00 Constitutional: Yes: No Distress, Calm Cardiovascular: Yes: Regular Rate and Rhythm Respiratory: Yes: Regular, CTA Bilaterally Gastrointestinal: Yes: Normal Bowel Sounds, Soft Musculoskeletal: Yes: WNL Extremities: Yes: WNL Wound/Incision: Yes: Dressing Dry and Intact Neurological: Yes: Alert, Oriented Psychiatric: Yes: Alert, Oriented Labs: CBC, BMP 03/16/17 08:00 03/16/17 08:00 INR, PTT INR 1.20 (0.82-1.09) H 03/12/17 15:09 Assessment/Plan prolapse of the stoma 'abd pain diverticulitis post op r/o uti plan continue current mgmt rest as per primary patient doing well
--- NOTE | 2017-03-21 22:26 | PN ---
Progress Note, Physician History of Present Illness: Pt eating regular diet in small amounts and tolerating - Current Medication List Current Medications: Active Medications Acetaminophen (Tylenol -) 650 mg PO Q6H PRN PRN Reason: FEVER OR PAIN Last Admin: 03/20/17 06:25 Dose: 650 mg Ketorolac Tromethamine (Toradol Injection -) 30 mg IVPUSH Q8H NONA Stop: 03/25/17 21:59 Last Admin: 03/21/17 22:00 Dose: 30 mg Ondansetron HCl (Zofran Injection) 4 mg IVPB Q6H PRN PRN Reason: NAUSEA AND/OR VOMITING Last Admin: 03/15/17 16:04 Dose: 4 mg Pantoprazole Sodium (Protonix -) 40 mg PO DAILY [facility] Last Admin: 03/21/17 10:24 Dose: 40 mg - Objective Vital Signs: Vital Signs Temperature 97.7 F 03/21/17 18:00 Pulse Rate 83 03/21/17 18:00 Respiratory Rate 18 03/21/17 18:00 Blood Pressure 135/83 03/21/17 18:00 O2 Sat by Pulse Oximetry (%) 99 03/21/17 09:00 Constitutional: Yes: Well Nourished HENT: Yes: WNL Neck: Yes: WNL, Supple Cardiovascular: Yes: WNL, Regular Rate and Rhythm Respiratory: Yes: WNL, Regular, CTA Bilaterally Gastrointestinal: Yes: WNL, Normal Bowel Sounds, Soft Labs: CBC, BMP 03/16/17 08:00 03/16/17 08:00 INR, PTT INR 1.20 (0.82-1.09) H 03/12/17 15:09 Problem List - Problems (1) Abdominal pain Assessment/Plan: S/P closure of ileostomy Ileus DC planning for am Code(s): R10.9 - UNSPECIFIED ABDOMINAL PAIN Qualifiers: Abdominal location: lower abdomen, unspecified Qualified Code(s): R10.30 - Lower abdominal pain, unspecified (2) HTN (hypertension) Code(s): I10 - ESSENTIAL (PRIMARY) HYPERTENSION
[2017-03-22] MEDS ORDERED: PT OWN MED DRAWER 7, Y5N ONE (01:08)
[2017-03-22] MEDS: KETOROLAC TROMETHAMINE 30 MG/1 ML VIAL IVPUSH SCH (06:03)
[2017-03-22 08:40] VITALS: BP 110/67; PULSE 71; TEMP 98.7
[2017-03-22] MEDS: PANTOPRAZOLE 40 MG TABLET (FP) PO SCH (09:53)
== END 2017-03-22 11:22 | disposition home or self-care (01) | DRG 223 ==
LOC: JER 13:51 → JERBED 03-13 00:54 → UNDOADMIN 03-13 01:19 → J8W 03-13 13:25
PROVIDERS: ADMIT Internal Medicine; ATTEND Internal Medicine
PROC: 0DQB0ZZ Repair Ileum, Open Approach (ICD-10-PCS; principal; 2017-03-14 14:30)
DX: K94.19 Other complications of enterostomy (principal); I10 Essential (primary) hypertension; Z87.891 Personal history of nicotine dependence; K57.30 Diverticulosis of large intestine without perforation or abscess without bleeding; Y83.8 Other surgical procedures as the cause of abnormal reaction of the patient, or of later complication, without mention of misadventure at the time of the procedure; K57.92 Diverticulitis of intestine, part unspecified, without perforation or abscess without bleeding
CPT/HCPCS: 36415; 74020-TC; 74177-TC; 74270-TC; 80048; 80053; 83605; 83690; 84703; 85025; 85610; 85730; 86850; 86900; 86901; 87086; 88304-TC; 93005; 93010; 94010; 94760; 99285-25; J1644

== ENCOUNTER 2017-04-26 21:59 | Inpatient (IN) | payer OTHER ==
--- NOTE | 2017-04-26 22:49 | PDOC ---
History of Present Illness - General History Source: Patient Exam Limitations: No Limitations - History of Present Illness Initial Comments: 04/26/17 23:55 47 yo F with PMHx of Diverticulitis and Kidney stones who presents to the ED with worsening abdominal pain. Patient reports sudden onset of RLQ abdominal pain that began shortly after eating dinner (fried chicken). Patient reports associated nausea but no vomiting. Patient states she had a recent ileostomy reversal one month ago. Currently in the ED, the patient reports severe diffuse abdominal pain. She states her abdomen appears increasingly distended and presents to the ED for further evaluation. Allergies: NKA Past surgical history: Ileostomy (one month ago) Social history: None PCP: Dr. Grady <Karen Vigil - Last Filed: 04/26/17 23:55> <Dary Fernandes - Last Filed: 04/30/17 09:09> - General Chief Complaint: Pain, Acute Stated Complaint: STOMACH PAIN Past History <Karen Vigil - Last Filed: 04/26/17 23:55> - Past Medical History GI Disorders: Yes (diverticulitis) HTN: Yes Kidney Stones: Yes - Surgical History Abdominal Surgery: Yes (Temp ileostomy) - Immunization History Immunization Up to Date: Yes - Psycho/Social/Smoking Cessation Hx Anxiety: No Suicidal Ideation: No Smoking History: Never smoked Have you smoked in the past 12 months: No Number of Cigarettes Smoked Daily: 2 Information on smoking cessation initiated: No 'Breaking Loose' booklet given: 02/24/17 Hx Alcohol Use: No Drug/Substance Use Hx: No Substance Use Type: None <Dary Fernandes - Last Filed: 04/30/17 09:09> - Past Medical History Allergies/Adverse Reactions: Allergies Allergy/AdvReac Type Severity Reaction Status Date / Time No Known Allergies Allergy Verified 04/26/17 22:06 Home Medications: Ambulatory Orders Pantoprazole Sodium [Protonix -] 40 mg PO DAILY #30 tab 03/22/17 Review of Systems - Review of Systems Able to Perform ROS?: Yes Comments:: 04/26/17 23:55 CONSTITUTIONAL: Absent: fever, chills, diaphoresis, generalized weakness, malaise, loss of appetite HEENT: Absent: rhinorrhea, nasal congestion, throat pain, throat swelling, difficulty swallowing, mouth swelling, ear pain, eye pain, visual Changes CARDIOVASCULAR: Absent: chest pain, syncope, palpitations, irregular heart rate, lightheadedness , peripheral edema RESPIRATORY: Absent: cough, shortness of breath, dyspnea with exertion, orthopnea, wheezing, stridor, hemoptysis GASTROINTESTINAL: +Abdominal pain. +nausea. +abdominal distention. Absent:Vomiting, diarrhea, constipation, melena, hematochezia GENITOURINARY: Absent: dysuria, frequency, urgency, hesitancy, hematuria, flank pain, genital pain MUSCULOSKELETAL: Absent: myalgia, arthralgia, joint swelling SKIN: Absent: rash, itching, pallor HEMATOLOGIC/IMMUNOLOGIC: Absent: easy bleeding, easy bruising, lymphadenopathy, frequent infections ENDOCRINE: Absent: unexplained weight gain, unexplained weight loss, heat intolerance, cold intolerance NEUROLOGIC: Absent: headache, focal weakness or paresthesias, dizziness, unsteady gait, seizure, mental status changes, bladder or bowel incontinence PSYCHIATRIC: Absent: anxiety, depression, suicidal or homicidal ideation, hallucinations. <Karen Vigil - Last Filed: 04/26/17 23:55> *Physical Exam - Vital Signs Last Vital Signs Temp Pulse Resp BP Pulse Ox 98.2 F 91 H 20 177/113 100 04/26/17 22:07 04/26/17 22:07 04/26/17 22:07 04/26/17 22:07 04/26/17 22:07 - Physical Exam Comments: 04/26/17 23:56 GENERAL: +Uncomfortable. +Mild distress +Tearful. Awake and alert. HEENT: Normocephalic, atraumatic. PERRLA, EOMI. No conjunctival pallor. Sclera are non- icteric. Moist mucous membranes. Oropharynx is clear. NECK: Supple. Full ROM. No JVD. Carotid pulses 2+ and symmetric, without bruits. No thyromegaly. No lymphadenopathy. CARDIOVASCULAR: Regular rate and rhythm. No murmurs, rubs, or gallops. Distal pulses are 2+ and symmetric. PULMONARY: No evidence of respiratory distress. Lungs clear to auscultation bilaterally. No wheezing, rales or rhonchi. ABDOMINAL: +Mildly diffusely tender. No rebound no guarding. Non-distended. No organomegaly. Normoactive bowel sounds. MUSCULOSKELETAL Normal range of motion at all joints. No bony deformities or tenderness. No CVA tenderness. EXTREMITIES: No cyanosis. No clubbing. No edema. No calf tenderness. SKIN: +Ileostomy incision sites are healed. No drainage. Warm and dry. Normal capillary refill. No rashes. No jaundice. NEUROLOGICAL: Alert, awake, appropriate. Cranial nerves 2-12 intact. No deficits to light touch and temperature in face, upper extremities and lower extremities. No motor deficits in the in face, upper extremities and lower extremities. Normoreflexic in the upper and lower extremities. Normal speech. Toes are downgoing bilaterally. Gait is normal without ataxia. PSYCHIATRIC: Cooperative. Good eye contact. Appropriate mood and affect. <Karen Vigil - Last Filed: 04/26/17 23:55> - Vital Signs Last Vital Signs Temp Pulse Resp BP Pulse Ox 98.2 F 91 H 20 177/113 100 04/26/17 22:07 04/26/17 22:07 04/26/17 22:07 04/26/17 22:07 04/26/17 22:07 <Dary Fernandes - Last Filed: 04/30/17 09:09> ED Treatment Course - LABORATORY CBC & Chemistry Diagram: 04/26/17 22:50 04/26/17 22:50 <Karen Vigil - Last Filed: 04/26/17 23:55> - LABORATORY CBC & Chemistry Diagram: 04/29/17 06:15 04/29/17 14:55 <Dary Fernandes - Last Filed: 04/30/17 09:09> Medical Decision Making - Medical Decision Making 04/26/17 23:00 a/p: 47yo female with acute onset of abd pain assoc with nausea after eating [place] fried chicken - recent ileostomy reversal for diverticulitis sx -labs -ct abd pelvis -pain control hcg -reassess 04/27/17 01:55a pt signed out to the oncoming ED physician pending CT abd/pelvis. <Dary Fernandes - Last Filed: 04/30/17 09:09> *DC/Admit/Observation/Transfer - Attestations Scribe Attestion: 04/26/17 23:57 Documentation prepared by Karen Vigil, acting as medical assistant float for Dary Fernandes DO <Karen Vigil - Last Filed: 04/26/17 23:55> - Attestations Physician Attestion: 04/26/17 23:00 I, Dr. Dary Fernandes, , attest that this document has been prepared under my direction and personally reviewed by me in its entirety. I further attest, that it accurately reflects all work, treatment, procedures and medical decision -making performed by me. <Dary Fernandes - Last Filed: 04/30/17 09:09> Diagnosis at time of Disposition: Enteritis, Colitis - Referrals
[2017-04-26] MEDS ORDERED: SODIUM CHLORIDE 0.9% 1000 ML INFUS.BAG IV ONE (22:50)
[2017-04-26] MEDS ORDERED: ONDANSETRON 4 MG/2 ML VIAL IVPUSH ONE (22:50)
[2017-04-26] MEDS ORDERED: morphine CARPU-JECT 4 MG/1 ML DISP.SYRIN IVPUSH ONE (22:51)
[2017-04-26 23:12] LABS: BASOPHIL 0.4 % (0-2.0); EOSINOPHIL 2.1 % (0-4.5); MCH 26.5 pg (25.7-33.7); MCHC 33.4 g/dl (32.0-36.0); MEAN CELL VOLUME 79.5 fl (80-96); MEAN PLT VOLUME 8.8 fl (7.5-11.1); NEUTROPHILS 67.4 % (42.8-82.8); PLATELET COUNT 337 K/MM3 (134-434); RDW 16.2 % (11.6-15.6); WHITE BLOOD COUNT 7.9 K/mm3 (4.0-10.0)
[2017-04-26] MEDS ORDERED: morphine CARPU-JECT 4 MG/1 ML DISP.SYRIN ONE (23:14)
[2017-04-26] MEDS ORDERED: ONDANSETRON 4 MG/2 ML VIAL ONE (23:14)
[2017-04-26 23:22] LABS: URINE APPEARANCE SLCLOUDY; URINE BILIRUBIN NEGATIVE (NEGATIVE); URINE BLOOD 3+ (NEGATIVE); URINE COLOR LTYELLOW; URINE GLUCOSE (UA) NEGATIVE (NEGATIVE); URINE KETONE NEGATIVE (NEGATIVE); URINE LEUK ESTERASE NEGATIVE (NEGATIVE); URINE NITRITE NEGATIVE (NEGATIVE); URINE PROTEIN NEGATIVE (NEGATIVE); URINE UROBILINOGEN NEGATIVE mg/dL (0.2-1.0)
[2017-04-26 23:36] LABS: URINE MUCUS RARE; URINE RBC 4 /hpf (0-3); URINE WBC 1 /hpf (3-5)
[2017-04-26 23:44] LABS: ALBUMIN 3.5 g/dl (3.4-5.0); ANION GAP 12 (8-16); BILIRUBIN,TOTAL 0.3 mg/dL (0.2-1.0); CALCIUM 8.4 mg/dL (8.5-10.1); CO2 25 mmol/L (21-32); CREATININE 0.6 mg/dL (0.55-1.02); GLUCOSE,RANDOM 106 mg/dL (74-106); MAGNESIUM 1.8 mg/dL (1.8-2.4); SGOT/AST 14 U/L (15-37); SGPT/ALT 21 U/L (12-78); TOT PROT 7.6 g/dl (6.4-8.2)
[2017-04-26 23:45] LABS: ALK PHOS 116 U/L (45-117)
[2017-04-26] MEDS ORDERED: HYDROmorphone HCL CARPU-JECT 1 MG/1 ML DISP.SYRIN IVPUSH ONE (23:46)
[2017-04-26] MEDS ORDERED: HYDROmorphone HCL CARPU-JECT 1 MG/1 ML DISP.SYRIN ONE (23:47)
[2017-04-26 23:52] LABS: INR 1.04 (0.82-1.09); PROTHROMBIN TIME (PATIENT) 11.4 SEC (9.98-11.88)
[2017-04-27] MEDS ORDERED: HYDROmorphone HCL CARPU-JECT 1 MG/1 ML DISP.SYRIN IVPUSH ONE ×2 (00:52→04:04)
[2017-04-27] MEDS ORDERED: HYDROmorphone HCL CARPU-JECT 1 MG/1 ML DISP.SYRIN ONE ×2 (01:00→04:04)
[2017-04-27] MEDS ORDERED: POTASSIUM CHLORIDE ORAL LIQUID 20 MEQ/15 ML PO ONE (01:23)
[2017-04-27] MEDS ORDERED: KCL 10 MEQ IVPB 100 ML IVPB SCH (01:30)
[2017-04-27] MEDS ORDERED: POTASSIUM CHLORIDE ORAL LIQUID 20 MEQ/15 ML ONE (01:38)
[2017-04-27] MEDS ORDERED: KCL 10 MEQ IVPB 100 ML IVPB ONE (01:38)
--- NOTE | 2017-04-27 03:42 | PDOC ---
*Physical Exam - Vital Signs Last Vital Signs Temp Pulse Resp BP Pulse Ox 98.2 F 91 H 20 177/113 100 04/26/17 22:07 04/26/17 22:07 04/26/17 22:07 04/26/17 22:07 04/26/17 22:07 - Physical Exam General Appearance: Yes: Nourished <Korey Keyes - Last Filed: 04/27/17 03:54> - Vital Signs Last Vital Signs Temp Pulse Resp BP Pulse Ox 98.2 F 91 H 20 177/113 100 04/26/17 22:07 04/26/17 22:07 04/26/17 22:07 04/26/17 22:07 04/26/17 22:07 <Willian Boatneg - Last Filed: 04/27/17 04:10> Heart Score/ECG Review - ECG Intrepretation Comment:: 04/27/17 04:09 Normal sinus rhythm Prolonged QT Abnormal ECG <Willian Boateng - Last Filed: 04/27/17 04:10> ED Treatment Course - LABORATORY CBC & Chemistry Diagram: 04/26/17 22:50 04/26/17 22:50 - ADDITIONAL ORDERS Additional order review: Laboratory Results 04/26/17 04/26/17 04/26/17 23:00 23:00 22:50 INR PTT (Actin FS) Sodium Potassium Chloride Carbon Dioxide Anion Gap BUN Creatinine Creat Clearance w eGFR Random Glucose Calcium Magnesium Total Bilirubin AST ALT Alkaline Phosphatase Total Protein Albumin Lipase Serum , Qual Negative Urine Color Ltyellow Urine Appearance Slcloudy Urine pH 6.0 Urine Protein Negative Urine Glucose (UA) Negative Urine Ketones Negative Urine Blood 3+ H Urine Nitrite Negative Urine Bilirubin Negative Urine Urobilinogen Negative Ur Leukocyte Esterase Negative Urine RBC 4 Urine WBC 1 Ur Epithelial Cells Rare Urine Mucus Rare Urine HCG, Qual Negative 04/26/17 04/26/17 04/26/17 22:50 22:50 22:50 INR 1.04 PTT (Actin FS) 26.0 L Sodium 144 Potassium 3.1 L D Chloride 107 Carbon Dioxide 25 Anion Gap 12 BUN 10 D Creatinine 0.6 Creat Clearance w eGFR > 60 Random Glucose 106 Calcium 8.4 L Magnesium 1.8 Total Bilirubin 0.3 D AST 14 L D ALT 21 Alkaline Phosphatase 116 Total Protein 7.6 Albumin 3.5 Lipase 271 Serum , Qual Urine Color Urine Appearance Urine pH Urine Protein Urine Glucose (UA) Urine Ketones Urine Blood Urine Nitrite Urine Bilirubin Urine Urobilinogen Ur Leukocyte Esterase Urine RBC Urine WBC Ur Epithelial Cells Urine Mucus Urine HCG, Qual 04/26/17 22:50 RBC 3.91 D MCV 79.5 L MCHC 33.4 RDW 16.2 H MPV 8.8 Neutrophils % 67.4 Lymphocytes % 27.2 D Monocytes % 2.9 L Eosinophils % 2.1 Basophils % 0.4 - Medications Given in the ED: ED Medications Discontinued Medications Generic Name Dose Route Start Last Admin Trade Name Blakeq PRN Reason Stop Dose Admin Hydromorphone HCl 0.5 mg 04/26/17 23:46 04/26/17 23:57 Dilaudid Injection - IVPUSH 04/26/17 23:47 0.5 mg ONCE ONE Administration Hydromorphone HCl 1 mg 04/27/17 00:52 04/27/17 01:34 Dilaudid Injection - IVPUSH 04/27/17 00:53 1 mg ONCE ONE Administration Potassium Chloride 100 mls @ 100 mls/hr 04/27/17 01:30 04/27/17 01:46 Potassium Chloride 10 Meq Premix Ivpb - IVPB 04/27/17 02:29 100 mls/hr Q60M NONA Administration Morphine Sulfate 4 mg 04/26/17 22:51 04/26/17 23:28 Morphine Injection - IVPUSH 04/26/17 22:52 4 mg ONCE ONE Administration Ondansetron HCl 4 mg 04/26/17 22:50 04/26/17 23:28 Zofran Injection IVPUSH 04/26/17 22:51 4 mg ONCE ONE Administration Potassium Chloride 20 meq 04/27/17 01:23 04/27/17 01:45 Potassium Chloride Oral Liquid PO 04/27/17 01:24 20 meq ONCE ONE Administration Sodium Chloride 1,000 ml 04/26/17 22:50 04/26/17 23:28 Normal Saline - IV 04/26/17 22:51 1,000 ml ONCE ONE Administration <Korey Keyes - Last Filed: 04/27/17 03:54> - LABORATORY CBC & Chemistry Diagram: 04/26/17 22:50 04/26/17 22:50 - ADDITIONAL ORDERS Additional order review: Laboratory Results 04/26/17 04/26/17 04/26/17 23:00 23:00 22:50 INR PTT (Actin FS) Sodium Potassium Chloride Carbon Dioxide Anion Gap BUN Creatinine Creat Clearance w eGFR Random Glucose Calcium Magnesium Total Bilirubin AST ALT Alkaline Phosphatase Total Protein Albumin Lipase Serum , Qual Negative Urine Color Ltyellow Urine Appearance Slcloudy Urine pH 6.0 Urine Protein Negative Urine Glucose (UA) Negative Urine Ketones Negative Urine Blood 3+ H Urine Nitrite Negative Urine Bilirubin Negative Urine Urobilinogen Negative Ur Leukocyte Esterase Negative Urine RBC 4 Urine WBC 1 Ur Epithelial Cells Rare Urine Mucus Rare Urine HCG, Qual Negative 04/26/17 04/26/17 04/26/17 22:50 22:50 22:50 INR 1.04 PTT (Actin FS) 26.0 L Sodium 144 Potassium 3.1 L D Chloride 107 Carbon Dioxide 25 Anion Gap 12 BUN 10 D Creatinine 0.6 Creat Clearance w eGFR > 60 Random Glucose 106 Calcium 8.4 L Magnesium 1.8 Total Bilirubin 0.3 D AST 14 L D ALT 21 Alkaline Phosphatase 116 Total Protein 7.6 Albumin 3.5 Lipase 271 Serum , Qual Urine Color Urine Appearance Urine pH Urine Protein Urine Glucose (UA) Urine Ketones Urine Blood Urine Nitrite Urine Bilirubin Urine Urobilinogen Ur Leukocyte Esterase Urine RBC Urine WBC Ur Epithelial Cells Urine Mucus Urine HCG, Qual 04/26/17 22:50 RBC 3.91 D MCV 79.5 L MCHC 33.4 RDW 16.2 H MPV 8.8 Neutrophils % 67.4 Lymphocytes % 27.2 D Monocytes % 2.9 L Eosinophils % 2.1 Basophils % 0.4 - RADIOLOGY Radiograph Interpretation: 04/27/17 03:42 CT Abdomen and Pelvis Impression: Right lower quadrant abdominal wall scarring and postoperative changes in distal ileum, which appears unremarkable and not inflamed. Thickened proximal/mid sigmoid colon near an anastomic suture line and several loops of nearby small bowel that may be slightly thickened, with nearby mesenteric fat stranding and trace ascites. Oral contrast fills proximal appendix with mixed fecal material and gas bubles more distally, distal appendix measuring 8-9m and extending into the area of sigmoid mesenteric fat inflammation and fluid. Constellation of findings probably represents colitis/ enteritis with top normal size appendix incidentally projecting into inflamed region, although acute appendicitis with secondary reactive colitis and enteritis is not excluded. Correlate clinically and consider followup CT after 2 hour delay to allow further progression of oral contrast. Read by: Dr. Ethel Rose - Medications Given in the ED: ED Medications Discontinued Medications Generic Name Dose Route Start Last Admin Trade Name Lyssa PRN Reason Stop Dose Admin Hydromorphone HCl 0.5 mg 04/26/17 23:46 04/26/17 23:57 Dilaudid Injection - IVPUSH 04/26/17 23:47 0.5 mg ONCE ONE Administration Hydromorphone HCl 1 mg 04/27/17 00:52 04/27/17 01:34 Dilaudid Injection - IVPUSH 04/27/17 00:53 1 mg ONCE ONE Administration Potassium Chloride 100 mls @ 100 mls/hr 04/27/17 01:30 04/27/17 01:46 Potassium Chloride 10 Meq Premix Ivpb - IVPB 04/27/17 02:29 100 mls/hr Q60M NONA Administration Morphine Sulfate 4 mg 04/26/17 22:51 04/26/17 23:28 Morphine Injection - IVPUSH 04/26/17 22:52 4 mg ONCE ONE Administration Ondansetron HCl 4 mg 04/26/17 22:50 04/26/17 23:28 Zofran Injection IVPUSH 04/26/17 22:51 4 mg ONCE ONE Administration Potassium Chloride 20 meq 04/27/17 01:23 04/27/17 01:45 Potassium Chloride Oral Liquid PO 04/27/17 01:24 20 meq ONCE ONE Administration Sodium Chloride 1,000 ml 04/26/17 22:50 04/26/17 23:28 Normal Saline - IV 04/26/17 22:51 1,000 ml ONCE ONE Administration <Willian Boateng - Last Filed: 04/27/17 04:10> Medical Decision Making - Medical Decision Making 04/27/17 03:[address] Grady @3;47am. Case discussed. <Willian Boateng - Last Filed: 04/27/17 04:10> *DC/Admit/Observation/Transfer - Discharge Dispostion Admit: Yes <Korey Keyes - Last Filed: 04/27/17 03:54> <Willian Boateng - Last Filed: 04/27/17 04:10> Diagnosis at time of Disposition: Enteritis, Colitis - Referrals Referrals: Mehnaz Grady MD [Primary Care Provider] - - Patient Instructions - Post Discharge Activity
[2017-04-27] MEDS ORDERED: AMPICILLIN NA/SULBACTAM NA 1.5 GM in SODIUM CHLORIDE 100 ML IVPB ONE (03:47)
[2017-04-27] MEDS ORDERED: METRONIDAZOLE 500 MG PREMIXED 100 ML IVPB ONE ×2 (03:47→04:04)
[2017-04-27] MEDS ORDERED: DEXTROSE 5%-0.45% SALINE 1,000 ML IV SCH (04:00)
--- NOTE | 2017-04-27 08:50 | EKG ---
Test Reason : Blood Pressure : / mmHG Vent. Rate : 086 BPM Atrial Rate : 086 BPM P-R Int : 130 ms QRS Dur : 086 ms QT Int : 410 ms P-R-T Axes : 042 -01 042 degrees QTc Int : 490 ms NORMAL SINUS RHYTHM PROLONGED QT ABNORMAL ECG WHEN COMPARED WITH ECG OF 12-MAR-2017 14:54, NO SIGNIFICANT CHANGE WAS FOUND Confirmed by JAYLEN WONG MD ([id number]) on 04/27/2017 8:49:33 AM Referred By: Confirmed By:JAYLEN WONG MD
[2017-04-27] MEDS: HYDROmorphone HCL CARPU-JECT 1 MG/1 ML DISP.SYRIN IVPB PRN ×2 (12:26→18:21)
[2017-04-27] MEDS ORDERED: LEVOFLOXACIN 500 MG IVPB 100 ML IVPB SCH (14:30)
--- NOTE | 2017-04-27 15:00 | CON.ID ---
Consult Consult Specialty:: infectios diseases Referred by:: dr Hall Reason for Consultation:: dirhoea,abd pain - History of Present Illness Chief Complaint: abd distension, History of Present Illness: 47 y/o female s/p segmental resection of the sigmoid with ileostomy, recently underwent revision of the ileostomy admitted because of abd pain,distension , She was doing well on Linzess until yesterday when she developed progressive abdominal pain and diarrhea. Diarrhea wa non-bloody. I have known this patient from previous admission patient was admitted and worked up Imaging studies shows thickening of the left colon and appendicitis - History Source History Provided By: Patient, Family Member - Past Medical History Cardio/Vascular: Yes: HTN Gastrointestinal: Yes: Diverticulosis ...LMP: 02/15/17 - Past Surgical History Past Surgical History: Yes: Colectomy, Colostomy - Alcohol/Substance Use Hx Alcohol Use: No - Smoking History Smoking history: Never smoked Have you smoked in the past 12 months: No Aproximately how many cigarettes per day: 2 Home Medications - Allergies Allergies/Adverse Reactions: Allergies Allergy/AdvReac Type Severity Reaction Status Date / Time No Known Allergies Allergy Verified 04/26/17 22:06 - Home Medications Home Medications: Ambulatory Orders Pantoprazole Sodium [Protonix -] 40 mg PO DAILY #30 tab 03/22/17 Review of Systems - Review of Systems Constitutional: reports: No Symptoms Eyes: reports: No Symptoms HENT: reports: No Symptoms Neck: reports: No Symptoms Cardiovascular: reports: No Symptoms Respiratory: reports: No Symptoms Gastrointestinal: reports: Abdominal Pain, Bloating, Diarrhea, Other Genitourinary: reports: No Symptoms Musculoskeletal: reports: No Symptoms Integumentary: reports: No Symptoms Neurological: reports: No Symptoms Endocrine: reports: No Symptoms Hematology/Lymphatic: reports: No Symptoms Psychiatric: reports: No Symptoms Physical Exam Vital Signs: Vital Signs Temperature 98.9 F 04/27/17 13:33 Pulse Rate 78 04/27/17 13:33 Respiratory Rate 16 04/27/17 13:33 Blood Pressure 150/90 04/27/17 13:33 O2 Sat by Pulse Oximetry (%) 97 04/27/17 08:30 Constitutional: Yes: Well Nourished, Moderate Distress Eyes: Yes: Conjunctiva Clear HENT: Yes: Atraumatic Neck: Yes: Supple Cardiovascular: Yes: Regular Rate and Rhythm Respiratory: Yes: Regular, CTA Bilaterally Gastrointestinal: Yes: Distention, Tenderness, Other (absent bowel sounds) Musculoskeletal: Yes: WNL Extremities: Yes: WNL Neurological: Yes: Alert, Oriented Psychiatric: Yes: Alert, Oriented Imaging - Results Chest X-ray: Report Reviewed, Image Reviewed Cat Scan: Report Reviewed, Image Reviewed Assessment/Plan Problem List - Problems (1) Colitis Code(s): K52.9 - NONINFECTIVE GASTROENTERITIS AND COLITIS, UNSPECIFIED (2) Enteritis Code(s): K52.9 - NONINFECTIVE GASTROENTERITIS AND COLITIS, UNSPECIFIED diverticulitis 4 probable appendicitis r/o cdiff i am going to start on oral vanco plan will start on oral vanco will laso start on zosyn cdiff to be send await for all reports hydration surgery to see the patient
--- NOTE | 2017-04-27 15:01 | CONSULT ---
- Consultation REQUESTING PROVIDER: Robert Palacios - General Surgery CONSULT REQUEST: We have been asked to surgically evaluate this patient abd pain. PCP: Mehnaz Grady HPI: Called to carmen 47 yo F with PMHx noted below. Presents to [facility] ED due to increased abdominal bloating and pain. States pain came on suddenly after eating fried chicken last night. Admits to nausea but no vomiting. Patient is followed by Dr. Hernandez as an out-patient for her GI issues. Last colonoscopy was [address] Hernandez wants to wait another month or two before doing repeat colonoscopy per patient. Patient c/o a lot of diarrhea over past 24 hours. Noticed some BRBPR. Knows she has internal hemorrhoids. Bleeding stopped spontaneously. Denies fever, chills, loss of appetite. Denies CP, palpitations or peripheral edema. Denies SOB, CHAMBERS. Denies vomiting, constipation, melena or hematochezia. Denies dysuria, frequency, urgency, hesitancy, hematuria or flank pain. PMHx: Diverticulosis/itis, Nephrolithiasis PSHx: Sigmoid resection with diverting ileostomy 03/14/17 Home Meds: Pantoprazole 40mg PO Daily Allergies: NKDA ROS All systems reviewed and considered negative except for what's contained in HPI. PE: GENERAL: alert, oriented, nad HEAD: NC. AT. EYES: PERRL, sclera anicteric, conjunctiva clear. NECK: Normal ROM, supple without lymphadenopathy, JVD, or masses. LUNGS: CTA bilat anteriorly COR: RRR ABD: Distended. Hyperactive bowel sounds in all quadrants. TTP LLQ/RLQ. No rigidity or guarding. Negative rebound / McBurney's point / Psoas / Obturator signs MUSCULOSKELETAL: Negative CVAT UE: 2+ pulses, warm, well-perfused. No cyanosis. Cap refill <2 seconds. No peripheral edema. LE: 2+ pulses, warm, well-perfused. No calf tenderness. No peripheral edema. PSYCH: Cooperative. Good eye contact. Appropriate mood and affect. SKIN: Transverse incision RLQ (old ileostomy site) healed well. CT Abd & Pelvis RLQ abdominal wall scarring and postoperative changes in distal ileum, which appears unremarkable and not inflamed. Thickened proximal/mid sigmoid colon near an anastomic suture line and several loops of nearby small bowel that may be slightly thickened, with nearby mesenteric fat stranding and trace ascites. Oral contrast fills proximal appendix with mixed fecal material and gas bubles more distally, distal appendix measuring 8-9m and extending into the area of sigmoid mesenteric fat inflammation and fluid. Constellation of findings probably represents colitis/enteritis with top normal size appendix incidentally projecting into inflamed region, although acute appendicitis with secondary reactive colitis and enteritis is not excluded. Correlate clinically and consider followup CT after 2 hour delay to allow further progression of oral contrast. Read by: Dr. Ethel Rose Last Vital Signs Temp Pulse Resp BP Pulse Ox 98.9 F 78 16 150/90 97 04/27/17 13:33 04/27/17 13:33 04/27/17 13:33 04/27/17 13:33 04/27/17 08:30 CBC, BMP 04/26/17 22:50 04/26/17 22:50 INR, PTT INR 1.04 (0.82-1.09) 04/26/17 22:50 Urine Test Results Urine Color Ltyellow 04/26/17 23:00 Urine Appearance Slcloudy 04/26/17 23:00 Urine pH 6.0 (5.0-8.0) 04/26/17 23:00 Ur Specific [place] 1.015 (1.005-1.025) 04/26/17 23:00 Urine Protein Negative (NEGATIVE) 04/26/17 23:00 Urine Glucose (UA) Negative (NEGATIVE) 04/26/17 23:00 Urine Ketones Negative (NEGATIVE) 04/26/17 23:00 Urine Blood 3+ (NEGATIVE) H 04/26/17 23:00 Urine Nitrite Negative (NEGATIVE) 04/26/17 23:00 Urine Bilirubin Negative (NEGATIVE) 04/26/17 23:00 Ur Leukocyte Esterase Negative (NEGATIVE) 04/26/17 23:00 Urine RBC 4 /hpf (0-3) 04/26/17 23:00 Urine WBC 1 /hpf (3-5) 04/26/17 23:00 Ur Epithelial Cells Rare /hpf (FEW) 04/26/17 23:00 Urine Mucus Rare 04/26/17 23:00 Hepatic Panel Total Bilirubin 0.3 mg/dL (0.2-1.0) D 04/26/17 22:50 AST 14 U/L (15-37) L D 04/26/17 22:50 ALT 21 U/L (12-78) 04/26/17 22:50 Alkaline Phosphatase 116 U/L (45-117) 04/26/17 22:50 Albumin 3.5 g/dl (3.4-5.0) 04/26/17 22:50 Problem List - Problems (1) Colitis Assessment/Plan: At this time, low index of suspicion for acute appendicitis as she has no leukocytosis, no left shift. Afebrile. Working diagnosis is colitis / enteritis. NPO / IVF GI / DVT PPX IV ABX OOB and ambulate Pain management PRN Tylenol 650mg for fever > 100.3F Above discussed with Dr. Palacios and agrees. Surgery will continue to follow Code(s): K52.9 - NONINFECTIVE GASTROENTERITIS AND COLITIS, UNSPECIFIED (2) Enteritis Assessment/Plan: Outlined as above Code(s): K52.9 - NONINFECTIVE GASTROENTERITIS AND COLITIS, UNSPECIFIED Visit type - Case Type Case Type: ED Admission - Emergency Emergency Visit: Yes ED Registration Date: 04/27/17 Care time: The patient presented to the Emergency Department on the above date and was hospitalized for further evaluation of their emergent condition. - New patient This patient is new to me today: Yes Date on this admission: 04/27/17
[2017-04-27 15:58] LABS: BASOPHIL 0.1 % (0-2.0); EOSINOPHIL 0.7 % (0-4.5); MCH 26.6 pg (25.7-33.7); MCHC 33.6 g/dl (32.0-36.0); MEAN CELL VOLUME 79.2 fl (80-96); MEAN PLT VOLUME 8.9 fl (7.5-11.1); NEUTROPHILS 85.1 % (42.8-82.8); PLATELET COUNT 275 K/MM3 (134-434); WHITE BLOOD COUNT 9.6 K/mm3 (4.0-10.0)
--- NOTE | 2017-04-27 16:00 | CONSULT ---
Consult Consult Specialty:: surgery Reason for Consultation:: Abdominal pain - History of Present Illness History of Present Illness: 47 yr old female s/p lap sigmoid resection for perforated diverticulitis withloop ileostomy which was closed in February presents with acute onset of lower abdominal pain and LLQ pain of suddent onset associated with diarrhea Denies fever / chills - Past Medical History Cardio/Vascular: Yes: HTN Gastrointestinal: Yes: Diverticulosis ...LMP: 02/15/17 - Past Surgical History Past Surgical History: Yes: Colectomy, Colostomy - Alcohol/Substance Use Hx Alcohol Use: No - Smoking History Smoking history: Never smoked Have you smoked in the past 12 months: No Aproximately how many cigarettes per day: 2 Home Medications - Allergies Allergies/Adverse Reactions: Allergies Allergy/AdvReac Type Severity Reaction Status Date / Time No Known Allergies Allergy Verified 04/26/17 22:06 - Home Medications Home Medications: Ambulatory Orders Pantoprazole Sodium [Protonix -] 40 mg PO DAILY #30 tab 03/22/17 Physical Exam Vital Signs: Vital Signs Temperature 98.9 F 04/27/17 13:33 Pulse Rate 78 04/27/17 13:33 Respiratory Rate 16 04/27/17 13:33 Blood Pressure 150/90 04/27/17 13:33 O2 Sat by Pulse Oximetry (%) 97 04/27/17 08:30 Gastrointestinal: Yes: Tenderness (LLQ tenderness) Imaging - Results Cat Scan: Report Reviewed, Image Reviewed Problem List - Problems (1) Colitis Code(s): K52.9 - NONINFECTIVE GASTROENTERITIS AND COLITIS, UNSPECIFIED (2) Diverticulitis Code(s): K57.92 - DVTRCLI OF INTEST, PART UNSP, W/O PERF OR ABSCESS W/O BLEED Qualifiers: Diverticulitis site: large intestine Diverticulitis bleeding: without bleeding Diverticulitis complication: with perforation Qualified Code (s): K57.20 - Diverticulitis of large intestine with perforation and abscess without bleeding Assessment/Plan 47 yr old s/p sigmoid resection 3 months ago for perforated diverticulitis represents with acute onset of abdominal pain , edematous colon and inflammatory process unclear etiology recurrent diverticulitis vs infectious colitis Continue antibiotics NPO repeat CT scan tomorrow
[2017-04-27 16:30] LABS: ANION GAP 11 (8-16); CALCIUM 7.7 mg/dL (8.5-10.1); CO2 25 mmol/L (21-32); GLUCOSE,RANDOM 103 mg/dL (74-106)
[2017-04-27 16:33] LABS: ALK PHOS 90 U/L (45-117); BILIRUBIN,TOTAL 0.5 mg/dL (0.2-1.0); CREATININE 0.5 mg/dL (0.55-1.02); SGOT/AST 8 U/L (15-37); SGPT/ALT 17 U/L (12-78); TOT PROT 6.6 g/dl (6.4-8.2)
--- NOTE | 2017-04-27 16:50 | CON.GI ---
Consult Consult Specialty:: gastroenterology Referred by:: Dr Grady Reason for Consultation:: abdominal pain - History of Present Illness History of Present Illness: 47 y/o female s/p segmental resection of the sigmoid with ileostomy, recently underwent revision of the ileostomy went to the office for follow up because of constipation,She was doing well on Linzess until yesterday when she developed progressive abdominal pain and diarrhea. Diarrhea wa non-bloody. By catscan there was thickenning of the left colon and enlarged appendix possibly appendicitis. - Past Medical History Cardio/Vascular: Yes: HTN Gastrointestinal: Yes: Diverticulosis ...LMP: 02/15/17 - Past Surgical History Past Surgical History: Yes: Colectomy, Colostomy - Alcohol/Substance Use Hx Alcohol Use: No - Smoking History Smoking history: Never smoked Have you smoked in the past 12 months: No Aproximately how many cigarettes per day: 2 Home Medications - Allergies Allergies/Adverse Reactions: Allergies Allergy/AdvReac Type Severity Reaction Status Date / Time No Known Allergies Allergy Verified 04/26/17 22:06 - Home Medications Home Medications: Ambulatory Orders Pantoprazole Sodium [Protonix -] 40 mg PO DAILY #30 tab 03/22/17 Physical Exam-GI Vital Signs: Vital Signs Temperature 98.9 F 04/27/17 13:33 Pulse Rate 78 04/27/17 13:33 Respiratory Rate 16 04/27/17 13:33 Blood Pressure 150/90 04/27/17 13:33 O2 Sat by Pulse Oximetry (%) 97 04/27/17 08:30 Constitutional: Yes: Well Nourished Eyes: Yes: Conjunctiva Clear HENT: Yes: Atraumatic Neck: Yes: Trachea Midline Cardiovascular: Yes: Regular Rate and Rhythm Respiratory: Yes: CTA Bilaterally ...Palpate: Yes: Soft. No: Firm/Rigid, Guarding, Hepatomegaly, Mass, Pulsatile Mass, Splenomegaly, Tenderness Labs: CBC, BMP 04/27/17 14:45 04/27/17 14:34 INR, PTT INR 1.04 (0.82-1.09) 04/26/17 22:50 Problem List - Problems (1) Abdominal pain Assessment/Plan: r/o infectious, ischemic colitis vs appendicitis R> close surgical follow-up add IV flagyl IV hydration Code(s): R10.9 - UNSPECIFIED ABDOMINAL PAIN Qualifiers: Abdominal location: lower abdomen, unspecified Qualified Code(s): R10.30 - Lower abdominal pain, unspecified
[2017-04-27] MEDS ORDERED: PIPERACILLIN/TAZOBACTAM 3.375 GM VIAL IVPB ONE (17:06)
[2017-04-27] MEDS ORDERED: DEXTROSE 5%-WATER - 50 ML IVPB ONE (17:07)
[2017-04-27] MEDS: DEXTROSE 5%-0.45% SALINE 1,000 ML IV SCH (17:30)
[2017-04-27] MEDS: PIPERACILLIN/TAZOB 3.375 GM 3.375 GM in DEXTROSE 5%-WATER - 50 ML IVPB SCH (17:31)
[2017-04-27] MEDS: VANCOMYCIN 250 MG/5 ML ORAL SOLUTION PO SCH ×2 (17:31→22:56)
[2017-04-27] MEDS ORDERED: PT OWN MED DRAWER 7, Y5N ONE ×2 (18:08→23:54)
[2017-04-27] MEDS: METRONIDAZOLE 500 MG PREMIXED 100 ML IVPB SCH ×2 (18:22→18:23)
[2017-04-27] MEDS ORDERED: POTASSIUM CHLORIDE TABS 20 MEQ TABLET.ER (FP) PO ONE (18:44)
[2017-04-27] MEDS: ACETAMINOPHEN 325 MG TABLET (FP) PO PRN (20:10)
[2017-04-27 21:58] VITALS: BMI 28.8
--- NOTE | 2017-04-27 22:39 | PN ---
Progress Note, Physician - Current Medication List Current Medications: Active Medications Acetaminophen (Tylenol -) 650 mg PO Q6H PRN PRN Reason: FEVER OR PAIN Last Admin: 04/27/17 20:10 Dose: 650 mg Heparin Sodium (Porcine) (Heparin -) 5,000 unit SQ BID NONA Hydromorphone HCl (Dilaudid Injection -) 1 mg IVPB Q6H PRN PRN Reason: PAIN Last Admin: 04/27/17 18:21 Dose: 1 mg Metronidazole (Flagyl 500mg Premixed Ivpb -) 100 mls @ 100 mls/hr IVPB Q8H-IV NONA Last Admin: 04/27/17 18:23 Dose: Not Given Piperacillin Sod/Tazobactam (Sod 3.375 gm/ Dextrose) 50 mls @ 100 mls/hr IVPB Q8H-IV NONA PRN Reason: Protocol Last Admin: 04/27/17 17:31 Dose: 100 mls/hr Dextrose/Sodium Chloride (D5-1/2ns -) 1,000 mls @ 175 mls/hr IV ASDIR NONA Stop: 04/29/17 09:43 Last Admin: 04/27/17 17:30 Dose: 175 mls/hr Pantoprazole Sodium (Protonix -) 40 mg PO DAILY NONA Vancomycin HCl (Vancomycin Oral Solution) 125 mg PO Q6HPO NONA Last Admin: 04/27/17 17:31 Dose: 125 mg - Objective Vital Signs: Vital Signs Temperature 100.3 F H 04/27/17 18:00 Pulse Rate 98 H 04/27/17 18:00 Respiratory Rate 20 04/27/17 18:00 Blood Pressure 141/84 04/27/17 18:00 O2 Sat by Pulse Oximetry (%) 98 04/27/17 10:00 Labs: CBC, BMP 04/27/17 14:45 04/27/17 14:34 INR, PTT INR 1.04 (0.82-1.09) 04/26/17 22:50
--- NOTE | 2017-04-27 22:41 | HP ---
Admitting History and Physical - Admission History of Present Illness: Pt is a 47 y/o female w/ PMH significant for HTN and perforated diverticulits for wc she subsequenty underwent sigmoid resection and diverting ileostomy w/ closure of ileostomy(03/05). Pt now developed acute abdojinal pain and abdominal distension. This did begin after eating fried chicken. Pt also had some nausea but no vomiting. There was also some diarrhea. pt denied any fever /cjhills. On admission but had jnormal WBC and was afebrile. CT scan abd showed - Past Medical History Cardiovascular: Yes: HTN Gastrointestinal: Yes: Diverticulosis ...LMP: 02/15/17 ...: No - Past Surgical History Past Surgical History: Yes: Colectomy, Colostomy - Smoking History Smoking history: Never smoked Have you smoked in the past 12 months: No Aproximately how many cigarettes per day: 2 - Alcohol/Substance Use Hx Alcohol Use: No Home Medications - Allergies Allergies/Adverse Reactions: Allergies Allergy/AdvReac Type Severity Reaction Status Date / Time No Known Allergies Allergy Verified 04/26/17 22:06 - Home Medications Home Medications: Ambulatory Orders Pantoprazole Sodium [Protonix -] 40 mg PO DAILY #30 tab 03/22/17 Family Disease History - Family Disease History Family History: Unremarkable Review of Systems - Review of Systems Constitutional: reports: No Symptoms Eyes: reports: No Symptoms HENT: reports: No Symptoms Neck: reports: No Symptoms Cardiovascular: reports: No Symptoms Respiratory: reports: No Symptoms Gastrointestinal: reports: Abdominal Pain, Bloating, Diarrhea, Nausea Physical Examination Vital Signs: Vital Signs Temperature 100.3 F H 04/27/17 18:00 Pulse Rate 98 H 04/27/17 18:00 Respiratory Rate 20 04/27/17 18:00 Blood Pressure 141/84 04/27/17 18:00 O2 Sat by Pulse Oximetry (%) 98 04/27/17 10:00 Constitutional: Yes: No Distress HENT: Yes: WNL Neck: Yes: WNL, Supple Cardiovascular: Yes: WNL, Regular Rate and Rhythm Respiratory: Yes: WNL, Regular, CTA Bilaterally Gastrointestinal: Yes: Other ((+) generalized tenderness (-) guarding/rebound) Breast(s): Yes: WNL Musculoskeletal: Yes: WNL Extremities: Yes: WNL Edema: No Neurological: Yes: WNL, Alert ...Motor Strength: WNL Labs: CBC, BMP 04/27/17 14:45 04/27/17 14:34 Problem List - Problems (1) Abdominal pain Assessment/Plan: At this time there are multjple findings on ct scan Await surgical/GI recommendations Cont IVF Cont NPO IV antibxs Follow cultures Code(s): R10.9 - UNSPECIFIED ABDOMINAL PAIN Qualifiers: Abdominal location: lower abdomen, unspecified Qualified Code(s): R10.30 - Lower abdominal pain, unspecified
[2017-04-27] MEDS: HEPARIN NA (PORCINE) 5,000 UNITS/ML 1ML VIAL SQ SCH (22:55)
[2017-04-28] MEDS: METRONIDAZOLE 500 MG PREMIXED 100 ML IVPB SCH ×3 (01:30→19:01)
[2017-04-28] MEDS ORDERED: PIPERACILLIN/TAZOBACTAM 3.375 GM VIAL IVPB ONE ×4 (01:41→17:52)
[2017-04-28] MEDS ORDERED: DEXTROSE 5%-WATER - 50 ML IVPB ONE ×3 (01:42→17:52)
[2017-04-28] MEDS: PIPERACILLIN/TAZOB 3.375 GM 3.375 GM in DEXTROSE 5%-WATER - 50 ML IVPB SCH ×3 (02:16→19:01)
[2017-04-28] MEDS: DEXTROSE 5%-0.45% SALINE 1,000 ML IV SCH ×2 (02:29→19:00)
[2017-04-28] MEDS: VANCOMYCIN 250 MG/5 ML ORAL SOLUTION PO SCH ×4 (05:57→23:45)
[2017-04-28 08:10] LABS: BASOPHIL 0.1 % (0-2.0); EOSINOPHIL 2.2 % (0-4.5); MCH 26.3 pg (25.7-33.7); MCHC 33.4 g/dl (32.0-36.0); MEAN CELL VOLUME 78.7 fl (80-96); MEAN PLT VOLUME 8.4 fl (7.5-11.1); NEUTROPHILS 83.4 % (42.8-82.8); PLATELET COUNT 290 K/MM3 (134-434); RDW 16.2 % (11.6-15.6); WHITE BLOOD COUNT 9.7 K/mm3 (4.0-10.0)
[2017-04-28 08:40] LABS: ALBUMIN 2.8 g/dl (3.4-5.0); ANION GAP 10 (8-16); BILIRUBIN,TOTAL 0.6 mg/dL (0.2-1.0); CALCIUM 8.1 mg/dL (8.5-10.1); CO2 25 mmol/L (21-32); GLUCOSE,RANDOM 102 mg/dL (74-106)
[2017-04-28 08:42] LABS: ALK PHOS 90 U/L (45-117); CREATININE 0.6 mg/dL (0.55-1.02); SGOT/AST 10 U/L (15-37); SGPT/ALT 16 U/L (12-78); TOT PROT 6.4 g/dl (6.4-8.2)
[2017-04-28] MEDS ORDERED: PT OWN MED DRAWER 7, Y5N ONE (09:45)
[2017-04-28] MEDS: PANTOPRAZOLE 40 MG TABLET (FP) PO SCH (10:35)
[2017-04-28] MEDS: HEPARIN NA (PORCINE) 5,000 UNITS/ML 1ML VIAL SQ SCH ×2 (10:35→21:40)
[2017-04-28] MEDS: HYDROmorphone HCL CARPU-JECT 1 MG/1 ML DISP.SYRIN IVPB PRN ×2 (10:35→19:02)
[2017-04-28] MEDS: ACETAMINOPHEN 325 MG TABLET (FP) PO PRN (13:48)
--- NOTE | 2017-04-28 14:27 | PN ---
Progress Note, Physician History of Present Illness: patient doing well abd soft - Current Medication List Current Medications: Active Medications Acetaminophen (Tylenol -) 650 mg PO Q6H PRN PRN Reason: FEVER OR PAIN Last Admin: 04/28/17 13:48 Dose: 650 mg Heparin Sodium (Porcine) (Heparin -) 5,000 unit SQ BID NONA Last Admin: 04/28/17 10:35 Dose: 5,000 unit Hydromorphone HCl (Dilaudid Injection -) 1 mg IVPB Q6H PRN PRN Reason: PAIN Last Admin: 04/28/17 10:35 Dose: 1 mg Metronidazole (Flagyl 500mg Premixed Ivpb -) 100 mls @ 100 mls/hr IVPB Q8H-IV NONA Last Admin: 04/28/17 10:34 Dose: 100 mls/hr Piperacillin Sod/Tazobactam (Sod 3.375 gm/ Dextrose) 50 mls @ 100 mls/hr IVPB Q8H-IV NONA PRN Reason: Protocol Last Admin: 04/28/17 10:34 Dose: 100 mls/hr Dextrose/Sodium Chloride (D5-1/2ns -) 1,000 mls @ 175 mls/hr IV ASDIR [facility] Stop: 04/29/17 09:43 Last Admin: 04/28/17 02:29 Dose: 175 mls/hr Pantoprazole Sodium (Protonix -) 40 mg PO DAILY [facility] Last Admin: 04/28/17 10:35 Dose: 40 mg Vancomycin HCl (Vancomycin Oral Solution) 125 mg PO Q6HPO [facility] Last Admin: 04/28/17 05:57 Dose: 125 mg - Objective Vital Signs: Vital Signs Temperature 98.1 F 04/28/17 06:00 Pulse Rate 72 04/28/17 06:00 Respiratory Rate 20 04/28/17 06:00 Blood Pressure 135/82 04/28/17 06:00 O2 Sat by Pulse Oximetry (%) 98 04/27/17 21:00 Constitutional: Yes: Calm Cardiovascular: Yes: Regular Rate and Rhythm Respiratory: Yes: Regular, CTA Bilaterally Gastrointestinal: Yes: Soft, Other (hypoactive) Musculoskeletal: Yes: WNL Extremities: Yes: WNL Neurological: Yes: Alert, Oriented Psychiatric: Yes: Alert, Oriented Labs: CBC, BMP 04/28/17 06:00 04/28/17 06:00 INR, PTT INR 1.04 (0.82-1.09) 04/26/17 22:50 Assessment/Plan Problem List - Problems (1) Colitis Code(s): K52.9 - NONINFECTIVE GASTROENTERITIS AND COLITIS, UNSPECIFIED (2) Enteritis Code(s): K52.9 - NONINFECTIVE GASTROENTERITIS AND COLITIS, UNSPECIFIED diverticulitis 4 probable appendicitis r/o cdiff i am going to start on oral vanco plan continue current mgmt hydration rest as per primary
[2017-04-28] MEDS: ONDANSETRON 4 MG/2 ML VIAL IVPB PRN ×2 (16:30→21:56)
--- NOTE | 2017-04-28 17:50 | PN ---
Progress Note, Physician History of Present Illness: NO COMPLAINTS - Current Medication List Current Medications: Active Medications Acetaminophen (Tylenol -) 650 mg PO Q6H PRN PRN Reason: FEVER OR PAIN Last Admin: 04/28/17 13:48 Dose: 650 mg Heparin Sodium (Porcine) (Heparin -) 5,000 unit SQ BID NONA Last Admin: 04/28/17 10:35 Dose: 5,000 unit Hydromorphone HCl (Dilaudid Injection -) 1 mg IVPB Q6H PRN PRN Reason: PAIN Last Admin: 04/28/17 10:35 Dose: 1 mg Metronidazole (Flagyl 500mg Premixed Ivpb -) 100 mls @ 100 mls/hr IVPB Q8H-IV NONA Last Admin: 04/28/17 10:34 Dose: 100 mls/hr Piperacillin Sod/Tazobactam (Sod 3.375 gm/ Dextrose) 50 mls @ 100 mls/hr IVPB Q8H-IV NONA PRN Reason: Protocol Last Admin: 04/28/17 10:34 Dose: 100 mls/hr Dextrose/Sodium Chloride (D5-1/2ns -) 1,000 mls @ 175 mls/hr IV ASDIR [facility] Stop: 04/29/17 09:43 Last Admin: 04/28/17 02:29 Dose: 175 mls/hr Ondansetron HCl (Zofran Injection) 4 mg IVPB Q6H PRN PRN Reason: NAUSEA AND/OR VOMITING Last Admin: 04/28/17 16:30 Dose: 4 mg Pantoprazole Sodium (Protonix -) 40 mg PO DAILY [facility] Last Admin: 04/28/17 10:35 Dose: 40 mg Vancomycin HCl (Vancomycin Oral Solution) 125 mg PO Q6HPO [facility] Last Admin: 04/28/17 14:00 Dose: 125 mg - Objective Vital Signs: Vital Signs Temperature 98.0 F 04/28/17 15:48 Pulse Rate 87 04/28/17 15:48 Respiratory Rate 20 04/28/17 15:48 Blood Pressure 141/90 04/28/17 15:48 O2 Sat by Pulse Oximetry (%) 98 04/27/17 21:00 Constitutional: Yes: No Distress HENT: Yes: Atraumatic Neck: Yes: Supple Cardiovascular: Yes: Regular Rate and Rhythm Respiratory: Yes: CTA Bilaterally Gastrointestinal: Yes: Normal Bowel Sounds Extremities: Yes: WNL Neurological: Yes: Alert, Oriented Labs: CBC, BMP 04/28/17 06:00 04/28/17 06:00 INR, PTT INR 1.04 (0.82-1.09) 04/26/17 22:50 Problem List - Problems (1) Colitis Assessment/Plan: on iv abx npo will have ct scan with po contrast today diverticolitis vs infectious colitis Code(s): K52.9 - NONINFECTIVE GASTROENTERITIS AND COLITIS, UNSPECIFIED (2) HTN (hypertension) Code(s): I10 - ESSENTIAL (PRIMARY) HYPERTENSION Assessment/Plan COVERING DR MALDONADO THIS IS MY FIRST ENCOUNTER WITH PATIENT
--- NOTE | 2017-04-28 22:58 | PN ---
Progress Note, Physician History of Present Illness: feeling slightly better continued diarrhea denies fever or chills - Current Medication List Current Medications: Active Medications Acetaminophen (Tylenol -) 650 mg PO Q6H PRN PRN Reason: FEVER OR PAIN Last Admin: 04/28/17 13:48 Dose: 650 mg Heparin Sodium (Porcine) (Heparin -) 5,000 unit SQ BID NONA Last Admin: 04/28/17 21:40 Dose: 5,000 unit Hydromorphone HCl (Dilaudid Injection -) 1 mg IVPB Q6H PRN PRN Reason: PAIN Last Admin: 04/28/17 19:02 Dose: 1 mg Metronidazole (Flagyl 500mg Premixed Ivpb -) 100 mls @ 100 mls/hr IVPB Q8H-IV NONA Last Admin: 04/28/17 19:01 Dose: 100 mls/hr Piperacillin Sod/Tazobactam (Sod 3.375 gm/ Dextrose) 50 mls @ 100 mls/hr IVPB Q8H-IV NONA PRN Reason: Protocol Last Admin: 04/28/17 19:01 Dose: 100 mls/hr Dextrose/Sodium Chloride (D5-1/2ns -) 1,000 mls @ 175 mls/hr IV ASDIR NONA Stop: 04/29/17 09:43 Last Admin: 04/28/17 19:00 Dose: 175 mls/hr Ondansetron HCl (Zofran Injection) 4 mg IVPB Q6H PRN PRN Reason: NAUSEA AND/OR VOMITING Last Admin: 04/28/17 21:56 Dose: 4 mg Pantoprazole Sodium (Protonix -) 40 mg PO DAILY [facility] Last Admin: 04/28/17 10:35 Dose: 40 mg Vancomycin HCl (Vancomycin Oral Solution) 125 mg PO Q6HPO [facility] Last Admin: 04/28/17 19:01 Dose: 125 mg - Objective Vital Signs: Vital Signs Temperature 98.7 F 04/28/17 21:39 Pulse Rate 80 04/28/17 21:39 Respiratory Rate 18 04/28/17 21:39 Blood Pressure 131/78 04/28/17 21:39 O2 Sat by Pulse Oximetry (%) 98 04/28/17 21:00 Gastrointestinal: Yes: Other (less distended, less tender in the LLQ) Labs: CBC, BMP 04/28/17 06:00 04/28/17 06:00 INR, PTT INR 1.04 (0.82-1.09) 04/26/17 22:50 Problem List - Problems (1) Colitis Code(s): K52.9 - NONINFECTIVE GASTROENTERITIS AND COLITIS, UNSPECIFIED (2) Diverticulitis Code(s): K57.92 - DVTRCLI OF INTEST, PART UNSP, W/O PERF OR ABSCESS W/O BLEED Qualifiers: Diverticulitis site: large intestine Diverticulitis bleeding: without bleeding Diverticulitis complication: with perforation Qualified Code (s): K57.20 - Diverticulitis of large intestine with perforation and abscess without bleeding Assessment/Plan 47 yr old s/p sigmoid resection 3 months ago for perforated diverticulitis represents with acute onset of abdominal pain , edematous colon and inflammatory process , repeat CT scan shows decreased inflammation although few more air bubbles. Clinically improved unclear etiology recurrent diverticulitis vs infectious colitis Continue antibiotics Continue NPO
[2017-04-29] MEDS: DEXTROSE 5%-0.45% SALINE 1,000 ML IV SCH ×2 (01:31→06:45)
[2017-04-29] MEDS ORDERED: DEXTROSE 5%-WATER - 50 ML IVPB ONE ×2 (01:32→08:59)
[2017-04-29] MEDS ORDERED: PIPERACILLIN/TAZOBACTAM 3.375 GM VIAL IVPB ONE ×2 (01:32→08:58)
[2017-04-29] MEDS: KCL 10 MEQ IVPB 100 ML IVPB SCH ×3 (01:34→06:44)
[2017-04-29] MEDS: PIPERACILLIN/TAZOB 3.375 GM 3.375 GM in DEXTROSE 5%-WATER - 50 ML IVPB SCH ×2 (02:39→09:08)
[2017-04-29] MEDS: METRONIDAZOLE 500 MG PREMIXED 100 ML IVPB SCH ×3 (02:40→18:39)
[2017-04-29] MEDS: VANCOMYCIN 250 MG/5 ML ORAL SOLUTION PO SCH ×2 (05:47→11:31)
[2017-04-29] MEDS ORDERED: POTASSIUM CHLORIDE TABS 20 MEQ TABLET.ER (FP) PO ONE (07:00)
[2017-04-29 07:16] LABS: BASOPHIL 0.2 % (0-2.0); MCH 26.1 pg (25.7-33.7); MCHC 33.2 g/dl (32.0-36.0); MEAN CELL VOLUME 78.5 fl (80-96); MEAN PLT VOLUME 8.3 fl (7.5-11.1); NEUTROPHILS 77.9 % (42.8-82.8); PLATELET COUNT 285 K/MM3 (134-434); RDW 16.1 % (11.6-15.6)
[2017-04-29 07:41] LABS: ALBUMIN 2.9 g/dl (3.4-5.0); ALK PHOS 90 U/L (45-117); ANION GAP 9 (8-16); BILIRUBIN,TOTAL 0.5 mg/dL (0.2-1.0); CALCIUM 7.9 mg/dL (8.5-10.1); CO2 27 mmol/L (21-32); CREATININE 0.6 mg/dL (0.55-1.02); GLUCOSE,RANDOM 89 mg/dL (74-106); SGOT/AST 5 U/L (15-37); SGPT/ALT 14 U/L (12-78); TOT PROT 6.5 g/dl (6.4-8.2)
[2017-04-29] MEDS: HEPARIN NA (PORCINE) 5,000 UNITS/ML 1ML VIAL SQ SCH ×2 (10:34→21:53)
[2017-04-29] MEDS ORDERED: D5-1/2NS+10 MEQ KCL - 1,000 ML IV SCH (11:30)
[2017-04-29] MEDS: PANTOPRAZOLE 40 MG TABLET (FP) PO SCH (11:30)
[2017-04-29] MEDS: ACETAMINOPHEN 325 MG TABLET (FP) PO PRN (12:12)
--- NOTE | 2017-04-29 13:55 | PN ---
Progress Note, Physician History of Present Illness: NO COMPLAINTS - Current Medication List Current Medications: Active Medications Acetaminophen (Tylenol -) 650 mg PO Q6H PRN PRN Reason: FEVER OR PAIN Last Admin: 04/29/17 12:12 Dose: 650 mg Heparin Sodium (Porcine) (Heparin -) 5,000 unit SQ BID NONA Last Admin: 04/29/17 10:34 Dose: 5,000 unit Hydromorphone HCl (Dilaudid Injection -) 1 mg IVPB Q6H PRN PRN Reason: PAIN Last Admin: 04/28/17 19:02 Dose: 1 mg Metronidazole (Flagyl 500mg Premixed Ivpb -) 100 mls @ 100 mls/hr IVPB Q8H-IV NONA Last Admin: 04/29/17 10:34 Dose: 100 mls/hr Piperacillin Sod/Tazobactam (Sod 3.375 gm/ Dextrose) 50 mls @ 100 mls/hr IVPB Q8H-IV NONA PRN Reason: Protocol Last Admin: 04/29/17 09:08 Dose: 100 mls/hr Potassium Chloride/Dextrose/Sod Cl (D5-1/2ns+10 Meq Kcl -) 1,000 mls @ 75 mls/ hr IV ASDIR NONA Last Admin: 04/29/17 11:39 Dose: 75 mls/hr Ondansetron HCl (Zofran Injection) 4 mg IVPB Q6H PRN PRN Reason: NAUSEA AND/OR VOMITING Last Admin: 04/28/17 21:56 Dose: 4 mg Vancomycin HCl (Vancomycin Oral Solution) 125 mg PO Q6HPO NONA Last Admin: 04/29/17 11:31 Dose: 125 mg - Objective Vital Signs: Vital Signs Temperature 98.3 F 04/29/17 09:46 Pulse Rate 78 04/29/17 09:46 Respiratory Rate 18 04/29/17 09:46 Blood Pressure 117/62 04/29/17 09:46 O2 Sat by Pulse Oximetry (%) 95 04/29/17 09:00 Constitutional: Yes: No Distress HENT: Yes: Atraumatic Neck: Yes: Supple Cardiovascular: Yes: Regular Rate and Rhythm Respiratory: Yes: CTA Bilaterally Gastrointestinal: Yes: Normal Bowel Sounds, Tenderness (mild llq) Extremities: Yes: WNL Neurological: Yes: Alert, Oriented Labs: CBC, BMP 04/29/17 06:15 09/10/17 06:15 INR, PTT INR 1.04 (0.82-1.09) 04/26/17 22:50 Problem List - Problems (1) Colitis Assessment/Plan: on iv abx npo ct scan...diverticolitis? D/D diverticolitis vs infectious colitis Code(s): K52.9 - NONINFECTIVE GASTROENTERITIS AND COLITIS, UNSPECIFIED (2) HTN (hypertension) Assessment/Plan: bp stable Code(s): I10 - ESSENTIAL (PRIMARY) HYPERTENSION
[2017-04-29] MEDS ORDERED: DEXTROSE 5%-0.45% SALINE 1,000 ML IV SCH (14:45)
--- NOTE | 2017-04-29 15:33 | PN ---
Progress Note, Physician History of Present Illness: patient doing well abd soft still with tenderness - Current Medication List Current Medications: Active Medications Acetaminophen (Tylenol -) 650 mg PO Q6H PRN PRN Reason: FEVER OR PAIN Last Admin: 04/29/17 12:12 Dose: 650 mg Heparin Sodium (Porcine) (Heparin -) 5,000 unit SQ BID NONA Last Admin: 04/29/17 10:34 Dose: 5,000 unit Hydromorphone HCl (Dilaudid Injection -) 1 mg IVPB Q6H PRN PRN Reason: PAIN Last Admin: 04/28/17 19:02 Dose: 1 mg Metronidazole (Flagyl 500mg Premixed Ivpb -) 100 mls @ 100 mls/hr IVPB Q8H-IV NONA Last Admin: 04/29/17 10:34 Dose: 100 mls/hr Piperacillin Sod/Tazobactam (Sod 3.375 gm/ Dextrose) 50 mls @ 100 mls/hr IVPB Q8H-IV NONA PRN Reason: Protocol Last Admin: 04/29/17 09:08 Dose: 100 mls/hr Pantoprazole Sodium 40 mg/ (Sodium Chloride) 100 mls @ 200 mls/hr IVPB DAILY NONA Dextrose/Sodium Chloride (D5-1/2ns -) 1,000 mls @ 75 mls/hr IV ASDIR NONA Last Admin: 04/29/17 15:15 Dose: 75 mls/hr Ondansetron HCl (Zofran Injection) 4 mg IVPB Q6H PRN PRN Reason: NAUSEA AND/OR VOMITING Last Admin: 04/28/17 21:56 Dose: 4 mg - Objective Vital Signs: Vital Signs Temperature 98.7 F 04/29/17 14:47 Pulse Rate 79 04/29/17 14:47 Respiratory Rate 16 04/29/17 14:47 Blood Pressure 134/85 04/29/17 14:47 O2 Sat by Pulse Oximetry (%) 95 04/29/17 09:00 Constitutional: Yes: No Distress, Calm Neck: Yes: Supple Cardiovascular: Yes: Regular Rate and Rhythm Respiratory: Yes: Regular, CTA Bilaterally Gastrointestinal: Yes: Soft, Tenderness (improving) Musculoskeletal: Yes: WNL Extremities: Yes: WNL Neurological: Yes: Alert, Oriented Psychiatric: Yes: Alert, Oriented Labs: CBC, BMP 04/29/17 06:15 INR, PTT INR 1.04 (0.82-1.09) 04/26/17 22:50 Assessment/Plan Problem List - Problems (1) Colitis Code(s): K52.9 - NONINFECTIVE GASTROENTERITIS AND COLITIS, UNSPECIFIED (2) Enteritis Code(s): K52.9 - NONINFECTIVE GASTROENTERITIS AND COLITIS, UNSPECIFIED diverticulitis 4 probable appendicitis r/o cdiff plan continue current mgmt hydration rest as per primary will increase zosyn dose stopped oral vanco
[2017-04-29 15:35] LABS: ANION GAP 12 (8-16); CALCIUM 8.7 mg/dL (8.5-10.1); CO2 24 mmol/L (21-32); GLUCOSE,RANDOM 93 mg/dL (74-106)
[2017-04-29 15:39] LABS: CREATININE 0.5 mg/dL (0.55-1.02)
[2017-04-29] MEDS ORDERED: DEXTROSE 5%-WATER 100 ML IVPB ONE (16:58)
[2017-04-29] MEDS ORDERED: PIPERACILLIN/TAZOBACTAM 4.5 GM VIAL IVPB ONE (16:58)
[2017-04-29] MEDS: PIPERACILLIN/TAZOB 4.5 GM 4.5 GM in DEXTROSE 5%-WATER 100 ML IVPB SCH (17:06)
[2017-04-29] MEDS: D5-1/2NS+10 MEQ KCL - 1,000 ML IV SCH (17:07)
[2017-04-29] MEDS: HYDROmorphone HCL CARPU-JECT 1 MG/1 ML DISP.SYRIN IVPB PRN (19:03)
--- NOTE | 2017-04-29 20:15 | PN ---
Progress Note, Physician History of Present Illness: Feeling better reports less pain continues with bloody diarrhea - Current Medication List Current Medications: Active Medications Acetaminophen (Tylenol -) 650 mg PO Q6H PRN PRN Reason: FEVER OR PAIN Last Admin: 04/29/17 12:12 Dose: 650 mg Heparin Sodium (Porcine) (Heparin -) 5,000 unit SQ BID NONA Last Admin: 04/29/17 10:34 Dose: 5,000 unit Hydromorphone HCl (Dilaudid Injection -) 1 mg IVPB Q6H PRN PRN Reason: PAIN Last Admin: 04/29/17 19:03 Dose: 1 mg Metronidazole (Flagyl 500mg Premixed Ivpb -) 100 mls @ 100 mls/hr IVPB Q8H-IV NONA Last Admin: 04/29/17 18:39 Dose: 100 mls/hr Pantoprazole Sodium 40 mg/ (Sodium Chloride) 100 mls @ 200 mls/hr IVPB DAILY NONA Piperacillin Sod/Tazobactam (Sod 4.5 gm/ Dextrose) 100 mls @ 200 mls/hr IVPB Q8H-IV NONA PRN Reason: Protocol Last Admin: 04/29/17 17:06 Dose: 200 mls/hr Potassium Chloride/Dextrose/Sod Cl (D5-1/2ns+10 Meq Kcl -) 1,000 mls @ 75 mls/ hr IV ASDIR NONA Last Admin: 04/29/17 17:07 Dose: 75 mls/hr Ondansetron HCl (Zofran Injection) 4 mg IVPB Q6H PRN PRN Reason: NAUSEA AND/OR VOMITING Last Admin: 04/28/17 21:56 Dose: 4 mg - Objective Vital Signs: Vital Signs Temperature 98.7 F 04/29/17 14:47 Pulse Rate 79 04/29/17 14:47 Respiratory Rate 16 04/29/17 14:47 Blood Pressure 134/85 04/29/17 14:47 O2 Sat by Pulse Oximetry (%) 95 04/29/17 09:00 Labs: CBC, BMP 04/29/17 06:15 04/29/17 14:55 INR, PTT INR 1.04 (0.82-1.09) 04/26/17 22:50 Problem List - Problems (1) Colitis Code(s): K52.9 - NONINFECTIVE GASTROENTERITIS AND COLITIS, UNSPECIFIED (2) Diverticulitis Code(s): K57.92 - DVTRCLI OF INTEST, PART UNSP, W/O PERF OR ABSCESS W/O BLEED Qualifiers: Diverticulitis site: large intestine Diverticulitis bleeding: without bleeding Diverticulitis complication: with perforation Qualified Code (s): K57.20 - Diverticulitis of large intestine with perforation and abscess without bleeding Assessment/Plan clinically improving enterocolitis Recurrent diverticulitis stool sample pending continue antibiotics if patient continues to improve will resume oral diet tomorrow
[2017-04-30] MEDS ORDERED: PIPERACILLIN/TAZOBACTAM 4.5 GM VIAL IVPB ONE ×3 (00:28→16:58)
[2017-04-30] MEDS ORDERED: DEXTROSE 5%-WATER 100 ML IVPB ONE ×3 (00:28→16:58)
[2017-04-30] MEDS: METRONIDAZOLE 500 MG PREMIXED 100 ML IVPB SCH ×3 (01:19→18:24)
[2017-04-30] MEDS: PIPERACILLIN/TAZOB 4.5 GM 4.5 GM in DEXTROSE 5%-WATER 100 ML IVPB SCH ×3 (01:19→17:03)
[2017-04-30 09:30] LABS: MCH 26.1 pg (25.7-33.7); MCHC 33.2 g/dl (32.0-36.0); MEAN CELL VOLUME 78.8 fl (80-96); MEAN PLT VOLUME 8.3 fl (7.5-11.1); PLATELET COUNT 328 K/MM3 (134-434); RDW 15.9 % (11.6-15.6); WHITE BLOOD COUNT 5.4 K/mm3 (4.0-10.0)
[2017-04-30 09:53] LABS: ALBUMIN 2.8 g/dl (3.4-5.0)
[2017-04-30 10:02] LABS: ALK PHOS 86 U/L (45-117); ANION GAP 9 (8-16); BILIRUBIN,TOTAL 0.4 mg/dL (0.2-1.0); CALCIUM 8.3 mg/dL (8.5-10.1); CO2 26 mmol/L (21-32); CREATININE 0.6 mg/dL (0.55-1.02); GLUCOSE,RANDOM 93 mg/dL (74-106); SGOT/AST 6 U/L (15-37); SGPT/ALT 12 U/L (12-78); TOT PROT 6.7 g/dl (6.4-8.2)
[2017-04-30] MEDS ORDERED: PANTOPRAZOLE SODIUM 40 MG VIAL ONE (10:34)
[2017-04-30] MEDS ORDERED: SODIUM CHLORIDE 100 ML IVPB ONE (10:34)
[2017-04-30] MEDS: HEPARIN NA (PORCINE) 5,000 UNITS/ML 1ML VIAL SQ SCH ×2 (10:42→21:47)
[2017-04-30] MEDS: D5-1/2NS+10 MEQ KCL - 1,000 ML IV SCH ×2 (12:46→17:04)
[2017-04-30] MEDS: PANTOPRAZOLE SODIUM 40 MG in SODIUM CHLORIDE 100 ML IVPB SCH (12:46)
--- NOTE | 2017-04-30 13:43 | PN ---
Progress Note, Physician History of Present Illness: patient doing well abd soft still with tenderness which has improved - Current Medication List Current Medications: Active Medications Acetaminophen (Tylenol -) 650 mg PO Q6H PRN PRN Reason: FEVER OR PAIN Last Admin: 04/29/17 12:12 Dose: 650 mg Heparin Sodium (Porcine) (Heparin -) 5,000 unit SQ BID NONA Last Admin: 04/30/17 10:42 Dose: 5,000 unit Hydromorphone HCl (Dilaudid Injection -) 1 mg IVPB Q6H PRN PRN Reason: PAIN Last Admin: 04/29/17 19:03 Dose: 1 mg Metronidazole (Flagyl 500mg Premixed Ivpb -) 100 mls @ 100 mls/hr IVPB Q8H-IV NONA Last Admin: 04/30/17 11:28 Dose: 100 mls/hr Pantoprazole Sodium 40 mg/ (Sodium Chloride) 100 mls @ 200 mls/hr IVPB DAILY NONA Last Admin: 04/30/17 12:46 Dose: 200 mls/hr Piperacillin Sod/Tazobactam (Sod 4.5 gm/ Dextrose) 100 mls @ 200 mls/hr IVPB Q8H-IV NONA PRN Reason: Protocol Last Admin: 04/30/17 10:37 Dose: 200 mls/hr Potassium Chloride/Dextrose/Sod Cl (D5-1/2ns+10 Meq Kcl -) 1,000 mls @ 75 mls/ hr IV ASDIR NONA Last Admin: 04/30/17 12:46 Dose: 75 mls/hr Ondansetron HCl (Zofran Injection) 4 mg IVPB Q6H PRN PRN Reason: NAUSEA AND/OR VOMITING Last Admin: 04/28/17 21:56 Dose: 4 mg - Objective Vital Signs: Vital Signs Temperature 98.9 F 04/30/17 08:45 Pulse Rate 76 04/30/17 08:45 Respiratory Rate 18 04/30/17 08:45 Blood Pressure 128/84 04/30/17 08:45 O2 Sat by Pulse Oximetry (%) 96 04/29/17 21:00 Constitutional: Yes: No Distress, Calm Cardiovascular: Yes: Regular Rate and Rhythm Respiratory: Yes: Regular, CTA Bilaterally Gastrointestinal: Yes: Normal Bowel Sounds, Soft Musculoskeletal: Yes: WNL Extremities: Yes: WNL Neurological: Yes: Alert, Oriented Psychiatric: Yes: Alert Labs: CBC, BMP 04/30/17 08:00 04/30/17 08:00 INR, PTT INR 1.04 (0.82-1.09) 04/26/17 22:50 Assessment/Plan Problem List - Problems (1) Colitis Code(s): K52.9 - NONINFECTIVE GASTROENTERITIS AND COLITIS, UNSPECIFIED (2) Enteritis Code(s): K52.9 - NONINFECTIVE GASTROENTERITIS AND COLITIS, UNSPECIFIED diverticulitis 4 probable appendicitis r/o cdiff plan continue current mgmt hydration rest as per primary continue to monitor
[2017-04-30] MEDS ORDERED: POTASSIUM CHLORIDE TABS 20 MEQ TABLET.ER (FP) PO ONE (15:15)
--- NOTE | 2017-04-30 19:37 | PN ---
Progress Note, Physician History of Present Illness: Feeling much better denies pain or bleeding - Current Medication List Current Medications: Active Medications Acetaminophen (Tylenol -) 650 mg PO Q6H PRN PRN Reason: FEVER OR PAIN Last Admin: 04/29/17 12:12 Dose: 650 mg Heparin Sodium (Porcine) (Heparin -) 5,000 unit SQ BID NONA Last Admin: 04/30/17 10:42 Dose: 5,000 unit Hydromorphone HCl (Dilaudid Injection -) 1 mg IVPB Q6H PRN PRN Reason: PAIN Last Admin: 04/29/17 19:03 Dose: 1 mg Metronidazole (Flagyl 500mg Premixed Ivpb -) 100 mls @ 100 mls/hr IVPB Q8H-IV NONA Last Admin: 04/30/17 18:24 Dose: 100 mls/hr Pantoprazole Sodium 40 mg/ (Sodium Chloride) 100 mls @ 200 mls/hr IVPB DAILY NONA Last Admin: 04/30/17 12:46 Dose: 200 mls/hr Piperacillin Sod/Tazobactam (Sod 4.5 gm/ Dextrose) 100 mls @ 200 mls/hr IVPB Q8H-IV NONA PRN Reason: Protocol Last Admin: 04/30/17 17:03 Dose: 200 mls/hr Potassium Chloride/Dextrose/Sod Cl (D5-1/2ns+10 Meq Kcl -) 1,000 mls @ 75 mls/ hr IV ASDIR NONA Last Admin: 04/30/17 17:04 Dose: Not Given Ondansetron HCl (Zofran Injection) 4 mg IVPB Q6H PRN PRN Reason: NAUSEA AND/OR VOMITING Last Admin: 04/28/17 21:56 Dose: 4 mg - Objective Vital Signs: Vital Signs Temperature 97.9 F 04/30/17 14:58 Pulse Rate 72 04/30/17 14:58 Respiratory Rate 18 04/30/17 14:58 Blood Pressure 138/97 04/30/17 14:58 O2 Sat by Pulse Oximetry (%) 96 04/30/17 09:00 Gastrointestinal: Yes: Other (soft, nondistended, nontender) Labs: CBC, BMP 04/30/17 08:00 04/30/17 08:00 INR, PTT INR 1.04 (0.82-1.09) 04/26/17 22:50 Problem List - Problems (1) Colitis Code(s): K52.9 - NONINFECTIVE GASTROENTERITIS AND COLITIS, UNSPECIFIED (2) Diverticulitis Code(s): K57.92 - DVTRCLI OF INTEST, PART UNSP, W/O PERF OR ABSCESS W/O BLEED Qualifiers: Diverticulitis site: large intestine Diverticulitis bleeding: without bleeding Diverticulitis complication: with perforation Qualified Code (s): K57.20 - Diverticulitis of large intestine with perforation and abscess without bleeding Assessment/Plan Enterocolitis, recurrent diverticulitis Responding well to antibiotic therapy wbc down to 5K Tolerating clears Advance diet
[2017-04-30] MEDS: HYDROmorphone HCL CARPU-JECT 1 MG/1 ML DISP.SYRIN IVPB PRN (23:33)
--- NOTE | 2017-04-30 23:49 | PN ---
Progress Note, Physician History of Present Illness: Pt tolerating clear liquid diet but not having much of an appetite - Current Medication List Current Medications: Active Medications Acetaminophen (Tylenol -) 650 mg PO Q6H PRN PRN Reason: FEVER OR PAIN Last Admin: 04/29/17 12:12 Dose: 650 mg Heparin Sodium (Porcine) (Heparin -) 5,000 unit SQ BID NONA Last Admin: 04/30/17 21:47 Dose: Not Given Hydromorphone HCl (Dilaudid Injection -) 1 mg IVPB Q6H PRN PRN Reason: PAIN Last Admin: 04/30/17 23:33 Dose: 1 mg Metronidazole (Flagyl 500mg Premixed Ivpb -) 100 mls @ 100 mls/hr IVPB Q8H-IV NONA Last Admin: 04/30/17 18:24 Dose: 100 mls/hr Pantoprazole Sodium 40 mg/ (Sodium Chloride) 100 mls @ 200 mls/hr IVPB DAILY NONA Last Admin: 04/30/17 12:46 Dose: 200 mls/hr Piperacillin Sod/Tazobactam (Sod 4.5 gm/ Dextrose) 100 mls @ 200 mls/hr IVPB Q8H-IV NONA PRN Reason: Protocol Last Admin: 04/30/17 17:03 Dose: 200 mls/hr Potassium Chloride/Dextrose/Sod Cl (D5-1/2ns+10 Meq Kcl -) 1,000 mls @ 75 mls/ hr IV ASDIR NONA Last Admin: 04/30/17 17:04 Dose: Not Given Ondansetron HCl (Zofran Injection) 4 mg IVPB Q6H PRN PRN Reason: NAUSEA AND/OR VOMITING Last Admin: 04/28/17 21:56 Dose: 4 mg - Objective Vital Signs: Vital Signs Temperature 99.1 F 04/30/17 18:00 Pulse Rate 75 04/30/17 18:00 Respiratory Rate 18 04/30/17 18:00 Blood Pressure 149/95 04/30/17 18:00 O2 Sat by Pulse Oximetry (%) 96 04/30/17 09:00 Constitutional: Yes: No Distress Neck: Yes: WNL, Supple Cardiovascular: Yes: WNL, Regular Rate and Rhythm Respiratory: Yes: WNL, Regular, CTA Bilaterally Gastrointestinal: Yes: Normal Bowel Sounds, Soft, Other ((+) minimal tenderness LLQ) Labs: CBC, BMP 04/30/17 08:00 04/30/17 08:00 INR, PTT INR 1.04 (0.82-1.09) 04/26/17 22:50 Problem List - Problems (1) Abdominal pain Assessment/Plan: Probable acute diverticulitis Cont IV antibxs Advance diet as per Surgery Replace K+ and monitor labs Cont IVF Code(s): R10.9 - UNSPECIFIED ABDOMINAL PAIN Qualifiers: Abdominal location: lower abdomen, unspecified Qualified Code(s): R10.30 - Lower abdominal pain, unspecified (2) Diverticulitis Code(s): K57.92 - DVTRCLI OF INTEST, PART UNSP, W/O PERF OR ABSCESS W/O BLEED Qualifiers: Diverticulitis site: large intestine Diverticulitis bleeding: without bleeding Diverticulitis complication: with perforation Qualified Code (s): K57.20 - Diverticulitis of large intestine with perforation and abscess without bleeding (3) HTN (hypertension) Assessment/Plan: Cont to monitor BP Pt had been on losartan however BP has been normotensive Code(s): I10 - ESSENTIAL (PRIMARY) HYPERTENSION (4) Anemia Assessment/Plan: Cont to monitor H/H Code(s): D64.9 - ANEMIA, UNSPECIFIED
[2017-05-01] MEDS ORDERED: DEXTROSE 5%-WATER 100 ML IVPB ONE ×3 (02:10→18:09)
[2017-05-01] MEDS ORDERED: PIPERACILLIN/TAZOBACTAM 4.5 GM VIAL IVPB ONE ×3 (02:10→18:09)
[2017-05-01] MEDS: METRONIDAZOLE 500 MG PREMIXED 100 ML IVPB SCH ×3 (02:54→18:17)
[2017-05-01] MEDS: PIPERACILLIN/TAZOB 4.5 GM 4.5 GM in DEXTROSE 5%-WATER 100 ML IVPB SCH ×3 (02:54→18:17)
[2017-05-01] MEDS: D5-1/2NS+10 MEQ KCL - 1,000 ML IV SCH ×3 (06:00→23:22)
[2017-05-01 07:05] LABS: BASOPHIL 0.6 % (0-2.0); EOSINOPHIL 3.5 % (0-4.5); MCH 25.9 pg (25.7-33.7); MCHC 32.9 g/dl (32.0-36.0); MEAN CELL VOLUME 78.7 fl (80-96); MEAN PLT VOLUME 7.9 fl (7.5-11.1); NEUTROPHILS 56.3 % (42.8-82.8); PLATELET COUNT 336 K/MM3 (134-434); RDW 15.7 % (11.6-15.6); WHITE BLOOD COUNT 4.4 K/mm3 (4.0-10.0)
[2017-05-01 07:22] LABS: ALBUMIN 2.9 g/dl (3.4-5.0); ALK PHOS 85 U/L (45-117); ANION GAP 10 (8-16); BILIRUBIN,TOTAL 0.3 mg/dL (0.2-1.0); CALCIUM 8.3 mg/dL (8.5-10.1); CO2 26 mmol/L (21-32); CREATININE 0.5 mg/dL (0.55-1.02); GLUCOSE,RANDOM 100 mg/dL (74-106); SGOT/AST 5 U/L (15-37); SGPT/ALT 11 U/L (12-78); TOT PROT 6.5 g/dl (6.4-8.2)
[2017-05-01] MEDS ORDERED: PANTOPRAZOLE SODIUM 40 MG VIAL ONE (09:13)
--- NOTE | 2017-05-01 09:13 | PN ---
Progress Note (short form) - Note Progress Note: 47 yr old old female with history of perforated diverticulitis, s/p sigmoid resection 3 months ago, representing with chronic constipation and acute onset of Abdominal pain and possibly microperforation. Feeling better tolerating diet but still reporting brown bowel movements with streaks of blood Exam Abdomen is soft and nontender and no longer distended Anal / rectal no evidence of hemorrhoidal disease WBC 4 K A/P Although recurrent diverticulitis and infectious colitis can not be excluded the most likely diagnosis that fits the history and clinical findings is a stercoral ulcer of the rectum Given her clinical improvement I think we should avoid surgical intervention at this time or diagnostic testing that would confirm the diagnosis ( i.e. BE or sigmoidoscopy) but may exacerbate clinical condition. Recommend aggressive bowel regimen to avoid constipation with fiber and stool softeners and consider topical steroids Problem List - Problems (1) Colitis Code(s): K52.9 - NONINFECTIVE GASTROENTERITIS AND COLITIS, UNSPECIFIED (2) Diverticulitis Code(s): K57.92 - DVTRCLI OF INTEST, PART UNSP, W/O PERF OR ABSCESS W/O BLEED Qualifiers: Diverticulitis site: large intestine Diverticulitis bleeding: without bleeding Diverticulitis complication: with perforation Qualified Code (s): K57.20 - Diverticulitis of large intestine with perforation and abscess without bleeding
[2017-05-01] MEDS ORDERED: SODIUM CHLORIDE 100 ML IVPB ONE (09:14)
[2017-05-01] MEDS: PANTOPRAZOLE SODIUM 40 MG in SODIUM CHLORIDE 100 ML IVPB SCH (09:23)
[2017-05-01] MEDS: HEPARIN NA (PORCINE) 5,000 UNITS/ML 1ML VIAL SQ SCH ×2 (09:24→21:24)
--- NOTE | 2017-05-01 14:21 | PN ---
Progress Note, Physician History of Present Illness: patient doing well abd soft patient still having bleeding per rectum improving - Current Medication List Current Medications: Active Medications Acetaminophen (Tylenol -) 650 mg PO Q6H PRN PRN Reason: FEVER OR PAIN Last Admin: 04/29/17 12:12 Dose: 650 mg Heparin Sodium (Porcine) (Heparin -) 5,000 unit SQ BID NONA Last Admin: 05/01/17 09:24 Dose: 5,000 unit Hydromorphone HCl (Dilaudid Injection -) 1 mg IVPB Q6H PRN PRN Reason: PAIN Last Admin: 04/30/17 23:33 Dose: 1 mg Metronidazole (Flagyl 500mg Premixed Ivpb -) 100 mls @ 100 mls/hr IVPB Q8H-IV NONA Last Admin: 05/01/17 09:23 Dose: 100 mls/hr Pantoprazole Sodium 40 mg/ (Sodium Chloride) 100 mls @ 200 mls/hr IVPB DAILY NONA Last Admin: 05/01/17 09:23 Dose: 200 mls/hr Piperacillin Sod/Tazobactam (Sod 4.5 gm/ Dextrose) 100 mls @ 200 mls/hr IVPB Q8H-IV NONA PRN Reason: Protocol Last Admin: 05/01/17 09:23 Dose: 200 mls/hr Potassium Chloride/Dextrose/Sod Cl (D5-1/2ns+10 Meq Kcl -) 1,000 mls @ 75 mls/ hr IV ASDIR NONA Last Admin: 05/01/17 06:00 Dose: 75 mls/hr Ondansetron HCl (Zofran Injection) 4 mg IVPB Q6H PRN PRN Reason: NAUSEA AND/OR VOMITING Last Admin: 04/28/17 21:56 Dose: 4 mg - Objective Vital Signs: Vital Signs Temperature 98.4 F 05/01/17 09:47 Pulse Rate 73 05/01/17 09:47 Respiratory Rate 18 05/01/17 09:47 Blood Pressure 121/89 05/01/17 09:47 O2 Sat by Pulse Oximetry (%) 96 04/30/17 09:00 Constitutional: Yes: No Distress, Calm Cardiovascular: Yes: Regular Rate and Rhythm Respiratory: Yes: Regular, CTA Bilaterally Gastrointestinal: Yes: Normal Bowel Sounds Musculoskeletal: Yes: WNL Extremities: Yes: WNL Wound/Incision: Yes: Clean/Dry, Well Approximated Psychiatric: Yes: Alert, Oriented Labs: CBC, BMP 05/01/17 06:30 05/01/17 06:30 INR, PTT INR 1.04 (0.82-1.09) 04/26/17 22:50 Assessment/Plan Problem List - Problems (1) Colitis Code(s): K52.9 - NONINFECTIVE GASTROENTERITIS AND COLITIS, UNSPECIFIED (2) Enteritis Code(s): K52.9 - NONINFECTIVE GASTROENTERITIS AND COLITIS, UNSPECIFIED diverticulitis 4 probable appendicitis r/o cdiff plan continue current mgmt hydration rest as per primary continue to monitor will see how patient does
[2017-05-01] MEDS ORDERED: POTASSIUM CHLORIDE TABS 20 MEQ TABLET.ER (FP) PO ONE (19:52)
--- NOTE | 2017-05-01 20:34 | PN ---
GI Progress Note Subjective: abdominal pain and diarrhea is less,tolerating diet, no nausea and no vomiting - Objective Vital Signs: Vital Signs Temperature 98.7 F 05/01/17 14:32 Pulse Rate 75 05/01/17 14:32 Respiratory Rate 18 05/01/17 14:32 Blood Pressure 125/83 05/01/17 14:32 O2 Sat by Pulse Oximetry (%) 96 05/01/17 09:00 Constitutional: No Distress Eyes: Yes: Conjunctiva Clear HENT: Yes: Atraumatic Cardiovascular: Yes: Regular Rate and Rhythm Respiratory: Yes: CTA Bilaterally Gastrointestinal Inspection: No: Ascites, Distention ...Palpate: Yes: Soft, Tenderness (llq). No: Firm/Rigid, Guarding, Hepatomegaly , Tenderness, Rebound Labs: CBC, BMP 05/01/17 06:30 05/01/17 06:30 INR, PTT INR 1.04 (0.82-1.09) 04/26/17 22:50 Problem List - Problems (1) Diverticulitis Assessment/Plan: resolving advance diet for colonoscopy in 6 weeks Code(s): K57.92 - DVTRCLI OF INTEST, PART UNSP, W/O PERF OR ABSCESS W/O BLEED Qualifiers: Diverticulitis site: large intestine Diverticulitis bleeding: without bleeding Diverticulitis complication: with perforation Qualified Code (s): K57.20 - Diverticulitis of large intestine with perforation and abscess without bleeding
--- NOTE | 2017-05-01 21:23 | PN ---
Progress Note, Physician History of Present Illness: Pt tolerating solid food - Current Medication List Current Medications: Active Medications Acetaminophen (Tylenol -) 650 mg PO Q6H PRN PRN Reason: FEVER OR PAIN Last Admin: 04/29/17 12:12 Dose: 650 mg Heparin Sodium (Porcine) (Heparin -) 5,000 unit SQ BID NONA Last Admin: 05/01/17 09:24 Dose: 5,000 unit Hydromorphone HCl (Dilaudid Injection -) 1 mg IVPB Q6H PRN PRN Reason: PAIN Last Admin: 04/30/17 23:33 Dose: 1 mg Metronidazole (Flagyl 500mg Premixed Ivpb -) 100 mls @ 100 mls/hr IVPB Q8H-IV NONA Last Admin: 05/01/17 18:17 Dose: 100 mls/hr Pantoprazole Sodium 40 mg/ (Sodium Chloride) 100 mls @ 200 mls/hr IVPB DAILY NONA Last Admin: 05/01/17 09:23 Dose: 200 mls/hr Piperacillin Sod/Tazobactam (Sod 4.5 gm/ Dextrose) 100 mls @ 200 mls/hr IVPB Q8H-IV NONA PRN Reason: Protocol Last Admin: 05/01/17 18:17 Dose: 200 mls/hr Potassium Chloride/Dextrose/Sod Cl (D5-1/2ns+10 Meq Kcl -) 1,000 mls @ 75 mls/ hr IV ASDIR NONA Last Admin: 05/01/17 18:17 Dose: Not Given Ondansetron HCl (Zofran Injection) 4 mg IVPB Q6H PRN PRN Reason: NAUSEA AND/OR VOMITING Last Admin: 04/28/17 21:56 Dose: 4 mg - Objective Vital Signs: Vital Signs Temperature 98.7 F 05/01/17 14:32 Pulse Rate 75 05/01/17 14:32 Respiratory Rate 20 05/01/17 20:55 Blood Pressure 125/83 05/01/17 14:32 O2 Sat by Pulse Oximetry (%) 98 05/01/17 20:55 Constitutional: Yes: No Distress Cardiovascular: Yes: WNL, Regular Rate and Rhythm Respiratory: Yes: WNL, Regular, CTA Bilaterally Gastrointestinal: Yes: WNL, Normal Bowel Sounds, Soft Musculoskeletal: Yes: WNL Extremities: Yes: WNL Edema: No Labs: CBC, BMP 05/01/17 06:30 05/01/17 06:30 INR, PTT INR 1.04 (0.82-1.09) 04/26/17 22:50 Problem List - Problems (1) Abdominal pain Assessment/Plan: Probable acute diverticulitis ?sterococal ulcer Will add stool softners Cont IV antibxs Replace K+ and monitor labs DC IVF DC planning for am Stool for C Diff negative Code(s): R10.9 - UNSPECIFIED ABDOMINAL PAIN Qualifiers: Abdominal location: lower abdomen, unspecified Qualified Code(s): R10.30 - Lower abdominal pain, unspecified (2) Diverticulitis Assessment/Plan: Cont IV antibxs Code(s): K57.92 - DVTRCLI OF INTEST, PART UNSP, W/O PERF OR ABSCESS W/O BLEED Qualifiers: Diverticulitis site: large intestine Diverticulitis bleeding: without bleeding Diverticulitis complication: with perforation Qualified Code (s): K57.20 - Diverticulitis of large intestine with perforation and abscess without bleeding (3) HTN (hypertension) Assessment/Plan: Cont to monitor BP Pt had been on losartan however BP has been normotensive Code(s): I10 - ESSENTIAL (PRIMARY) HYPERTENSION (4) Anemia Code(s): D64.9 - ANEMIA, UNSPECIFIED
[2017-05-02] MEDS: HYDROmorphone HCL CARPU-JECT 1 MG/1 ML DISP.SYRIN IVPB PRN (00:35)
[2017-05-02] MEDS: PIPERACILLIN/TAZOB 4.5 GM 4.5 GM in DEXTROSE 5%-WATER 100 ML IVPB SCH ×3 (01:09→17:43)
[2017-05-02] MEDS: METRONIDAZOLE 500 MG PREMIXED 100 ML IVPB SCH ×3 (01:31→17:39)
[2017-05-02 07:59] LABS: BASOPHIL 0.6 % (0-2.0); EOSINOPHIL 3.6 % (0-4.5); MCH 25.9 pg (25.7-33.7); MEAN CELL VOLUME 78.6 fl (80-96); NEUTROPHILS 55.5 % (42.8-82.8); PLATELET COUNT 345 K/MM3 (134-434); RDW 15.6 % (11.6-15.6); WHITE BLOOD COUNT 5.2 K/mm3 (4.0-10.0)
[2017-05-02 08:16] LABS: ANION GAP 8 (8-16); CALCIUM 8.5 mg/dL (8.5-10.1); CO2 27 mmol/L (21-32); GLUCOSE,RANDOM 96 mg/dL (74-106)
[2017-05-02 08:19] LABS: ALK PHOS 82 U/L (45-117); BILIRUBIN,TOTAL 0.2 mg/dL (0.2-1.0); CREATININE 0.6 mg/dL (0.55-1.02); SGOT/AST 11 U/L (15-37); SGPT/ALT 13 U/L (12-78); TOT PROT 6.8 g/dl (6.4-8.2)
[2017-05-02] MEDS ORDERED: DEXTROSE 5%-WATER 100 ML IVPB ONE ×2 (10:16→17:12)
[2017-05-02] MEDS ORDERED: PIPERACILLIN/TAZOBACTAM 4.5 GM VIAL IVPB ONE ×2 (10:16→17:12)
[2017-05-02] MEDS: HEPARIN NA (PORCINE) 5,000 UNITS/ML 1ML VIAL SQ SCH ×2 (10:48→22:14)
[2017-05-02] MEDS: PANTOPRAZOLE SODIUM 40 MG in SODIUM CHLORIDE 100 ML IVPB SCH (11:30)
--- NOTE | 2017-05-02 13:09 | PN ---
Progress Note, Physician History of Present Illness: patient doing well abd soft no new issue - Current Medication List Current Medications: Active Medications Acetaminophen (Tylenol -) 650 mg PO Q6H PRN PRN Reason: FEVER OR PAIN Last Admin: 04/29/17 12:12 Dose: 650 mg Heparin Sodium (Porcine) (Heparin -) 5,000 unit SQ BID NONA Last Admin: 05/02/17 10:48 Dose: 5,000 unit Hydromorphone HCl (Dilaudid Injection -) 1 mg IVPB Q6H PRN PRN Reason: PAIN Last Admin: 05/02/17 00:35 Dose: 1 mg Metronidazole (Flagyl 500mg Premixed Ivpb -) 100 mls @ 100 mls/hr IVPB Q8H-IV NONA Last Admin: 05/02/17 10:48 Dose: 100 mls/hr Pantoprazole Sodium 40 mg/ (Sodium Chloride) 100 mls @ 200 mls/hr IVPB DAILY NONA Last Admin: 05/02/17 11:30 Dose: 200 mls/hr Piperacillin Sod/Tazobactam (Sod 4.5 gm/ Dextrose) 100 mls @ 200 mls/hr IVPB Q8H-IV NONA PRN Reason: Protocol Last Admin: 05/02/17 10:47 Dose: 200 mls/hr Potassium Chloride/Dextrose/Sod Cl (D5-1/2ns+10 Meq Kcl -) 1,000 mls @ 75 mls/ hr IV ASDIR NONA Last Admin: 05/01/17 23:22 Dose: 75 mls/hr Ondansetron HCl (Zofran Injection) 4 mg IVPB Q6H PRN PRN Reason: NAUSEA AND/OR VOMITING Last Admin: 04/28/17 21:56 Dose: 4 mg - Objective Vital Signs: Vital Signs Temperature 97.7 F 05/02/17 06:00 Pulse Rate 77 05/02/17 06:00 Respiratory Rate 20 05/02/17 06:00 Blood Pressure 115/77 05/02/17 06:00 O2 Sat by Pulse Oximetry (%) 98 05/01/17 20:55 Constitutional: Yes: No Distress, Calm Cardiovascular: Yes: Regular Rate and Rhythm Respiratory: Yes: Regular, CTA Bilaterally Gastrointestinal: Yes: Normal Bowel Sounds, Soft Musculoskeletal: Yes: WNL Extremities: Yes: WNL Neurological: Yes: Alert, Oriented Psychiatric: Yes: Alert, Oriented Labs: CBC, BMP 05/02/17 06:47 05/02/17 06:47 INR, PTT INR 1.04 (0.82-1.09) 04/26/17 22:50 Assessment/Plan Problem List - Problems (1) Colitis Code(s): K52.9 - NONINFECTIVE GASTROENTERITIS AND COLITIS, UNSPECIFIED (2) Enteritis Code(s): K52.9 - NONINFECTIVE GASTROENTERITIS AND COLITIS, UNSPECIFIED diverticulitis plan continue current mgmt hydration rest as per primary continue to monitor if patient is going home please send patient home on augmentin 875 mg po bid and flagyl 500 mg tid for a total of 2 weeks duration
[2017-05-02] MEDS: DOCUSATE SODIUM 100 MG CAPSULE (FP) PO SCH ×2 (15:25→22:14)
[2017-05-02] MEDS: D5-1/2NS+10 MEQ KCL - 1,000 ML IV SCH (17:42)
--- NOTE | 2017-05-02 20:34 | PN ---
Progress Note, Physician History of Present Illness: Pt tolerating diet only occasional minimal discomfort - Current Medication List Current Medications: Active Medications Acetaminophen (Tylenol -) 650 mg PO Q6H PRN PRN Reason: FEVER OR PAIN Last Admin: 04/29/17 12:12 Dose: 650 mg Docusate Sodium (Colace -) 100 mg PO TID [facility] Last Admin: 05/02/17 15:25 Dose: 100 mg Heparin Sodium (Porcine) (Heparin -) 5,000 unit SQ BID [facility] Last Admin: 05/02/17 10:48 Dose: 5,000 unit Metronidazole (Flagyl 500mg Premixed Ivpb -) 100 mls @ 100 mls/hr IVPB Q8H-IV NONA Last Admin: 05/02/17 17:39 Dose: 100 mls/hr Pantoprazole Sodium 40 mg/ (Sodium Chloride) 100 mls @ 200 mls/hr IVPB DAILY [facility] Last Admin: 05/02/17 11:30 Dose: 200 mls/hr Piperacillin Sod/Tazobactam (Sod 4.5 gm/ Dextrose) 100 mls @ 200 mls/hr IVPB Q8H-IV NONA PRN Reason: Protocol Last Admin: 05/02/17 17:43 Dose: 200 mls/hr Potassium Chloride/Dextrose/Sod Cl (D5-1/2ns+10 Meq Kcl -) 1,000 mls @ 75 mls/ hr IV ASDIR [facility] Last Admin: 05/02/17 17:42 Dose: 75 mls/hr Ondansetron HCl (Zofran Injection) 4 mg IVPB Q6H PRN PRN Reason: NAUSEA AND/OR VOMITING Last Admin: 04/28/17 21:56 Dose: 4 mg - Objective Vital Signs: Vital Signs Temperature 97.9 F 05/02/17 14:30 Pulse Rate 73 05/02/17 14:30 Respiratory Rate 18 05/02/17 14:30 Blood Pressure 131/79 05/02/17 14:30 O2 Sat by Pulse Oximetry (%) 98 05/02/17 09:00 Constitutional: Yes: No Distress HENT: Yes: WNL Neck: Yes: WNL, Supple Cardiovascular: Yes: WNL, Regular Rate and Rhythm Respiratory: Yes: WNL, Regular, CTA Bilaterally Gastrointestinal: Yes: WNL, Normal Bowel Sounds, Soft Extremities: Yes: WNL Edema: No Labs: CBC, BMP 05/02/17 06:47 05/02/17 06:47 INR, PTT INR 1.04 (0.82-1.09) 04/26/17 22:50 Problem List - Problems (1) Abdominal pain Assessment/Plan: Probable acute diverticulitis ?sterococal ulcer Spoke w/ ID who recommends IV antibxs for another 48 hrs Will add stool softners DC IVF Stool for C Diff negative Code(s): R10.9 - UNSPECIFIED ABDOMINAL PAIN Qualifiers: Abdominal location: lower abdomen, unspecified Qualified Code(s): R10.30 - Lower abdominal pain, unspecified (2) Diverticulitis Assessment/Plan: Cont IV antibxs Code(s): K57.92 - DVTRCLI OF INTEST, PART UNSP, W/O PERF OR ABSCESS W/O BLEED Qualifiers: Diverticulitis site: large intestine Diverticulitis bleeding: without bleeding Diverticulitis complication: with perforation Qualified Code (s): K57.20 - Diverticulitis of large intestine with perforation and abscess without bleeding (3) HTN (hypertension) Assessment/Plan: Cont to monitor BP Pt had been on losartan however BP has been normotensive Code(s): I10 - ESSENTIAL (PRIMARY) HYPERTENSION (4) Anemia Assessment/Plan: Cont to monitor H/H Code(s): D64.9 - ANEMIA, UNSPECIFIED (5) Stercoral ulcer of anus Assessment/Plan: Stool softners Code(s): K62.6 - ULCER OF ANUS AND RECTUM
[2017-05-03] MEDS: PIPERACILLIN/TAZOB 4.5 GM 4.5 GM in DEXTROSE 5%-WATER 100 ML IVPB SCH ×3 (01:44→18:20)
[2017-05-03] MEDS: METRONIDAZOLE 500 MG PREMIXED 100 ML IVPB SCH ×3 (01:44→18:20)
[2017-05-03] MEDS: DOCUSATE SODIUM 100 MG CAPSULE (FP) PO SCH ×3 (06:36→21:24)
[2017-05-03 07:54] LABS: BASOPHIL 0.8 % (0-2.0); EOSINOPHIL 2.2 % (0-4.5); MCH 26.1 pg (25.7-33.7); MCHC 33.2 g/dl (32.0-36.0); MEAN CELL VOLUME 78.6 fl (80-96); NEUTROPHILS 58.3 % (42.8-82.8); PLATELET COUNT 383 K/MM3 (134-434); RDW 16.1 % (11.6-15.6); WHITE BLOOD COUNT 5.7 K/mm3 (4.0-10.0)
[2017-05-03 08:26] LABS: ALBUMIN 3.1 g/dl (3.4-5.0); ANION GAP 12 (8-16); CALCIUM 8.7 mg/dL (8.5-10.1); CO2 23 mmol/L (21-32); GLUCOSE,RANDOM 89 mg/dL (74-106)
[2017-05-03 08:29] LABS: ALK PHOS 84 U/L (45-117); BILIRUBIN,TOTAL 0.6 mg/dL (0.2-1.0); CREATININE 0.6 mg/dL (0.55-1.02); SGOT/AST 14 U/L (15-37); SGPT/ALT 15 U/L (12-78); TOT PROT 6.8 g/dl (6.4-8.2)
[2017-05-03] MEDS ORDERED: PIPERACILLIN/TAZOBACTAM 4.5 GM VIAL IVPB ONE ×2 (11:45→18:17)
[2017-05-03] MEDS ORDERED: DEXTROSE 5%-WATER 100 ML IVPB ONE ×2 (11:45→18:17)
[2017-05-03] MEDS ORDERED: PT OWN MED DRAWER 7, Y5N ONE (11:45)
[2017-05-03] MEDS: HEPARIN NA (PORCINE) 5,000 UNITS/ML 1ML VIAL SQ SCH ×2 (11:50→21:23)
[2017-05-03] MEDS: PANTOPRAZOLE 40 MG TABLET (FP) PO SCH (11:50)
--- NOTE | 2017-05-03 15:17 | PN ---
Progress Note, Physician History of Present Illness: doing well no complaints abd soft - Current Medication List Current Medications: Active Medications Acetaminophen (Tylenol -) 650 mg PO Q6H PRN PRN Reason: FEVER OR PAIN Last Admin: 04/29/17 12:12 Dose: 650 mg Docusate Sodium (Colace -) 100 mg PO TID [facility] Last Admin: 05/03/17 06:36 Dose: 100 mg Heparin Sodium (Porcine) (Heparin -) 5,000 unit SQ BID [facility] Last Admin: 05/03/17 11:50 Dose: 5,000 unit Metronidazole (Flagyl 500mg Premixed Ivpb -) 100 mls @ 100 mls/hr IVPB Q8H-IV NONA Last Admin: 05/03/17 11:51 Dose: 100 mls/hr Piperacillin Sod/Tazobactam (Sod 4.5 gm/ Dextrose) 100 mls @ 200 mls/hr IVPB Q8H-IV NONA PRN Reason: Protocol Last Admin: 05/03/17 11:50 Dose: 200 mls/hr Ondansetron HCl (Zofran Injection) 4 mg IVPB Q6H PRN PRN Reason: NAUSEA AND/OR VOMITING Last Admin: 04/28/17 21:56 Dose: 4 mg Pantoprazole Sodium (Protonix -) 40 mg PO DAILY [facility] Last Admin: 05/03/17 11:50 Dose: 40 mg - Objective Vital Signs: Vital Signs Temperature 98.2 F 05/03/17 14:59 Pulse Rate 86 05/03/17 14:59 Respiratory Rate 20 05/03/17 14:59 Blood Pressure 137/86 05/03/17 14:59 O2 Sat by Pulse Oximetry (%) 98 05/02/17 09:00 Constitutional: Yes: No Distress, Calm Cardiovascular: Yes: Regular Rate and Rhythm Respiratory: Yes: Regular, CTA Bilaterally Gastrointestinal: Yes: Normal Bowel Sounds, Soft Musculoskeletal: Yes: WNL Extremities: Yes: WNL Neurological: Yes: Alert, Oriented Psychiatric: Yes: Alert, Oriented Labs: CBC, BMP 05/03/17 06:00 05/03/17 06:00 INR, PTT INR 1.04 (0.82-1.09) 04/26/17 22:50 Assessment/Plan Problem List - Problems (1) Colitis Code(s): K52.9 - NONINFECTIVE GASTROENTERITIS AND COLITIS, UNSPECIFIED (2) Enteritis Code(s): K52.9 - NONINFECTIVE GASTROENTERITIS AND COLITIS, UNSPECIFIED diverticulitis plan continue current mgmt hydration rest as per primary finish iv abx tomorrow patient can be send home on sunday after the morning dose then switch to oral as planned for 2 more weeks
--- NOTE | 2017-05-03 17:59 | PN ---
Progress Note, Physician Chief Complaint: feeling much better, tolerating regular diet and having regular BMs - Current Medication List Current Medications: Active Medications Acetaminophen (Tylenol -) 650 mg PO Q6H PRN PRN Reason: FEVER OR PAIN Last Admin: 04/29/17 12:12 Dose: 650 mg Docusate Sodium (Colace -) 100 mg PO TID [facility] Last Admin: 05/03/17 15:31 Dose: 100 mg Heparin Sodium (Porcine) (Heparin -) 5,000 unit SQ BID [facility] Last Admin: 05/03/17 11:50 Dose: 5,000 unit Metronidazole (Flagyl 500mg Premixed Ivpb -) 100 mls @ 100 mls/hr IVPB Q8H-IV NONA Last Admin: 05/03/17 11:51 Dose: 100 mls/hr Piperacillin Sod/Tazobactam (Sod 4.5 gm/ Dextrose) 100 mls @ 200 mls/hr IVPB Q8H-IV NONA PRN Reason: Protocol Last Admin: 05/03/17 11:50 Dose: 200 mls/hr Ondansetron HCl (Zofran Injection) 4 mg IVPB Q6H PRN PRN Reason: NAUSEA AND/OR VOMITING Last Admin: 04/28/17 21:56 Dose: 4 mg Pantoprazole Sodium (Protonix -) 40 mg PO DAILY [facility] Last Admin: 05/03/17 11:50 Dose: 40 mg - Objective Vital Signs: Vital Signs Temperature 98.2 F 05/03/17 14:59 Pulse Rate 86 05/03/17 14:59 Respiratory Rate 20 05/03/17 14:59 Blood Pressure 137/86 05/03/17 14:59 O2 Sat by Pulse Oximetry (%) 97 05/03/17 09:00 Labs: CBC, BMP 05/03/17 06:00 05/03/17 06:00 INR, PTT INR 1.04 (0.82-1.09) 04/26/17 22:50 Problem List - Problems (1) Colitis Code(s): K52.9 - NONINFECTIVE GASTROENTERITIS AND COLITIS, UNSPECIFIED (2) Diverticulitis Code(s): K57.92 - DVTRCLI OF INTEST, PART UNSP, W/O PERF OR ABSCESS W/O BLEED Qualifiers: Diverticulitis site: large intestine Diverticulitis bleeding: without bleeding Diverticulitis complication: with perforation Qualified Code (s): K57.20 - Diverticulitis of large intestine with perforation and abscess without bleeding Assessment/Plan Enterocolitis, recurrent diverticulitis Responding well to antibiotic therapy wbc down to 5K Tolerating diet recommmend change to oral antibiotics and clear for discharge from surgical point of view
--- NOTE | 2017-05-03 20:54 | PN ---
Progress Note, Physician History of Present Illness: No new complaints - Current Medication List Current Medications: Active Medications Acetaminophen (Tylenol -) 650 mg PO Q6H PRN PRN Reason: FEVER OR PAIN Last Admin: 04/29/17 12:12 Dose: 650 mg Docusate Sodium (Colace -) 100 mg PO TID [facility] Last Admin: 05/03/17 15:31 Dose: 100 mg Heparin Sodium (Porcine) (Heparin -) 5,000 unit SQ BID [facility] Last Admin: 05/03/17 11:50 Dose: 5,000 unit Metronidazole (Flagyl 500mg Premixed Ivpb -) 100 mls @ 100 mls/hr IVPB Q8H-IV [facility] Last Admin: 05/03/17 18:20 Dose: 100 mls/hr Piperacillin Sod/Tazobactam (Sod 4.5 gm/ Dextrose) 100 mls @ 200 mls/hr IVPB Q8H-IV NONA PRN Reason: Protocol Last Admin: 05/03/17 18:20 Dose: 200 mls/hr Ondansetron HCl (Zofran Injection) 4 mg IVPB Q6H PRN PRN Reason: NAUSEA AND/OR VOMITING Last Admin: 04/28/17 21:56 Dose: 4 mg Pantoprazole Sodium (Protonix -) 40 mg PO DAILY [facility] Last Admin: 05/03/17 11:50 Dose: 40 mg - Objective Vital Signs: Vital Signs Temperature 98.5 F 05/03/17 18:43 Pulse Rate 75 05/03/17 18:43 Respiratory Rate 18 05/03/17 20:30 Blood Pressure 130/75 05/03/17 18:43 O2 Sat by Pulse Oximetry (%) 97 05/03/17 20:30 Constitutional: Yes: No Distress Eyes: Yes: WNL HENT: Yes: WNL Neck: Yes: WNL, Supple Cardiovascular: Yes: WNL, Regular Rate and Rhythm Respiratory: Yes: WNL, Regular, CTA Bilaterally Gastrointestinal: Yes: WNL, Normal Bowel Sounds, Soft Extremities: Yes: WNL Edema: No Labs: CBC, BMP 05/03/17 06:00 05/03/17 06:00 INR, PTT INR 1.04 (0.82-1.09) 04/26/17 22:50 Problem List - Problems (1) Abdominal pain Assessment/Plan: Probable acute diverticulitis ?sterococal ulcer Cont IV antibxs Code(s): R10.9 - UNSPECIFIED ABDOMINAL PAIN Qualifiers: Abdominal location: lower abdomen, unspecified Qualified Code(s): R10.30 - Lower abdominal pain, unspecified (2) Diverticulitis Assessment/Plan: Cont IV antibxs Code(s): K57.92 - DVTRCLI OF INTEST, PART UNSP, W/O PERF OR ABSCESS W/O BLEED Qualifiers: Diverticulitis site: large intestine Diverticulitis bleeding: without bleeding Diverticulitis complication: with perforation Qualified Code (s): K57.20 - Diverticulitis of large intestine with perforation and abscess without bleeding (3) HTN (hypertension) Assessment/Plan: Cont to monitor BP Pt had been on losartan however BP has been normotensive Code(s): I10 - ESSENTIAL (PRIMARY) HYPERTENSION (4) Anemia Code(s): D64.9 - ANEMIA, UNSPECIFIED (5) Stercoral ulcer of anus Code(s): K62.6 - ULCER OF ANUS AND RECTUM
[2017-05-04] MEDS ORDERED: PIPERACILLIN/TAZOBACTAM 4.5 GM VIAL IVPB ONE ×2 (01:00→08:48)
[2017-05-04] MEDS ORDERED: DEXTROSE 5%-WATER 100 ML IVPB ONE ×2 (01:01→08:49)
[2017-05-04] MEDS: PIPERACILLIN/TAZOB 4.5 GM 4.5 GM in DEXTROSE 5%-WATER 100 ML IVPB SCH ×2 (01:15→09:00)
[2017-05-04] MEDS: METRONIDAZOLE 500 MG PREMIXED 100 ML IVPB SCH ×2 (01:15→09:00)
[2017-05-04] MEDS: DOCUSATE SODIUM 100 MG CAPSULE (FP) PO SCH ×3 (05:46→21:05)
[2017-05-04 08:11] LABS: ALBUMIN 3.1 g/dl (3.4-5.0); ANION GAP 8 (8-16); BILIRUBIN,TOTAL 0.3 mg/dL (0.2-1.0); CALCIUM 8.8 mg/dL (8.5-10.1); CO2 26 mmol/L (21-32); CREATININE 0.6 mg/dL (0.55-1.02); GLUCOSE,RANDOM 90 mg/dL (74-106); SGOT/AST 12 U/L (15-37); SGPT/ALT 14 U/L (12-78); TOT PROT 6.9 g/dl (6.4-8.2)
[2017-05-04 08:12] LABS: ALK PHOS 79 U/L (45-117)
[2017-05-04] MEDS: HEPARIN NA (PORCINE) 5,000 UNITS/ML 1ML VIAL SQ SCH ×2 (09:00→21:05)
[2017-05-04] MEDS: PANTOPRAZOLE 40 MG TABLET (FP) PO SCH (09:00)
--- NOTE | 2017-05-04 16:08 | PN ---
Progress Note, Physician History of Present Illness: stable no abd pain iv site not access able - Current Medication List Current Medications: Active Medications Acetaminophen (Tylenol -) 650 mg PO Q6H PRN PRN Reason: FEVER OR PAIN Last Admin: 04/29/17 12:12 Dose: 650 mg Docusate Sodium (Colace -) 100 mg PO TID [facility] Last Admin: 05/04/17 14:51 Dose: 100 mg Heparin Sodium (Porcine) (Heparin -) 5,000 unit SQ BID [facility] Last Admin: 05/04/17 09:00 Dose: 5,000 unit Levofloxacin (Levaquin) 750 mg PO DAILY [facility] Metronidazole (Flagyl -) 500 mg PO TID [facility] Ondansetron HCl (Zofran Injection) 4 mg IVPB Q6H PRN PRN Reason: NAUSEA AND/OR VOMITING Last Admin: 04/28/17 21:56 Dose: 4 mg Pantoprazole Sodium (Protonix -) 40 mg PO DAILY [facility] Last Admin: 05/04/17 09:00 Dose: 40 mg - Objective Vital Signs: Vital Signs Temperature 97.8 F 05/04/17 15:16 Pulse Rate 80 05/04/17 15:16 Respiratory Rate 20 05/04/17 15:16 Blood Pressure 128/88 05/04/17 06:00 O2 Sat by Pulse Oximetry (%) 97 05/03/17 20:30 Constitutional: Yes: No Distress, Calm Cardiovascular: Yes: Regular Rate and Rhythm Respiratory: Yes: Regular, CTA Bilaterally Gastrointestinal: Yes: Normal Bowel Sounds, Soft Musculoskeletal: Yes: WNL Extremities: Yes: WNL Neurological: Yes: Alert, Oriented Psychiatric: Yes: Alert, Oriented Labs: CBC, BMP 05/03/17 06:00 05/04/17 06:30 INR, PTT INR 1.04 (0.82-1.09) 04/26/17 22:50 Assessment/Plan Problem List - Problems (1) Colitis Code(s): K52.9 - NONINFECTIVE GASTROENTERITIS AND COLITIS, UNSPECIFIED (2) Enteritis Code(s): K52.9 - NONINFECTIVE GASTROENTERITIS AND COLITIS, UNSPECIFIED diverticulitis plan since patient has lost the iv site and she is tolerating diet will switch her to levaquin and flagy patient needs to get it for another 10 days if she develops any abd pain then we will decide further plan
[2017-05-04] MEDS: LEVOFLOXACIN 250 MG TABLET (FP) PO SCH (17:26)
--- NOTE | 2017-05-04 19:59 | PN ---
Progress Note, Physician - Current Medication List Current Medications: Active Medications Acetaminophen (Tylenol -) 650 mg PO Q6H PRN PRN Reason: FEVER OR PAIN Last Admin: 04/29/17 12:12 Dose: 650 mg Docusate Sodium (Colace -) 100 mg PO TID [facility] Last Admin: 05/04/17 14:51 Dose: 100 mg Heparin Sodium (Porcine) (Heparin -) 5,000 unit SQ BID [facility] Last Admin: 05/04/17 09:00 Dose: 5,000 unit Levofloxacin (Levaquin -) 750 mg PO DAILY [facility] Last Admin: 05/04/17 17:26 Dose: 750 mg Metronidazole (Flagyl -) 500 mg PO TID [facility] Ondansetron HCl (Zofran Injection) 4 mg IVPB Q6H PRN PRN Reason: NAUSEA AND/OR VOMITING Last Admin: 04/28/17 21:56 Dose: 4 mg Pantoprazole Sodium (Protonix -) 40 mg PO DAILY [facility] Last Admin: 05/04/17 09:00 Dose: 40 mg - Objective Vital Signs: Vital Signs Temperature 97.9 F 05/04/17 19:03 Pulse Rate 66 05/04/17 19:03 Respiratory Rate 18 05/04/17 19:03 Blood Pressure 134/92 05/04/17 19:03 O2 Sat by Pulse Oximetry (%) 97 05/03/17 20:30 Labs: CBC, BMP 05/03/17 06:00 05/04/17 06:30 INR, PTT INR 1.04 (0.82-1.09) 04/26/17 22:50 Problem List - Problems (1) Abdominal pain Code(s): R10.9 - UNSPECIFIED ABDOMINAL PAIN Qualifiers: Abdominal location: lower abdomen, unspecified Qualified Code(s): R10.30 - Lower abdominal pain, unspecified (2) Diverticulitis Code(s): K57.92 - DVTRCLI OF INTEST, PART UNSP, W/O PERF OR ABSCESS W/O BLEED Qualifiers: Diverticulitis site: large intestine Diverticulitis bleeding: without bleeding Diverticulitis complication: with perforation Qualified Code (s): K57.20 - Diverticulitis of large intestine with perforation and abscess without bleeding (3) HTN (hypertension) Code(s): I10 - ESSENTIAL (PRIMARY) HYPERTENSION (4) Anemia Code(s): D64.9 - ANEMIA, UNSPECIFIED (5) Stercoral ulcer of anus Code(s): K62.6 - ULCER OF ANUS AND RECTUM
[2017-05-04] MEDS: metroNIDAZOLE 250 MG TABLET PO SCH (21:05)
[2017-05-05] MEDS: DOCUSATE SODIUM 100 MG CAPSULE (FP) PO SCH (05:43)
[2017-05-05] MEDS: metroNIDAZOLE 250 MG TABLET PO SCH (05:43)
[2017-05-05] MEDS ORDERED: PT OWN MED DRAWER 7, Y5N ONE (10:42)
[2017-05-05] MEDS: LEVOFLOXACIN 250 MG TABLET (FP) PO SCH (10:53)
[2017-05-05] MEDS: PANTOPRAZOLE 40 MG TABLET (FP) PO SCH (10:54)
[2017-05-05 16:05] VITALS: BP 137/87; PULSE 86; TEMP 97.7
--- NOTE | 2017-05-06 17:39 | DS ---
Physical Examination Vital Signs: Vital Signs Temperature 97.7 F 05/05/17 10:00 Pulse Rate 86 05/05/17 10:00 Respiratory Rate 16 05/05/17 10:00 Blood Pressure 137/87 05/05/17 10:00 O2 Sat by Pulse Oximetry (%) 100 05/05/17 09:00 Labs: CBC, BMP 05/03/17 06:00 05/04/17 06:30 Discharge Summary Reason For Visit: COLITIS Condition: Good - Instructions Diet, Activity, Other Instructions: low residue diet Referrals: Mehnaz Grady MD [Primary Care Provider] - Disposition: HOME - Home Medications Comprehensive Discharge Medication List: Ambulatory Orders Pantoprazole Sodium [Protonix -] 40 mg PO DAILY #30 tab 03/22/17 Levofloxacin [Levaquin] 750 mg PO DAILY #14 tab 05/05/17 Metronidazole [Flagyl -] 500 mg PO TID #42 tablet 05/05/17
== END 2017-05-05 11:58 | disposition home or self-care (01) | DRG 244 ==
LOC: JER 21:59 → JERBED 04-27 03:54 → J5S 04-27 10:01
PROVIDERS: ADMIT Internal Medicine; ATTEND Internal Medicine
DX: K57.92 Diverticulitis of intestine, part unspecified, without perforation or abscess without bleeding (principal); K52.9 Noninfective gastroenteritis and colitis, unspecified; I10 Essential (primary) hypertension; D64.9 Anemia, unspecified; K62.6 Ulcer of anus and rectum; R10.32 Left lower quadrant pain
CPT/HCPCS: 36415; 71010-TC; 74177-TC; 80048; 80053; 81003; 81015; 82272; 83690; 83735; 84703; 85025; 85027; 85610; 85730; 86850; 86900; 86901; 87040; 87086; 87177; 87209; 87324; 87449; 93005; 93010; 99284-25; J1644

== ENCOUNTER 2017-05-13 22:53 | Inpatient (IN) | payer OTHER ==
--- NOTE | 2017-05-13 23:38 | PDOC ---
History of Present Illness - General History Source: Patient Exam Limitations: No Limitations - History of Present Illness Initial Comments: 05/13/17 23:50 The patient is a 47 year old female with a significant past medical history of diverticulitis, ileostomy reversal, hypertension, and kidney stones who presents to the ED with complaints of abdominal pain since earlier today. The patient reports a sudden onset of sharp diffuse abdominal pain 4 hours ago. She reports abdominal distension, nausea and 3 episodes of vomiting associated with present symptoms. Patient was recently discharged from the hospital on 05/06/17 for a diverticulitis flare up. Denies fevers or chills. Denies chest pain or shortness of breath. Denies diarrhea or hematochezia. Denies dysuria or changes in urinary output. Denies any other symptoms. <Cely Black - Last Filed: 05/13/17 23:50> <Merly Howe - Last Filed: 05/14/17 03:47> - General Chief Complaint: Pain Stated Complaint: ABDOMINAL PAIN Time Seen by Provider: 05/13/17 23:34 Past History <Cely Black - Last Filed: 05/13/17 23:50> - Past Medical History Anemia: No Asthma: No Cancer: No Cardiac Disorders: Yes (HTN) CVA: No COPD: No CHF: No Dementia: No Diabetes: No GI Disorders: Yes (diverticulitis) Disorders: No HTN: Yes Hypercholesterolemia: No Kidney Stones: Yes Liver Disease: No Seizures: No Thyroid Disease: No - Surgical History Abdominal Surgery: Yes (Temp ileostomy) - Immunization History Immunization Up to Date: Yes - Suicide/Smoking/Psychosocial Hx Smoking History: Never smoked Have you smoked in the past 12 months: No Number of Cigarettes Smoked Daily: 2 Information on smoking cessation initiated: No 'Breaking Loose' booklet given: 02/24/17 Hx Alcohol Use: No Drug/Substance Use Hx: No Substance Use Type: None <Merly Howe - Last Filed: 05/14/17 03:47> - Past Medical History Allergies/Adverse Reactions: Allergies Allergy/AdvReac Type Severity Reaction Status Date / Time No Known Allergies Allergy Verified 05/13/17 23:02 Home Medications: Ambulatory Orders Pantoprazole Sodium [Protonix -] 40 mg PO DAILY #30 tab 03/22/17 Levofloxacin [Levaquin] 750 mg PO DAILY #14 tab 05/05/17 Metronidazole [Flagyl -] 500 mg PO TID #42 tablet 05/05/17 Abd/GI Specific PMHX - Complaint Specific PMHX Colitis: No Diverticulitis: Yes (possible) Gall Bladder Disease: No GERD: No Hepatitis: No Irritable Bowel Synd (IBS): No Pancreatitis: No GI Ulcer Disease: No <Merly Howe - Last Filed: 05/14/17 03:47> Review of Systems - Review of Systems Able to Perform ROS?: Yes Comments:: 05/13/17 23:50 CONSTITUTIONAL: No reported: Fever, Chills, Diaphoresis, Generalized Weakness, Malaise, Loss of Appetite HEENT: No reported: Rhinorrhea, Nasal Congestion, Throat Pain, Throat Swelling, Difficulty Swallowing, Mouth Swelling, Ear Pain, Eye Pain, Visual Changes CARDIOVASCULAR: No reported: Chest Pain, Syncope, Palpitations, Irregular Heart Rate, Lightheadedness, Peripheral Edema RESPIRATORY: No reported: Cough, Shortness of Breath, SOB with Exertion, Orthopnea, Wheezing , Stridor, Hemoptysis GASTROINTESTINAL: + abdominal pain, nausea, vomiting, abdominal distension No reported:, Diarrhea, Constipation, Melena, Hematochezia GENITOURINARY: No reported: Dysuria, Frequency, Urgency, Hesitancy, Flank Pain, Genital Pain MUSCULOSKELETAL: No reported: Myalgia, Arthralgia, Joint Swelling, Back pain, Neck Pain SKIN: No reported: Rash, Itching, Pallor HEMEATOLOGIC/IMMUNOLOGIC: No reported: Easy Bleeding, Easy Bruising, Lymphadenopathy, Frequent infections ENDOCRINE: No reported: Unexplained Weight Gain, Unexplained Weight Loss, Heat Intolerance , Cold Intolerance NEUROLOGIC: No reported: Headache, Focal Weakness, Paresthesias, Vertigo, Lightheadedness, Unsteady Gait, Seizure, Mental Status Changes, Incontinence PSYCHIATRIC: No reported: Anxiety, Depression All Other Systems: Reviewed and Negative <Cely Black - Last Filed: 05/13/17 23:50> *Physical Exam - Vital Signs Last Vital Signs Temp Pulse Resp BP Pulse Ox 97.5 F L 96 H 18 134/87 99 05/13/17 23:03 05/13/17 23:03 05/13/17 23:03 05/13/17 23:03 05/13/17 23:03 - Physical Exam Comments: 05/13/17 23:50 GENERAL: Well developed, well nourished. Awake and alert. No acute distress. HEENT: Normocephalic, atraumatic. PERRLA, EOMI. No conjunctival pallor. Sclera are non- icteric. Moist mucous membranes. Oropharynx is clear. NECK: Supple. Full ROM. No JVD. Carotid pulses 2+ and symmetric, without bruits. No thyromegaly. No lymphadenopathy. CARDIOVASCULAR: Regular rate and rhythm. No murmurs, rubs, or gallops. Distal pulses are 2+ and symmetric. PULMONARY: No evidence of respiratory distress. Lungs clear to auscultation bilaterally. No wheezing, rales or rhonchi. ABDOMINAL:+ Diffuse tenderness of abdomen Soft. Non-distended. No rebound or guarding. No organomegaly. Normoactive bowel sounds. MUSCULOSKELETAL Normal range of motion at all joints. No bony deformities or tenderness. No CVA tenderness. EXTREMITIES: No cyanosis. No clubbing. No edema. No calf tenderness. SKIN: Warm and dry. Normal capillary refill. No rashes. No jaundice. NEUROLOGICAL: Alert, awake, appropriate. Cranial nerves 2-12 intact. No deficits to light touch and temperature in face, upper extremities and lower extremities. No motor deficits in the in face, upper extremities and lower extremities. Normoreflexic in the upper and lower extremities. Normal speech. Toes are down- going bilaterally. Gait is normal without ataxia. PSYCHIATRIC: Cooperative. Good eye contact. Appropriate mood and affect. <Cely Black - Last Filed: 05/13/17 23:50> - Vital Signs Last Vital Signs Temp Pulse Resp BP Pulse Ox 97.5 F L 96 H 18 134/87 99 05/13/17 23:03 05/13/17 23:03 05/13/17 23:03 05/13/17 23:03 05/13/17 23:03 <Merly Howe - Last Filed: 05/14/17 03:47> ED Treatment Course - LABORATORY CBC & Chemistry Diagram: 05/13/17 23:50 05/13/17 23:50 <Merly Howe - Last Filed: 05/14/17 03:47> Medical Decision Making - Medical Decision Making 05/14/17 03:00 -year-old female with a history of ileostomy status post diverticular per presents with severe abdominal pain that started several hours prior to arrival. Patient is having severe pain, more left-sided than right. She has a leukocytosis of 17,000, lactic acid is elevated 2.6. She has a negative test. Her LFTs are within normal limits. Urinalysis only shows WBCs with negative nitrate Patient has a very tender abdomen and a CAT scan shows severe pelvic inflammation involving small and large bowel and mesenteric edema and free fluid , likely representing infection, possibly peritonitis. Is a questionable 1.9 cm right ovarian cyst versus abscess. No other suspicious fluid collections identified. Sigmoid and right lower quadrant anastomosis is noted. The appendix is normal. Urinary bladder is unremarkable. No discrete pelvic lymphadenopathy is identified. 05/14/17 03:[address] Mehnaz Grady requested patient be admitted to ICU. Patient has received IV Zosyn, IV Levaquin and Flagyl Consultations for Dr. Palacios, Dr. Hernandez ordered I spoke with Primo [phone] in the ICU. He came to the ER and examined the pt and felt she was suitable fr med/surg plan surgical consult VANESA Dalton -if she becomes unstable will upgrade to ICU 05/14/17 03:44 <Merly Howe - Last Filed: 05/14/17 03:47> *DC/Admit/Observation/Transfer - Attestations Scribe Attestion: 05/13/17 23:50 Documentation prepared by Cely Black, acting as emergency medicine medical director for Merly Howe MD <Cely Black - Last Filed: 05/13/17 23:50> - Discharge Dispostion Admit: Yes <Merly Howe - Last Filed: 05/14/17 03:47> Diagnosis at time of Disposition: Sudden onset of severe abdominal pain, Lactic acid increased, Abdominal pain with vomiting Leukocytosis Qualifiers: Leukocytosis type: unspecified Qualified Code(s): D72.829 - Elevated white blood cell count, unspecified
[2017-05-13] MEDS ORDERED: SODIUM CHLORIDE 1,000 ML IV STA (23:41)
[2017-05-13] MEDS ORDERED: ONDANSETRON 4 MG/2 ML VIAL IVPB ONE (23:41)
[2017-05-13] MEDS ORDERED: HYDROmorphone HCL CARPU-JECT 1 MG/1 ML DISP.SYRIN IVPB ONE (23:45)
[2017-05-13] MEDS ORDERED: ONDANSETRON 4 MG/2 ML VIAL ONE (23:57)
[2017-05-13] MEDS ORDERED: HYDROmorphone HCL CARPU-JECT 1 MG/1 ML DISP.SYRIN ONE (23:57)
[2017-05-14] LABS: BASOPHIL 0.3 % (0-2.0); EOSINOPHIL 0.2 % (0-4.5); MCH 25.3 pg (25.7-33.7); MCHC 31.9 g/dl (32.0-36.0); MEAN CELL VOLUME 79.4 fl (80-96); NEUTROPHILS 85.3 % (42.8-82.8); PLATELET COUNT 454 K/MM3 (134-434); RDW 16.6 % (11.6-15.6); WHITE BLOOD COUNT 17.3 K/mm3 (4.0-10.0)
[2017-05-14 00:25] LABS: ALBUMIN 3.4 g/dl (3.4-5.0); ALK PHOS 70 U/L (45-117); ANION GAP 11 (8-16); BILIRUBIN,TOTAL 0.4 mg/dL (0.2-1.0); CALCIUM 8.6 mg/dL (8.5-10.1); CO2 23 mmol/L (21-32); CREATININE 0.7 mg/dL (0.55-1.02); GLUCOSE,RANDOM 130 mg/dL (74-106); SGOT/AST 5 U/L (15-37); SGPT/ALT 13 U/L (12-78); TOT PROT 7.2 g/dl (6.4-8.2)
[2017-05-14] MEDS ORDERED: HYDROmorphone HCL CARPU-JECT 1 MG/1 ML DISP.SYRIN IVPUSH ONE ×2 (01:11→02:49)
[2017-05-14] MEDS ORDERED: LEVOFLOXACIN 500 MG IVPB 100 ML IVPB ONE ×2 (01:12→01:53)
[2017-05-14] MEDS ORDERED: METRONIDAZOLE 500 MG PREMIXED 100 ML IVPB ONE ×2 (01:13→01:53)
[2017-05-14] MEDS ORDERED: HYDROmorphone HCL CARPU-JECT 1 MG/1 ML DISP.SYRIN ONE ×2 (01:14→02:58)
[2017-05-14 01:40] LABS: URINE APPEARANCE SLCLOUDY; URINE BILIRUBIN NEGATIVE (NEGATIVE); URINE BLOOD NEGATIVE (NEGATIVE); URINE COLOR YELLOW; URINE GLUCOSE (UA) NEGATIVE (NEGATIVE); URINE KETONE NEGATIVE (NEGATIVE); URINE LEUK ESTERASE TRACE (NEGATIVE); URINE NITRITE NEGATIVE (NEGATIVE); URINE PROTEIN NEGATIVE (NEGATIVE); URINE UROBILINOGEN NEGATIVE mg/dL (0.2-1.0)
[2017-05-14 01:44] LABS: CALCIUM OXALATE CRYSTALS MANY /hpf (NONE SEEN); URINE MUCUS MODERATE; URINE RBC 8 /hpf (0-3); URINE WBC 5 /hpf (3-5)
[2017-05-14] MEDS ORDERED: SODIUM CHLORIDE 1,000 ML IV STA (02:58)
[2017-05-14] MEDS ORDERED: PIPERACILLIN/TAZOB 3.375 GM 3.375 GM in DEXTROSE 5%-WATER - 50 ML IVPB ONE (03:07)
[2017-05-14] MEDS ORDERED: ONDANSETRON 4 MG/2 ML VIAL IVPB PRN (03:27)
[2017-05-14] MEDS ORDERED: PIPERACILLIN/TAZOB 3.375 GM 50 ML IVPB ONE (03:51)
[2017-05-14 06:14] LABS: BASOPHIL 0.1 % (0-2.0); MCH 25.1 pg (25.7-33.7); MCHC 31.9 g/dl (32.0-36.0); MEAN CELL VOLUME 78.7 fl (80-96); MEAN PLT VOLUME 7.9 fl (7.5-11.1); NEUTROPHILS 89.6 % (42.8-82.8); PLATELET COUNT 350 K/MM3 (134-434); RDW 16.5 % (11.6-15.6); WHITE BLOOD COUNT 13.8 K/mm3 (4.0-10.0)
[2017-05-14 06:50] LABS: ANION GAP 10 (8-16); CALCIUM 7.7 mg/dL (8.5-10.1); CO2 22 mmol/L (21-32); GLUCOSE,RANDOM 120 mg/dL (74-106)
[2017-05-14 06:54] LABS: ALK PHOS 54 U/L (45-117); BILIRUBIN,TOTAL 0.6 mg/dL (0.2-1.0); CREATININE 0.7 mg/dL (0.55-1.02); SGOT/AST 5 U/L (15-37); SGPT/ALT 11 U/L (12-78); TOT PROT 6.2 g/dl (6.4-8.2)
[2017-05-14] MEDS: DEXTROSE 5%-0.45% SALINE 1,000 ML IV SCH ×2 (08:23→21:37)
[2017-05-14] MEDS: HYDROmorphone HCL CARPU-JECT 1 MG/1 ML DISP.SYRIN IVPB PRN ×3 (08:24→20:55)
[2017-05-14] MEDS: METRONIDAZOLE 500 MG PREMIXED 100 ML IVPB SCH ×2 (09:45→18:11)
[2017-05-14] MEDS: HEPARIN NA (PORCINE) 5,000 UNITS/ML 1ML VIAL SQ SCH ×2 (09:45→21:41)
[2017-05-14] MEDS ORDERED: PIPERACILLIN/TAZOB 3.375 GM 3.375 GM in DEXTROSE 5%-WATER - 50 ML IVPB SCH (10:00)
--- NOTE | 2017-05-14 11:13 | EKG ---
Test Reason : Blood Pressure : / mmHG Vent. Rate : 102 BPM Atrial Rate : 102 BPM P-R Int : 132 ms QRS Dur : 084 ms QT Int : 362 ms P-R-T Axes : 062 -22 034 degrees QTc Int : 471 ms SINUS TACHYCARDIA OTHERWISE NORMAL ECG WHEN COMPARED WITH ECG OF 27-APR-2017 04:04, NO SIGNIFICANT CHANGE WAS FOUND Confirmed by MARIBEL MAYER MD ([id number]) on 05/14/2017 11:13:22 AM Referred By: PALMA MALDONADO Confirmed By:MARIBEL MAYER MD
[2017-05-14 11:41] VITALS: BMI 27.4
--- NOTE | 2017-05-14 11:51 | HOSP ---
Subjective - Review of Symptoms Gastrointestinal: Yes: Abdominal Pain Musculoskeletal: Yes: Extremity Pain Physical Examination Vital Signs: Vital Signs Temperature 101.2 F H 05/14/17 11:34 Pulse Rate 106 H 05/14/17 11:34 Respiratory Rate 18 05/14/17 11:34 Blood Pressure 139/98 05/14/17 11:34 O2 Sat by Pulse Oximetry (%) 98 05/14/17 10:34 Constitutional: Yes: Anxious Eyes: Yes: WNL HENT: Yes: Atraumatic, Normocephalic Neck: Yes: Supple, Trachea Midline. No: Lymphadenopathy, Tenderness Cardiovascular: Yes: Tachycardia, S1, S2. No: Murmur Respiratory: Yes: Regular, CTA Bilaterally. No: Accessory Muscle Use, Cough, On Nasal O2 Gastrointestinal: Yes: Hypoactive Bowel Sounds, Tenderness Extremities: No: Calf Tenderness, Cold, Erythema Edema: No Peripheral Pulses WNL: Yes Peripheral Pulses: Left Radial: 2+, Right Radial: 2+, Left Doralis Pedis: 2+, Right Dorsalis Pedis: 2+ Integumentary: No: Bruising, Erythema, Rash Wound/Incision: Yes: Clean/Dry. No: Draining Neurological: Yes: Alert, Oriented, Cran Nerves II-XII Intact ...Motor Strength: LUE, RUE Psychiatric: Yes: Alert, Oriented Labs: CBC, BMP 05/14/17 06:00 05/14/17 06:00 Hospitalist Encounter Assessment: 47 yr old woman with reversed ileostomy 02/14/2017, diverticulitis, nephrolithiasis, (hx of HTN - not on any meds), admitted due to severe sepsis due to peritonitis now complaining of worsening abdominal distention and sob due to the abdominal pain. a/w subjective fever and left inner thigh pain radiating to LLQ which is worse with movement. Last bowel movement was yesterday, it was nonbloody watery. Denies flatulance, says she has been having increased burping. Denies LE edema, cardiac chest pain, headache, cough, vomiting, nausea, chills, palpitations. PE: HR 104, BP 130/79, RR 14, 98% on RA, CV: s1, s2 without murmurs, sinus tachycardia LUNGS: CTAB Abd: diffusely very tender to light palpation, +distention, absent bowel sounds , healed ileostomy scar in RLQ EXT: 2+ dp and radial pulses b/l, no edema, no calf tenderness, no palpable mass /swelling in left medial thigh EKG - NSR without acute ischemic changes Chest and abdominal xray ordered to r/o free air. Dr. Iraheta consulted for surgical evaluation, discussed case with him at 5: 55pm. He would like the patient to be transferred to [facility]. He will be making the arrangement. informed Nurse Alba who will be notifying Dr. Grady. patient has order for dilauded for pain control currently NPO, continue IVF Primary Physician Notified: Mehnaz Grady Visit type - Emergency Visit Emergency Visit: No - New Patient This patient is new to me today: Yes Date on this admission: 05/14/17 - Critical Care Critical Care patient: No
[2017-05-14 12:07] LABS: MCH 25.2 pg (25.7-33.7); MCHC 31.5 g/dl (32.0-36.0); MEAN CELL VOLUME 79.9 fl (80-96); MEAN PLT VOLUME 8.7 fl (7.5-11.1); PLATELET COUNT 348 K/MM3 (134-434); RDW 16.2 % (11.6-15.6); WHITE BLOOD COUNT 16.3 K/mm3 (4.0-10.0)
[2017-05-14 12:25] LABS: ALBUMIN 2.9 g/dl (3.4-5.0); ANION GAP 11 (8-16); CALCIUM 8.5 mg/dL (8.5-10.1); CO2 22 mmol/L (21-32); CREATININE 0.6 mg/dL (0.55-1.02); GLUCOSE,RANDOM 118 mg/dL (74-106); SGOT/AST 6 U/L (15-37); SGPT/ALT 9 U/L (12-78)
[2017-05-14 12:30] LABS: ALK PHOS 50 U/L (45-117); BILIRUBIN,TOTAL 0.8 mg/dL (0.2-1.0); CPK 48 IU/L (26-192); TOT PROT 6.3 g/dl (6.4-8.2); TROPONIN I < 0.02 ng/ml (0.00-0.05)
--- NOTE | 2017-05-14 12:54 | CON.ID ---
Consult Consult Specialty:: infectious diseases Reason for Consultation:: diverticulitits - History of Present Illness Chief Complaint: abd pain History of Present Illness: 47 F with h/o diverticulitis, s/p resection and ileostomy, s/p reversal of ileostomy now back with acute onset abdominal pain in the LLQ. She states pain was severe. CT shows significant hyperemia at site of ileoileal anastomosis and stranding at the site of the ileostomy in the RLQ. patient has been having this issue frequently with multiple flareups since surgery she has abd pain. - History Source History Provided By: Patient Limitations to Obtaining History: No Limitations - Past Medical History Cardio/Vascular: Yes: HTN Gastrointestinal: Yes: Diverticulosis ...LMP: 05/08/17 ...: No - Past Surgical History Past Surgical History: Yes: Colectomy, Colostomy - Alcohol/Substance Use Hx Alcohol Use: No - Smoking History Smoking history: Never smoked Have you smoked in the past 12 months: No Aproximately how many cigarettes per day: 2 Home Medications - Allergies Allergies/Adverse Reactions: Allergies Allergy/AdvReac Type Severity Reaction Status Date / Time No Known Allergies Allergy Verified 05/13/17 23:02 - Home Medications Home Medications: Ambulatory Orders Pantoprazole Sodium [Protonix -] 40 mg PO DAILY #30 tab 03/22/17 Levofloxacin [Levaquin] 750 mg PO DAILY #14 tab 05/05/17 Metronidazole [Flagyl -] 500 mg PO TID #42 tablet 05/05/17 Review of Systems - Review of Systems Constitutional: reports: Other Eyes: reports: No Symptoms HENT: reports: No Symptoms Neck: reports: No Symptoms Cardiovascular: reports: No Symptoms Respiratory: reports: No Symptoms Gastrointestinal: reports: Abdominal Pain, Bloating Musculoskeletal: reports: No Symptoms Integumentary: reports: No Symptoms Hematology/Lymphatic: reports: No Symptoms Psychiatric: reports: No Symptoms Physical Exam Vital Signs: Vital Signs Temperature 101.2 F H 05/14/17 11:34 Pulse Rate 106 H 05/14/17 11:34 Respiratory Rate 18 05/14/17 11:34 Blood Pressure 139/98 05/14/17 11:34 O2 Sat by Pulse Oximetry (%) 98 05/14/17 10:34 Constitutional: Yes: Calm, Moderate Distress Eyes: Yes: Conjunctiva Clear HENT: Yes: Atraumatic, Normocephalic Neck: Yes: Supple, Trachea Midline Cardiovascular: Yes: Regular Rate and Rhythm Respiratory: Yes: Regular, CTA Bilaterally Gastrointestinal: Yes: Distention, Tenderness, Other (absent bowel sounds) Extremities: Yes: WNL Neurological: Yes: Alert, Oriented Psychiatric: Yes: Alert, Oriented Labs: CBC, BMP 05/14/17 11:57 05/14/17 11:57 Imaging - Results Chest X-ray: Report Reviewed, Image Reviewed X-ray: Report Reviewed, Image Reviewed Cat Scan: Report Reviewed, Image Reviewed Assessment/Plan Problems (1) Abdominal pain Code(s): R10.9 - UNSPECIFIED ABDOMINAL PAIN Qualifiers: Abdominal location: lower abdomen, unspecified Qualified Code(s): R10.30 - Lower abdominal pain, unspecified leukocytosis patient has already got zosyn levaquin and flagyl plan will start patient on zosyn on higher dose from tomorrow surgery to look at the patient npo iv fluids
[2017-05-14 15:50] VITALS: TEMP 99.8
[2017-05-14 17:16] VITALS: BP 125/87; PULSE 109
--- NOTE | 2017-05-14 17:37 | CON.GI ---
Consult Consult Specialty:: GI Referred by:: Dr Sloan Reason for Consultation:: Abdominal pain - History of Present Illness History of Present Illness: 47 F with h/o diverticulitis, s/p resection and ileostomy, s/p reversal of ileostomy now back with acute onset abdominal pain in the LLQ. She states pain was severe. CT shows significant hyperemia at site of ileoileal anastomosis and stranding at the site of the ileostomy in the RLQ. She is currently in moderate pain. - History Source History Provided By: Patient, Medical Record Limitations to Obtaining History: No Limitations - Past Medical History Cardio/Vascular: Yes: HTN Gastrointestinal: Yes: Diverticulosis ...LMP: 05/08/17 ...: No - Past Surgical History Past Surgical History: Yes: Colectomy, Colostomy - Alcohol/Substance Use Hx Alcohol Use: No - Smoking History Smoking history: Never smoked Have you smoked in the past 12 months: No Aproximately how many cigarettes per day: 2 Home Medications - Allergies Allergies/Adverse Reactions: Allergies Allergy/AdvReac Type Severity Reaction Status Date / Time No Known Allergies Allergy Verified 05/13/17 23:02 - Home Medications Home Medications: Ambulatory Orders Pantoprazole Sodium [Protonix -] 40 mg PO DAILY #30 tab 03/22/17 Levofloxacin [Levaquin] 750 mg PO DAILY #14 tab 05/05/17 Metronidazole [Flagyl -] 500 mg PO TID #42 tablet 05/05/17 Physical Exam-GI Vital Signs: Vital Signs Temperature 99.8 F H 05/14/17 17:15 Pulse Rate 109 H 05/14/17 17:15 Respiratory Rate 20 05/14/17 17:15 Blood Pressure 125/87 05/14/17 17:15 O2 Sat by Pulse Oximetry (%) 98 05/14/17 10:34 Constitutional: Yes: Well Nourished, Calm, Moderate Distress HENT: Yes: Normocephalic Neck: Yes: Supple Cardiovascular: Yes: Regular Rate and Rhythm Respiratory: Yes: CTA Bilaterally Gastrointestinal Inspection: Yes: Scars ...Auscultate: Yes: Hypoactive Bowel Sounds ...Palpate: Yes: Guarding, Tenderness Labs: CBC, BMP 05/14/17 11:57 05/14/17 11:57 Hepatic Panel Total Bilirubin 0.8 mg/dL (0.2-1.0) D 05/14/17 11:57 AST 6 U/L (15-37) L 05/14/17 11:57 ALT 9 U/L (12-78) L 05/14/17 11:57 Alkaline Phosphatase 50 U/L (45-117) 05/14/17 11:57 Albumin 2.9 g/dl (3.4-5.0) L 05/14/17 11:57 Imaging - Results Cat Scan: Report Reviewed (see above) Assessment/Plan 47 F with what looks like recurrent inflammation/infection possibly associated with prior diverticulitis/surgery. Surgery consult called with Dr Palacios. ID input needed Path reviewed-no evidence of Crohns NPO Will follow
--- NOTE | 2017-05-14 22:11 | HP ---
Admitting History and Physical - Admission History of Present Illness: Pt is a 47 y/o female w/ PMH significant for diverticulitis w/ sigmoid resection and diverting ileostomy w/ closure of ileostomy. Pt now presented to the ER w/ acute onset of abdominal pain that began w/in 24 hrs. Pt denies nausea/vomiting and no diarrhea or constipation. Pt is afebrile but found to have a WBC of 17,000. - Past Medical History Cardiovascular: Yes: HTN Gastrointestinal: Yes: Diverticulosis ...LMP: 05/08/17 ...: No - Past Surgical History Past Surgical History: Yes: Colectomy, Colostomy - Smoking History Smoking history: Never smoked Have you smoked in the past 12 months: No Aproximately how many cigarettes per day: 2 - Alcohol/Substance Use Hx Alcohol Use: No Home Medications - Allergies Allergies/Adverse Reactions: Allergies Allergy/AdvReac Type Severity Reaction Status Date / Time No Known Allergies Allergy Verified 05/13/17 23:02 - Home Medications Home Medications: Ambulatory Orders Pantoprazole Sodium [Protonix -] 40 mg PO DAILY #30 tab 03/22/17 Levofloxacin [Levaquin] 750 mg PO DAILY #14 tab 05/05/17 Metronidazole [Flagyl -] 500 mg PO TID #42 tablet 05/05/17 Family Disease History - Family Disease History Family History: Unremarkable Review of Systems - Review of Systems Constitutional: reports: Loss of Appetite, Malaise Eyes: reports: No Symptoms HENT: reports: No Symptoms Neck: reports: No Symptoms Cardiovascular: reports: No Symptoms Respiratory: reports: No Symptoms Gastrointestinal: reports: Abdominal Pain Genitourinary: reports: No Symptoms Physical Examination Vital Signs: Vital Signs Temperature 99.8 F H 05/14/17 17:15 Pulse Rate 109 H 05/14/17 17:15 Respiratory Rate 20 05/14/17 17:15 Blood Pressure 125/87 05/14/17 17:15 O2 Sat by Pulse Oximetry (%) 98 05/14/17 10:34 Constitutional: Yes: No Distress Eyes: Yes: WNL HENT: Yes: WNL Neck: Yes: WNL, Supple Cardiovascular: Yes: WNL, Regular Rate and Rhythm Respiratory: Yes: WNL, Regular, CTA Bilaterally Gastrointestinal: Yes: Other ((+) generalized tenderness (-) guarding/rebound BS (+)) Labs: CBC, BMP 05/14/17 11:57 05/14/17 11:57 Problem List - Problems (1) Abdominal pain Assessment/Plan: Pt w/ recurennt diverticultis/colitis/inflammation Cont IV antibxs Cont IVF/NPO Surgical/ID/GI consults As per pt's request probable transfer to [facility] for further surgical intervention Code(s): R10.9 - UNSPECIFIED ABDOMINAL PAIN Qualifiers: Abdominal location: lower abdomen, unspecified Qualified Code(s): R10.30 - Lower abdominal pain, unspecified
== END 2017-05-14 23:00 | disposition short-term general hospital (02) | DRG 252 ==
LOC: JER 22:53 → JERBED 05-14 03:47 → J8W 05-14 07:53
PROVIDERS: ADMIT Internal Medicine; ATTEND Internal Medicine
DX: K91.89 Other postprocedural complications and disorders of digestive system (principal); E87.2 Acidosis; R10.32 Left lower quadrant pain; Y83.8 Other surgical procedures as the cause of abnormal reaction of the patient, or of later complication, without mention of misadventure at the time of the procedure; Y92.038 Other place in apartment as the place of occurrence of the external cause; K57.30 Diverticulosis of large intestine without perforation or abscess without bleeding; Z90.49 Acquired absence of other specified parts of digestive tract; D72.829 Elevated white blood cell count, unspecified; I10 Essential (primary) hypertension
CPT/HCPCS: 36415; 71010-TC; 71020-TC; 74000-TC; 74177-TC; 80053; 81003; 81015; 83605; 83690; 84484; 84703; 85025; 85027; 93005; 93010; 99284-25; J1644

== ENCOUNTER 2017-07-05 18:31 | Emergency (ER) | payer OTHER ==
[2017-07-05 18:37] VITALS: BP 144/109; PULSE 111; TEMP 98.2; BMI 20.7
--- NOTE | 2017-07-05 18:37 | PDOC ---
Rapid Medical Evaluation Time Seen by Provider: 07/05/17 18:32 Medical Evaluation: Allergies Allergy/AdvReac Type Severity Reaction Status Date / Time No Known Allergies Allergy Verified 07/05/17 18:33 07/05/17 18:34 I have performed a brief in-person evaluation of this patient. The patient presents with a chief complaint of: "I have stool in my surgical incision." Pertinent physical exam findings: ABD: ostomy with brown drainage. ABD SNTND. SKIN: ostomy drainage in surgical incision I have ordered the following: EKG The patient will proceed to the ED for further evaluation. Discharge Disposition - Diagnosis Skin irritation - Referrals - Patient Instructions - Post Discharge Activity
--- NOTE | 2017-07-05 18:44 | PDOC ---
History of Present Illness - General History Source: Patient Exam Limitations: No Limitations - History of Present Illness Initial Comments: 07/05/17 19:23 47 year old female, with significant past medical history of ex lap and partial colectomy for perforation of descending colon/diverticulitis with colostomy bag on 06/13/17 and discharged on 06/24/17 with a PIC line for 5 days of IV ertapenem and 10 days of po ampicillin/flagyl. The patient presents to the emergency room today with a leaking colostomy bag with the concern that the stool is leaking into the surgical incision. She explains that she is more than 2 weeks post-op and the supplies to change the colostomy bag has still not arrived. She has a visiting nurse come to the house every other day, who has been changing the bag with whatever supplies that she carries with her. However , the bag is leaking and not secured properly. Denies pain at or around the site of the surgical incision. Denies abdominal pain. Denies fever, chills, nausea, vomiting. PCP: Dr. Santos Surgeon: Dr. Palacios <Fabiola Lopez - Last Filed: 07/05/17 19:22> <Dary Fernandes - Last Filed: 07/05/17 21:56> - General Chief Complaint: Revisit,Radiology Variance Stated Complaint: leaking colostomy Time Seen by Provider: 07/05/17 18:32 Past History <Fabiola Lopez - Last Filed: 07/05/17 19:22> - Past Medical History Anemia: No Asthma: No Cancer: No Cardiac Disorders: Yes (HTN) CVA: No COPD: No CHF: No Dementia: No Diabetes: No GI Disorders: Yes (diverticulitis, colostomy) Disorders: No HTN: Yes Hypercholesterolemia: No Kidney Stones: Yes Liver Disease: No Seizures: No Thyroid Disease: No - Surgical History Abdominal Surgery: Yes (Temp ileostomywith reversal, adhesions) Cardiac Surgery: No Lung Surgery: No Neurologic Surgery: No - Immunization History Immunization Up to Date: Yes - Suicide/Smoking/Psychosocial Hx Smoking History: Never smoked Have you smoked in the past 12 months: No Number of Cigarettes Smoked Daily: 2 'Breaking Loose' booklet given: 02/24/17 Hx Alcohol Use: No Drug/Substance Use Hx: No Substance Use Type: None Hx Substance Use Treatment: No <Dary Fernandes - Last Filed: 07/05/17 21:56> - Past Medical History Allergies/Adverse Reactions: Allergies Allergy/AdvReac Type Severity Reaction Status Date / Time No Known Allergies Allergy Verified 07/05/17 18:33 Home Medications: Ambulatory Orders Ampicillin Trihydrate [Ampicillin Trihydrate Capsule] 500 mg PO TID #30 cap 12/04 Ertapenem Sodium [Invanz -] 1 gm IVPB DAILY vial 06/23/17 Metronidazole [Flagyl -] 500 mg PO TID #30 tablet 06/23/17 Pantoprazole Sodium [Protonix -] 40 mg PO DAILY #30 tab 06/23/17 Picc Line Flush [Picc Line Flush -] 8 ml IVPUSH PRN PRN #0 ml 06/23/17 Review of Systems - Review of Systems Able to Perform ROS?: Yes Comments:: 07/05/17 19:24 GENERAL/CONSTITUTIONAL: No fever or chills. No weakness. HEAD, EYES, EARS, NOSE AND THROAT: No change in vision. No ear pain or discharge. No sore throat. GASTROINTESTINAL: +leaking colostomy bag. No nausea, vomiting. GENITOURINARY: No dysuria, frequency, or change in urination. CARDIOVASCULAR: No chest pain or shortness of breath. RESPIRATORY: No cough, wheezing, or hemoptysis. MUSCULOSKELETAL: No joint or muscle swelling or pain. No neck or back pain. SKIN: No rash NEUROLOGIC: No headache, vertigo, loss of consciousness, or change in strength/ sensation. <Fabiola Lopez - Last Filed: 07/05/17 19:22> *Physical Exam - Vital Signs Last Vital Signs Temp Pulse Resp BP Pulse Ox 98.2 F 111 H 19 144/109 96 07/05/17 18:33 07/05/17 18:33 07/05/17 18:33 07/05/17 18:33 07/05/17 18:33 <Fabiola Lopez - Last Filed: 07/05/17 19:22> - Vital Signs Last Vital Signs Temp Pulse Resp BP Pulse Ox 98.2 F 111 H 19 144/109 96 07/05/17 18:33 07/05/17 18:33 07/05/17 18:33 07/05/17 18:33 07/05/17 18:33 <Dary Fernandes - Last Filed: 07/05/17 21:56> Heart Score/ECG Review - ECG Intrepretation Comment:: 07/05/17 21:56 sinus at 87, nl axis, nl interval, no acute st/t wave findings <Dary Fernandes - Last Filed: 07/05/17 21:56> ED Treatment Course - LABORATORY CBC & Chemistry Diagram: 07/05/17 19:50 07/05/17 19:50 <Dary Fernandes - Last Filed: 07/05/17 21:56> Medical Decision Making - Medical Decision Making 07/05/17 19:40 a/p: 47yo female with leakage from ostomy site into incision -will check labs -has had home visiting nurse changing bag, but not the correct supplies as her supplies have not been delivered yet -sent in by [facility] for eval of surgical site -will change bag and change surgical site dressing and eval surgical site 07/05/17 21:52 ostomy bag changed. no leakage case discussed with DR. Grady who recommends fu outpt and to have VNS call Dr. Mclaughlin and herself tomorrow for ostomy care instructions. Labs reviewed 07/05/17 21:52 discussed the plan with the patient who agrees with the plan to f/u outpt. New bag changed in ED. Stable for d/c to home. surgical site cleaned out and no signs of infection. Excoriation of skin around ostomy site from leakage and prior bag <Dary Fernandes - Last Filed: 07/05/17 21:56> *DC/Admit/Observation/Transfer - Attestations Scribe Attestion: 07/05/17 19:25 Documentation prepared by REX Gallardo, acting as medical referral coordinator for Dary Fernandes DO. <Fabiola Lopez - Last Filed: 07/05/17 19:22> - Discharge Dispostion Admit: No - Attestations Physician Attestion: 07/05/17 21:55 I, Dr. Dary Fernandes DO, attest that this document has been prepared under my direction and personally reviewed by me in its entirety. I further attest, that it accurately reflects all work, treatment, procedures and medical decision -making performed by me. <Brittaney Fernandesen - Last Filed: 07/05/17 21:56> Diagnosis at time of Disposition: Skin irritation, Complication of ostomy - Discharge Dispostion Disposition: HOME Condition at time of disposition: Stable - Referrals Referrals: Jose Santos MD [Primary Care Provider] - Mehnaz Grady MD [Staff Physician] - Robert Palacios [Staff Physician] - - Patient Instructions Printed Discharge Instructions: How to Care for Your Colostomy or Ileostomy Additional Instructions: Please have VNS call Dr. Jose Santos and Dr. Palacios tomorrow for instructions on ostomy care.Please return to the ED with any further complaints. Please call with any concerns.
[2017-07-05 20:33] LABS: BASOPHIL 0.6 % (0-2.0); EOSINOPHIL 3.8 % (0-4.5); MCHC 32.3 g/dl (32.0-36.0); MEAN CELL VOLUME 77.5 fl (80-96); MEAN PLT VOLUME 8.8 fl (7.5-11.1); NEUTROPHILS 63.1 % (42.8-82.8); PLATELET COUNT 409 K/MM3 (134-434); RDW 21.9 % (11.6-15.6); WHITE BLOOD COUNT 8.2 K/mm3 (4.0-10.0)
[2017-07-05 20:50] LABS: ALBUMIN 3.2 g/dl (3.4-5.0); ANION GAP 10 (8-16); CALCIUM 8.7 mg/dL (8.5-10.1); CO2 25 mmol/L (21-32); CREATININE 0.5 mg/dL (0.55-1.02); GLUCOSE,RANDOM 110 mg/dL (74-106); MAGNESIUM 1.8 mg/dL (1.8-2.4); SGOT/AST 5 U/L (15-37); SGPT/ALT 12 U/L (12-78)
[2017-07-05 20:53] LABS: ALK PHOS 84 U/L (45-117); BILIRUBIN,TOTAL 0.2 mg/dL (0.2-1.0); TOT PROT 7.1 g/dl (6.4-8.2)
[2017-07-05 21:52] LABS: ANISOCYTOSIS 2+; MICROCYTOSIS 1+
--- NOTE | 2017-07-06 10:02 | EKG ---
Test Reason : Blood Pressure : / mmHG Vent. Rate : 087 BPM Atrial Rate : 087 BPM P-R Int : 150 ms QRS Dur : 082 ms QT Int : 390 ms P-R-T Axes : 048 009 032 degrees QTc Int : 469 ms POOR DATA QUALITY, INTERPRETATION MAY BE ADVERSELY AFFECTED NORMAL SINUS RHYTHM NORMAL ECG WHEN COMPARED WITH ECG OF 14-MAY-2017 11:01, NO SIGNIFICANT CHANGE WAS FOUND Confirmed by JAYLEN WONG MD ([id number]) on 07/06/2017 10:01:40 AM Referred By: Confirmed By:JAYLEN WONG MD
== END 2017-07-05 22:44 | disposition home or self-care (01) ==
LOC: JER 18:31
DX: K94.03 Colostomy malfunction (principal); Y83.2 Surgical operation with anastomosis, bypass or graft as the cause of abnormal reaction of the patient, or of later complication, without mention of misadventure at the time of the procedure; Y73.8 Miscellaneous gastroenterology and urology devices associated with adverse incidents, not elsewhere classified
CPT/HCPCS: 36415; 80053; 83605; 83735; 85025; 93005; 93010; 99281-25

== ENCOUNTER 2017-12-26 14:30 | Inpatient (IN) | payer OTHER ==
[2018-01-31 15:43] VITALS: BMI 32.7
[2018-02-01] MEDS ORDERED: fentaNYL CITRATE 250 MCG/5 ML VIAL ONE (06:56)
[2018-02-01] MEDS ORDERED: SUCCINYLCHOLINE CHLORIDE 200 MG/10 ML VIAL ONE (06:56)
[2018-02-01] MEDS ORDERED: PROPOFOL 20 ML ONE ×2 (06:56)
[2018-02-01] MEDS ORDERED: MIDAZOLAM HCL 2 MG/2 ML SINGLE DOSE VIAL ONE (06:56)
[2018-02-01] MEDS ORDERED: ROCURONIUM BROMIDE 50 MG/5 ML VIAL ONE ×2 (06:56→11:30)
[2018-02-01] MEDS ORDERED: DEXAMETHASONE SOD PHOSPHATE 4 MG/1 ML VIAL ONE (06:57)
--- NOTE | 2018-02-01 07:50 | HP ---
History & Physical Update - History History: No Change - Physical Physical: No Change - Assessment Assessment: No Change - Plan Plan: No Change
[2018-02-01] MEDS ORDERED: AMPICILLIN NA/SULBACTAM NA 1.5 GM/100 ML PRE-DOCKED IVPB ONE (09:07)
[2018-02-01] MEDS ORDERED: SEVOFLURANE 250 ML BTL ONE (09:10)
[2018-02-01] MEDS ORDERED: ACETAMINOPHEN INJECTION 100 ML IVPB ONE (09:11)
[2018-02-01] MEDS ORDERED: NEOSTIGMINE METHYLSULFATE 0.5 MG/ML - 10 ML MDV ONE (11:45)
[2018-02-01] MEDS ORDERED: GLYCOPYRROLATE 0.2 MG/1 ML VIAL ONE (11:46)
[2018-02-01] MEDS ORDERED: KETOROLAC TROMETHAMINE 30 MG/1 ML VIAL ONE (11:46)
[2018-02-01] MEDS ORDERED: BUPIVACAINE HCL/PF 0.5% (5MG/ML) 10 ML VIAL ONE (12:24)
[2018-02-01] MEDS ORDERED: BUPIVACAINE HCL/PF (5 MG/ML) 30 ML VIAL IJ ONE (12:35)
--- NOTE | 2018-02-01 12:45 | OP ---
Operative Note - Note: Operative Date: 02/01/18 Pre-Operative Diagnosis: history of Diverticulitis, s/p Singletary's procedure Operation: laparoscopic closure of colostomy, lysis of adhesions Findings: extensive adhesions and a small caliber colon Post-Operative Diagnosis: Same as Pre-op Surgeon: Robert Palacios Wheel Alignment Mechanic: Lito Martinez Anesthesia: General Specimens Removed: colostomy site and anastomotic donuts Drains & Tubes with Location: [id number]
[2018-02-01] MEDS ORDERED: ONDANSETRON 4 MG/2 ML VIAL IVPUSH PRN (12:56)
[2018-02-01] MEDS ORDERED: oxyCODONE HCL 5 MG TABLET PO PRN (12:56)
--- NOTE | 2018-02-01 13:07 | SURG ---
Surgery Supervisor Coating Note Supervisor Coating: Lito Martinez PA-C Date of Service: 02/01/18 Diagnosis: h/o perforated diverticulitis w/ colostomy Procedure: laparoscopic closure of colostomy, lysis of adhesions I was present for the entirety of the operative procedure. For further detail, please refer to operative report. Visit type - Case Type Case Type: Scheduled
[2018-02-01] MEDS ORDERED: ACETAMINOPHEN 1000 MG/100 ML VIAL (NON FORMULARY) IVPB ONE (13:10)
[2018-02-01] MEDS ORDERED: morphine CARPU-JECT 4 MG/1 ML DISP.SYRIN IVPUSH PRN (13:10)
--- NOTE | 2018-02-01 14:15 | OP ---
DATE OF OPERATION: 02/01/2018 PREOPERATIVE DIAGNOSIS: History of diverticulosis, history of stercoral ulcer status post sigmoid resection with Rao's procedure, ventral hernia. POSTOPERATIVE DIAGNOSIS: History of diverticulosis, history of stercoral ulcer status post sigmoid resection with Rao's procedure, ventral hernia. PROCEDURE: Laparoscopic closure and lysis of adhesions. SURGEON: Robert Palacios MD ETL CONSULTANT: MARIA DE JESUS Diop COMPLICATIONS: None. BLEEDING: Minimal. The patient tolerated the procedure well. INDICATIONS: This is a 47-year-old female who underwent an emergent colon resection approximately 18 months ago with diverting ileostomy. She underwent closure of the ileostomy. Again, no complications postoperatively. Several months later she presented with stercoral ulcers perforated in the rectum. This required emergency surgery for which she underwent partial resection of the rectum and colostomy for which she is undergoing closure of the colostomy. DESCRIPTION OF PROCEDURE: She did receive a bowel prep prior to coming to the operating room. In the operating room, she was prepped and draped in the usual sterile fashion with the patient in the lithotomy position. The operation was begun with mobilization of the colostomy in the left lower quadrant with a circumferential incision using cautery to slowly separate the colostomy millan from the subcutaneous tissues and the fascia. The peritoneal cavity was entered slowly with the use of cautery, and extensive lysis of adhesions was done that freed the descending colon. At this point then the ostomy site itself was resected by dividing the mesentery and then dividing between 2 Raisa clamps and ligating with 2-0 Vicryl ties. The colostomy was divided and then an EEA was placed with a 2-0 PDS pursestring. Next, the anvil was delivered back to peritoneal cavity and extensive lysis of adhesions performed using direct visualization with cautery. At this point, a hand port was introduced, and insufflation was performed. Lysis of adhesions continued. Two other ports were placed, one in the supraumbilical position and one in the right lower quadrant. The rectum was then slowly dissected off the pelvic structures. The uterus was suspended with 2-0 silk suture, and the rectum was from the vaginal cuff. Further extensive adhesions were done because there was a loop of small bowel that was adherent just posterior to the descending colon to allow it to line up in proper position and prevent an internal hernia at that site. At this point the EEA apparatus was introduced into the rectum, and the pin was advanced through all the rectum and then the colostomy was connected to the anvil and activated to free the anastomosis. At this point, the anastomosis then tested the water seal, which appeared to be intact with no evidence of a leak. This was repeated 3 times, which showed no leak in the water seal. Following this then the ports were removed. __A [place] was___ left in the pelvis, and the wound was then closed with pelvic rectal protocol by closing the fascia with No. 1 PDS double stranded, which was done in 2 different directions and tied in the middle. The ostomy site was partially approximated with 3-0 nylon sutures intact with iodoform gauze. The laparoscopic portions were closed with 4-0 Monocryl. Dermabond was applied. The patient was then at this point returned to the recovery room awake and alert in stable condition. She tolerated the procedure well. Ian [id number] MTDD
[2018-02-01] MEDS ORDERED: ENALAPRILAT DIHYDRATE 1.25 MG/1 ML VIAL IVPB SCH (15:00)
[2018-02-01] MEDS ORDERED: morphine SULFATE 4 MG/ML VIAL IVPUSH PRN (16:11)
[2018-02-01] MEDS: LACTATED RINGERS SOLUTION 1,000 ML IV SCH (16:30)
[2018-02-01] MEDS: KETOROLAC TROMETHAMINE 15 MG/ML VIAL IVPUSH PRN ×2 (16:41→22:59)
[2018-02-01] MEDS ORDERED: DEXTROSE 5%-WATER - 50 ML IVPB ONE (17:44)
[2018-02-01] MEDS ORDERED: ceFAZolin SODIUM 1 GM VIAL ONE (17:44)
[2018-02-01] MEDS: CEFAZOLIN 1 GM in DEXTROSE 5%-WATER - 50 ML IVPB SCH (17:51)
[2018-02-01] MEDS ORDERED: CEFAZOLIN 1 GM in DEXTROSE 5%-WATER - 100 ML IVPB SCH (18:00)
[2018-02-01] MEDS ORDERED: HYDROmorphone *PCA* 10MG/50ML DISP.SYRIN PCA SCH (18:30)
[2018-02-02] MEDS ORDERED: DEXTROSE 5%-WATER - 50 ML IVPB ONE ×2 (00:44→08:38)
[2018-02-02] MEDS ORDERED: ceFAZolin SODIUM 1 GM VIAL ONE ×2 (00:44→08:38)
[2018-02-02] MEDS: CEFAZOLIN 1 GM in DEXTROSE 5%-WATER - 50 ML IVPB SCH ×2 (01:34→09:02)
[2018-02-02] MEDS: LACTATED RINGERS SOLUTION 1,000 ML IV SCH ×3 (04:00→19:22)
[2018-02-02] MEDS: KETOROLAC TROMETHAMINE 15 MG/ML VIAL IVPUSH PRN ×2 (05:23→21:10)
[2018-02-02] MEDS: ENOXAPARIN NA (PORCINE) 40 MG/0.4 ML DISP.SYRIN SQ SCH (09:03)
[2018-02-02] MEDS: LOSARTAN POTASSIUM 50 MG TABLET (FP) PO SCH (09:14)
[2018-02-02] MEDS: HYDROCHLOROTHIAZIDE 12.5 MG CAPSULE (FP) PO SCH (09:14)
--- NOTE | 2018-02-02 10:29 | PN ---
Progress Note, Physician Chief Complaint: Pt. resting in bed, still has pain, but says she is willing to switch to oral medications. No GA complaints. - Current Medication List Current Medications: Active Medications Enoxaparin Sodium (Lovenox -) 40 mg SQ DAILY [facility] Last Admin: 02/02/18 09:03 Dose: 40 mg Hydrochlorothiazide (Hctz -) 12.5 mg PO DAILY [facility] Last Admin: 02/02/18 09:14 Dose: Not Given Lactated Ringer's (Lactated Ringers Solution) 1,000 mls @ 75 mls/hr IV ASDIR [facility] Last Admin: 02/02/18 04:00 Dose: 75 mls/hr Cefazolin Sodium 1 gm/ (Dextrose) 50 mls @ 200 mls/hr IVPB Q8HIV [facility] Stop: 02/02/18 17:59 Last Admin: 02/02/18 09:02 Dose: 200 mls/hr Ketorolac Tromethamine (Toradol Injection -) 10 mg IVPUSH Q6H PRN PRN Reason: PAIN SCALE 1-5 Stop: 02/06/18 16:35 Last Admin: 02/02/18 05:23 Dose: 10 mg Losartan Potassium (Cozaar -) 100 mg PO DAILY [facility] Last Admin: 02/02/18 09:14 Dose: Not Given Ondansetron HCl (Zofran Injection) 4 mg IVPUSH Q6H PRN PRN Reason: NAUSEA AND/OR VOMITING Oxycodone HCl (Roxicodone -) 5 mg PO Q4H PRN PRN Reason: PAIN LEVEL 1-5 Stop: 02/02/18 12:55 Oxycodone HCl (Oxycontin -) 10 mg PO BID [facility] - Objective Vital Signs: Vital Signs Temperature 98.4 F 02/02/18 05:38 Pulse Rate 65 02/02/18 08:15 Respiratory Rate 18 02/02/18 08:15 Blood Pressure 103/68 02/02/18 08:15 O2 Sat by Pulse Oximetry (%) 99 02/01/18 21:00 Constitutional: Yes: Well Nourished, No Distress, Calm Musculoskeletal: Yes: WNL Neurological: Yes: WNL, Alert, Oriented Assessment/Plan POD#1 s/p Ventral hernia repair and enterostomy under GA with Dilaudid [employer] for pain control. Doing well D/C [employer]. Start Oxycontin 10mg BID and Oxycodone 5mg PRN q4h.
--- NOTE | 2018-02-02 11:34 | PN ---
Progress Note, Physician History of Present Illness: POD1 from closure of colostomy feeling well reports passing flatus - Current Medication List Current Medications: Active Medications Enoxaparin Sodium (Lovenox -) 40 mg SQ DAILY [facility] Last Admin: 02/02/18 09:03 Dose: 40 mg Hydrochlorothiazide (Hctz -) 12.5 mg PO DAILY [facility] Last Admin: 02/02/18 09:14 Dose: Not Given Lactated Ringer's (Lactated Ringers Solution) 1,000 mls @ 75 mls/hr IV ASDIR [facility] Last Admin: 02/02/18 04:00 Dose: 75 mls/hr Cefazolin Sodium 1 gm/ (Dextrose) 50 mls @ 200 mls/hr IVPB Q8HIV [facility] Stop: 02/02/18 17:59 Last Admin: 02/02/18 09:02 Dose: 200 mls/hr Ketorolac Tromethamine (Toradol Injection -) 10 mg IVPUSH Q6H PRN PRN Reason: PAIN SCALE 1-5 Stop: 02/06/18 16:35 Last Admin: 02/02/18 05:23 Dose: 10 mg Losartan Potassium (Cozaar -) 100 mg PO DAILY [facility] Last Admin: 02/02/18 09:14 Dose: Not Given Ondansetron HCl (Zofran Injection) 4 mg IVPUSH Q6H PRN PRN Reason: NAUSEA AND/OR VOMITING Oxycodone HCl (Roxicodone -) 5 mg PO Q4H PRN PRN Reason: PAIN LEVEL 1-5 Stop: 02/02/18 12:55 Oxycodone HCl (Oxycontin -) 10 mg PO BID [facility] - Objective Vital Signs: Vital Signs Temperature 98.4 F 02/02/18 05:38 Pulse Rate 65 02/02/18 08:15 Respiratory Rate 18 02/02/18 08:15 Blood Pressure 103/68 02/02/18 08:15 O2 Sat by Pulse Oximetry (%) 99 02/01/18 21:00 Assessment/Plan doing well start clears BECKY SPANN
[2018-02-02 12:08] LABS: BASO % 0.3 % (0-2.0); EOS % 0.7 % (0-4.5); HEMATOCRIT 33.9 % (32.4-45.2); HEMOGLOBIN 11.2 GM/dL (10.7-15.3); LYMPH % 20.3 % (8-40); MCH 26.8 pg (25.7-33.7); MCHC 33.1 g/dl (32.0-36.0); MEAN CELL VOLUME 81.1 fl (80-96); MEAN PLT VOLUME 8.4 fl (7.5-11.1); MONO % 5.9 % (3.8-10.2); NEUT % 72.8 % (42.8-82.8); PLATELET COUNT 247 K/MM3 (134-434); RBC 4.18 M/mm3 (3.60-5.2); RDW 17.3 % (11.6-15.6); WHITE BLOOD COUNT 9.8 K/mm3 (4.0-10.0)
[2018-02-02] MEDS: oxyCODONE HCL 10 MG SUSTAINED ACTING TABLET PO SCH ×3 (12:13→17:15)
[2018-02-02 12:38] LABS: ALBUMIN 3.3 g/dl (3.4-5.0); ALK PHOS 77 U/L (45-117); ANION GAP 6 (8-16); BILIRUBIN,TOTAL 0.6 mg/dL (0.2-1.0); BLOOD UREA NITROGEN 13 mg/dL (7-18); CALCIUM 8.4 mg/dL (8.5-10.1); CHLORIDE 106 mmol/L (98-107); CO2 28 mmol/L (21-32); CREATININE 0.8 mg/dL (0.55-1.02); GLUCOSE,RANDOM 78 mg/dL (74-106); POTASSIUM 3.6 mmol/L (3.5-5.1); SGOT/AST 16 U/L (15-37); SGPT/ALT 20 U/L (12-78); SODIUM 140 mmol/L (136-145); TOT PROT 6.8 g/dl (6.4-8.2)
[2018-02-03] MEDS ORDERED: ACETAMINOPHEN 325 MG TABLET (FP) PO ONE (01:07)
[2018-02-03] MEDS: KETOROLAC TROMETHAMINE 15 MG/ML VIAL IVPUSH PRN ×2 (03:53→11:53)
[2018-02-03] MEDS: oxyCODONE HCL 10 MG SUSTAINED ACTING TABLET PO SCH (07:02)
--- NOTE | 2018-02-03 10:13 | PN ---
Progress Note, Physician History of Present Illness: s/p closure of colostomy feeling well passing flatus, reports small amount of blood per rectum - Current Medication List Current Medications: Active Medications Enoxaparin Sodium (Lovenox -) 40 mg SQ DAILY [facility] Last Admin: 02/02/18 09:03 Dose: 40 mg Hydrochlorothiazide (Hctz -) 12.5 mg PO DAILY [facility] Last Admin: 02/02/18 09:14 Dose: Not Given Lactated Ringer's (Lactated Ringers Solution) 1,000 mls @ 75 mls/hr IV ASDIR [facility] Last Admin: 02/02/18 19:22 Dose: 75 mls/hr Ketorolac Tromethamine (Toradol Injection -) 10 mg IVPUSH Q6H PRN PRN Reason: PAIN SCALE 1-5 Stop: 02/06/18 16:35 Last Admin: 02/03/18 03:53 Dose: 10 mg Losartan Potassium (Cozaar -) 100 mg PO DAILY [facility] Last Admin: 02/02/18 09:14 Dose: Not Given Ondansetron HCl (Zofran Injection) 4 mg IVPUSH Q6H PRN PRN Reason: NAUSEA AND/OR VOMITING Oxycodone HCl (Oxycontin -) 10 mg PO BID@0600,1800 [facility] Last Admin: 02/03/18 07:02 Dose: Not Given - Objective Vital Signs: Vital Signs Temperature 99.2 F 02/03/18 06:04 Pulse Rate 78 02/03/18 06:04 Respiratory Rate 20 02/03/18 06:04 Blood Pressure 119/72 02/03/18 06:04 O2 Sat by Pulse Oximetry (%) 97 02/02/18 21:19 Labs: CBC, BMP 02/02/18 11:55 02/02/18 11:55 Problem List - Problems (1) Complication of ostomy Code(s): [id number] - (2) Diverticulitis Code(s): K57.92 - DVTRCLI OF INTEST, PART UNSP, W/O PERF OR ABSCESS W/O BLEED Qualifiers: Diverticulitis site: large intestine Diverticulitis bleeding: without bleeding Diverticulitis complication: with perforation Qualified Code(s): K57.20 - Diverticulitis of large intestine with perforation and abscess without bleeding Assessment/Plan POD 2 tolerating diet Repaet labs DC lovenox
[2018-02-03] MEDS: ENOXAPARIN NA (PORCINE) 40 MG/0.4 ML DISP.SYRIN SQ SCH (10:14)
[2018-02-03] MEDS: LOSARTAN POTASSIUM 50 MG TABLET (FP) PO SCH (10:22)
[2018-02-03] MEDS: HYDROCHLOROTHIAZIDE 12.5 MG CAPSULE (FP) PO SCH (10:23)
[2018-02-03 10:48] LABS: BASO % 0.3 % (0-2.0); EOS % 1.6 % (0-4.5); HEMOGLOBIN 11.7 GM/dL (10.7-15.3); LYMPH % 18.4 % (8-40); MCH 26.7 pg (25.7-33.7); MCHC 33.3 g/dl (32.0-36.0); MEAN CELL VOLUME 80.3 fl (80-96); MEAN PLT VOLUME 8.8 fl (7.5-11.1); MONO % 5.7 % (3.8-10.2); PLATELET COUNT 238 K/MM3 (134-434); RBC 4.36 M/mm3 (3.60-5.2); RDW 17.4 % (11.6-15.6)
[2018-02-03 11:09] LABS: ANION GAP 8 (8-16); BLOOD UREA NITROGEN 8 mg/dL (7-18); CALCIUM 8.2 mg/dL (8.5-10.1); CHLORIDE 104 mmol/L (98-107); CO2 26 mmol/L (21-32); CREATININE 0.7 mg/dL (0.55-1.02); GLUCOSE,RANDOM 75 mg/dL (74-106); POTASSIUM 3.2 mmol/L (3.5-5.1); SODIUM 138 mmol/L (136-145)
[2018-02-03] MEDS: LACTATED RINGERS SOLUTION 1,000 ML IV SCH (12:03)
[2018-02-03] MEDS ORDERED: IBUPROFEN 600 MG TABLET (FP) PO PRN (12:56)
[2018-02-03] MEDS ORDERED: POTASSIUM CHLORIDE ORAL LIQUID 20 MEQ/15 ML PO ONE (13:00)
[2018-02-03] MEDS: ACETAMINOPHEN WITH CODEINE 300MG/30MG TABLET PO PRN ×2 (13:02→21:10)
--- NOTE | 2018-02-04 06:39 | PN ---
Progress Note, Physician History of Present Illness: S/p closure of colostomy feeling well, reports flatus and BM tolerating clears - Current Medication List Current Medications: Active Medications Acetaminophen/Codeine Phosphate (Tylenol # 3 -) 1 tab PO Q6H PRN PRN Reason: PAIN LEVEL 6-10 Last Admin: 02/03/18 21:10 Dose: 1 tab Hydrochlorothiazide (Hctz -) 12.5 mg PO DAILY [facility] Last Admin: 02/03/18 10:23 Dose: 12.5 mg Ibuprofen (Motrin -) 600 mg PO Q6H PRN PRN Reason: PAIN LEVEL 1-5 Last Admin: 02/03/18 23:35 Dose: 600 mg Losartan Potassium (Cozaar -) 100 mg PO DAILY [facility] Last Admin: 02/03/18 10:22 Dose: 100 mg Ondansetron HCl (Zofran Injection) 4 mg IVPUSH Q6H PRN PRN Reason: NAUSEA AND/OR VOMITING - Objective Vital Signs: Vital Signs Temperature 97.9 F 02/04/18 05:58 Pulse Rate 69 02/04/18 05:58 Respiratory Rate 18 02/04/18 05:58 Blood Pressure 104/61 02/04/18 05:58 O2 Sat by Pulse Oximetry (%) 97 02/03/18 20:57 Labs: CBC, BMP 02/03/18 10:30 02/03/18 10:30 Problem List - Problems (1) Complication of ostomy Code(s): [id number] - (2) Diverticulitis Code(s): K57.92 - DVTRCLI OF INTEST, PART UNSP, W/O PERF OR ABSCESS W/O BLEED Qualifiers: Diverticulitis site: large intestine Diverticulitis bleeding: without bleeding Diverticulitis complication: with perforation Qualified Code(s): K57.20 - Diverticulitis of large intestine with perforation and abscess without bleeding Assessment/Plan doing well Advance diet DC planning for later this afternoon Follow up this sunday
[2018-02-04] MEDS: ACETAMINOPHEN WITH CODEINE 300MG/30MG TABLET PO PRN (09:22)
[2018-02-04] MEDS: LOSARTAN POTASSIUM 50 MG TABLET (FP) PO SCH (09:28)
[2018-02-04] MEDS: HYDROCHLOROTHIAZIDE 12.5 MG CAPSULE (FP) PO SCH (09:29)
[2018-02-04 12:23] VITALS: BP 126/74; PULSE 87; TEMP 98.3
--- NOTE | 2018-02-05 15:38 | PATH ---
Surgical Pathology Report Patient Name: JOHAN COLE Med. Rec. #: [id number] /Age/Gender: 1970 (Age: 48) / F Account: [id number] Location: [facility] MED/SURG Taken: 02/01/2018 Received: 02/04/2018 Reported: 02/05/2018 Physicians: Robert Palacios M.D. Specimen(s) Received A: DONUT RINGS, END TO END, ANASTOMOSIS SITE B: COLOSTOMY STOMA Clinical History Ventral hernia, enterostomy Final Diagnosis A. DONUT RINGS, END TO END ANASTOMOSIS SITE: SEGMENTS OF COLON WITH MILD CHRONIC INFLAMMATION IN THE MUCOSA. B. COLOSTOMY, STOMA: SKIN AND SEGMENT OF COLON WITH MILD NONSPECIFIC CHRONIC INFLAMMATION IN THE MUCOSA. Electronically Signed Paty Zamora M.D. Gross Description A. Received in formalin labeled "donut rings, EEA site," are 2 annular portions of bowel averaging 1.4 cm in diameter, consistent with donuts. The donuts are attached to a cohn metallic surgical device. Fruit Packer Face And Fill sections of the donuts are submitted in one cassette. B. Received in formalin labeled "colon, colostomy site," is a 2.5 x 2.3 cm bianchi, ovoid portion of skin with a central os, consistent with a colostomy site. The colostomy displays a 2 cm in length portion of attached bowel. The bowel is grossly unremarkable. A sales training representative section is submitted in one cassette. /02/04/2018 saudi/02/04/2018
== END 2018-02-04 12:59 | disposition home or self-care (01) | DRG 223 ==
LOC: JSAMEDAYSX 02-01 06:18 → EDSTATUS 02-01 12:00 → J7W 02-01 15:59
PROVIDERS: ADMIT Surgery; ATTEND Surgery
PROC: 0DNW4ZZ Release Peritoneum, Percutaneous Endoscopic Approach (ICD-10-PCS; 2018-02-01)
PROC: 0DSN4ZZ Reposition Sigmoid Colon, Percutaneous Endoscopic Approach (ICD-10-PCS; principal; 2018-02-01 08:00)
DX: Z43.3 Encounter for attention to colostomy (principal); K66.0 Peritoneal adhesions (postprocedural) (postinfection)
CPT/HCPCS: 36415; 80048; 80053; 84703; 85025; 86850; 86900; 86901; 88304-TC; 88305-TC; 94760; J0131

== ENCOUNTER 2018-06-26 13:55 | Day surgery (SDC) | payer OTHER ==
[2018-06-25 13:18] VITALS: BMI 30.3
--- NOTE | 2018-06-26 15:59 | HP ---
History & Physical Update - History History: No Change - Physical Physical: No Change - Assessment Assessment: No Change - Plan Plan: No Change (Full H&P in chart from 06/19/18)
[2018-06-26] MEDS ORDERED: ROCURONIUM BROMIDE 50 MG/5 ML VIAL ONE (16:08)
[2018-06-26] MEDS ORDERED: PROPOFOL 20 ML ONE (16:08)
[2018-06-26] MEDS ORDERED: fentaNYL CITRATE 250 MCG/5 ML VIAL ONE (16:08)
[2018-06-26] MEDS ORDERED: LIDOCAINE HCL/PF 2% SDV 5ML VIAL ONE (16:09)
[2018-06-26] MEDS ORDERED: DEXAMETHASONE SOD PHOSPHATE 4 MG/1 ML VIAL ONE (16:09)
[2018-06-26] MEDS ORDERED: MIDAZOLAM HCL 2 MG/2 ML SINGLE DOSE VIAL ONE (16:09)
[2018-06-26] MEDS ORDERED: LACTATED RINGERS SOLUTION 1,000 ML IV SCH (16:30)
[2018-06-26] MEDS ORDERED: ceFAZolin SODIUM 1 GM VIAL ONE (16:30)
[2018-06-26] MEDS ORDERED: PROMETHAZINE HCL 25 MG/1 ML VIAL IVPB PRN (16:30)
[2018-06-26] MEDS ORDERED: ONDANSETRON 4 MG/2 ML VIAL IVPUSH PRN (16:30)
[2018-06-26] MEDS ORDERED: oxyCODONE HCL 5 MG TABLET PO PRN ×3 (16:30→18:36)
[2018-06-26] MEDS ORDERED: ceFAZolin SODIUM 1 GM VIAL IVPB ONE (16:36)
[2018-06-26] MEDS ORDERED: BUPIVACAINE HCL/PF 0.5% (5MG/ML) 10 ML VIAL IJ ONE (16:47)
[2018-06-26] MEDS ORDERED: BUPIVACAINE HCL/PF 0.5% (5MG/ML) 10 ML VIAL ONE (16:52)
[2018-06-26] MEDS ORDERED: GLYCOPYRROLATE 0.2 MG/1 ML VIAL ONE (18:27)
[2018-06-26] MEDS ORDERED: KETOROLAC TROMETHAMINE 30 MG/1 ML VIAL ONE (18:27)
[2018-06-26] MEDS ORDERED: NEOSTIGMINE METHYLSULFATE 0.5 MG/ML - 10 ML MDV ONE (18:27)
--- NOTE | 2018-06-26 18:38 | OP ---
Operative Note - Note: Operative Date: 06/26/18 Pre-Operative Diagnosis: Ventral hernia Operation: Robotic Assisted Ventral Hernia Repair with Mesh, lysis of adhesions Findings: as dictated Implants: mesh as dictated Post-Operative Diagnosis: Same as Pre-op Surgeon: Robert Palacios Logistic Specialist: Bety Leal Anesthesiologist/MANAGER PROCESS IMPROVEMENT: Juan Bhatt Anesthesia: General Estimated Blood Loss (mls): 10 (ml) Drains & Tubes with Location: none Fluid Volume Replaced (mls): 1,200 (ml) Operative Report Dictated: Yes
[2018-06-26] MEDS ORDERED: HYDROmorphone HCl 2 MG/ML VIAL ONE (19:26)
[2018-06-26] MEDS: HYDROmorphone HCl 2 MG/ML VIAL IVPUSH ONE ×2 (19:30→19:55)
[2018-06-26] MEDS: LACTATED RINGERS SOLUTION 1,000 ML/1,000 ML INFUS.BAG IV SCH ×2 (20:30→21:00)
[2018-06-27] MEDS ORDERED: ACETAMINOPHEN 325 MG TABLET (FP) PO PRN (00:01)
[2018-06-27] MEDS ORDERED: KETOROLAC TROMETHAMINE 30 MG/1 ML VIAL IVPUSH PRN (02:00)
--- NOTE | 2018-06-27 07:29 | PN ---
Progress Note (short form) - Note Progress Note: POD #1 Alert. Doing well. C/o mild incisional temderness. Adequate pain control with meds ordered. She's been oob and ambulating unassisted. Voiding spontaneously.
--- NOTE | 2018-06-27 07:35 | DS ---
Physical Exam: SUBJECTIVE: Patient seen and examined. Alert. Doing well. C/o mild incisional tenderness. She's oob and ambulating unassisted. Voiding spontaneously. Tolerating PO diet. Denies n/v/f/c, CP, palpitations or SOB. OBJECTIVE: Vital Signs Temperature 98.1 F 06/27/18 06:00 Pulse Rate 69 06/27/18 06:00 Respiratory Rate 18 06/27/18 06:00 Blood Pressure 126/71 06/27/18 06:00 O2 Sat by Pulse Oximetry (%) 98 06/26/18 20:30 PHYSICAL EXAM GENERAL: The patient is awake, alert, and fully oriented, in no acute distress. HEAD: Normal with no signs of trauma. EYES: PERRL, extraocular movements intact, sclera anicteric, conjunctiva clear. ENT: Ears normal, nares patent, oropharynx clear without exudates, moist mucous membranes. NECK: Trachea midline, full range of motion, supple. LUNGS: Breath sounds equal, clear to auscultation bilaterally, no wheezes, no crackles, no accessory muscle use. HEART: Regular rate and rhythm, S1, S2 without murmur, rub or gallop. ABDOMEN: All surgical ports c/d/i. No hematoma. + bs x4 EXTREMITIES: 2+ pulses, warm, well-perfused, no edema. NEUROLOGICAL: Cranial nerves II through XII grossly intact. Normal speech, gait not observed. PSYCH: Normal mood, normal affect. LABS HOSPITAL COURSE: Date of Admission:06/26/18 Date of Discharge: 06/27/18 patient taken to OR on date of admission for robotic repair of ventral hernia with mesh. patient remained in hospital for pain management. she ambulated hallways as well as tolerated PO diet on day of surgery. She is voiding and able to care for herself. POD #1, continues to ambulate and tolerate diet. Pain manageable with PO meds. Cleared for dc. To follow-up with Gordon Palacios for post-op visit in 10-14 days. Minutes to complete discharge: 35 Visit type - Case Type Case Type: Scheduled - New patient This patient is new to me today: Yes Date on this admission: 06/27/18
[2018-06-27 09:15] VITALS: BP 130/88; PULSE 79; TEMP 98.5
[2018-06-27] MEDS ORDERED: PATIENT'S OWN MEDICATION (NON-FORMULARY) (Linaclotide [Linzess] 290 MCG) PO SCH (10:00)
[2018-06-27] MEDS ORDERED: LOSARTAN POTASSIUM 50 MG TABLET (FP) PO SCH (10:00)
[2018-06-27] MEDS ORDERED: PANTOPRAZOLE 20 MG TABLET (FP) PO SCH (10:00)
[2018-06-27] MEDS ORDERED: HYDROCHLOROTHIAZIDE 12.5 MG CAPSULE (FP) PO SCH (10:00)
[2018-06-27] MEDS ORDERED: PATIENT'S OWN MEDICATION (NON-FORMULARY) (Losartan/Hydrochlorothiazide [Losartan-Hctz 100- PO SCH (10:00)
[2018-06-27] MEDS ORDERED: SERTRALINE HCL 25 MG TABLET (FP) PO SCH (10:00)
--- NOTE | 2018-06-27 12:01 | SURG ---
Surgery Pantograph Engraver Note Pantograph Engraver: Bety Leal PA-C Date of Service: 06/26/18 Diagnosis: Ventral hernia Procedure: Robotic Assisted Ventral Hernia Repair with Mesh, lysis of adhesions I was present for the entirety of the operative procedure. For further detail, please refer to operative report. Visit type - Case Type Case Type: Scheduled - Emergency Emergency Visit: No - New patient This patient is new to me today: Yes Date on this admission: 06/27/18
--- NOTE | 2018-09-19 15:10 | OP ---
DATE OF OPERATION: 06/26/2018 PREOPERATIVE DIAGNOSIS: Ventral hernia. POSTOPERATIVE DIAGNOSIS: Ventral hernia. PROCEDURE: Robotic-assisted repair of ventral hernia with mesh, lysis of adhesions. SURGEON: Robert Palacios MD COMPLICATIONS: None. BLEEDING: Minimal. SENIOR COUNSEL COMMERCIAL: MARIA DE JESUS Krueger CONDITION: Patient tolerated the procedure well. This is a 48-year-old female status post a colon resection with ileostomy for which ileostomy site developed a ventral hernia. Patient is here for a laparoscopic, robotic-assisted repair of ventral hernia. She was taken to the operating room, placed in supine position. After the induction of general anesthesia, she was prepped and draped in usual sterile fashion, received IV antibiotics. Peritoneal cavity was accessed through the left subcostal margin using a Veress needle to achieve pneumoperitoneum. Next, a port was placed near the left subcostal margin, one in the midline upper abdomen on the right side, and one towards the left lower quadrant. The dissection was performed by taking down extensive adhesions. Da Christina robot was docked into place. There were no enterotomies or serosal tears during the dissection. There was a large hernia sac at the level of the right lower quadrant, the site of the previous ileostomy. This was achieved to complete reduction of the intestinal contents. The sac was then dissected by lifting the preperitoneal space using robotic scissors and exposing the edges of the hernia defect circumferentially. There was also a midline hernia which was not involved as part of this one. However, was very patulous, open-mouthed hernia that did not pose a risk for incarceration, and thus, the decision was made not to repair this area at this point and only repair of the symptomatic hernia in the right lower quadrant. The defect itself was then approximated with 0 V-Loc sutures in a running fashion, which was run into different directions to achieve good approximation under low-pressure pneumoperitoneum. Then, a ProGrip mesh was placed to cover the area widely, 10 x 15 cm ProGrip, and then, the peritoneum was reclosed over the mesh using a 2-0 V-Loc suture in a running fashion. At this point then, the ports were removed under direct vision. Final check for hemostasis was performed. Skin was closed with 4-0 Monocryl. Dermabond was applied. The patient was returned to the recovery room, awake, alert, in stable condition, tolerated the procedure well. Ian FIELDS/[id number]
== END 2018-06-27 09:10 | disposition home or self-care (01) ==
LOC: JASU-SURG 13:55 → J4S 21:14 → JASU-SURG 06-27 09:10
PROVIDERS: ATTEND Surgery
PROC: 8E0W4CZ Robotic Assisted Procedure of Trunk Region, Percutaneous Endoscopic Approach (ICD-10-PCS; 2018-06-26)
PROC: 0WUF4JZ Supplement Abdominal Wall with Synthetic Substitute, Percutaneous Endoscopic Approach (ICD-10-PCS; principal; 2018-06-26 15:30)
DX: K43.9 Ventral hernia without obstruction or gangrene (principal)
CPT/HCPCS: 49652; S2900; 84703; 94760

== ENCOUNTER 2019-03-05 19:38 | Inpatient (IN) | payer OTHER ==
[2019-03-05] MEDS ORDERED: ONDANSETRON 4 MG/2 ML VIAL IVPUSH ONE (20:43)
[2019-03-05] MEDS ORDERED: ACETAMINOPHEN 1000 MG/100 ML VIAL (NON FORMULARY) IVPB ONE (20:43)
[2019-03-05] MEDS ORDERED: FAMOTIDINE 20 MG/50 ML IVPB 20 MG/50 ML MG IVPB ONE ×2 (20:43→21:43)
[2019-03-05] MEDS ORDERED: SODIUM CHLORIDE 0.9% 500 ML INFUS.BAG IV ONE (20:43)
--- NOTE | 2019-03-05 21:06 | PDOC ---
History of Present Illness - General Chief Complaint: Nausea/Vomiting Stated Complaint: ABD PAIN & VOMITING Time Seen by Provider: 03/05/19 20:23 - History of Present Illness Initial Comments: Carmine Truong is a 49yo woman with a PMH of diverticulitis s/p ostomy s/p reversal, recently diagnosed with diverticulits again Sunday, who presetns with worsening abdominal pain and vomiting today. She reports that she had been having 6-7/10 lower abdominal pain last week and went to see her PMD on . She was started on antibiotics for diverticulitis, and her symptoms improved over the next several days with pain decreasing to 4/10 and only occasional vomiting. She has been sticking to a liquid diet since the diagnosis , and she has had 2-3 bowel movements per day. She had 2 normal BM today as well as passing flatus. Today, she states that she had cramping of her fingers and toes throughout the afternoon that resolved with massaging. Then in the evening around 5pm she had acute worsening of her abdminal pain to 10/10 and numerous episodes of NBNB vomiting. She was unable to keep anything down or to bear the pain so came immediately to the ED. She denies any fever today, change in bowel habits or obstipation, or any other new symptoms, and she reports taking her antibiotics as prescribed. Past History - Past Medical History Allergies/Adverse Reactions: Allergies Allergy/AdvReac Type Severity Reaction Status Date / Time No Known Allergies Allergy Verified 06/25/18 13:17 Home Medications: Ambulatory Orders Esomeprazole Magnesium [Nexium 24Hr] 20 mg PO DAILY 01/31/18 Losartan/Hydrochlorothiazide [Losartan-Hctz 100-12.5 mg Tab] 1 tab PO DAILY Linaclotide [Linzess] 290 mcg PO DAILY 06/25/18 Sertraline HCl [Zoloft] 25 mg PO DAILY 06/25/18 oxyCODONE HCL [Roxicodone -] 5 mg PO Q6H PRN #16 tablet MDD 4 06/26/18 Ondansetron Injection [Zofran Injection] 4 mg IVPUSH Q6H PRN vial 06/27/18 Anemia: No Asthma: No Cancer: No Cardiac Disorders: Yes CVA: No COPD: No CHF: No Dementia: No Diabetes: No GI Disorders: Yes (diverticulitis, colostomy X2 AND ILEOSTOMY 2017) Disorders: No HTN: Yes Hypercholesterolemia: No Kidney Stones: Yes Liver Disease: No (reversed 01/2018) Seizures: No Thyroid Disease: No - Surgical History Abdominal Surgery: Yes (Temp ileostomywith reversal, adhesions) Appendectomy: No Cardiac Surgery: No Cholecystectomy: No Lung Surgery: No Neurologic Surgery: No Orthopedic Surgery: No - Immunization History Immunization Up to Date: Yes - Suicide/Smoking/Psychosocial Hx Smoking History: Never smoked Have you smoked in the past 12 months: No Number of Cigarettes Smoked Daily: 2 'Breaking Loose' booklet given: 02/24/17 Hx Alcohol Use: Yes (ON OCCASSION) Drug/Substance Use Hx: No Substance Use Type: None Hx Substance Use Treatment: No Review of Systems - Review of Systems Comments:: General: No fevers, no chills, no weight or appetite change, + malaise HEENT: No changes in vision, no changes in hearing, no congestion, no sore throat CV: No chest pain, no palpitations, no LE edema Pulm: No SOB, no cough, no wheezing GI: +vomiting, no change in bowel habits, no melena, +abd pain : No frequency, no urgency, no dysuria Musc: No back pain, no joint swelling, no recent injury Skin: No rash, no lesions, no erythema Endo: No excessive thirst, no heat/cold intolerance Heme: No unusual bruising or bleeding, no swollen glands Neuro: No syncope, no numbness/tingling, no focal weakness Vasc: No claudication Psych: No recent change in mood, no SI or HI *Physical Exam - Physical Exam Comments: General: Uncomfortable but in no acute distress HEENT: PERRL, EOMI, MMM, voice normal Cards: RRR, no murmur appreciated Pulm: Comfortable on room air, clear to auscultation bilaterally Abd: Soft, non-distended. Multiple well-healed surgical scars. Mildly TTP in b/ l lower quadrants, Moderately TTP in RUQ : No CVA tenderness Ext: Atraumatic. No LE edema. ROM intact Vasc: Extremities WWP Skin: Normal color, no rashes or lesions Neuro: A&Ox3, CN grossly intact, normal speech, motor/sensory grossly intact and symmetric Psych: Mood appropriate to situation ED Treatment Course - LABORATORY CBC & Chemistry Diagram: 03/05/19 21:33 03/05/19 21:33 - RADIOLOGY Radiology Studies Ordered: Category Date Time Status ABDOMEN & PELVIS CT WITH CONTR [CT] Stat CT Scan 03/05/19 20:42 Ordered CHEST X-RAY PORTABLE* [RAD] Stat Radiology 03/05/19 20:42 Ordered ABDOMEN US -LIMITED [US] Stat Ultrasound 03/05/19 21:05 Ordered Medical Decision Making - Medical Decision Making 03/05/19 21:05 Carmine Truong is a 49yo woman with a PMH of diverticulitis s/p ostomy s/p reversal, recently diagnosed with diverticulitis again Sunday, currently on levaquin and flagyl, who presents with acute worsening of her abdominal pain to 10/10 along with onset of frequent vomiting starting around 5pm today. She denies fevers, reports medication compliance, and has no other new symptoms. - Concerning for possible worsening of diverticulitis, possible abscess, unlikely perforation as there is no peritonitis. RUQ pain on exam, possible cholecystitis, pancreatitis, or pyelo. - CBC, CMP, mag, phos, lipase, UA, UCx, CT abd/pelvis - IVF, IV acetaminophen 03/05/19 22:49 - Labs reviewed. NOtable for leukocytosis to 15. Cr elevated to 2.9 from baseline 0.8 - Additional 1L IVF ordered - CT changed to non-contrast - Call to Dr Grady for admission 03/05/19 22:55 - Spoke to Dr Grady. Will admit to her service for inpatient management - Requesting kidney ultrasound, now ordered, as well as IV zosyn and flagyl - Will call to update Dr Grady only regarding any imaging results that require urgent intervention, but she will otherwise follow up the results - Pt to be informed and updated when she returns from CT Discussed with Dr Conteh. Mulu Aguilar PGY2 *DC/Admit/Observation/Transfer Diagnosis at time of Disposition: PETRA (acute kidney injury) Abdominal pain Qualifiers: Abdominal location: right upper quadrant Qualified Code(s): R10.11 - Right upper quadrant pain Leukocytosis Qualifiers: Leukocytosis type: unspecified Qualified Code(s): D72.829 - Elevated white blood cell count, unspecified - Discharge Dispostion Decision to Admit order: Yes - Referrals - Patient Instructions - Post Discharge Activity
[2019-03-05] MEDS ORDERED: ACETAMINOPHEN INJECTION 100 ML IVPB ONE (21:42)
[2019-03-05] MEDS ORDERED: ONDANSETRON 4 MG/2 ML VIAL ONE (21:42)
[2019-03-05 21:55] LABS: BASO % 0.4 % (0-2.0); EOS % 0.1 % (0-4.5); HEMATOCRIT 42.5 % (32.4-45.2); HEMOGLOBIN 14.4 GM/dL (10.7-15.3); LYMPH % 8.4 % (8-40); MCHC 33.8 g/dl (32.0-36.0); MEAN CELL VOLUME 85.8 fl (80-96); MEAN PLT VOLUME 9.2 fl (7.5-11.1); MONO % 4.9 % (3.8-10.2); NEUT % 86.2 % (42.8-82.8); PLATELET COUNT 408 K/MM3 (134-434); RBC 4.96 M/mm3 (3.60-5.2); RDW 14.5 % (11.6-15.6); WHITE BLOOD COUNT 15.3 K/mm3 (4.0-10.0)
[2019-03-05 22:14] LABS: MAGNESIUM 2.3 mg/dL (1.8-2.4)
[2019-03-05 22:15] LABS: ALBUMIN 4.6 g/dl (3.4-5.0); BILIRUBIN,TOTAL 0.5 mg/dL (0.2-1); CALCIUM 9.8 mg/dL (8.5-10.1); CREATININE 2.9 mg/dL (0.55-1.3); PHOSPHOROUS 3.9 mg/dL (2.5-4.9); POTASSIUM 4.9 mmol/L (3.5-5.1); TOT PROT 8.8 g/dl (6.4-8.2)
[2019-03-05] MEDS ORDERED: SODIUM CHLORIDE 0.9% 1000 ML INFUS.BAG IV ONE (22:36)
--- NOTE | 2019-03-05 22:42 | PDOC ---
Documentation entered by Musa Crockett SCRIBE, acting as scribe for Willa Conteh DO. Willa Conteh DO: This documentation has been prepared by the [place], SCRIBE, under my direction and personally reviewed by me in its entirety. I confirm that the documentation accurately reflects all work , treatment, procedures, and medical decision making performed by me. Attending Attestation - Resident Resident Name: JeffMulu - ED Attending Attestation I have performed the following: I have examined & evaluated the patient, The case was reviewed & discussed with the resident, I agree w/resident's findings & plan - HPI HPI: 03/05/19 21:22 The patient is a 49 year old female with a past medical history of diverticulitis (s/p multiple surgeries, currently being treated) here today for evaluation of vomiting. The patient reports that she has had right sided abdominal pain for 1 week and started antibiotics last . She notes that her pain varied in severity over the last week but went from 5/10 to 10/10 around 5 PM without provocation and notes multiple episodes of vomiting. She also note right sided abdominal pain. Patient notes having a bowel movement today. Patient denies headache, lightheadedness. Denies fever, chills. Denies chest pain, shortness of breath. Allergies: NKA PCP: Jose Santos Surgeon: Robert Palacios - Physicial Exam PE: 03/05/19 21:22 Agree with the patient's physical exam. - Medical Decision Making 03/05/19 22:36 49-year-old female with increasing abdominal pain since last status post multiple abdominal surgeries Labs reveal acute kidney injury and elevated white blood cell count Plan for CT scan, urinalysis pending Will disposition pending results, patient will require admission even if CT is within normal limits based on kidney function alone
[2019-03-05 22:59] LABS: EPI CELLS 10.3 /HPF (0-5/HPF); HYALINE CASTS 21 /lpf (0-8); URINE APPEARANCE TURBID; URINE BACTERIA 527.3 /hpf (NEGATIVE); URINE BILIRUBIN 1+ (NEGATIVE); URINE COLOR DK YELLOW; URINE GLUCOSE (UA) NEGATIVE (NEGATIVE); URINE KETONE TRACE (NEGATIVE); URINE LEUK ESTERASE 1+ (NEGATIVE); URINE NITRITE NEGATIVE (NEGATIVE); URINE PROTEIN 3+ (NEGATIVE); URINE RBC 21 /hpf (0-4); URINE WBC 7 /hpf (0-5)
[2019-03-05] MEDS ORDERED: PIPERACILLIN/TAZOB 4.5 GM 4.5 GM in DEXTROSE 5%-WATER 100 ML IVPB ONE (22:59)
[2019-03-05] MEDS ORDERED: PIPERACILLIN/TAZOB 4.5 GM 4.5 GM/100 ML BAG IVPB ONE (23:10)
[2019-03-05] MEDS ORDERED: HYDROmorphone HCL CARPU-JECT 2 MG/1 ML DISP.SYRIN IVPUSH ONE (23:43)
[2019-03-06] MEDS ORDERED: HYDROmorphone HCl 2 MG/ML VIAL ONE (00:25)
[2019-03-06] MEDS ORDERED: ONDANSETRON 4 MG/2 ML VIAL IVPUSH PRN (02:00)
[2019-03-06] MEDS ORDERED: DEXTROSE 5%-0.45% SALINE 1,000 ML IV SCH (02:15)
[2019-03-06 06:43] LABS: BASO % 0.4 % (0-2.0); EOS % 0.7 % (0-4.5); HEMATOCRIT 35.6 % (32.4-45.2); HEMOGLOBIN 11.6 GM/dL (10.7-15.3); LYMPH % 23.1 % (8-40); MCH 28.3 pg (25.7-33.7); MCHC 32.6 g/dl (32.0-36.0); MEAN CELL VOLUME 86.7 fl (80-96); MEAN PLT VOLUME 9.3 fl (7.5-11.1); MONO % 6.3 % (3.8-10.2); NEUT % 69.5 % (42.8-82.8); PLATELET COUNT 260 K/MM3 (134-434); WHITE BLOOD COUNT 9.8 K/mm3 (4.0-10.0)
[2019-03-06 07:08] LABS: ALBUMIN 3.4 g/dl (3.4-5.0); BILIRUBIN,TOTAL 0.5 mg/dL (0.2-1); BLOOD UREA NITROGEN 24.7 mg/dL (7-18); CREATININE 1.6 mg/dL (0.55-1.3); POTASSIUM 4.3 mmol/L (3.5-5.1); TOT PROT 6.4 g/dl (6.4-8.2)
[2019-03-06] MEDS ORDERED: morphine SULFATE 4 MG/ML VIAL ONE (09:01)
--- NOTE | 2019-03-06 09:05 | CON.GI ---
Consult Consult Specialty:: GI Referred by:: Dr Phoebe Grady Reason for Consultation:: Diverticulitis - History of Present Illness Chief Complaint: Lower abdominal pain History of Present Illness: Evelina is a 49 y/o female with past medical history of diverticulitis, s/p colostomy, s/p reversal and mutiple abdominal surgeries. Patient states that on Sunday began experiencing sharp lower abdominal pain accompanied with nausea. On she saw her PMD because pain did not subside and was started on Metronidazole and Levaquin. She presented to ER yesterday after her hands and feet "cramped up". Subsequently in ER she developed non-bloody vomitus x 5 episodes dark brown in color that later turned green in color. She states having one episode of dark colored diarrhea, denies fever, recent travel , night awakenings. Patient had endoscopy in 2014 showing erosions and gastritis, (+) H. Pylori and was treated with antibiotics. She had colonoscopy in 2014 which showed diverticula scattered in left colon, diminiuitive polyp in sigmoid colon, and sessile polyp in rectum, pathology negative for dysplasia or malignancy. CT scan shows diffuse fatty infiltration of liver, s/p abdominal surgeries with multiple ventral hernias with non obstructive small bowel loops, and large lobulated right ovarian cyst 12.6 x 9.0 x 13.6cm. - History Source History Provided By: Patient Limitations to Obtaining History: No Limitations - Past Medical History Cardio/Vascular: Yes: HTN Gastrointestinal: Yes: Diverticulosis ...LMP: 06/11/18 - Past Surgical History Past Surgical History: Yes: Colectomy, Colostomy, , Hernia Repair, Ileosotomy - Alcohol/Substance Use Hx Alcohol Use: Yes (ON OCCASSION) - Smoking History Smoking history: Never smoked Have you smoked in the past 12 months: No Aproximately how many cigarettes per day: 2 - Social History ADL: Independent History of Recent Travel: No Home Medications - Allergies Allergies/Adverse Reactions: Allergies Allergy/AdvReac Type Severity Reaction Status Date / Time No Known Allergies Allergy Verified 06/25/18 13:17 - Home Medications Home Medications: Ambulatory Orders Esomeprazole Magnesium [Nexium 24Hr] 20 mg PO DAILY 01/31/18 Losartan/Hydrochlorothiazide [Losartan-Hctz 100-12.5 mg Tab] 1 tab PO DAILY Linaclotide [Linzess] 290 mcg PO DAILY 06/25/18 Sertraline HCl [Zoloft] 25 mg PO DAILY 06/25/18 oxyCODONE HCL [Roxicodone -] 5 mg PO Q6H PRN #16 tablet MDD 4 06/26/18 Review of Systems - Review of Systems Constitutional: reports: No Symptoms Eyes: reports: No Symptoms HENT: reports: No Symptoms Neck: reports: No Symptoms Cardiovascular: reports: No Symptoms Respiratory: reports: No Symptoms Gastrointestinal: reports: Abdominal Pain, Nausea Genitourinary: reports: No Symptoms Breasts: reports: No Symptoms Reported Musculoskeletal: reports: No Symptoms Integumentary: reports: No Symptoms Neurological: reports: No Symptoms Endocrine: reports: No Symptoms Hematology/Lymphatic: reports: No Symptoms Psychiatric: reports: No Symptoms Physical Exam-GI Vital Signs: Vital Signs Temperature 98.6 F 03/06/19 06:43 Pulse Rate 61 03/06/19 06:43 Respiratory Rate 15 03/06/19 06:43 Blood Pressure 103/57 L 03/06/19 06:43 O2 Sat by Pulse Oximetry (%) 99 03/06/19 07:21 Constitutional: Yes: No Distress, Calm Eyes: Yes: Conjunctiva Clear HENT: Yes: Atraumatic Cardiovascular: Yes: Regular Rate and Rhythm Respiratory: Yes: Regular, CTA Bilaterally Gastrointestinal Inspection: Yes: WNL, Scars. No: Ascites, Distention, Hernia, Other ...Auscultate: Yes: Normoactive Bowel Sounds. No: Hyperactive Bowel Sounds, Hypoactive Bowel Sounds, No Bowel Sounds, Other ...Palpate: Yes: Soft, Tenderness (RLQ). No: Firm/Rigid, Guarding, Hepatomegaly , Mass, Pulsatile Mass, Splenomegaly, Tenderness, Epigastium, Tenderness, Rebound, Other ...Percussion: Yes: Tympanitic. No: Dullness, Fluid Wave, Other Neurological: Yes: Alert, Oriented Psychiatric: Yes: Alert, Oriented Labs: CBC, BMP 03/06/19 06:00 03/06/19 06:00 Active Medications Generic Name Dose Route Start Last Admin Trade Name Freq PRN Reason Stop Dose Admin Heparin Sodium (Porcine) 5,000 unit 03/06/19 10:00 Heparin - SQ BID NONA Hydrochlorothiazide 12.5 mg 03/06/19 10:00 Hctz - PO DAILY NONA Dextrose/Sodium Chloride 1,000 mls @ 75 mls/hr 03/06/19 02:15 03/06/19 03:00 D5-1/2ns - IV 75 mls/hr ASDIR NONA Administration Metronidazole 500 mg in 100 mls @ 100 mls/hr 03/06/19 10:00 Flagyl 500mg Premixed Ivpb - IVPB Q8H-IV NONA Piperacillin Sod/Tazobactam 50 mls @ 100 mls/hr 03/06/19 10:00 Sod 3.375 gm/ Dextrose IVPB Q8H-IV NONA Protocol Piperacillin Sod/Tazobactam 50 mls @ 100 mls/hr 03/06/19 10:00 Sod 3.375 gm/ Dextrose IVPB 03/07/19 02:29 Q8H-IV NONA Protocol Losartan Potassium 100 mg 03/06/19 10:00 Cozaar - PO DAILY NONA Morphine Sulfate 4 mg 03/06/19 02:07 03/06/19 09:08 Morphine Sulfate IVPUSH 4 mg Q6H PRN Administration pain 4-10 Ondansetron HCl 4 mg 03/06/19 02:00 Zofran Injection IVPUSH Q6H PRN NAUSEA AND/OR VOMITING Sertraline HCl 25 mg 03/06/19 10:00 Zoloft - PO DAILY [facility] Problem List - Problems (1) Ovarian cyst Assessment/Plan: >consider REAL ESTATE OFFICE MANAGER consult Code(s): N83.209 - UNSPECIFIED OVARIAN CYST, UNSPECIFIED SIDE (2) Abdominal pain with vomiting Assessment/Plan: >NPO >IV hydration >Reglan IV >Protonix >Metronidazole and Zosyn Code(s): R10.9 - UNSPECIFIED ABDOMINAL PAIN; R11.10 - VOMITING, UNSPECIFIED (3) UTI (urinary tract infection) Code(s): N39.0 - URINARY TRACT INFECTION, SITE NOT SPECIFIED Qualifiers: Qualified Code(s): N39.0 - Urinary tract infection, site not specified; R31.9 - Hematuria, unspecified
[2019-03-06] MEDS: morphine SULFATE 4 MG/ML VIAL IVPUSH PRN ×2 (09:08→23:32)
[2019-03-06] MEDS ORDERED: PIPERACILLIN/TAZOB 3.375 GM 3.375 GM in DEXTROSE 5%-WATER - 50 ML IVPB SCH (10:00)
[2019-03-06] MEDS ORDERED: HYDROCHLOROTHIAZIDE 12.5 MG CAPSULE (FP) PO SCH (10:00)
[2019-03-06] MEDS ORDERED: LOSARTAN POTASSIUM 50 MG TABLET (FP) PO SCH (10:00)
[2019-03-06] MEDS ORDERED: PIPERACILLIN/TAZOB 3.375 GM 3.375 GM/50 ML BAG IVPB ONE ×2 (10:42→18:12)
[2019-03-06] MEDS ORDERED: PT OWN MED DRAWER 7, Y5N ONE (10:42)
[2019-03-06] MEDS: SERTRALINE HCL 25 MG TABLET (FP) PO SCH (10:45)
[2019-03-06] MEDS: HEPARIN NA (PORCINE) 5,000 UNITS/ML 1ML VIAL SQ SCH ×2 (10:45→23:31)
--- NOTE | 2019-03-06 11:19 | CONSULT ---
- Consultation REQUESTING PROVIDER: CONSULT REQUEST: We have been asked to surgically evaluate this patient for ( abdominal pain). PCP:Mehnaz Grady HISTORY OF PRESENT ILLNESS: 49 y/o F well known to surgery (Dr Nielsen) w/ PMHx diverticulitis with extensive surgical history (s/p robotic sigmoid resection/ diverting loop ileostomy 02/14/17 for perforated diverticulitis, closure of ileostomy 03/14/17, s/p ex-lap lysis of adhesions, drainage of collections, partial colectomy and camargo's for perforation 06/12/17, laparoscopic closure of colostomy, lysis of adhesions 02/01/18, robotic assisted ventral hernia repair with mesh/lysis of adhesions 06/26/18). Patient states she began having sharp RLE abdominal pain and nausea on Sunday. Pain continued to increase and pt was seen by her PCP on . Pt was told to only take in clears and was started on Metronidazole and Levaquin. Plan for was an outpt Ct scan. Pt reports yesterday she experienced a severe episode of cramping in her hands and feet while driving with her cousin. Subsequently pt reports she developed non-bloody, non-bilious vomiting x 5 episodes in ER. States it was dark brown in color when it began (drank [place] prior) that later turned green in color. Reports one episode of dark colored malodorous diarrhea yesterday. Denies fever/chills, n/v, cp/sob. CT scan shows diffuse fatty infiltration of liver, s/p abdominal surgeries with multiple ventral hernias with non obstructive small bowel loops, and large lobulated right ovarian cyst 12.6 x 9.0 x 13.6cm. Surgery consulted for evaluation. PMHx: as above PSHx: as above Home Medications Medication Instructions Recorded Esomeprazole Magnesium [Nexium 20 mg PO DAILY 01/31/18 24Hr] Losartan/Hydrochlorothiazide 1 tab PO DAILY 01/31/18 [Losartan-Hctz 100-12.5 mg Tab] Linaclotide [Linzess] 290 mcg PO DAILY 06/25/18 Sertraline HCl [Zoloft] 25 mg PO DAILY 06/25/18 oxyCODONE HCL [Roxicodone -] 5 mg PO Q6H PRN #16 tablet MDD 4 06/26/18 Ondansetron Injection [Zofran 4 mg IVPUSH Q6H PRN vial 06/27/18 Injection] Allergies Allergy/AdvReac Type Severity Reaction Status Date / Time No Known Allergies Allergy Verified 06/25/18 13:17 REVIEW OF SYSTEMS: CONSTITUTIONAL: Absent: fever, chills CARDIOVASCULAR: Absent: chest pain, syncope RESPIRATORY: Absent: cough, shortness of breath GASTROINTESTINAL: Absent: abdominal pain, abdominal distension PHYSICAL EXAM: GENERAL: Awake, alert, and fully oriented, in no acute distress. HEAD: Normal with no signs of trauma. LUNGS: Unlabored on RA. No accessory muscle use. ABDOMEN: Soft, + focal ttp RLQ, no rebound or guarding. Vital Signs Temperature 98.6 F 03/06/19 06:43 Pulse Rate 61 03/06/19 06:43 Respiratory Rate 15 03/06/19 06:43 Blood Pressure 103/57 L 03/06/19 06:43 O2 Sat by Pulse Oximetry (%) 99 03/06/19 07:21 Lab Results WBC 9.8 K/mm3 (4.0-10.0) 03/06/19 06:00 RBC 4.10 M/mm3 (3.60-5.2) 03/06/19 06:00 Hgb 11.6 GM/dL (10.7-15.3) 03/06/19 06:00 Hct 35.6 % (32.4-45.2) D 03/06/19 06:00 MCV 86.7 fl (80-96) 03/06/19 06:00 MCHC 32.6 g/dl (32.0-36.0) 03/06/19 06:00 RDW 15.0 % (11.6-15.6) 03/06/19 06:00 Plt Count 260 K/MM3 (134-434) D 03/06/19 06:00 Sodium 141 mmol/L (136-145) 03/06/19 06:00 Potassium 4.3 mmol/L (3.5-5.1) 03/06/19 06:00 Chloride 117 mmol/L (98-107) H 03/06/19 06:00 Carbon Dioxide 15 mmol/L (21-32) L 03/06/19 06:00 Anion Gap 8 MMOL/L (8-16) 03/06/19 06:00 BUN 24.7 mg/dL (7-18) H 03/06/19 06:00 Creatinine 1.6 mg/dL (0.55-1.3) H 03/06/19 06:00 Random Glucose 84 mg/dL (74-106) 03/06/19 06:00 Calcium 8.0 mg/dL (8.5-10.1) L 03/06/19 06:00 A/P: 49 y/o F well known to surgery (Dr Nielsen) w/ PMHx diverticulitis with extensive surgical history (s/p robotic sigmoid resection/diverting loop ileostomy 02/14/17 for perforated diverticulitis, closure of ileostomy 03/14/17, s /p ex-lap lysis of adhesions, drainage of collections, partial colectomy and camargo's for perforation 06/12/17, laparoscopic closure of colostomy, lysis of adhesions 02/01/18, robotic assisted ventral hernia repair with mesh/lysis of adhesions 06/26/18), now presents with RLQ pain since Sunday of last week. -Ct images reviewed with attending Dr Nielsen. Pain likely due to large right cyst. -Agree with GI consult -Recommend natural resources professor consult -Remainder of care per primary team -Please call surgery with any questions or concerns above d/w attending Dr Nielsen
[2019-03-06] MEDS: PIPERACILLIN/TAZOB 3.375 GM 3.375 GM in DEXTROSE 5%-WATER - 50 ML IVPB SCH ×2 (12:19→18:53)
--- NOTE | 2019-03-06 12:30 | CONSULT ---
Consult Consult Specialty:: Nephrology Reason for Consultation:: PETRA - History of Present Illness Chief Complaint: vomiting and diarrhea History of Present Illness: Pt is a 49 year old female with pmhx of diverticulitis, signmoid resection, diverting loop ileostmy and multiple abd surgeries who presents to the ER with nausea and vomiting. She also complains of diarrhea. She was taking antibiotics but does not remember the name. She was found to be in acute renal failure and I was called to evaluate her. She denies nsaid use. She denies history of ckd. She denies hematuria or dysuria. She did respond to saline. She feels that the abdominal pain is a little better but is still there. She says she had bloodwork done a week ago but does not know the results. She was on losartan hct for htn as outpt. - History Source History Provided By: Patient, Medical Record - Past Medical History Cardio/Vascular: Yes: HTN Gastrointestinal: Yes: Diverticulosis ...LMP: 06/11/18 - Past Surgical History Past Surgical History: Yes: Colectomy, Colostomy, , Hernia Repair, Ileosotomy - Alcohol/Substance Use Hx Alcohol Use: Yes (ON OCCASSION) - Smoking History Smoking history: Never smoked Have you smoked in the past 12 months: No Aproximately how many cigarettes per day: 2 - Social History ADL: Independent History of Recent Travel: No Home Medications - Allergies Allergies/Adverse Reactions: Allergies Allergy/AdvReac Type Severity Reaction Status Date / Time No Known Allergies Allergy Verified 06/25/18 13:17 - Home Medications Home Medications: Ambulatory Orders Esomeprazole Magnesium [Nexium 24Hr] 20 mg PO DAILY 01/31/18 Losartan/Hydrochlorothiazide [Losartan-Hctz 100-12.5 mg Tab] 1 tab PO DAILY Linaclotide [Linzess] 290 mcg PO DAILY 06/25/18 Sertraline HCl [Zoloft] 25 mg PO DAILY 06/25/18 oxyCODONE HCL [Roxicodone -] 5 mg PO Q6H PRN #16 tablet MDD 4 06/26/18 Family Disease History - Family Disease History Family History: Denies Review of Systems - Review of Systems Constitutional: reports: Malaise. denies: Chills Eyes: reports: No Symptoms HENT: reports: No Symptoms Neck: reports: No Symptoms Cardiovascular: reports: No Symptoms Respiratory: reports: No Symptoms Gastrointestinal: reports: Abdominal Pain, Diarrhea, Vomiting Genitourinary: reports: No Symptoms Musculoskeletal: reports: No Symptoms Integumentary: reports: No Symptoms Neurological: reports: No Symptoms Endocrine: reports: No Symptoms Hematology/Lymphatic: reports: No Symptoms Psychiatric: reports: No Symptoms Physical Exam Vital Signs: Vital Signs Temperature 98.6 F 03/06/19 06:43 Pulse Rate 61 03/06/19 06:43 Respiratory Rate 15 03/06/19 06:43 Blood Pressure 103/57 L 03/06/19 06:43 O2 Sat by Pulse Oximetry (%) 99 03/06/19 07:21 Constitutional: Yes: Calm Eyes: Yes: Conjunctiva Clear HENT: Yes: Atraumatic Neck: Yes: Supple Cardiovascular: Yes: S1, S2 Gastrointestinal: Yes: Tenderness Renal/: Yes: WNL Musculoskeletal: Yes: WNL Extremities: Yes: WNL Edema: No Neurological: Yes: Oriented Psychiatric: Yes: Oriented Labs: CBC, BMP 03/06/19 06:00 03/06/19 06:00 Laboratory Tests 03/05/19 03/05/19 03/05/19 20:50 21:33 21:33 WBC 15.3 H Hgb 14.4 Sodium 138 Potassium Carbon Dioxide Creatinine 2.9 H Urine Protein 3+ H Urine Blood Trace 03/06/19 03/06/19 06:00 06:00 WBC 9.8 Hgb 11.6 Sodium 141 Potassium 4.3 Carbon Dioxide 15 L Creatinine 1.6 H Urine Protein Urine Blood Imaging - Results Chest X-ray: Report Reviewed Problem List - Problems (1) PETRA (acute kidney injury) Code(s): N17.9 - ACUTE KIDNEY FAILURE, UNSPECIFIED (2) Abdominal pain Code(s): R10.9 - UNSPECIFIED ABDOMINAL PAIN Qualifiers: Abdominal location: right upper quadrant Qualified Code(s): R10.11 - Right upper quadrant pain Assessment/Plan Current Medications Generic Name Dose Route Start Last Admin Trade Name Freq PRN Reason Stop Dose Admin Heparin Sodium (Porcine) 5,000 unit 03/06/19 10:00 03/06/19 10:45 Heparin - SQ 5,000 unit BID NONA Administration Hydrochlorothiazide 12.5 mg 03/06/19 10:00 03/06/19 10:45 Hctz - PO 12.5 mg DAILY NONA Administration Dextrose/Sodium Chloride 1,000 mls @ 75 mls/hr 03/06/19 02:15 03/06/19 03:00 D5-1/2ns - IV 75 mls/hr ASDIR NONA Administration Metronidazole 500 mg in 100 mls @ 100 mls/hr 03/06/19 10:00 03/06/19 10:45 Flagyl 500mg Premixed Ivpb - IVPB 100 mls/hr Q8H-IV NONA Administration Piperacillin Sod/Tazobactam 50 mls @ 100 mls/hr 03/06/19 10:00 Sod 3.375 gm/ Dextrose IVPB Q8H-IV NONA Protocol Piperacillin Sod/Tazobactam 50 mls @ 100 mls/hr 03/06/19 10:00 03/06/19 12:19 Sod 3.375 gm/ Dextrose IVPB 03/07/19 02:29 100 mls/hr Q8H-IV NONA Administration Protocol Losartan Potassium 100 mg 03/06/19 10:00 03/06/19 10:45 Cozaar - PO 100 mg DAILY NONA Administration Morphine Sulfate 4 mg 03/06/19 02:07 03/06/19 09:08 Morphine Sulfate IVPUSH 4 mg Q6H PRN Administration pain 4-10 Ondansetron HCl 4 mg 03/06/19 02:00 Zofran Injection IVPUSH Q6H PRN NAUSEA AND/OR VOMITING Sertraline HCl 25 mg 03/06/19 10:00 03/06/19 10:45 Zoloft - PO 25 mg DAILY NONA Administration Selected Entries 03/06/19 06:43 Blood Pressure 103/57 L [Left Arm] Impression 1. PETRA 2. diverticlitis 3. HTN 4. depression 5. vomiting Plan - stop hctz and hold losartan as bp is low - change fluids to LR - renal function is improving - abx per primary team - surgery follow up - renal ultrasound reviewed - repeat ua and send urine lytes and medical data entry clerk
[2019-03-06] MEDS ORDERED: LACTATED RINGERS SOLUTION 1,000 ML/1,000 ML INFUS.BAG IV SCH (12:45)
[2019-03-06] MEDS: DEXTROSE 5%-LACTATED RINGERS 1,000 ML IV SCH (13:25)
--- NOTE | 2019-03-06 15:19 | EKG ---
Test Reason : Blood Pressure : / mmHG Vent. Rate : 096 BPM Atrial Rate : 096 BPM P-R Int : 136 ms QRS Dur : 074 ms QT Int : 366 ms P-R-T Axes : 057 -16 022 degrees QTc Int : 462 ms NORMAL SINUS RHYTHM NORMAL ECG WHEN COMPARED WITH ECG OF 05-JUL-2017 21:07, NO SIGNIFICANT CHANGE WAS FOUND Confirmed by GILMAR REBOLLAR MD ([id number]) on 03/06/2019 3:18:42 PM Referred By: Confirmed By:GILMAR REBOLLAR MD
--- NOTE | 2019-03-06 16:37 | HP ---
Admitting History and Physical - Past Medical History Cardiovascular: Yes: HTN Gastrointestinal: Yes: Diverticulosis ...LMP: 06/11/18 - Past Surgical History Past Surgical History: Yes: Colectomy, Colostomy, , Hernia Repair, Ileosotomy - Smoking History Smoking history: Never smoked Have you smoked in the past 12 months: No Aproximately how many cigarettes per day: 2 - Alcohol/Substance Use Hx Alcohol Use: Yes (ON OCCASSION) - Social History ADL: Independent History of Recent Travel: No Home Medications - Allergies Allergies/Adverse Reactions: Allergies Allergy/AdvReac Type Severity Reaction Status Date / Time No Known Allergies Allergy Verified 06/25/18 13:17 - Home Medications Home Medications: Ambulatory Orders Esomeprazole Magnesium [Nexium 24Hr] 20 mg PO DAILY 01/31/18 Losartan/Hydrochlorothiazide [Losartan-Hctz 100-12.5 mg Tab] 1 tab PO DAILY Linaclotide [Linzess] 290 mcg PO DAILY 06/25/18 Sertraline HCl [Zoloft] 25 mg PO DAILY 06/25/18 oxyCODONE HCL [Roxicodone -] 5 mg PO Q6H PRN #16 tablet MDD 4 06/26/18 Physical Examination Vital Signs: Vital Signs Temperature 98.6 F 03/06/19 06:43 Pulse Rate 63 03/06/19 15:34 Respiratory Rate 15 03/06/19 06:43 Blood Pressure 95/55 L 03/06/19 15:34 O2 Sat by Pulse Oximetry (%) 97 03/06/19 15:34 Labs: CBC, BMP 03/06/19 06:00 03/06/19 06:00
[2019-03-06] MEDS ORDERED: KETOROLAC TROMETHAMINE 30 MG/1 ML VIAL IVPUSH ONE (19:18)
[2019-03-06] MEDS ORDERED: KETOROLAC TROMETHAMINE 30 MG/1 ML VIAL ONE (19:20)
[2019-03-06 19:55] LABS: PH,URINE 5.5 (5.0-8.0); URINE APPEARANCE CLEAR; URINE BILIRUBIN NEGATIVE (NEGATIVE); URINE COLOR YELLOW; URINE GLUCOSE (UA) NEGATIVE (NEGATIVE); URINE KETONE NEGATIVE (NEGATIVE); URINE LEUK ESTERASE NEGATIVE (NEGATIVE); URINE NITRITE NEGATIVE (NEGATIVE); URINE PROTEIN NEGATIVE (NEGATIVE); URINE UROBILINOGEN 0.2 mg/dL (0.2-1.0)
[2019-03-06 22:56] VITALS: BMI 29.7
[2019-03-07] MEDS: DEXTROSE 5%-LACTATED RINGERS 1,000 ML IV SCH (00:24)
[2019-03-07] MEDS ORDERED: PIPERACILLIN/TAZOBACTAM 3.375 GM VIAL IVPB ONE (00:46)
[2019-03-07] MEDS ORDERED: DEXTROSE 5%-WATER - 50 ML IVPB ONE (00:47)
[2019-03-07] MEDS: PIPERACILLIN/TAZOB 3.375 GM 3.375 GM in DEXTROSE 5%-WATER - 50 ML IVPB SCH (01:05)
[2019-03-07] MEDS ORDERED: DEXTROSE 5%-LACTATED RINGERS 1,000 ML IV SCH (08:07)
[2019-03-07 08:17] LABS: EOS % 1.3 % (0-4.5); HEMOGLOBIN 11.9 GM/dL (10.7-15.3); LYMPH % 35.1 % (8-40); MCHC 33.1 g/dl (32.0-36.0); MEAN CELL VOLUME 87.4 fl (80-96); MEAN PLT VOLUME 9.9 fl (7.5-11.1); MONO % 5.7 % (3.8-10.2); NEUT % 56.9 % (42.8-82.8); RBC 4.12 M/mm3 (3.60-5.2); RDW 14.8 % (11.6-15.6); WHITE BLOOD COUNT 5.8 K/mm3 (4.0-10.0)
[2019-03-07 08:26] LABS: BILIRUBIN,TOTAL 0.4 mg/dL (0.2-1); BLOOD UREA NITROGEN 11.6 mg/dL (7-18); CREATININE 0.9 mg/dL (0.55-1.3); POTASSIUM 4.1 mmol/L (3.5-5.1)
--- NOTE | 2019-03-07 09:01 | PN ---
Progress Note, Physician History of Present Illness: GI FOLLOW UP NOTE Patient examined and case discussed with Dr Hernandez Patient states having nausea but says that Zofran is helping. States that she continues to have RLQ pain. Denies dysphagia, vomiting, rectal bleeding, melena. Complains of constipation, offered patient to start Miralax daily but patient requests to bring in her own prescription of Linzess and give to nurse to send to pharmacy for re-packaging. - Current Medication List Current Medications: Active Medications Heparin Sodium (Porcine) (Heparin -) 5,000 unit SQ BID NONA Last Admin: 03/06/19 23:31 Dose: 5,000 unit Metronidazole (Flagyl 500mg Premixed Ivpb -) 500 mg in 100 mls @ 100 mls/hr IVPB Q8H-IV NONA Last Admin: 03/07/19 00:59 Dose: 100 mls/hr Piperacillin Sod/Tazobactam (Sod 3.375 gm/ Dextrose) 50 mls @ 100 mls/hr IVPB Q8H-IV NONA; Protocol Dextrose/Lactated Ringer's (D5-Lr -) 1,000 mls @ 150 mls/hr IV ASDIR NONA Metoclopramide HCl (Reglan Injection -) 10 mg IVPB Q8H-IV NONA Morphine Sulfate (Morphine Sulfate) 4 mg IVPUSH Q6H PRN PRN Reason: pain 4-10 Last Admin: 03/06/19 23:32 Dose: 4 mg Ondansetron HCl (Zofran Injection) 4 mg IVPUSH Q6H PRN PRN Reason: NAUSEA AND/OR VOMITING Sertraline HCl (Zoloft -) 25 mg PO DAILY [facility] Last Admin: 03/06/19 10:45 Dose: 25 mg - Objective Vital Signs: Vital Signs Temperature 97.8 F 03/07/19 02:23 Pulse Rate 68 03/07/19 02:23 Respiratory Rate 18 03/07/19 02:23 Blood Pressure 121/62 03/07/19 02:23 O2 Sat by Pulse Oximetry (%) 98 03/06/19 22:26 Constitutional: Yes: No Distress, Calm Eyes: Yes: Conjunctiva Clear HENT: Yes: Atraumatic Cardiovascular: Yes: Regular Rate and Rhythm Respiratory: Yes: Regular, CTA Bilaterally Gastrointestinal: Yes: Normal Bowel Sounds, Soft, Tenderness (RLQ and LLQ) Neurological: Yes: Alert, Oriented Psychiatric: Yes: Alert, Oriented Labs: CBC, BMP 03/07/19 06:30 03/07/19 06:30 <Cindy Campos - Last Filed: 03/07/19 09:01> - Current Medication List Current Medications: Active Medications Heparin Sodium (Porcine) (Heparin -) 5,000 unit SQ BID NONA Last Admin: 03/07/19 09:35 Dose: 5,000 unit Metronidazole (Flagyl 500mg Premixed Ivpb -) 500 mg in 100 mls @ 100 mls/hr IVPB Q8H-IV NONA Last Admin: 03/07/19 09:35 Dose: 100 mls/hr Piperacillin Sod/Tazobactam (Sod 3.375 gm/ Dextrose) 50 mls @ 100 mls/hr IVPB Q8H-IV NONA; Protocol Lactated Ringer's (Lactated Ringers Solution) 1,000 ml in 1,000 mls @ 83 mls/ hr IV ASDIR NONA Last Admin: 03/07/19 14:54 Dose: 83 mls/hr Losartan Potassium (Cozaar -) 50 mg PO DAILY [facility] Metoclopramide HCl (Reglan Injection -) 10 mg IVPB Q8H-IV NONA Last Admin: 03/07/19 09:35 Dose: 10 mg Morphine Sulfate (Morphine Sulfate) 4 mg IVPUSH Q6H PRN PRN Reason: pain 4-10 Last Admin: 03/07/19 14:53 Dose: 4 mg Ondansetron HCl (Zofran Injection) 4 mg IVPUSH Q6H PRN PRN Reason: NAUSEA AND/OR VOMITING Sertraline HCl (Zoloft -) 25 mg PO DAILY [facility] Last Admin: 03/07/19 09:35 Dose: 25 mg - Objective Vital Signs: Vital Signs Temperature 97.8 F 03/07/19 13:51 Pulse Rate 63 03/07/19 13:51 Respiratory Rate 20 03/07/19 13:51 Blood Pressure 115/70 03/07/19 13:51 O2 Sat by Pulse Oximetry (%) 99 03/07/19 09:00 Labs: CBC, BMP 03/07/19 06:30 03/07/19 06:30 <Arun Hernandez - Last Filed: 03/07/19 15:48> Problem List - Problems (1) Abdominal pain with vomiting Assessment/Plan: -Continue IV hydration -Zofran and Reglan IVPB -FUA ordered -start on clear liquids -Abdominal CT scan reviewed--will need TRUCK ENGINE ASSEMBLER consult Code(s): R10.9 - UNSPECIFIED ABDOMINAL PAIN; R11.10 - VOMITING, UNSPECIFIED (2) Constipation Assessment/Plan: -patient will bring in her own supply of Linzess since NF here at hospital Code(s): K59.00 - CONSTIPATION, UNSPECIFIED <Cindy Campos - Last Filed: 03/07/19 09:01> - Problems (1) Ovarian cyst Code(s): N83.209 - UNSPECIFIED OVARIAN CYST, UNSPECIFIED SIDE (2) Abdominal pain with vomiting Code(s): R10.9 - UNSPECIFIED ABDOMINAL PAIN; R11.10 - VOMITING, UNSPECIFIED <Arun Hernandez - Last Filed: 03/07/19 15:48>
[2019-03-07] MEDS: HEPARIN NA (PORCINE) 5,000 UNITS/ML 1ML VIAL SQ SCH ×2 (09:35→21:50)
[2019-03-07] MEDS: METOCLOPRAMIDE HCL INJECTION 10 MG/2 ML VIAL IVPB SCH ×2 (09:35→17:23)
[2019-03-07] MEDS: SERTRALINE HCL 25 MG TABLET (FP) PO SCH (09:35)
[2019-03-07 10:25] LABS: PLATELET COUNT 165 K/MM3 (134-434); PLATELET ESTIMATE ADEQUATE
--- NOTE | 2019-03-07 14:30 | PN ---
Progress Note, Physician History of Present Illness: Pt seen and examined at bedside. She is awake and alert. She denies shortness of breath. She is tolerating clears. - Current Medication List Current Medications: Active Medications Heparin Sodium (Porcine) (Heparin -) 5,000 unit SQ BID NONA Last Admin: 03/07/19 09:35 Dose: 5,000 unit Metronidazole (Flagyl 500mg Premixed Ivpb -) 500 mg in 100 mls @ 100 mls/hr IVPB Q8H-IV NONA Last Admin: 03/07/19 09:35 Dose: 100 mls/hr Piperacillin Sod/Tazobactam (Sod 3.375 gm/ Dextrose) 50 mls @ 100 mls/hr IVPB Q8H-IV NONA; Protocol Dextrose/Lactated Ringer's (D5-Lr -) 1,000 mls @ 150 mls/hr IV ASDIR NONA Last Admin: 03/07/19 09:35 Dose: 150 mls/hr Metoclopramide HCl (Reglan Injection -) 10 mg IVPB Q8H-IV NONA Last Admin: 03/07/19 09:35 Dose: 10 mg Morphine Sulfate (Morphine Sulfate) 4 mg IVPUSH Q6H PRN PRN Reason: pain 4-10 Last Admin: 03/06/19 23:32 Dose: 4 mg Ondansetron HCl (Zofran Injection) 4 mg IVPUSH Q6H PRN PRN Reason: NAUSEA AND/OR VOMITING Sertraline HCl (Zoloft -) 25 mg PO DAILY NONA Last Admin: 03/07/19 09:35 Dose: 25 mg - Objective Vital Signs: Vital Signs Temperature 97.8 F 03/07/19 13:51 Pulse Rate 63 03/07/19 13:51 Respiratory Rate 20 03/07/19 13:51 Blood Pressure 115/70 03/07/19 13:51 O2 Sat by Pulse Oximetry (%) 99 03/07/19 09:00 Constitutional: Yes: Calm Eyes: Yes: Conjunctiva Clear HENT: Yes: Atraumatic Neck: Yes: Supple Cardiovascular: Yes: S1, S2 Respiratory: Yes: CTA Bilaterally Gastrointestinal: Yes: Soft Genitourinary: Yes: WNL Musculoskeletal: Yes: WNL Edema: No Integumentary: Yes: WNL Neurological: Yes: Oriented Psychiatric: Yes: Oriented Labs: CBC, BMP 03/07/19 06:30 03/07/19 06:30 Problem List - Problems (1) PETRA (acute kidney injury) Code(s): N17.9 - ACUTE KIDNEY FAILURE, UNSPECIFIED (2) Abdominal pain Code(s): R10.9 - UNSPECIFIED ABDOMINAL PAIN Qualifiers: Abdominal location: right upper quadrant Qualified Code(s): R10.11 - Right upper quadrant pain Assessment/Plan Current Medications Generic Name Dose Route Start Last Admin Trade Name Freq PRN Reason Stop Dose Admin Heparin Sodium (Porcine) 5,000 unit 03/06/19 10:00 03/07/19 09:35 Heparin - SQ 5,000 unit BID ONNA Administration Metronidazole 500 mg in 100 mls @ 100 mls/hr 03/06/19 10:00 03/07/19 09:35 Flagyl 500mg Premixed Ivpb - IVPB 100 mls/hr Q8H-IV NONA Administration Piperacillin Sod/Tazobactam 50 mls @ 100 mls/hr 03/06/19 10:00 Sod 3.375 gm/ Dextrose IVPB Q8H-IV NONA Protocol Dextrose/Lactated Ringer's 1,000 mls @ 150 mls/hr 03/07/19 08:07 03/07/19 09: 35 D5-Lr - IV 150 mls/hr ASDIR NONA Administration Metoclopramide HCl 10 mg 03/07/19 10:00 03/07/19 09:35 Reglan Injection - IVPB 10 mg Q8H-IV NONA Administration Morphine Sulfate 4 mg 03/06/19 02:07 03/06/19 23:32 Morphine Sulfate IVPUSH 4 mg Q6H PRN Administration pain 4-10 Ondansetron HCl 4 mg 03/06/19 02:00 Zofran Injection IVPUSH Q6H PRN NAUSEA AND/OR VOMITING Sertraline HCl 25 mg 03/06/19 10:00 03/07/19 09:35 Zoloft - PO 25 mg DAILY NONA Administration Laboratory Tests 03/06/19 19:39 Urine Protein Negative Urine Blood Negative Impression 1. PETRA 2. diverticlitis 3. HTN 4. depression 5. vomiting Plan - renal function is improved - bp is improving - hctz on hold - will restart losartan at lower dose tomorrow - decrease rate of fluids - can stop fluids once tolerating diet - repeat ua reviewed, improved - will follow PRN
[2019-03-07] MEDS: morphine SULFATE 4 MG/ML VIAL IVPUSH PRN ×2 (14:53→23:52)
[2019-03-07] MEDS: LACTATED RINGERS SOLUTION 1,000 ML/1,000 ML INFUS.BAG IV SCH (14:54)
--- NOTE | 2019-03-07 21:43 | PN ---
Progress Note, Physician - Current Medication List Current Medications: Active Medications Heparin Sodium (Porcine) (Heparin -) 5,000 unit SQ BID NONA Last Admin: 03/07/19 09:35 Dose: 5,000 unit Metronidazole (Flagyl 500mg Premixed Ivpb -) 500 mg in 100 mls @ 100 mls/hr IVPB Q8H-IV NONA Last Admin: 03/07/19 17:23 Dose: 100 mls/hr Piperacillin Sod/Tazobactam (Sod 3.375 gm/ Dextrose) 50 mls @ 100 mls/hr IVPB Q8H-IV NONA; Protocol Lactated Ringer's (Lactated Ringers Solution) 1,000 ml in 1,000 mls @ 83 mls/ hr IV ASDIR NONA Last Admin: 03/07/19 14:54 Dose: 83 mls/hr Losartan Potassium (Cozaar -) 50 mg PO DAILY [facility] Metoclopramide HCl (Reglan Injection -) 10 mg IVPB Q8H-IV NONA Last Admin: 03/07/19 17:23 Dose: 10 mg Morphine Sulfate (Morphine Sulfate) 4 mg IVPUSH Q6H PRN PRN Reason: pain 4-10 Last Admin: 03/07/19 14:53 Dose: 4 mg Ondansetron HCl (Zofran Injection) 4 mg IVPUSH Q6H PRN PRN Reason: NAUSEA AND/OR VOMITING Sertraline HCl (Zoloft -) 25 mg PO DAILY [facility] Last Admin: 03/07/19 09:35 Dose: 25 mg - Objective Vital Signs: Vital Signs Temperature 97.8 F 03/07/19 13:51 Pulse Rate 63 03/07/19 13:51 Respiratory Rate 20 03/07/19 13:51 Blood Pressure 115/70 03/07/19 13:51 O2 Sat by Pulse Oximetry (%) 99 03/07/19 09:00 Labs: CBC, BMP 03/07/19 06:30 03/07/19 06:30
--- NOTE | 2019-03-07 21:55 | CON.OBG ---
Consult Consult Specialty:: BREAD DUMPER Referred by:: Dr. Rocha Reason for Consultation:: Ovarian cyst - History of Present Illness History of Present Illness: The patient is a 49 year old female with a past medical history of diverticulitis (s/p multiple surgeries, currently being treated) here today for evaluation of vomiting. The patient reports that she has had right sided abdominal pain for 1 week and started antibiotics last . She notes that her pain varied in severity over the last week but went from 5/10 to 10/10 around 5 PM without provocation and notes multiple episodes of vomiting. She also note right sided abdominal pain. BREAD DUMPER contacted due to incidental finding of a large septated ovarian cyst on the right side. I came to see patient, she's a 49 yo Para 4 with one previous . She had couple BREAD DUMPER visits with Dr. Zamudio. She admits to normal pap smear but no other studies were done. She claims that several family members ( father's side ) were diagnosed with breast cancer. Mother is healthy but father of lung cancer at 60 yo. Her BREAD DUMPER history is significant for prolonged and heavy menses. - History Source History Provided By: Patient Limitations to Obtaining History: No Limitations - Past Medical History Cardio/Vascular: Yes: HTN Gastrointestinal: Yes: Diverticulosis ...LMP: 06/11/18 ...: No ...Para: 4 - Past Surgical History Past Surgical History: Yes: Colectomy, Colostomy, , Hernia Repair, Ileosotomy - Alcohol/Substance Use Hx Alcohol Use: Yes (ON OCCASSION) - Smoking History Smoking history: Never smoked Have you smoked in the past 12 months: No Aproximately how many cigarettes per day: 2 - Social History ADL: Independent History of Recent Travel: No Home Medications - Allergies Allergies/Adverse Reactions: Allergies Allergy/AdvReac Type Severity Reaction Status Date / Time No Known Allergies Allergy Verified 06/25/18 13:17 - Home Medications Home Medications: Ambulatory Orders Esomeprazole Magnesium [Nexium 24Hr] 20 mg PO DAILY 01/31/18 Losartan/Hydrochlorothiazide [Losartan-Hctz 100-12.5 mg Tab] 1 tab PO DAILY Linaclotide [Linzess] 290 mcg PO DAILY 06/25/18 Sertraline HCl [Zoloft] 25 mg PO DAILY 06/25/18 oxyCODONE HCL [Roxicodone -] 5 mg PO Q6H PRN #16 tablet MDD 4 06/26/18 Family Disease History - Family Disease History Family Disease History: [place]: Father (Lung) Other Family History: Aunts with breast cancer Review of Systems - Review of Systems Constitutional: reports: No Symptoms Eyes: reports: No Symptoms HENT: reports: No Symptoms Neck: reports: No Symptoms Cardiovascular: reports: No Symptoms Respiratory: reports: No Symptoms Genitourinary: reports: Pain Breasts: reports: No Symptoms Reported Musculoskeletal: reports: No Symptoms Integumentary: reports: No Symptoms Neurological: reports: No Symptoms Endocrine: reports: No Symptoms Hematology/Lymphatic: reports: No Symptoms Psychiatric: reports: No Symptoms Pain Intensity: 3 Physical Exam-BREAD DUMPER Vital Signs: Vital Signs Temperature 97.8 F 03/07/19 13:51 Pulse Rate 63 03/07/19 13:51 Respiratory Rate 20 03/07/19 13:51 Blood Pressure 115/70 03/07/19 13:51 O2 Sat by Pulse Oximetry (%) 99 03/07/19 09:00 Constitutional: Yes: Well Nourished Eyes: Yes: Conjunctiva Clear HENT: Yes: Atraumatic Neck: Yes: Supple Cardiovascular: Yes: Regular Rate and Rhythm Respiratory: Yes: Regular Gastrointestinal: Yes: Normal Bowel Sounds ...Rectal Exam: Yes: WNL Renal/: Yes: WNL Pelvis: Yes: Tenderness (Right sided tenderness to palpation) External Genitalia: Yes: Normal Vaginal Exam: Yes: Normal Cervix: Yes: Normal Uterus: Yes: Normal Extremities: Yes: WNL Neurological: Yes: Alert, Oriented ...Motor Strength: WNL Psychiatric: Yes: Alert, Oriented Labs: CBC, BMP 03/07/19 06:30 03/07/19 06:30 Assessment/Plan Problem List - Problems (1) Ovarian cyst Assessment/Plan: F/U tumor markers Endometrial biopsy to be done as outpatient. Code(s): N83.209 - UNSPECIFIED OVARIAN CYST, UNSPECIFIED SIDE (2) Abdominal pain with vomiting Assessment/Plan: Management as per GI (3) UTI (urinary tract infection) Code(s): N39.0 - URINARY TRACT INFECTION, SITE NOT SPECIFIED Qualifiers: Qualified Code(s): N39.0 - Urinary tract infection, site not specified; R31.9 - Hematuria, unspecified
[2019-03-08] MEDS: METOCLOPRAMIDE HCL INJECTION 10 MG/2 ML VIAL IVPB SCH ×3 (03:12→17:18)
[2019-03-08] MEDS: SERTRALINE HCL 25 MG TABLET (FP) PO SCH (09:41)
[2019-03-08] MEDS: HEPARIN NA (PORCINE) 5,000 UNITS/ML 1ML VIAL SQ SCH ×2 (09:41→21:50)
[2019-03-08] MEDS: LOSARTAN POTASSIUM 50 MG TABLET (FP) PO SCH (09:41)
--- NOTE | 2019-03-08 09:48 | PN.GI ---
GI Progress Note Subjective: NO NEW COMPLAINTS - FEELING BETTER TODAY ; TOLERATED FULL DIET - Objective Vital Signs: Vital Signs Temperature 98.6 F 03/08/19 06:00 Pulse Rate 73 03/08/19 06:00 Respiratory Rate 20 03/08/19 06:00 Blood Pressure 113/63 03/08/19 06:00 O2 Sat by Pulse Oximetry (%) 100 03/07/19 21:00 Constitutional: Well Nourished, No Distress, Calm Eyes: Yes: WNL HENT: Yes: WNL Neck: Yes: WNL Cardiovascular: Yes: WNL, Regular Rate and Rhythm Respiratory: Yes: WNL, Regular, CTA Bilaterally Gastrointestinal Inspection: Yes: WNL ...Auscultate: Yes: Normoactive Bowel Sounds Extremities: Yes: WNL Edema: No Labs: CBC, BMP 03/07/19 06:30 03/07/19 06:30 Problem List - Problems (1) Abdominal pain Assessment/Plan: DIET TOLERATED PPI THERAPY COMPLETE THE COURSE OF ABX NURSING PROGRAM DIRECTOR F/U FOR OVARIAN CYST Code(s): R10.9 - UNSPECIFIED ABDOMINAL PAIN Qualifiers: Abdominal location: right upper quadrant Qualified Code(s): R10.11 - Right upper quadrant pain (2) Ovarian cyst Code(s): N83.209 - UNSPECIFIED OVARIAN CYST, UNSPECIFIED SIDE
[2019-03-08] MEDS: LACTATED RINGERS SOLUTION 1,000 ML/1,000 ML INFUS.BAG IV SCH ×2 (17:18→21:54)
--- NOTE | 2019-03-08 19:12 | PN ---
Progress Note, Physician History of Present Illness: Pt tolerating diet - Current Medication List Current Medications: Active Medications Heparin Sodium (Porcine) (Heparin -) 5,000 unit SQ BID NONA Last Admin: 03/08/19 09:41 Dose: 5,000 unit Metronidazole (Flagyl 500mg Premixed Ivpb -) 500 mg in 100 mls @ 100 mls/hr IVPB Q8H-IV NONA Last Admin: 03/08/19 17:18 Dose: 100 mls/hr Piperacillin Sod/Tazobactam (Sod 3.375 gm/ Dextrose) 50 mls @ 100 mls/hr IVPB Q8H-IV NONA; Protocol Lactated Ringer's (Lactated Ringers Solution) 1,000 ml in 1,000 mls @ 83 mls/ hr IV ASDIR NONA Last Admin: 03/08/19 17:18 Dose: Not Given Losartan Potassium (Cozaar -) 50 mg PO DAILY [facility] Last Admin: 03/08/19 09:41 Dose: 50 mg Metoclopramide HCl (Reglan Injection -) 10 mg IVPB Q8H-IV NONA Last Admin: 03/08/19 17:18 Dose: 10 mg Morphine Sulfate (Morphine Sulfate) 4 mg IVPUSH Q6H PRN PRN Reason: pain 4-10 Last Admin: 03/07/19 23:52 Dose: 4 mg Ondansetron HCl (Zofran Injection) 4 mg IVPUSH Q6H PRN PRN Reason: NAUSEA AND/OR VOMITING Sertraline HCl (Zoloft -) 25 mg PO DAILY [facility] Last Admin: 03/08/19 09:41 Dose: 25 mg - Objective Vital Signs: Vital Signs Temperature 98.5 F 03/08/19 14:11 Pulse Rate 82 03/08/19 14:11 Respiratory Rate 20 03/08/19 14:11 Blood Pressure 135/82 03/08/19 14:11 O2 Sat by Pulse Oximetry (%) 96 03/08/19 09:00 Neck: Yes: WNL, Supple Cardiovascular: Yes: WNL, Regular Rate and Rhythm Respiratory: Yes: WNL, Regular, CTA Bilaterally Gastrointestinal: Yes: WNL, Normal Bowel Sounds, Soft Labs: CBC, BMP 03/07/19 06:30 03/07/19 06:30 Problem List - Problems (1) Abdominal pain Assessment/Plan: Cont IV antibxs Pt toelrating diet Possible dc in am Code(s): R10.9 - UNSPECIFIED ABDOMINAL PAIN Qualifiers: Abdominal location: right upper quadrant Qualified Code(s): R10.11 - Right upper quadrant pain (2) Ovarian cyst Assessment/Plan: As per INSURANCE CLAIMS ANALYST Further w/u as outpt Code(s): N83.209 - UNSPECIFIED OVARIAN CYST, UNSPECIFIED SIDE (3) PETRA (acute kidney injury) Assessment/Plan: Due to dehydration Improved w/ IV hydration Renal consult noted Renal US showed normal kidneys and fatty liver Code(s): N17.9 - ACUTE KIDNEY FAILURE, UNSPECIFIED
[2019-03-08] MEDS ORDERED: morphine SULFATE 4 MG/ML VIAL IVPUSH ONE (22:15)
[2019-03-09] MEDS: METOCLOPRAMIDE HCL INJECTION 10 MG/2 ML VIAL IVPB SCH ×2 (02:01→10:07)
[2019-03-09 06:40] LABS: CARCINOEMBRYONIC ANTIGEN 0.9 ng/mL (0.0-4.7)
[2019-03-09] MEDS: LOSARTAN POTASSIUM 50 MG TABLET (FP) PO SCH (10:05)
[2019-03-09] MEDS: HEPARIN NA (PORCINE) 5,000 UNITS/ML 1ML VIAL SQ SCH (10:05)
[2019-03-09] MEDS: SERTRALINE HCL 25 MG TABLET (FP) PO SCH (10:05)
[2019-03-09 16:19] VITALS: BP 141/88; PULSE 79; TEMP 98.8
== END 2019-03-09 14:54 | disposition home or self-care (01) | DRG 469 ==
LOC: JER 19:38 → JERBED 22:57 → J7W 03-06 21:34
PROVIDERS: ADMIT Internal Medicine; ATTEND Internal Medicine
DX: N17.9 Acute kidney failure, unspecified (principal); K57.92 Diverticulitis of intestine, part unspecified, without perforation or abscess without bleeding; K76.0 Fatty (change of) liver, not elsewhere classified; K57.30 Diverticulosis of large intestine without perforation or abscess without bleeding; I10 Essential (primary) hypertension; F32.9 Major depressive disorder, single episode, unspecified; N39.0 Urinary tract infection, site not specified; E86.0 Dehydration; K59.00 Constipation, unspecified; D72.829 Elevated white blood cell count, unspecified; N83.201 Unspecified ovarian cyst, right side; Z90.49 Acquired absence of other specified parts of digestive tract; N83.209 Unspecified ovarian cyst, unspecified side; Z80.3 Family history of malignant neoplasm of breast; Z80.1 Family history of malignant neoplasm of trachea, bronchus and lung
CPT/HCPCS: 36415; 71045-TC-FY; 71046-TC-FY; 74019-TC-FY; 74176-TC; 76705-TC; 76775-TC; 76830-TC; 80053; 81003; 81500; 82378; 82436; 82565; 83690; 83735; 84100; 84133; 84300; 85025; 87086; 93005; 93010; 99285-25; J0131; J1644; J7030

== ENCOUNTER 2020-10-11 10:09 | Emergency (ER) | payer OTHER ==
[2020-10-11 10:25] VITALS: BP 125/65; PULSE 85; TEMP 97.8; BMI 36.3
[2020-10-11] MEDS ORDERED: METHOCARBAMOL 500 MG TABLET PO ONE (10:45)
[2020-10-11] MEDS ORDERED: KETOROLAC TROMETHAMINE 30 MG/1 ML VIAL IM ONE (10:45)
[2020-10-11] MEDS ORDERED: METHOCARBAMOL 500 MG TABLET ONE (11:03)
[2020-10-11] MEDS ORDERED: KETOROLAC TROMETHAMINE 30 MG/1 ML VIAL ONE (11:03)
== END 2020-10-11 12:25 | disposition home or self-care (01) ==
LOC: JERFT 10:09
PROC: 3E0233Z Introduction of Anti-inflammatory into Muscle, Percutaneous Approach (ICD-10-PCS; principal; 2020-10-11)
DX: M62.830 Muscle spasm of back (principal); S13.4XXA Sprain of ligaments of cervical spine, initial encounter
CPT/HCPCS: 72050-TC-FY; 72100-TC-FY; 99284-25

== ENCOUNTER 2020-11-23 17:42 | Emergency (ER) | payer OTHER ==
[2020-11-23 17:53] VITALS: BP 134/79; PULSE 94; TEMP 98.6; BMI 30.4
[2020-11-23] MEDS ORDERED: NAPROXEN 500 MG TABLET PO ONE (18:40)
[2020-11-23] MEDS ORDERED: NAPROXEN 500 MG TABLET ONE (18:41)
== END 2020-11-23 18:50 | disposition home or self-care (01) ==
LOC: JERFT 17:42
DX: S83.91XA Sprain of unspecified site of right knee, initial encounter (principal)
CPT/HCPCS: 73562-TC-RT-FY; 99283-25

== ENCOUNTER 2021-06-09 09:10 | Emergency (ER) | payer OTHER ==
[2021-06-09 09:20] VITALS: BMI 32.8
[2021-06-09] MEDS ORDERED: SODIUM CHLORIDE 1,000 ML IV STA (09:50)
[2021-06-09] MEDS ORDERED: DICYCLOMINE HCL 20 MG TABLET PO ONE ×2 (09:50→10:49)
[2021-06-09] MEDS ORDERED: ACETAMINOPHEN 1000 MG/100 ML VIAL IVPB ONE (09:50)
[2021-06-09] MEDS ORDERED: DICYCLOMINE HCL 10 MG CAPSULE ONE (10:16)
[2021-06-09] MEDS ORDERED: ACETAMINOPHEN INJECTION 100 ML IVPB ONE (10:16)
[2021-06-09 10:22] LABS: BASO % 0.4 % (0-2.0); EOS % 1.4 % (0-4.5); HEMATOCRIT 37.6 % (32.4-45.2); HEMOGLOBIN 12.8 GM/dL (10.7-15.3); LYMPH % 26.9 % (8-40); MCH 28.3 pg (25.7-33.7); MEAN CELL VOLUME 83.4 fl (80-96); MEAN PLT VOLUME 8.3 fl (7.5-11.1); MONO % 5.8 % (3.8-10.2); NEUT % 65.5 % (42.8-82.8); PLATELET COUNT 315 10^3/uL (134-434); RBC 4.51 M/mm3 (3.60-5.2); RDW 14.5 % (11.6-15.6); WHITE BLOOD COUNT 7.5 K/mm3 (4.0-10.0)
[2021-06-09 10:24] LABS: URINE APPEARANCE CLEAR; URINE BILIRUBIN NEGATIVE (NEGATIVE); URINE COLOR YELLOW; URINE GLUCOSE (UA) NEGATIVE (NEGATIVE); URINE KETONE NEGATIVE (NEGATIVE); URINE LEUK ESTERASE NEGATIVE (NEGATIVE); URINE NITRITE NEGATIVE (NEGATIVE); URINE PROTEIN NEGATIVE (NEGATIVE); URINE UROBILINOGEN 0.2 mg/dL (0.2-1.0)
[2021-06-09 10:26] LABS: HCG,QUALITATIVE URINE Negative
[2021-06-09 10:49] LABS: ALBUMIN 3.9 g/dl (3.4-5.0); BLOOD UREA NITROGEN 13.6 mg/dL (7-18); CALCIUM 9.9 mg/dL (8.5-10.1)
[2021-06-09 10:52] LABS: CREATININE 0.9 mg/dL (0.55-1.3)
[2021-06-09 10:54] LABS: BILIRUBIN,TOTAL 0.4 mg/dL (0.2-1); TOT PROT 8.1 g/dl (6.4-8.2)
[2021-06-09] MEDS ORDERED: KETOROLAC TROMETHAMINE 15 MG/ML VIAL IVPUSH ONE (14:57)
[2021-06-09] MEDS ORDERED: KETOROLAC TROMETHAMINE 15 MG/ML VIAL ONE (15:05)
[2021-06-09 15:31] VITALS: BP 110/68; PULSE 78; TEMP 98.5
== END 2021-06-09 15:31 | disposition home or self-care (01) ==
LOC: JER 09:10
PROC: 3E033NZ Introduction of Analgesics, Hypnotics, Sedatives into Peripheral Vein, Percutaneous Approach (ICD-10-PCS; principal; 2021-06-09)
PROC: 3E0337Z Introduction of Electrolytic and Water Balance Substance into Peripheral Vein, Percutaneous Approach (ICD-10-PCS; 2021-06-09)
PROC: 3E0333Z Introduction of Anti-inflammatory into Peripheral Vein, Percutaneous Approach (ICD-10-PCS; 2021-06-09)
DX: R10.32 Left lower quadrant pain (principal); K43.9 Ventral hernia without obstruction or gangrene
CPT/HCPCS: 36415; 74177-TC; 80053; 81003; 83690; 84703; 85025; 87086; 99285-25; J0131; Q9967

== ENCOUNTER 2021-07-27 11:28 | Emergency (ER) | payer OTHER ==
[2021-07-27 12:00] VITALS: BP 147/87; PULSE 87; TEMP 98.2; BMI 31.9
[2021-07-27] MEDS ORDERED: CLINDAMYCIN 600MG PREMIX IVPB 600 MG/50 ML BAG IVPB ONE ×2 (13:18→13:24)
[2021-07-27 14:55] LABS: BASO % 0.4 % (0-2.0); EOS % 0.6 % (0-4.5); HEMATOCRIT 37.4 % (32.4-45.2); HEMOGLOBIN 12.6 GM/dL (10.7-15.3); LYMPH % 32.5 % (8-40); MCH 28.2 pg (25.7-33.7); MCHC 33.6 g/dl (32.0-36.0); MEAN CELL VOLUME 83.8 fl (80-96); MONO % 4.4 % (3.8-10.2); NEUT % 62.1 % (42.8-82.8); PLATELET COUNT 270 10^3/uL (134-434); RBC 4.47 M/mm3 (3.60-5.2); RDW 14.5 % (11.6-15.6); WHITE BLOOD COUNT 10.2 K/mm3 (4.0-10.0)
[2021-07-27 15:19] LABS: ALBUMIN 3.7 g/dl (3.4-5.0); BLOOD UREA NITROGEN 11.2 mg/dL (7-18); CALCIUM 9.4 mg/dL (8.5-10.1)
[2021-07-27 15:22] LABS: CREATININE 0.8 mg/dL (0.55-1.3)
[2021-07-27 15:24] LABS: BILIRUBIN,TOTAL 0.3 mg/dL (0.2-1); TOT PROT 7.4 g/dl (6.4-8.2)
== END 2021-07-27 16:15 | disposition home or self-care (01) ==
LOC: JER 11:28
PROC: 3E033GC Introduction of Other Therapeutic Substance into Peripheral Vein, Percutaneous Approach (ICD-10-PCS; principal; 2021-07-27)
DX: L03.113 Cellulitis of right upper limb (principal)
CPT/HCPCS: 36415; 80053; 85025; 87040; 99284-25

== ENCOUNTER 2022-11-06 08:29 | Inpatient (IN) | payer OTHER ==
[2022-11-06] MEDS ORDERED: ACETAMINOPHEN 1000 MG/100 ML BAG IVPB ONE (10:47)
[2022-11-06] MEDS ORDERED: ONDANSETRON 4 MG/2 ML VIAL IVPUSH ONE (10:47)
[2022-11-06] MEDS ORDERED: LACTATED RINGERS SOLUTION 1,000 ML/1,000 ML INFUS.BAG IV SCH (11:00)
[2022-11-06] MEDS ORDERED: ONDANSETRON 4 MG/2 ML VIAL ONE (11:49)
[2022-11-06] MEDS ORDERED: ACETAMINOPHEN INJECTION 100 ML IVPB ONE (11:49)
[2022-11-06 12:38] LABS: HEMATOCRIT 36.1 % (32.4-45.2); HEMOGLOBIN 12.3 GM/dL (10.7-15.3); MCH 27.9 pg (25.7-33.7); MEAN CELL VOLUME 81.9 fl (80-96); MEAN PLT VOLUME 9.2 fl (7.5-11.1); PLATELET COUNT 261 10^3/uL (134-434); RBC 4.41 M/mm3 (3.60-5.2); RDW 16.7 % (11.6-15.6)
[2022-11-06 12:41] LABS: EPI CELLS >36 /uL (0-25.1); HYALINE CASTS 5 /uL (0-3.1); PH,URINE 6.5 (5.0-8.0); URINE APPEARANCE CLEAR; URINE BILIRUBIN NEGATIVE (NEGATIVE); URINE COLOR DK YELLOW; URINE GLUCOSE (UA) 2+ (NEGATIVE); URINE KETONE TRACE (NEGATIVE); URINE LEUK ESTERASE 1+ (NEGATIVE); URINE NITRITE POSITIVE (NEGATIVE); URINE PROTEIN 1+ (NEGATIVE); URINE WBC 36 /uL (0-25.8)
[2022-11-06 12:44] LABS: URINE RBC 22.8 /uL (0-23.9)
[2022-11-06 12:47] LABS: INR 1.1 (0.83-1.09); PROTHROMBIN TIME (PATIENT) 12.8 SEC (9.7-13.0)
[2022-11-06 12:50] LABS: ACTIVATED PTT 34.7 SECONDS (25.2-36.5)
[2022-11-06 12:57] LABS: CHLORIDE 104 mmol/L (98-107); SODIUM 143 mmol/L (136-145)
[2022-11-06 12:59] LABS: CALCIUM 9.1 mg/dL (8.5-10.1)
[2022-11-06 13:00] LABS: ALBUMIN 3.7 g/dl (3.4-5.0); BLOOD UREA NITROGEN 15.7 mg/dL (7-18); CO2 29 mmol/L (21-32); GLUCOSE,RANDOM 81 mg/dL (74-106); LIPASE 191 U/L (73-393)
[2022-11-06 13:02] LABS: CREATININE 1.1 mg/dL (0.55-1.3)
[2022-11-06 13:03] LABS: SGOT/AST 25 U/L (15-37); SGPT/ALT 36 U/L (13-61)
[2022-11-06 13:04] LABS: BILIRUBIN,TOTAL 0.4 mg/dL (0.2-1); TOT PROT 7.2 g/dl (6.4-8.2)
[2022-11-06 13:05] LABS: ALK PHOS 117 U/L (45-117)
[2022-11-06 13:26] LABS: ANION GAP 9 MMOL/L (8-16)
[2022-11-06] MEDS: POTASSIUM CHLORIDE ORAL LIQUID 20 MEQ/15 ML PO ONE ×2 (13:57→16:05)
[2022-11-06] MEDS: KCL 10 MEQ IVPB 10 MEQ/100 ML INFUS.BAG IVPB SCH ×4 (13:57→16:01)
[2022-11-06] MEDS ORDERED: KCL 10 MEQ IVPB 10 MEQ/100 ML INFUS.BAG IVPB ONE ×2 (14:00→16:45)
[2022-11-06] MEDS ORDERED: POTASSIUM CHLORIDE ORAL LIQUID 20 MEQ/15 ML ONE (14:00)
[2022-11-06 14:43] LABS: ANISOCYTOSIS 1+; MACROCYTOSIS 0; OVALOCYTE 1+
[2022-11-06 15:51] LABS: PHOSPHOROUS 3.6 mg/dL (2.5-4.9)
[2022-11-06] MEDS ORDERED: CEFTRIAXONE 1,000 MG in DEXTROSE 5%-WATER - 50 ML IVPB ONE (16:00)
[2022-11-06] MEDS ORDERED: POTASSIUM CHLORIDE TABS 20 MEQ TABLET.ER (FP) PO ONE ×2 (16:04→16:12)
[2022-11-06] MEDS ORDERED: HEPARIN NA (PORCINE) 5,000 UNITS/ML 1ML VIAL ONE (16:45)
[2022-11-06] MEDS ORDERED: CEFTRIAXONE 1 GM/50 ML BAG ONE (16:45)
[2022-11-06] MEDS ORDERED: KETOROLAC TROMETHAMINE 15 MG/ML VIAL IVPUSH ONE (19:23)
[2022-11-06] MEDS ORDERED: KETOROLAC TROMETHAMINE 15 MG/ML VIAL ONE (19:58)
[2022-11-06] MEDS ORDERED: DOCUSATE SODIUM 100 MG CAPSULE (FP) PO PRN (20:26)
[2022-11-06] MEDS ORDERED: ACETAMINOPHEN 325 MG TABLET (FP) PO PRN (20:26)
[2022-11-06] MEDS ORDERED: ACETAMINOPHEN 1000 MG/100 ML BAG IVPB PRN (20:31)
[2022-11-06] MEDS ORDERED: ONDANSETRON 4 MG/2 ML VIAL IVPUSH PRN (20:33)
[2022-11-06] MEDS ORDERED: METHIMAZOLE 10 MG TABLET PO SCH (23:30)
[2022-11-07] MEDS ORDERED: ONDANSETRON 4 MG/2 ML VIAL ONE (01:40)
[2022-11-07] MEDS ORDERED: KETOROLAC TROMETHAMINE 15 MG/ML VIAL IM PRN (02:00)
[2022-11-07] MEDS ORDERED: KETOROLAC TROMETHAMINE 15 MG/ML VIAL ONE (08:06)
[2022-11-07] MEDS: KETOROLAC TROMETHAMINE 15 MG/ML VIAL IVPUSH PRN ×2 (08:07→22:02)
[2022-11-07 08:32] LABS: BASO % 0.6 % (0-2.0); EOS % 1.6 % (0-4.5); LYMPH % 29.3 % (8-40); MCHC 34.3 g/dl (32.0-36.0); MEAN CELL VOLUME 81.6 fl (80-96); MEAN PLT VOLUME 9.1 fl (7.5-11.1); MONO % 5.2 % (3.8-10.2); NEUT % 63.3 % (42.8-82.8); PLATELET COUNT 224 10^3/uL (134-434); RBC 3.92 M/mm3 (3.60-5.2); RDW 16.8 % (11.6-15.6); WHITE BLOOD COUNT 5.4 K/mm3 (4.0-10.0)
[2022-11-07 08:49] LABS: CHLORIDE 107 mmol/L (98-107); SODIUM 140 mmol/L (136-145)
[2022-11-07 08:52] LABS: CALCIUM 8.2 mg/dL (8.5-10.1)
[2022-11-07 08:53] LABS: BLOOD UREA NITROGEN 11.6 mg/dL (7-18); CO2 27 mmol/L (21-32); GLUCOSE,RANDOM 73 mg/dL (74-106)
[2022-11-07 09:00] LABS: ANION GAP 6 MMOL/L (8-16)
[2022-11-07] MEDS ORDERED: NIFEdipine E.R. 30 MG TABLET PO ONE (09:25)
[2022-11-07] MEDS ORDERED: PANTOPRAZOLE 40 MG TABLET PO ONE (09:25)
[2022-11-07] MEDS ORDERED: propRANOLol HCL 10 MG TABLET ONE (09:25)
[2022-11-07] MEDS ORDERED: HEPARIN NA (PORCINE) 5,000 UNITS/ML 1ML VIAL ONE (09:25)
[2022-11-07] MEDS ORDERED: HYDROCHLOROTHIAZIDE 25 MG TABLET (FP) ONE (09:25)
[2022-11-07] MEDS ORDERED: CEFTRIAXONE 1 GM/50 ML BAG ONE (09:26)
[2022-11-07] MEDS: NIFEdipine E.R. 30 MG TABLET PO SCH (09:38)
[2022-11-07] MEDS: propRANOLol HCL 10 MG TABLET PO SCH ×2 (09:38→22:02)
[2022-11-07] MEDS: HEPARIN NA (PORCINE) 5,000 UNITS/ML 1ML VIAL SQ SCH ×2 (09:38→22:03)
[2022-11-07] MEDS: HYDROCHLOROTHIAZIDE 12.5 MG CAPSULE (FP) PO SCH (09:38)
[2022-11-07] MEDS: PANTOPRAZOLE 40 MG TABLET PO SCH (09:39)
[2022-11-07] MEDS: CEFTRIAXONE 1 GM in DEXTROSE 5%-WATER - 50 ML IVPB SCH (09:39)
[2022-11-07] MEDS ORDERED: DEXTROSE 5%-0.45% SALINE 1,000 ML IV SCH (10:00)
[2022-11-07] MEDS ORDERED: METHIMAZOLE 5 MG TABLET PO SCH ×2 (10:43→22:00)
[2022-11-07 11:15] VITALS: BMI 26.2
[2022-11-07] MEDS: KCL 10 MEQ IVPB 10 MEQ/100 ML INFUS.BAG IVPB SCH ×3 (11:36→13:44)
[2022-11-07] MEDS: RIFAXIMIN 550 MG TABLET PO SCH ×2 (14:26→22:03)
[2022-11-07] MEDS ORDERED: POTASSIUM CHLORIDE ORAL LIQUID 20 MEQ/15 ML PO SCH (16:45)
[2022-11-07] MEDS ORDERED: DEXTROSE 5%-0.45% SALINE 1,000 ML with POTASSIUM CHLORIDE 20 MEQ IV SCH (16:52)
[2022-11-07] MEDS: INSULIN SLIDING SCALE (NOVOLOG) 1 VIAL SQ SCH ×2 (17:00→22:04)
[2022-11-07] MEDS ORDERED: POTASSIUM CHLORIDE ORAL LIQUID 20 MEQ/15 ML PO ONE (18:48)
[2022-11-07] MEDS ORDERED: POTASSIUM CHLORIDE TABS 20 MEQ TABLET.ER (FP) PO SCH (19:00)
[2022-11-07] MEDS: ROSUVASTATIN CA 10 MG TABLET PO SCH (22:03)
[2022-11-07] MEDS: POLYETHYLENE GLYCOL (HEALTHYLAX) 3350 17 GM PACKET PO SCH (22:04)
[2022-11-08] MEDS: INSULIN SLIDING SCALE (NOVOLOG) 1 VIAL SQ SCH ×4 (06:29→23:24)
[2022-11-08] MEDS: RIFAXIMIN 550 MG TABLET PO SCH ×3 (06:29→22:00)
[2022-11-08 08:46] LABS: BASO % 0.4 % (0-2.0); EOS % 1.2 % (0-4.5); HEMATOCRIT 32.6 % (32.4-45.2); HEMOGLOBIN 11.5 GM/dL (10.7-15.3); MCH 29.8 pg (25.7-33.7); MCHC 35.3 g/dl (32.0-36.0); MEAN CELL VOLUME 84.4 fl (80-96); MEAN PLT VOLUME 9.1 fl (7.5-11.1); MONO % 4.6 % (3.8-10.2); NEUT % 68.8 % (42.8-82.8); PLATELET COUNT 224 10^3/uL (134-434); RBC 3.87 M/mm3 (3.60-5.2); RDW 16.3 % (11.6-15.6); WHITE BLOOD COUNT 5.5 K/mm3 (4.0-10.0)
[2022-11-08 08:59] LABS: ALBUMIN 3.2 g/dl (3.4-5.0); BLOOD UREA NITROGEN 12.7 mg/dL (7-18)
[2022-11-08 09:00] LABS: CALCIUM 8.4 mg/dL (8.5-10.1); MAGNESIUM 1.8 mg/dL (1.8-2.4)
[2022-11-08 09:04] LABS: BILIRUBIN,TOTAL 0.3 mg/dL (0.2-1); TOT PROT 6.4 g/dl (6.4-8.2)
[2022-11-08] MEDS: METHIMAZOLE 5 MG TABLET PO SCH ×2 (09:25→22:00)
[2022-11-08] MEDS: PANTOPRAZOLE 40 MG TABLET PO SCH (09:25)
[2022-11-08] MEDS: HEPARIN NA (PORCINE) 5,000 UNITS/ML 1ML VIAL SQ SCH ×2 (09:26→22:00)
[2022-11-08] MEDS: POLYETHYLENE GLYCOL (HEALTHYLAX) 3350 17 GM PACKET PO SCH ×3 (09:26→23:25)
[2022-11-08] MEDS: CEFTRIAXONE 1 GM in DEXTROSE 5%-WATER - 50 ML IVPB SCH (09:27)
[2022-11-08] MEDS: NIFEdipine E.R. 30 MG TABLET PO SCH (10:15)
[2022-11-08] MEDS: propRANOLol HCL 10 MG TABLET PO SCH ×2 (10:15→23:24)
[2022-11-08] MEDS: HYDROCHLOROTHIAZIDE 12.5 MG CAPSULE (FP) PO SCH (10:15)
[2022-11-08] MEDS: ACETAMINOPHEN 325 MG TABLET (FP) PO PRN (10:18)
[2022-11-08] MEDS ORDERED: POTASSIUM CHLORIDE ORAL LIQUID 20 MEQ/15 ML PO SCH (15:04)
[2022-11-08] MEDS: POTASSIUM CHLORIDE TABS 20 MEQ TABLET.ER (FP) PO SCH (17:49)
[2022-11-08] MEDS: ROSUVASTATIN CA 10 MG TABLET PO SCH (22:00)
[2022-11-09] MEDS: ACETAMINOPHEN 325 MG TABLET (FP) PO PRN ×2 (06:01→23:17)
[2022-11-09] MEDS: RIFAXIMIN 550 MG TABLET PO SCH ×3 (06:01→23:00)
[2022-11-09] MEDS: INSULIN SLIDING SCALE (NOVOLOG) 1 VIAL SQ SCH ×4 (06:04→23:00)
[2022-11-09 09:31] LABS: BASO % 0.3 % (0-2.0); EOS % 1.9 % (0-4.5); HEMATOCRIT 31.6 % (32.4-45.2); HEMOGLOBIN 10.8 GM/dL (10.7-15.3); LYMPH % 22.2 % (8-40); MCHC 34.2 g/dl (32.0-36.0); MEAN CELL VOLUME 81.8 fl (80-96); MEAN PLT VOLUME 9.3 fl (7.5-11.1); MONO % 5.1 % (3.8-10.2); NEUT % 70.5 % (42.8-82.8); PLATELET COUNT 217 10^3/uL (134-434); RBC 3.86 M/mm3 (3.60-5.2); RDW 16.5 % (11.6-15.6); WHITE BLOOD COUNT 5.5 K/mm3 (4.0-10.0)
[2022-11-09] MEDS: HEPARIN NA (PORCINE) 5,000 UNITS/ML 1ML VIAL SQ SCH ×2 (09:44→23:15)
[2022-11-09] MEDS: PANTOPRAZOLE 40 MG TABLET PO SCH (09:49)
[2022-11-09] MEDS: METHIMAZOLE 5 MG TABLET PO SCH ×2 (09:49→23:00)
[2022-11-09] MEDS: POTASSIUM CHLORIDE TABS 20 MEQ TABLET.ER (FP) PO SCH (09:49)
[2022-11-09 09:50] LABS: CALCIUM 8.2 mg/dL (8.5-10.1)
[2022-11-09] MEDS: POLYETHYLENE GLYCOL (HEALTHYLAX) 3350 17 GM PACKET PO SCH ×3 (09:50→23:00)
[2022-11-09 09:52] LABS: CREATININE 0.9 mg/dL (0.55-1.3)
[2022-11-09 09:54] LABS: TOT PROT 6.1 g/dl (6.4-8.2)
[2022-11-09 09:56] LABS: BILIRUBIN,TOTAL 0.3 mg/dL (0.2-1)
[2022-11-09 10:00] LABS: BLOOD UREA NITROGEN 9.8 mg/dL (7-18)
[2022-11-09] MEDS: propRANOLol HCL 10 MG TABLET PO SCH ×2 (10:57→23:15)
[2022-11-09] MEDS: NIFEdipine E.R. 30 MG TABLET PO SCH (10:57)
[2022-11-09] MEDS ORDERED: ACETAMINOPHEN/CAFFEINE/BUTALBITAL 1 TAB PO ONE (12:30)
[2022-11-09] MEDS ORDERED: traMADol HCL 50 MG TABLET PO ONE ×2 (20:57→23:15)
[2022-11-09] MEDS: ROSUVASTATIN CA 10 MG TABLET PO SCH (23:00)
[2022-11-10 03:17] VITALS: RESP 18
[2022-11-10] MEDS: ACETAMINOPHEN 325 MG TABLET (FP) PO PRN (06:38)
[2022-11-10] MEDS: RIFAXIMIN 550 MG TABLET PO SCH ×2 (06:38→13:38)
[2022-11-10] MEDS: INSULIN SLIDING SCALE (NOVOLOG) 1 VIAL SQ SCH ×3 (06:39→17:45)
[2022-11-10 09:21] LABS: BASO % 0.6 % (0-2.0); EOS % 2.6 % (0-4.5); HEMATOCRIT 33.5 % (32.4-45.2); HEMOGLOBIN 11.4 GM/dL (10.7-15.3); LYMPH % 40.5 % (8-40); MCH 27.7 pg (25.7-33.7); MEAN CELL VOLUME 81.6 fl (80-96); MEAN PLT VOLUME 9.3 fl (7.5-11.1); NEUT % 51.3 % (42.8-82.8); PLATELET COUNT 259 10^3/uL (134-434); RDW 16.9 % (11.6-15.6); WHITE BLOOD COUNT 5.4 K/mm3 (4.0-10.0)
[2022-11-10 10:01] LABS: CALCIUM 8.5 mg/dL (8.5-10.1)
[2022-11-10 10:02] LABS: ALBUMIN 3.2 g/dl (3.4-5.0); BLOOD UREA NITROGEN 7.1 mg/dL (7-18)
[2022-11-10] MEDS: POLYETHYLENE GLYCOL (HEALTHYLAX) 3350 17 GM PACKET PO SCH (10:04)
[2022-11-10 10:05] LABS: CREATININE 0.8 mg/dL (0.55-1.3)
[2022-11-10] MEDS: NIFEdipine E.R. 30 MG TABLET PO SCH (10:05)
[2022-11-10 10:06] LABS: TOT PROT 6.5 g/dl (6.4-8.2)
[2022-11-10 10:07] LABS: BILIRUBIN,TOTAL 0.2 mg/dL (0.2-1)
[2022-11-10] MEDS: PANTOPRAZOLE 40 MG TABLET PO SCH (10:07)
[2022-11-10] MEDS: POTASSIUM CHLORIDE TABS 20 MEQ TABLET.ER (FP) PO SCH (10:07)
[2022-11-10] MEDS: METHIMAZOLE 5 MG TABLET PO SCH (10:07)
[2022-11-10] MEDS: HEPARIN NA (PORCINE) 5,000 UNITS/ML 1ML VIAL SQ SCH (10:07)
[2022-11-10] MEDS: propRANOLol HCL 10 MG TABLET PO SCH (10:07)
[2022-11-10 14:40] VITALS: BP 123/74; PULSE 63; TEMP 98
[2022-11-14 19:07] LABS: PROTEIN S, FREE 66 % (61-136)
[2022-11-14 20:08] LABS: DRVVT - 32.6 sec (0.0-47.0); HEXAGONAL PHASE PHOSPHOLIPID 5 sec (0-11)
== END 2022-11-10 18:18 | disposition home or self-care (01) | DRG 394 ==
LOC: JER 08:29 → JERBED 16:28 → J6S 11-07 10:12
PROVIDERS: ADMIT Internal Medicine; ATTEND Internal Medicine
DX: K63.89 Other specified diseases of intestine (principal); K55.9 Vascular disorder of intestine, unspecified; K59.00 Constipation, unspecified; E11.9 Type 2 diabetes mellitus without complications; I10 Essential (primary) hypertension; E78.5 Hyperlipidemia, unspecified; F17.210 Nicotine dependence, cigarettes, uncomplicated; E87.6 Hypokalemia
CPT/HCPCS: 0241U-QW; 36415; 74177-TC; 80048; 80053; 81003; 81240; 81241; 82962; 83605; 83690; 83735; 84100; 85025; 85303; 85305; 85306; 85610; 85613; 85730; 85732; 87086; 93005; 93010; 99285-25; J1644; Q9967